=== PATIENT | female | born 1995 | race Caucasian/White ===

== ENCOUNTER 2020-08-09 08:18 | Outpatient (REF) | payer MEDICAID, SELFPAY | END 2020-08-09 08:19 | disposition home or self-care (01) | LOC: HO.LAB 08:18 | PROVIDERS: Visit Provider Internal Medicine | DX: Z20.828 Contact with and (suspected) exposure to other viral communicable diseases (principal) | CPT/HCPCS: 36415; 87635 ==

== ENCOUNTER 2020-12-29 13:00 | Outpatient (REF) | payer MEDICAID, SELFPAY | END 2020-12-29 13:01 | disposition home or self-care (01) | LOC: HO.LAB 13:00 | PROVIDERS: Visit Provider Internal Medicine | DX: Z20.822 Contact with and (suspected) exposure to COVID-19 (principal) | CPT/HCPCS: 36415; C9803; U0003; U0005 ==

== ENCOUNTER 2021-01-07 21:04 | Emergency (ER) | payer MEDICAID, SELFPAY ==
[2021-01-07 21:16] VITALS: BP 112/65; PULSE 82; RESP 16; TEMP 37.3; O2SAT 100; BMI 18.8
--- NOTE | 2021-01-07 22:15 | ED.GENADULT ---
HPI - General Adult General Chief complaint: Ear Problems Stated complaint: Earache Time Seen by Provider: 01/07/21 21:55 Source: patient Mode of arrival: ambulatory Limitations: no limitations History of Present Illness HPI narrative: 25-year-old female who presents emergency department for evaluation of headache, nausea and right ear pain. The patient states she has a history of migraine headaches. She states that she has been getting intermittent headaches over the past month. She states that this morning she woke up with a migraine headache. She states the pain is located on the right side of her head and the pain is a constant, throbbing sensation. The pain is 9/10 at its worst. She states she is feeling weak. She denied fever, chills. She states she does have associated nausea. She states that she has been getting intermittent nausea over the past month, she states that over last for about 3 days and then resolve for 1 day and then come back. The patient states that her menstrual periods are irregular and she has not had a menstrual period in several months. She is sexually active but she does not believe that she is . Patient states he has also been having right ear pain for 1 month. She states the pain is a constant, sharp, stabbing pain which is worse if she pushes on her ear. She states that there is a slight discharge coming from here as well. She denies any decreased hearing. She states she had a similar ear pain 1 year prior and was treated with ear drops. Related Data Previous Rx's Medication Instructions Recorded metoclopramide HCl [Reglan] 10 mg PO Q6H PRN #14 tab 01/08/21 metoclopramide HCl [Reglan] 10 mg PO Q6H PRN #20 tab 01/08/21 [id number]-[id number]-VX 4 drp OTIC (EAR) RIGHT QID 10 Days 01/08/21 ml ffytdvqg-copuztpxi-TM 4 drp OTIC (EAR) RIGHT QID 10 Days 01/08/21 #10 ml Allergies Allergy/AdvReac Type Severity Reaction Status Date / Time No Known Allergies Allergy Verified 01/07/21 21:21 Review of Systems Review of Systems: Yes all other systems are reviewed and are negative PMFSH Past [facility] History [facility] Narrative: Patient has a history of migraine headaches, irregular menstrual and otitis externa. She denies tobacco, alcohol and drug use. Medical History (Updated 01/08/21 @ 00:18 by Kingston Meyer MD) Asthma Seizures Social History Social History Alcohol intake: never Smoked in Last 30 Days: No Any prior treatment program specific to substance use: No Advance Directives: No Advance Directives Information Provided: Yes Physical Exam Vital Signs: Vital Signs: Last Vital Signs Temp 99.1 F 01/07/21 21:16 Pulse 82 01/07/21 21:16 Resp 16 01/07/21 21:16 BP 112/65 01/07/21 21:16 Pulse Ox 100 01/07/21 21:16 Body Mass Index 18.8 Const: General: cooperative and healthy appearing Nutritional Appearance: thin Orientation/consciousness: oriented to person and oriented to place Limitations: no limitations HENMT: Head: Yes normal to inspection, Yes normocephalic and Yes atraumatic Ears: TM's normal bilaterally and Abnormal EAC present EAC tenderness on the right (Moderate); no cerumen impaction and no erythema General nose exam: Normal external nose present Face and sinus: Yes normal facial exam Mouth: Normal oral and palatal mucosa present Throat: Yes posterior oropharynx normal Eyes: Periorbital: periorbital findings normal Eyelids: Yes eyelids normal Conjunctivae: conjunctivae normal Sclerae: sclerae normal Corneas: corneas normal Pupils: Equal, round and reactive pupils present Direct Ophthalmoscopy: normal light reflex Neck: Neck: Yes full ROM, Yes no lymphadenopathy, Yes no meningeal signs, Yes trachea midline and Yes supple Chest: Chest palpation & inspection: normal inspection of the chest and normal palpation of entire chest wall Resp: Effort & Inspection: normal respiratory effort and able to speak in complete sentences Auscultation: clear to auscultation bilaterally Cardio: Rate: regular rate Rhythm: regular rhythm Heart sounds: S1 normal heart sound present, S2 normal heart sound present and no murmurs GI: Inspection: Yes normal to inspection Palpation (GI): Soft to palpation, nontender, no guarding, not rigid and No hepatosplenomegaly present : General: Yes no CVA tenderness Back/Spine/Pelvis: Back: no CVA tenderness Cervical Spine: normal cervical lordosis Thoracic/Lumbar Spine: thoracic and lumbar spine normal to inspection Skin: Lesions: no lesions Rashes: no rashes Wounds: no wounds Neuro: General: oriented to person, oriented to place and no meningeal signs Cranial nerves: Yes CN's II-XII intact bilaterally and Yes Equal, round and reactive pupils present Cognition (Neuro): normal cognition Motor exam (neuro): 5/5 motor strength present throughout Extrem: General: Yes normal to inspection and Yes full ROM Psych: Appearance: well kempt Mental Status: mental status grossly normal Speech and movement: Normal speech and movement present Affect: normal affect Attitude: cooperative Thought process: Normal thought process present Thought content: Normal thought content present Course Course Course Narrative: 25-year-old female who presents emergency department for evaluation of headache, nausea and right ear pain. Patient's physical examination is consistent with a right otitis externa. Her headache is most likely secondary to her migraine syndrome. She does have irregular menstrual periods and I will check a urine test on her. The patient's migraine headache was treated with Reglan 10 mg orally, Benadryl 50 mg orally and Tylenol 975 mg orally. 0010: The patient's urine test was positive. The patient's quantitative beta HCG was only 63. I did discuss this with the patient, is possible that she may be very early on in her . The patient will need a repeat quantitative beta-hCG in 1-2 weeks but I told her she should assume that she is . We were unable to give her oral Reglan the patient is feeling better and I will prescribe her regular and for her headache, nausea and vomiting. The patient does have a right ear infection and I will treat this with Cortisporin drops, 4 times a day for 7 days. Medical Decision Making Lab Data Labs: Lab Results 01/07/21 01/07/21 Range/Units 22:23 23:22 Beta HCG, Quant 63 mIU/mL Urine Test POSITIVE H (NEGATIVE) Discharge Plan Discharge Clinical Impression: Otitis externa Qualifiers: Otitis externa type: unspecified type Chronicity: acute Laterality: right Qualified Code(s): H60.501 - Unspecified acute noninfective otitis externa, right ear Qualifiers: Weeks of gestation: less than 8 weeks Qualified Code(s): Z3A.01 - Less than 8 weeks gestation of Headache, migraine Qualifiers: Migraine type: without aura Status migrainosus presence: without status migrainosus Intractability: not intractable Qualified Code(s): G43.009 - Migraine without aura, not intractable, without status migrainosus Patient Disposition: Home, Self-Care Instructions: Otitis Externa (ED), Migraine Headache (ED), First Trimester (ED) Additional Instructions: Your right ear is infected, you have an external ear infection. Apply Cortisporin drops, 4 drops to the right ear canal, 4 times a day for 10 days. For headache and nausea take the following medications every 6 hours as needed: Extra-strength Tylenol 2 tablets orally Reglan (metoclopramide) 10 mg orally Your urine test was positive. Your blood test (quantitative beta hCG) was 63. This is a very low number and this could mean that you are very early in your or this could mean that you just have a low level of beta hCG in your blood and you are not . In order to figure this out, your doctor or the on-call ENERGY MANAGEMENT SPECIALIST needs to repeat your quantitative beta HCG blood test in 1-2 weeks to see if this number is going up. Until you get this repeat blood test you should assume that you are . Follow the 1st trimester instructions. Follow-up with your doctor in 2 days. Please return to the emergency department if your symptoms get worse or if you develop any symptoms that are concerning to you. Prescriptions: New metoclopramide HCl [Reglan] 10 mg tablet 10 mg PO Q6H PRN (Reason: nausea and vomiting) Qty: 14 RF: 0 tzileqvt-mpxovkyeb-LY 3.5-10,000-1 mg/mL-unit/mL-% drops,suspension 4 drp otic (ear) right QID 10 Days RF: 0 metoclopramide HCl [Reglan] 10 mg tablet 10 mg PO Q6H PRN (Reason: nausea and vomiting) Qty: 20 RF: 0 loodtkzs-jouwcckni-FM 3.5-10,000-1 mg/mL-unit/mL-% drops,suspension 4 drp otic (ear) right QID 10 Days Qty: 10 RF: 0
[2021-01-07 22:33] LABS: UPreg QC Valid YES; Urine Pregnancy POSITIVE (NEGATIVE)
[2021-01-07] MEDS: Acetaminophen 325 MG TABLET 975 MG PO (22:48)
[2021-01-07] MEDS: diphenhydrAMINE HCL 25 MG TABLET 50 MG PO (22:48)
[2021-01-07 23:52] LABS: HCG Quantitative 63 mIU/mL
== END 2021-01-08 00:46 | disposition home or self-care (01) ==
PROVIDERS: Emergency Provider Emergency Medicine Emergency Medical Services
DX: O26.891 Other specified pregnancy related conditions, first trimester (principal); H60.501 Unspecified acute noninfective otitis externa, right ear; G43.009 Migraine without aura, not intractable, without status migrainosus; Z3A.01 Less than 8 weeks gestation of pregnancy
CPT/HCPCS: 36415; 81025; 84702; 99283; Q0163

== ENCOUNTER 2021-02-04 20:51 | Emergency (ER) | payer MEDICAID, SELFPAY ==
--- NOTE | ~2021-02-04 | US_ITS ---
EXAMINATION: ULTRASOUND PELVIC, COMPLETE CLINICAL INFORMATION: Status post chemical . Pain. Bleeding. COMPARISON: None. TECHNIQUE: Transabdominal and transvaginal imaging was performed. Transvaginal imaging was performed for further evaluation of the endometrium and adnexa. FINDINGS: The uterus is of normal size and echogenicity measuring 10.7 x 4.2 x 5.3 cm. There is no demonstrable intrauterine gestational sac. Within the mid and upper body, the endometrium is of normal size and echogenicity measuring 6 mm. Within the lower uterine segment extending into the cervix, there is an area of heterogeneous soft tissue without increased vascularity. Both ovaries are of normal size and echogenicity. The right measures 4.8 x 3.0 x 3.4 cm for a volume of 25.7 mL. This measurement includes an approximately 2.4 cm likely corpus luteum. The left measures 4.3 x 2.1 x 2.4 cm for a volume of 11.1 mL. There is a small amount of pelvic free fluid. US/US OB transvaginal IMPRESSION: Mixed echogenicity soft tissue within the lower uterine segment extending into the upper cervix which could correspond to passing products of conception. There is no increased vascularity at this location. The remainder of the endometrium is unremarkable. No intrauterine gestational sac is identified.
--- NOTE | ~2021-02-04 | US_ITS ---
EXAMINATION: ULTRASOUND PELVIC, COMPLETE CLINICAL INFORMATION: Status post chemical . Pain. Bleeding. COMPARISON: None. TECHNIQUE: Transabdominal and transvaginal imaging was performed. Transvaginal imaging was performed for further evaluation of the endometrium and adnexa. FINDINGS: The uterus is of normal size and echogenicity measuring 10.7 x 4.2 x 5.3 cm. There is no demonstrable intrauterine gestational sac. Within the mid and upper body, the endometrium is of normal size and echogenicity measuring 6 mm. Within the lower uterine segment extending into the cervix, there is an area of heterogeneous soft tissue without increased vascularity. Both ovaries are of normal size and echogenicity. The right measures 4.8 x 3.0 x 3.4 cm for a volume of 25.7 mL. This measurement includes an approximately 2.4 cm likely corpus luteum. The left measures 4.3 x 2.1 x 2.4 cm for a volume of 11.1 mL. There is a small amount of pelvic free fluid. US/US OB <= 14 weeks fetus IMPRESSION: Mixed echogenicity soft tissue within the lower uterine segment extending into the upper cervix which could correspond to passing products of conception. There is no increased vascularity at this location. The remainder of the endometrium is unremarkable. No intrauterine gestational sac is identified.
[2021-02-04 20:54] VITALS: BP 131/65; PULSE 79; RESP 16; TEMP 37.2; O2SAT 99; BMI 18.8
--- NOTE | 2021-02-04 22:06 | ED_ITS ---
HPI - General Chief complaint: Vaginal Bleeding Stated complaint: Vaginal bleeding/?8 Weeks preg Time Seen by Provider: 02/04/21 22:02 Source: patient Mode of arrival: ambulatory Limitations: no limitations History of Present Illness HPI Narrative: Patient comes emergency room complaining of abdominal cramping. Patient states this morning [facility] . Patient states she is approximately 8 to 10 weeks of gestational age. Patient is a . Patient states that she has mild vaginal bleeding, intense abdominal cramping. MD Complaint: abdominal pain Related Data Previous Rx's Medication Instructions Recorded metoclopramide HCl [Reglan] 10 mg PO Q6H PRN #14 tab 01/08/21 metoclopramide HCl [Reglan] 10 mg PO Q6H PRN #20 tab 01/08/21 [id number]-uyzsdqdmy-KZ 4 drp OTIC (EAR) RIGHT QID 10 Days 01/08/21 ml usaqxudx-wqwsxrzgq-HA 4 drp OTIC (EAR) RIGHT QID 10 Days 01/08/21 #10 ml nitrofurantoin monohyd/m-cryst 100 mg PO Q12H 7 Days #14 cap 02/05/21 [Macrobid] Allergies Allergy/AdvReac Type Severity Reaction Status Date / Time No Known Allergies Allergy Verified 01/07/21 21:21 Review of Systems Review of Systems: Constitutional : No Weight loss, No Fever, No Chills, No Night Sweats, No Fatigue, No Malaise ENT/Mouth : No Hearing loss, No Ear Pain, No Nasal Congestion, No Sinus Pain, No Hoarseness, No sore throat, No Rhinorrhea, No Swallowing Difficulty Eyes: No Eye Pain, No Swelling, No Redness, No Foreign Body, No Discharge, No Vision Changes Cardiovascular : No Chest Pain, No SOB, No Dyspnea on Exertion, No Orthopnea, No Edema, No Palpitations Respiratory : No Cough, No Sputum, No Wheezing, No Smoke Exposure, No Dyspnea Gastrointestinal : No Nausea, No Vomiting, No Diarrhea, No Constipation, compla ining of suprapubic cramping, No Hematochezia, No Melena Genitourinary : Currently bleeding and cramping after taking a medical pill, No Flank Pain, No Urinary Flow Changes, No Hesitancy Musculoskeletal : No joint pain, No Myalgias, No Joint Swelling Skin : No Skin Lesions, No rash Neuro : No Weakness, No Numbness, No Paresthesias, No Loss of Consciousness, No Dizziness, No Headache Psych : No Anxiety/Panic, No Depression, No SI/HI/AH/VH, No Social Issues, Heme/Lymph: No Bruising, No Bleeding,No Lymphadenopathy Endocrine : No Polyuria, No Polydipsia, No Temperature Intolerance [facility] Past Medical History Medical History Asthma Seizures Social History Social History Alcohol intake: unknown Smoking Status: Unknown if ever smoked Use of substances other than those prescribed or required for medical reasons: Unknown Advance Directives: No Advance Directives Information Provided: Yes Physical Exam Vital Signs: Vital Signs: Last Vital Signs Temp 98.9 F 02/04/21 20:54 Pulse 72 02/05/21 00:00 Resp 15 02/05/21 00:00 BP 100/57 L 02/05/21 00:00 Pulse Ox 98 02/05/21 00:00 Body Mass Index 18.8 Appearance: Alert. Oriented X3. No acute distress. Eyes: Pupils equal, round and reactive to light. ENT: Pharynx normal. Neck: Normal inspection. Neck supple. No lymph nodes noted. No crepitus CVS: Normal heart rate and rhythm. Pulses normal. Normal S1 and S2 Respiratory: No respiratory distress. Breath sounds normal. No Wheezing. No rales Abdomen: Soft, mild discomfort to palpation over the suprapubic area. No rigidity. No distention. : Cervical os open, moderate amount of tissue removed from the cervical os, no active bleeding Skin: Skin warm and dry. Normal skin color. Normal skin turgor. Extremities: No lower extremity edema. No lower extremity edema. No Lacerations. No Rash Neuro: Oriented X 3. No motor deficit. No sensory deficit. Moving all extermities. No slurred speech. MDM - OB/Uterine Contractions Lab Data Result diagrams: 02/04/21 22:35 02/04/21 22:35 Labs: Lab Results 02/04/21 02/04/21 02/04/21 Range/Units 22:35 22:35 22:35 WBC 5.9 (4.8-10.8) X10*3/uL RBC 3.97 L (4.20-5.50) X10*6/uL Hgb 11.6 L (12.0-16.0) g/dl Hct 35.8 L (37-47) % MCV 90.2 (80-98) fL MCH 29.2 (27.0-33.0) pg MCHC 32.4 (31.0-35.0) g/dl RDW 13.2 (11.0-16.0) % Plt Count 247 (160-400) X10*3/uL MPV 9.9 (9.4-12.3) fL Immature Gran % (Auto) 0.2 (0.0-0.4) % Neut % (Auto) 59.1 (45-73) % Lymph % (Auto) 29.1 (20-40) % [place] % (Auto) 10.4 (2-11) % Eos % (Auto) 0.5 (0-4) % Baso % (Auto) 0.7 (0-2) % Lymph # (Auto) 1.7 (1.2-4.9) X10*3/uL [place] # (Auto) 0.6 (0.1-1.2) X10*3/uL Eos # (Auto) 0.0 (0.0-0.4) X10*3/uL Baso # (Auto) 0.0 (0.0-0.2) X10*3/uL Abs Immat Gran (auto) 0.01 (0.00-0.03) X10*3/uL Absolute Neuts (auto) 3.5 (2.0-8.3) X10*3/uL Absolute Nucleated RBC 0.000 (0.0-0.012) X10*3/uL Nucleated RBC % (auto) 0.0 (0.0-0.2) /100WBC Sodium 136 (135-145) mmol/L Potassium 4.1 (3.3-5.1) mmol/L Chloride 102 (96-108) mmol/L Carbon Dioxide 26 (22-29) mmol/L Anion Gap 12 (12-20) BUN 10 (9-16) mg/dL Creatinine 0.72 (0.5-1.4) mg/dL Estim Creat Clear Calc 87.0 Estimated GFR > 60 Random Glucose 82 (60-115) mg/dL Calcium 8.8 (8.4-10.2) mg/dL Total Bilirubin 0.5 (0.0-1.0) mg/dL Direct Bilirubin 0.2 (0.0-0.5) mg/dL AST 17 (5-31) U/L ALT 11 (0-31) U/L Alkaline Phosphatase 57 (39-117) U/L Total Protein 7.0 (6.5-8.0) g/dL Albumin 4.3 (3.5-5.0) g/dL Beta HCG, Quant 70385 mIU/mL Urine Color RED Urine Appearance TURBID Urine pH 6.5 (5.0-8.0) Ur Specific [place] 1.025 (1.005-1.025) Urine Protein 3+ H (NEG-TRACE) MG/DL Urine Glucose (UA) 100 H (NEG) MG/DL Urine Ketones 15 (NEG) MG/DL Urine Blood 3+ H (NEG) Urine Nitrite POS H (NEG) Ur Leukocyte Esterase 1+ H (NEG) Urine RBC TNTC H (0) /HPF Urine WBC 1-4 (0-4) /HPF Ur Squamous Epith Cells 1+ /LPF Urine Bacteria TRACE /LPF Blood Type 02/04/21 Range/Units 22:35 WBC (4.8-10.8) X10*3/uL RBC (4.20-5.50) X10*6/uL Hgb (12.0-16.0) g/dl Hct (37-47) % MCV (80-98) fL MCH (27.0-33.0) pg MCHC (31.0-35.0) g/dl RDW (11.0-16.0) % Plt Count (160-400) X10*3/uL MPV (9.4-12.3) fL Immature Gran % (Auto) (0.0-0.4) % Neut % (Auto) (45-73) % Lymph % (Auto) (20-40) % [place] % (Auto) (2-11) % Eos % (Auto) (0-4) % Baso % (Auto) (0-2) % Lymph # (Auto) (1.2-4.9) X10*3/uL [place] # (Auto) (0.1-1.2) X10*3/uL Eos # (Auto) (0.0-0.4) X10*3/uL Baso # (Auto) (0.0-0.2) X10*3/uL Abs Immat Gran (auto) (0.00-0.03) X10*3/uL Absolute Neuts (auto) (2.0-8.3) X10*3/uL Absolute Nucleated RBC (0.0-0.012) X10*3/uL Nucleated RBC % (auto) (0.0-0.2) /100WBC Sodium (135-145) mmol/L Potassium (3.3-5.1) mmol/L Chloride (96-108) mmol/L Carbon Dioxide (22-29) mmol/L Anion Gap (12-20) BUN (9-16) mg/dL Creatinine (0.5-1.4) mg/dL Estim Creat Clear Calc Estimated GFR Random Glucose (60-115) mg/dL Calcium (8.4-10.2) mg/dL Total Bilirubin (0.0-1.0) mg/dL Direct Bilirubin (0.0-0.5) mg/dL AST (5-31) U/L ALT (0-31) U/L Alkaline Phosphatase (39-117) U/L Total Protein (6.5-8.0) g/dL Albumin (3.5-5.0) g/dL Beta HCG, Quant mIU/mL Urine Color Urine Appearance Urine pH (5.0-8.0) Ur Specific [place] (1.005-1.025) Urine Protein (NEG-TRACE) MG/DL Urine Glucose (UA) (NEG) MG/DL Urine Ketones (NEG) MG/DL Urine Blood (NEG) Urine Nitrite (NEG) Ur Leukocyte Esterase (NEG) Urine RBC (0) /HPF Urine WBC (0-4) /HPF Ur Squamous Epith Cells /LPF Urine Bacteria /LPF Blood Type A Positive Imaging Data US - abdomen: Radiologist's impression: The uterus is of normal size and echogenicity measuring 10.7 x 4.2 x 5.3 cm. There is no demonstrable intrauterine gestational sac. Within the mid and upper body, the endometrium is of normal size and echogenicity measuring 6 mm. Within the lower uterine segment extending into the cervix, there is an area of heterogeneous soft tissue without increased vascularity. Both ovaries are of normal size and echogenicity. The right measures 4.8 x 3.0 x 3.4 cm for a volume of 25.7 mL. This measurement includes an approximately 2.4 cm likely corpus luteum. The left measures 4.3 x 2.1 x 2.4 cm for a volume of 11.1 mL. There is a small amount of pelvic free fluid. US/US OB transvaginal IMPRESSION: Mixed echogenicity soft tissue within the lower uterine segment extending into the upper cervix which could correspond to passing products of conception. There is no increased vascularity at this location. The remainder of the endometrium is unremarkable. No intrauterine gestational sac is identified. Discharge Plan Discharge Clinical Impression: Medical UTI (urinary tract infection) Qualifiers: Urinary tract infection type: site unspecified Hematuria presence: without hematuria Qualified Code(s): N39.0 - Urinary tract infection, site not specified Patient Disposition: Home, Self-Care Instructions: Urinary Tract Infection in Women (ED) Additional Instructions: You may alternate ibuprofen and Tylenol for the abdominal cramping. Please follow-up with your primary care physician and your OBGYN. If you have any fever, chills, significant vaginal bleeding, please return to the emergency room. Prescriptions: New nitrofurantoin monohyd/m-cryst [Macrobid] 100 mg capsule 100 mg PO Q12H 7 Days Qty: 14 RF: 0 No Action metoclopramide HCl [Reglan] 10 mg tablet 10 mg PO Q6H PRN (Reason: nausea and vomiting) Qty: 14 RF: 0 pjfnargq-pofstlfll-PA 3.5-10,000-1 mg/mL-unit/mL-% drops,suspension 4 drp otic (ear) right QID 10 Days RF: 0 metoclopramide HCl [Reglan] 10 mg tablet 10 mg PO Q6H PRN (Reason: nausea and vomiting) Qty: 20 RF: 0 uixzdopv-hxeyfxuqq-JA 3.5-10,000-1 mg/mL-unit/mL-% drops,suspension 4 drp otic (ear) right QID 10 Days Qty: 10 RF: 0 Referrals: Scot Hernandez MD [Physician] - 2 days
[2021-02-04] MEDS: Ketorolac Tromethamine 60 MG/2 ML VIAL IM (22:44)
[2021-02-04 22:56] LABS: Basophils Percent Auto 0.7 % (0-2); Eosinophils Percent Auto 0.5 % (0-4); Hematocrit 35.8 % (37-47); Hemoglobin 11.6 g/dl (12.0-16.0); Imm Gran Abs Auto 0.01 X10*3/uL (0.00-0.03); Imm Gran Pct Auto 0.2 % (0.0-0.4); Lymphocytes Absolute Auto 1.7 X10*3/uL (1.2-4.9); Lymphocytes Percent Auto 29.1 % (20-40); MANUAL DIFF FLAG NO; Mean Corpuscular HGB Conc 32.4 g/dl (31.0-35.0); Mean Corpuscular Hemoglobin 29.2 pg (27.0-33.0); Mean Corpuscular Volume 90.2 fL (80-98); Mean Platelet Volume 9.9 fL (9.4-12.3); Monocytes Absolute Auto 0.6 X10*3/uL (0.1-1.2); Monocytes Percent Auto 10.4 % (2-11); Neutrophils Absolute Auto 3.5 X10*3/uL (2.0-8.3); Neutrophils Percent Auto 59.1 % (45-73); Platelet Count 247 X10*3/uL (160-400); Red Blood Count 3.97 X10*6/uL (4.20-5.50); Red Cell Distribution Width 13.2 % (11.0-16.0); White Blood Count 5.9 X10*3/uL (4.8-10.8)
[2021-02-04 23:23] LABS: Alanine Aminotransferase 11 U/L (0-31); Albumin Level 4.3 g/dL (3.5-5.0); Alkaline Phosphatase 57 U/L (39-117); Anion Gap 12 (12-20); Aspartate Amino Transferase 17 U/L (5-31); Bilirubin Direct 0.2 mg/dL (0.0-0.5); Bilirubin Total 0.5 mg/dL (0.0-1.0); Blood Urea Nitrogen 10 mg/dL (9-16); Calcium 8.8 mg/dL (8.4-10.2); Carbon Dioxide 26 mmol/L (22-29); Chloride 102 mmol/L (96-108); Estimated Glomerular Filt Rate > 60; Glucose Random 82 mg/dL (60-115); Potassium 4.1 mmol/L (3.3-5.1); Sodium 136 mmol/L (135-145)
[2021-02-04 23:29] LABS: Glucose Urine UA 100 MG/DL (NEG); Leukocyte Esterase Urine 1+ (NEG); Nitrite Urine POS (NEG); PH 6.5 (5.0-8.0); Specific Gravity - Urine 1.025 (1.005-1.025); UACC Culture Trigger YES; Urine Blood 3+ (NEG); Urine Ketones 15 MG/DL (NEG); Urine Protein 3+ MG/DL (NEG-TRACE)
[2021-02-04 23:30] LABS: Appearance Urine TURBID; Color Urine RED
[2021-02-04 23:36] LABS: Bacteria Urine TRACE /LPF; RBC Urine TNTC /HPF (0); Squamous Epithelial Cell Urine 1+ /LPF
[2021-02-05] VITALS: BP 100/57; PULSE 72; RESP 15; O2SAT 98
[2021-02-05] MEDS: Nitrofurantoin Monohyd/M-Cryst 100 MG CAPSULE PO (01:57)
== END 2021-02-05 02:08 | disposition home or self-care (01) ==
PROVIDERS: Emergency Provider Emergency Medicine
DX: O20.9 Hemorrhage in early pregnancy, unspecified (principal); O23.41 Unspecified infection of urinary tract in pregnancy, first trimester; Z3A.08 8 weeks gestation of pregnancy
CPT/HCPCS: 36415; 76801; 76817; 80048; 80076; 81001; 81003; 84702; 85025; 86900; 86901; 87086; 96372; 99284; J1885

== ENCOUNTER 2021-10-27 16:23 | Day surgery (SDC) | payer MEDICAID, SELFPAY ==
--- NOTE | ~2021-10-27 | US_ITS ---
EXAMINATION: US OBSTETRICAL ULTRASOUND CLINICAL INFORMATION: Miscarriage. Question ectopic. COMPARISON: None. LMP: 09/19/2021. Gestational age by maternal dates is 5 weeks 3 days. Estimated date of delivery by maternal dates is 06/26/2022. TECHNIQUE: Transabdominal and endovaginal sonographic evaluation of the pelvis. FINDINGS: Anteverted uterus. Thin homogenous endometrium measuring 0.4 cm in thickness. No intrauterine gestational sac. MATERNAL ADNEXA: The right maternal ovary measures 3.5 x 2.3 x 2.3 cm. Is a complex structure adjacent to the left ovary in the left adnexal region measuring 1.7 x 3.3 x 1.5 cm. This has mixed internal echogenicity. There is no definite pole/ heart rate identified. The left maternal ovary measures 2.7 x 1.5 x 2 cm. Large volume of pelvic free fluid. US/US OB <= 14 weeks fetus IMPRESSION: No intrauterine identified. Complex structure in the left adnexa adjacent to the left ovary. This could represent an ectopic . There is a large volume of pelvic free fluid. This critical result was discussed with Darryn Shaw MD by telephone at 10/27/2021 9:18 PM and it was ascertained that the content and urgency of the report was understood at the time of direct communication.
[2021-10-27 17:35] VITALS: BP 108/69; PULSE 83; RESP 12; TEMP 37.1; O2SAT 100; BMI 17.4
[2021-10-27 19:22] LABS: MANUAL DIFF FLAG NO
[2021-10-27 19:24] LABS: Basophils Percent Auto 0.4 % (0-2); Eosinophils Percent Auto 0.2 % (0-4); Hemoglobin 11.4 g/dl (12.0-16.0); Lymphocytes Absolute Auto 1.6 X10*3/uL (1.2-4.9); Lymphocytes Percent Auto 30.1 % (20-40); Mean Corpuscular HGB Conc 32.6 g/dl (31.0-35.0); Mean Corpuscular Hemoglobin 29.2 pg (27.0-33.0); Mean Corpuscular Volume 89.7 fL (80.0-98.0); Mean Platelet Volume 9.1 fL (9.4-12.3); Monocytes Absolute Auto 0.4 X10*3/uL (0.1-1.2); Monocytes Percent Auto 7.2 % (2-11); Neutrophils Absolute Auto 3.4 x10*3/uL (2.0-8.3); Neutrophils Percent Auto 62.1 % (45-73); Platelet Count 214 X10*3/uL (160-400); Red Cell Distribution Width 13.4 % (11.0-16.0); White Blood Count 5.4 X10*3/uL (4.8-10.8)
[2021-10-27 19:42] LABS: Alanine Aminotransferase 9 U/L (0-31); Albumin Level 4.6 g/dL (3.5-5.0); Alkaline Phosphatase 74 U/L (39-117); Anion Gap 13 (12-20); Aspartate Amino Transferase 15 U/L (5-31); Bilirubin Total 0.8 mg/dL (0.0-1.0); Blood Urea Nitrogen 9 mg/dL (9-16); Calcium 9.7 mg/dL (8.4-10.2); Carbon Dioxide 25 mmol/L (22-29); Chloride 106 mmol/L (96-108); Creatinine Clr Calc Pharmacy 74.2; Estimated Glomerular Filt Rate > 60; Glucose Random 85 mg/dL (60-115); Sodium 140 mmol/L (135-145); Total Protein 7.6 g/dL (6.5-8.0)
[2021-10-27 19:48] LABS: HCG Quantitative 1853 mIU/mL
[2021-10-27 20:07] VITALS: BP 112/57; PULSE 68; RESP 16; TEMP 37.3; O2SAT 99
--- NOTE | 2021-10-27 20:11 | ED.ABDPAIN ---
HPI - Abdominal Pain General Chief Complaint: Abdominal Pain Stated Complaint: abd pain - ?threatened Time Seen by Provider: 10/27/21 20:11 Source: patient Mode of arrival: ambulatory Limitations: no limitations History of Present Illness HPI narrative: Patient about 4 weeks last menstrual period was on 09/19 she has been bleeding since 10/13 without any clots, checked the test today at [facility] which was positive comes here as she been having left lower quadrant pain for last 4 days. Patient is 2 para 1 with 1 miscarriage 02/23 patient blood type is A+ve Related Data Previous Rx's Medication Instructions Recorded metoclopramide HCl 10 mg tablet 10 mg PO Q6H PRN #14 tab 01/08/21 (Reglan) metoclopramide HCl 10 mg tablet 10 mg PO Q6H PRN #20 tab 01/08/21 (Reglan) uyqwjioo-hkeycnucc-myvlpegrs 3.5 4 drp OTIC (EAR) RIGHT QID 10 Days 01/08/21 mg-10,000 unit/mL-1 % ear ml drops,susp erceuyng-xxuokslho-stpnbuvpx 3.5 4 drp OTIC (EAR) RIGHT QID 10 Days 01/08/21 mg-10,000 unit/mL-1 % ear #10 ml drops,susp nitrofurantoin 100 mg PO Q12H 7 Days #14 cap 02/05/21 monohydrate/macrocrystals 100 mg capsule (Macrobid) Allergies Allergy/AdvReac Type Severity Reaction Status Date / Time No Known Allergies Allergy Verified 01/07/21 21:21 Review of Systems Review of Systems Yes all other systems are reviewed and are negative Physical Exam Vital Signs: Vital Signs: Last Vital Signs Temp 99.1 F 10/27/21 20:07 Pulse 68 10/27/21 20:07 Resp 16 10/27/21 20:07 BP 112/57 L 10/27/21 20:07 Pulse Ox 99 10/27/21 20:07 BMI result Body Mass Index 17.4 Appearance: Alert. Oriented X3. No acute distress. Eyes: No pallor or icterus ENT: Pharynx normal. Oral Mucosa moist Neck: Normal inspection. Neck supple. CVS: Normal heart rate and rhythm. Pulses normal. Respiratory: No respiratory distress. Equal air entry bilateral, Abdomen: Soft , deep tenderness left lower quadrant and suprapubic area no rebound tenderness or guarding, Bowel sounds are present, no mass palpable, no CVA tenderness Skin: Skin warm and dry. Normal skin color. Normal skin turgor. Extremities: No lower extremity edema. Neuro: Oriented X 3. No motor deficit. MDM - Abdominal Pain MDM Narrative Medical decision making narrative: Patient about 4-5 weeks with HCG of 1853 came with left lower quadrant abdominal pain with vaginal bleeding ultrasound showed no IUP with complex structure in left adnexa likely ectopic with large amount pelvic fluid hemodynamically stable case discussed Dr. Hernandez load out person will take the patient to OR for laparoscopic removal of ectopic Lab Data Attestation: I reviewed the patient's lab results. Result diagrams: 10/27/21 19:16 10/27/21 19:16 Labs: Lab Results 10/27/21 10/27/21 10/27/21 Range/Units 19:16 19:16 19:16 WBC 5.4 (4.8-10.8) X10*3/uL RBC 3.90 L (4.20-5.50) X10*6/uL Hgb 11.4 L (12.0-16.0) g/dl Hct 35.0 L (37.0-47.0) % MCV 89.7 (80.0-98.0) fL MCH 29.2 (27.0-33.0) pg MCHC 32.6 (31.0-35.0) g/dl RDW 13.4 (11.0-16.0) % Plt Count 214 (160-400) X10*3/uL MPV 9.1 L (9.4-12.3) fL Immature Gran % (Auto) 0.0 (0.0-0.4) % Neut % (Auto) 62.1 (45-73) % Lymph % (Auto) 30.1 (20-40) % [place] % (Auto) 7.2 (2-11) % Eos % (Auto) 0.2 (0-4) % Baso % (Auto) 0.4 (0-2) % Lymph # (Auto) 1.6 (1.2-4.9) X10*3/uL [place] # (Auto) 0.4 (0.1-1.2) X10*3/uL Eos # (Auto) 0.0 (0.0-0.4) X10*3/uL Baso # (Auto) 0.0 (0.0-0.2) X10*3/uL Abs Immat Gran (auto) 0.00 (0.00-0.03) X10*3/uL Absolute Neuts (auto) 3.4 (2.0-8.3) x10*3/uL Absolute Nucleated RBC 0.000 (0.0-0.012) X10*3/uL Nucleated RBC % (auto) 0.0 (0.0-0.2) /100WBC Sodium 140 (135-145) mmol/L Potassium 4.0 (3.3-5.1) mmol/L Chloride 106 (96-108) mmol/L Carbon Dioxide 25 (22-29) mmol/L Anion Gap 13 (12-20) BUN 9 (9-16) mg/dL Creatinine 0.77 (0.5-1.4) mg/dL Estim Creat Clear Calc 74.2 Estimated GFR > 60 Random Glucose 85 (60-115) mg/dL Calcium 9.7 D (8.4-10.2) mg/dL Total Bilirubin 0.8 (0.0-1.0) mg/dL AST 15 (5-31) U/L ALT 9 (0-31) U/L Alkaline Phosphatase 74 D (39-117) U/L Total Protein 7.6 (6.5-8.0) g/dL Albumin 4.6 (3.5-5.0) g/dL Beta HCG, Quant 1853 mIU/mL Urine Color Urine Appearance Urine pH (5.0-8.0) Ur Specific [place] (1.005-1.025) Urine Protein (NEG-TRACE) MG/DL Urine Glucose (UA) (NEG) MG/DL Urine Ketones (NEG) MG/DL Urine Blood (NEG) Urine Nitrite (NEG) Ur Leukocyte Esterase (NEG) Urine RBC (0) /HPF Urine WBC (0-4) /HPF Ur Squamous Epith Cells /LPF Urine Bacteria /LPF Urine Mucus /LPF COVID-19 (KATE) (Negative) COVID-19 Clin Com Blood Type Antibody Screen 10/27/21 10/27/21 10/27/21 Range/Units 20:11 21:32 22:13 WBC (4.8-10.8) X10*3/uL RBC (4.20-5.50) X10*6/uL Hgb (12.0-16.0) g/dl Hct (37.0-47.0) % MCV (80.0-98.0) fL MCH (27.0-33.0) pg MCHC (31.0-35.0) g/dl RDW (11.0-16.0) % Plt Count (160-400) X10*3/uL MPV (9.4-12.3) fL Immature Gran % (Auto) (0.0-0.4) % Neut % (Auto) (45-73) % Lymph % (Auto) (20-40) % [place] % (Auto) (2-11) % Eos % (Auto) (0-4) % Baso % (Auto) (0-2) % Lymph # (Auto) (1.2-4.9) X10*3/uL [place] # (Auto) (0.1-1.2) X10*3/uL Eos # (Auto) (0.0-0.4) X10*3/uL Baso # (Auto) (0.0-0.2) X10*3/uL Abs Immat Gran (auto) (0.00-0.03) X10*3/uL Absolute Neuts (auto) (2.0-8.3) x10*3/uL Absolute Nucleated RBC (0.0-0.012) X10*3/uL Nucleated RBC % (auto) (0.0-0.2) /100WBC Sodium (135-145) mmol/L Potassium (3.3-5.1) mmol/L Chloride (96-108) mmol/L Carbon Dioxide (22-29) mmol/L Anion Gap (12-20) BUN (9-16) mg/dL Creatinine (0.5-1.4) mg/dL Estim Creat Clear Calc Estimated GFR Random Glucose (60-115) mg/dL Calcium (8.4-10.2) mg/dL Total Bilirubin (0.0-1.0) mg/dL AST (5-31) U/L ALT (0-31) U/L Alkaline Phosphatase (39-117) U/L Total Protein (6.5-8.0) g/dL Albumin (3.5-5.0) g/dL Beta HCG, Quant mIU/mL Urine Color YELLOW Urine Appearance HAZY Urine pH 6.0 (5.0-8.0) Ur Specific [place] >= 1.030 H (1.005-1.025) Urine Protein 1+ H (NEG-TRACE) MG/DL Urine Glucose (UA) NEG (NEG) MG/DL Urine Ketones >=80 (NEG) MG/DL Urine Blood 3+ H (NEG) Urine Nitrite NEG (NEG) Ur Leukocyte Esterase NEG (NEG) Urine RBC 1-4 (0) /HPF Urine WBC 0 (0-4) /HPF Ur Squamous Epith Cells 1+ /LPF Urine Bacteria 1+ /LPF Urine Mucus 1+ /LPF COVID-19 (KATE) Negative (Negative) COVID-19 Clin Com See Note Blood Type A Positive Antibody Screen NEGATIVE Discharge Plan Discharge Clinical Impression: Ectopic , tubal Qualifiers: Intrauterine status: without intrauterine Laterality: left Qualified Code(s): O00.102 - Left tubal without intrauterine Patient Disposition: Admitted As Inpatient [facility]LY [facility] Past Medical History Medical History Asthma Seizures Social History Social History Alcohol intake: unknown Advance Directives: No Advance Directives Information Provided: No Patient : Yes
[2021-10-27 20:20] LABS: Appearance Urine HAZY; Color Urine YELLOW; Glucose Urine UA NEG (NEG); Leukocyte Esterase Urine NEG (NEG); Nitrite Urine NEG (NEG); Specific Gravity - Urine >= 1.030 (1.005-1.025); UACC Culture Trigger NO; Urine Blood 3+ (NEG); Urine Ketones >=80 MG/DL (NEG); Urine Protein 1+ MG/DL (NEG-TRACE)
[2021-10-27 20:31] LABS: Bacteria Urine 1+ /LPF; Mucus Urine 1+ /LPF; Squamous Epithelial Cell Urine 1+ /LPF; WBC Urine 0 /HPF (0-4)
[2021-10-27] MEDS: 0.9 % Sodium Chloride 1,000 ML 999 ML IVCONT (21:51)
[2021-10-27 21:52] LABS: COVID-19 Test Negative (Negative)
--- NOTE | 2021-10-27 22:40 | PM.GYNCN ---
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 No associated urinary or GI symptoms. H&H was 11.4/35.0. 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 - Review of Systems Review of Systems ROS Unobtainable: All systems reviewed & are unremarkable except as noted in HPI and below Cardiovascular: Denies Palpatations, Loss of consciousness or Chest pain Respiratory: Denies Cough, Wheezing or Shortness of breath Musculoskeletal: Denies Low back pain Gastrointestinal: Denies Heartburn, Constipation, Diarrhea, Nausea or Vomiting Genitourinary: Denies Pain with urination, Burning with urination or Urinary frequency Neurological: Denies Migranes Psychological: Denies Depression OB PMFSH Past Medical History Medical History Asthma Seizures Social History Social History Alcohol intake: unknown Advance Directives: No Advance Directives Information Provided: No Patient : Yes Meds Allergies Allergy/AdvReac Type Severity Reaction Status Date / Time No Known Allergies Allergy Verified 01/07/21 21:21 Active Medications: Current Medications Sodium Chloride (Ns) 1,000 mls @ 999 mls/hr IVCONT .Q1H1M OMAR Stop: 10/27/21 22:45 Last Admin: 10/27/21 21:51 Dose: 999 mls/hr Documented by: WELL DRILL OPERATOR ROTARY DRILL Physical Exam Vitals Vital signs: Temp Pulse Resp BP Pulse Ox 99.1 F 68 16 112/57 L 99 10/27/21 20:07 10/27/21 20:07 10/27/21 20:07 10/27/21 20:07 10/27/21 20:07 BMI result Body Mass Index 17.4 Constitutional General Appearance: Healthy appearing, Well-nourished and Well-developed Psychiatric Mood and Affect: active and alert, normal mood and normal affect Skin Appearance: No rashes and No lesions Lungs Respiratory Effort: No intercostal retractions Auscultation: Clear to auscultation Cardiovascular Auscultation: RRR Abdomen Auscultation/Inspection/Palpation: Normal bowel sounds, Soft, Non-distended and Tenderness (Left lower quadrant) Female Genitalia (Pelvic) Exam: Deferred WELL DRILL OPERATOR ROTARY DRILL - Results Labs CBC & Chem 7: 10/27/21 19:16 10/27/21 19:16 Labs: Short CBC 10/27/21 Range/Units 19:16 WBC 5.4 (4.8-10.8) X10*3/uL Hgb 11.4 L (12.0-16.0) g/dl Hct 35.0 L (37.0-47.0) % Plt Count 214 (160-400) X10*3/uL BMP 10/27/21 19:16 Sodium 140 Potassium 4.0 Chloride 106 Carbon Dioxide 25 BUN 9 Creatinine 0.77 Calcium 9.7 D Liver Function 10/27/21 Range/Units 19:16 Total Bilirubin 0.8 (0.0-1.0) mg/dL AST 15 (5-31) U/L ALT 9 (0-31) U/L Alkaline Phosphatase 74 D (39-117) U/L Albumin 4.6 (3.5-5.0) g/dL Urine 10/27/21 Range/Units 20:11 Urine Color YELLOW Urine Appearance HAZY Urine pH 6.0 (5.0-8.0) Ur Specific [place] >= 1.030 H (1.005-1.025) Urine Protein 1+ H (NEG-TRACE) MG/DL Urine Glucose (UA) NEG (NEG) MG/DL Imaging US - abdomen: Radiologist's impression: ITS Impressions Ultrasound 10/27/21 20:52 IMPRESSION: No intrauterine identified. Complex structure in the left adnexa adjacent to the left ovary. This could represent an ectopic . There is a large volume of pelvic free fluid. This critical result was discussed with Darryn Shaw MD by telephone at 10/27/2021 9:18 PM and it was ascertained that the content and urgency of the report was understood at the time of direct communication. Assessment and Plan (1) Ectopic , tubal: Qualifiers: Intrauterine status: without intrauterine Laterality: left Qualified Code(s): O00.102 - Left tubal without intrauterine Status: Acute Discussed with the patient the results of her hCG being 1853 and the finding on ultrasound showing no IUP with 3.3 cm complex left adnexal structure and large amount of fluid in the pelvis differential diagnosis discussed with the patient in include but not limited to early IUP not identified by ultrasound with a ruptured ovarian cyst versus with possible rupture. Since there is a large amount of free fluid in the pelvis possibly hemoperitoneum, recommended the patient diagnostic laparoscopy with possible left salpingostomy, partial salpingectomy, possible ovarian cystectomy and a possible laparotomy all the pros and cons risks and benefits of the procedure were discussed with the patient, includes but not limited to bleeding, infection, possible injury to bladder, bowel, ureter, blood vessels, possible need for blood transfusion, possible negative impact on future fertility, possible SAB in case it is a bleeding corpus luteum cyst with an IUP. All Questions answered, the patient verbalized understanding , signed the consent and agreed with the plan
--- NOTE | 2021-10-27 23:02 | HO.ANESPROP2 ---
HPI - Anesthesia Eval Consult details Narrative: Ectopic [facility] Active Problems Active Problems: All Active Problems (Updated 10/27/21 @ 22:45 by Scot Hernandez MD) Ectopic , tubal (Acute) Past Medical History Medical History Asthma Seizures Family History Family history of problems with anesthesia: No Surgical History History of Problems with Anesthesia: No Social History Social History Alcohol intake: unknown Advance Directives: No Advance Directives Information Provided: No Patient : Yes Meds Allergies Allergy/AdvReac Type Severity Reaction Status Date / Time No Known Allergies Allergy Verified 01/07/21 21:21 Exam Exam Date and Time: October 27, [id number] Height,Weight and Vital Signs: Height 5 ft 1 in Weight 41.73 kg Last Vital Signs Temp 99.1 F 10/27/21 20:07 Pulse 68 10/27/21 20:07 Resp 16 10/27/21 20:07 BP 112/57 L 10/27/21 20:07 Pulse Ox 99 10/27/21 20:07 Pertinent Lab Results Pertinent Lab Results: Laboratory Tests 10/27/21 10/27/21 10/27/21 19:16 19:16 19:16 WBC 5.4 RBC 3.90 L Hgb 11.4 L Hct 35.0 L MCV 89.7 MCH 29.2 MCHC 32.6 RDW 13.4 Plt Count 214 MPV 9.1 L Immature Gran % (Auto) 0.0 Neut % (Auto) 62.1 Lymph % (Auto) 30.1 [place] % (Auto) 7.2 Eos % (Auto) 0.2 Baso % (Auto) 0.4 Lymph # (Auto) 1.6 [place] # (Auto) 0.4 Eos # (Auto) 0.0 Baso # (Auto) 0.0 Abs Immat Gran (auto) 0.00 Absolute Neuts (auto) 3.4 Absolute Nucleated RBC 0.000 Nucleated RBC % (auto) 0.0 Sodium 140 Potassium 4.0 Chloride 106 Carbon Dioxide 25 Anion Gap 13 BUN 9 Creatinine 0.77 Estim Creat Clear Calc 74.2 Estimated GFR > 60 Random Glucose 85 Calcium 9.7 D Total Bilirubin 0.8 AST 15 ALT 9 Alkaline Phosphatase 74 D Total Protein 7.6 Albumin 4.6 Beta HCG, Quant 1853 Urine Color Urine Appearance Urine pH Ur Specific [place] Urine Protein Urine Glucose (UA) Urine Ketones Urine Blood Urine Nitrite Ur Leukocyte Esterase Urine RBC Urine WBC Ur Squamous Epith Cells Urine Bacteria Urine Mucus COVID-19 (KATE) COVID-19 Clin Com Blood Type Antibody Screen 10/27/21 10/27/21 10/27/21 20:11 21:32 22:13 WBC RBC Hgb Hct MCV MCH MCHC RDW Plt Count MPV Immature Gran % (Auto) Neut % (Auto) Lymph % (Auto) [place] % (Auto) Eos % (Auto) Baso % (Auto) Lymph # (Auto) [place] # (Auto) Eos # (Auto) Baso # (Auto) Abs Immat Gran (auto) Absolute Neuts (auto) Absolute Nucleated RBC Nucleated RBC % (auto) Sodium Potassium Chloride Carbon Dioxide Anion Gap BUN Creatinine Estim Creat Clear Calc Estimated GFR Random Glucose Calcium Total Bilirubin AST ALT Alkaline Phosphatase Total Protein Albumin Beta HCG, Quant Urine Color YELLOW Urine Appearance HAZY Urine pH 6.0 Ur Specific [place] >= 1.030 H Urine Protein 1+ H Urine Glucose (UA) NEG Urine Ketones >=80 Urine Blood 3+ H Urine Nitrite NEG Ur Leukocyte Esterase NEG Urine RBC 1-4 Urine WBC 0 Ur Squamous Epith Cells 1+ Urine Bacteria 1+ Urine Mucus 1+ COVID-19 (KATE) Negative COVID-19 Clin Com See Note Blood Type A Positive Antibody Screen NEGATIVE Airway Mallampati Class: II TM Dist: >3cm Neck ROM: Full Heart: RRR Lungs: CTA Assessment and Plan Assessment Anesthesia Assessment: Anesthesia Plan Discussed and Chart Reviewed Final Anesthetic Review Family History of Problems with Anesthesia: No History of Problems with Anesthesia: No NPO: Yes ASA Class: II and Emergency Final Preanesthetic Review: No Changes in Pt Med Stat, Meds/Allgs Chart Reviewed, Consent Obtained/Reviewed and Anes Risks/Benef Reviewed Patient Risk: Low Procedure Risk: Intermediate Anesthetic Plan Anesthetic Plan: GA Disposition: Standard PACU
[2021-10-28] VITALS (8 sets, daily range): BP systolic 100–114; BP diastolic 50–62; PULSE 59–95; RESP 15–18; TEMP 36.5–37; O2SAT 100
--- NOTE | 2021-10-28 01:42 | PM.OP ---
Brief Operative Note Date of Service: 10/28/21 Pre-op diagnosis: left ectopic tubal Post-op diagnosis: same ( left tubal filling up most of the left fallopian, 100 cc of hemoperitoneum) Procedure: Laparoscopic partial left salpingectomy Surgeon: Scot Hernandez MD Anesthesia: GETA Was an Alarm Mechanism Adjuster used for this Procedure?: No Estimated blood loss (mL): 0 Pathology: other ( partial left fallopian tube with ectopic tubal ) Condition: stable Disposition: PACU
--- NOTE | 2021-10-28 01:43 | P.OP_ITS ---
Operative Note Operative Note Date of Service: 10/28/21 Narrative: PREOPERATIVE DIAGNOSIS:? left tubal ectopic POSTOPERATIVE DIAGNOSIS:?left ecotpic filling up most of the tubal length with bluish discoloration, 100 cc of hemoperitoneum Procedure: Right partial salpingectomy QBL: Minimal Anesthesia: GETA SURGEON:? Scot Hernandez MD?? Securities Lending Trader:None Complications: None Pathology: Right partial Fallopian tubes? DESCRIPTION OF PROCEDURE:?The patient was taken to the OR where general anesthesia was easily obtained. The patient was then prepped and draped in a sterile fashion and placed in dorsal lithotomy position. A speculum was introduced into the patient?s vagina for cervical visualization. a was introduced into the patient?s cervix. The single tooth tenaculum was then removed and hemostasis was assured?using pressure. a Castro catheter?was inserted and clear urine started draining. Gloves were changed to clean ones. Attention was then drawn to the abdomen where a 10 mm longitudinal incision was done intra umbilical and carried down all the way to the fascia, which was tented?up using 2 Shayan clamps and was nicked in the midline and then extended on both end of the incision?, them using 2 pick?ups the peritoneum?was entered with Metzenbaum scissors and under direct visualization, a 10 mm Keith trocar was introduced into the patient?s abdomen. Once intraperitoneal placement was confirmed with direct visualization, pneumoperitoneum was started & was easily obtained.Then, two fingerbreadths above the pubic symphysis and towards the?right lower quadrant, under direct visualization, a 5 mm trocar was then introduced into the patient?s abdomen. and a 3rd one on the left?lower quadrant was placed?in a similar manner. The patient was placed in Trendelenburg position, Inspection revealed left tubal filling up most of the right tube was bluish discoloration and 100 cc of hemoperitoneum, normal bilateral ovaries and normal right fallopian tube. Attention was then drawn to the left fallopian tube. Since most of the left tube was filled up with the ectopic with bluish discoloration decision was made to proceed with partial salpingectomy instead of salpingostomy The IP ligament was identified and fallopian tube was then grasped by the fimbria and incised from the mesosalpinx using ligasure device, using cautery for hemostasis and cutting afterwards a bite at a time all the way to the area medial to the edge of the ectopic of the left fallopian tube. Good hemostasis was noted from the left fallopian tube sites and the operative site. Specimen were then removed from the patient?s abdomen using endobag from the 10 mm trocar through the umbilicus. Copious irrigation was done. Once good hemostasis was noted from the patient?s abdomen, pneumoperitoneum was deflated and all trocars were removed. Infraumbilical f ascia was closed with 0 Vicryl and interrupted suture. The skin was closed with 4-0 Vicryl. The Right and left?lower quadrant ports were closed with 0 Vicryl. Bupivicaine 0.25 10 cc were injected subcuticularly in the 3 incisions. Then speculum was put back in the vagina inspection revealed?hemostasis at the site of the tenaculum, the?sponge stick was removed?from the patient's vagina and Castro was draining clear urine was taken out too. Sponge, lap and needle counts were correct x2. The patient was taken to the recovery room in stable condition.
--- NOTE | 2021-10-28 13:11 | HO.POSTANES ---
Post Anesthesia Evaluation Post Anesthesia Evaluation Vital Signs: Vital Signs Temp Pulse Resp BP Pulse Ox 10/28/21 03:03 98.6 F 66 16 100/50 L 100 10/28/21 02:36 95 18 107/54 L 100 10/28/21 02:21 89 18 114/57 L 100 10/28/21 02:06 71 16 107/58 L 100 10/28/21 01:51 62 15 106/60 100 10/28/21 01:46 59 16 108/62 100 10/28/21 01:41 86 16 111/62 100 10/28/21 01:36 97.7 F 66 17 114/59 L 100 Anesthesia: General Endotracheal-GETA Mental Status: Awake Pain Control: Satisfactory Nausea/Vomiting: None Hydration: Adequate Anesthesia-Related Issues: No Anes. Related Issues
== END 2021-10-27 22:31 ==
LOC: HO.ED 21:40 → HO.EDOVER 10-28 01:50 → HO.SSSA 10-28 02:21 → HO.SSS 03-08 08:35
PROVIDERS: Emergency Provider Internal Medicine; Visit Provider Obstetrics & Gynecology
PROC: 10T24ZZ Resection of Products of Conception, Ectopic, Percutaneous Endoscopic Approach (ICD-10-PCS; CPT 59150; principal; 2021-10-27 22:45)
DX: O00.102 Left tubal pregnancy without intrauterine pregnancy (principal); Z20.822 Contact with and (suspected) exposure to COVID-19; Z3A.01 Less than 8 weeks gestation of pregnancy
CPT/HCPCS: 59151; 36415; 76801; 80053; 81001; 84702; 85025; 86850; 86900; 86901; 87635; 88305; 96360; 99285; J0131; J0330; J1100; J2405; J3010

== ENCOUNTER 2021-11-07 15:27 | Outpatient (REF) | payer MEDICAID, SELFPAY ==
[2021-11-07 16:46] LABS: Hematocrit 35.3 % (37.0-47.0); Hemoglobin 11.3 g/dl (12.0-16.0); Mean Corpuscular Hemoglobin 28.8 pg (27.0-33.0); Mean Corpuscular Volume 90.1 fL (80.0-98.0); Mean Platelet Volume 9.8 fL (9.4-12.3); Platelet Count 308 X10*3/uL (160-400); Red Blood Count 3.92 X10*6/uL (4.20-5.50); Red Cell Distribution Width 13.3 % (11.0-16.0); White Blood Count 4.6 X10*3/uL (4.8-10.8)
== END 2021-11-07 15:28 | disposition home or self-care (01) ==
LOC: HO.LAB 15:27
PROVIDERS: PCP Advanced Practice Midwife; Visit Provider Obstetrics & Gynecology
DX: N93.9 Abnormal uterine and vaginal bleeding, unspecified (principal)
CPT/HCPCS: 36415; 85027; 99212

== ENCOUNTER → 2021-11-16 12:11 | Outpatient (BNVA) | payer MEDICAID, SELFPAY | PROVIDERS: Visit Provider Obstetrics & Gynecology | DX: Z48.89 Encounter for other specified surgical aftercare (principal) | CPT/HCPCS: 36415; 84702; 99212 ==

== ENCOUNTER 2021-11-16 12:38 | Outpatient (REF) | payer MEDICAID, SELFPAY ==
[2021-11-16 13:43] LABS: HCG Quantitative 7 mIU/mL
== END 2021-11-16 12:39 | disposition home or self-care (01) ==
LOC: HO.LAB 12:38
PROVIDERS: Visit Provider Obstetrics & Gynecology
DX: N93.9 Abnormal uterine and vaginal bleeding, unspecified (principal)
CPT/HCPCS: 36415; 84702

== ENCOUNTER 2021-11-21 09:41 | Outpatient (REF) | payer MEDICAID, SELFPAY ==
[2021-11-21 10:47] LABS: HCG Quantitative 4 mIU/mL
== END 2021-11-21 09:42 | disposition home or self-care (01) ==
LOC: HO.LAB 09:41
PROVIDERS: Visit Provider Obstetrics & Gynecology
DX: Z98.890 Other specified postprocedural states (principal)
CPT/HCPCS: 36415; 84702

== ENCOUNTER → 2021-11-22 11:34 | Outpatient (BNVA) | payer MEDICAID, SELFPAY | PROVIDERS: Visit Provider Obstetrics & Gynecology ==

== ENCOUNTER 2021-12-07 11:29 | Outpatient (REF) | payer MEDICAID, SELFPAY ==
[2021-12-07 13:20] LABS: HCG Quantitative < 2 mIU/mL
== END 2021-12-07 11:30 | disposition home or self-care (01) ==
LOC: HO.LAB 11:29
PROVIDERS: Visit Provider Obstetrics & Gynecology
DX: Z98.890 Other specified postprocedural states (principal)
CPT/HCPCS: 36415; 84702

== ENCOUNTER 2023-06-06 17:07 | Emergency (ER) | payer MEDICAID, SELFPAY ==
--- NOTE | ~2023-06-06 | XR_ITS ---
EXAMINATION: XR CHEST CLINICAL INFORMATION: Chest pain COMPARISON: None available. TECHNIQUE: 2 views of the chest were obtained. FINDINGS: No significant abnormality is noted involving the heart, lungs, mediastinum, bony thorax or soft tissues. XR/XR chest 2V IMPRESSION: Unremarkable chest exam
--- NOTE | 2023-06-06 17:09 | ECG_ITS ---
Test Reason : CP Blood Pressure : / mmHG Vent. Rate : 090 BPM Atrial Rate : 090 BPM P-R Int : 130 ms QRS Dur : 082 ms QT Int : 328 ms P-R-T Axes : 073 093 065 degrees QTc Int : 401 ms Normal sinus rhythm with sinus arrhythmia Rightward axis Borderline ECG When compared with ECG of 31-DEC-2017 21:36, No significant change was found Referred By: Jeanne Jackson Electronically Signed By:LUISA BHATT
[2023-06-06 18:01] VITALS: BP 106/62; PULSE 77; RESP 20; TEMP 36.4; O2SAT 98; BMI 18.5
--- NOTE | 2023-06-06 18:02 | ED.GENADULT ---
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 had a echocardiogram which was normal nonsmoker no significant family history comes here with similar pain it started 3 days pain is localized in 2nd intercostal space bilateral increases on palpation sharp in character lasting for hours no diaphoresis no shortness of breath patient feels very anxious after the pain started Related Data Previous Rx's Medication Instructions Recorded nitrofurantoin 100 mg PO Q12H 7 days #14 caps 02/05/21 monohydrate/macrocrystals 100 mg capsule (Macrobid) oxycodone 5 mg capsule 5 mg PO Q4H PRN pain #20 caps 10/28/21 ibuprofen 600 mg tablet 600 mg PO Q6H PRN pain #30 tabs 06/06/23 lorazepam 0.5 mg tablet (Ativan) 0.5 mg PO BEDTIME PRN anxiety #10 06/06/23 tabs Allergies Allergy/AdvReac Type Severity Reaction Status Date / Time No Known Allergies Allergy Verified 01/07/21 21:21 Review of Systems Review of Systems: Yes all other systems are reviewed and are negative PMFSH Past Medical History Medical History Asthma Seizures Social History Social History Alcohol intake: unknown Smoked in Last 30 Days: No Use of substances other than those prescribed or required for medical reasons: No Advance Directives: No Advance Directives Information Provided: Yes Physical Exam ED Vital Signs: Vital Signs - 24 hr 06/06/23 18:01 06/06/23 19:44 Temperature 97.6 F 97.8 F Pulse Rate 77 72 Respiratory Rate 20 18 Blood Pressure 106/62 105/61 Pulse Oximetry 98 98 Oxygen Delivery Method Room Air Room Air BMI result Body Mass Index 18.5 Appearance: Alert. Oriented X3. No acute distress. Anxious Eyes: PERRLA, No Nystagmus ENT: Pharynx normal. Oral Mucosa moist Neck: Normal inspection. Neck supple. CVS: Normal heart rate and rhythm. Pulses normal. Respiratory: No respiratory distress. Equal air entry bilateral, no wheezing/rales/rhonchi 2nd ICS tenderness bilateral Abdomen: Soft and nontender. Bowel sounds are present, no mass palpable, no CVA tenderness Skin: Skin warm and dry. Normal skin color. Normal skin turgor. Extremities: No lower extremity edema. No calf tenderness Neuro: Oriented X 3. No motor deficit. No sensory deficit.No cerebellar signs , cranial nerves II-XII intact Course Course Course Narrative: This is an RME: Additional HPI, ROS, PE not included below will be deferred to primary provider. This is a [id number], with a hx of asthma and seizures, presenting to the emergency department with a complaints of left sided chest pain and pressure x 2 days. Chest pain has been intermittent but has been constant since today. No nausea or vomiting. Also reports that she had an episode of epistaxis. Plan: EKG, Chest x-ray, labs ordered Medications Administered Discontinued Medications Generic Name Dose Route Start Last Admin Trade Name Freq PRN Reason Stop Dose Admin Ibuprofen 600 mg 06/06/23 19:22 06/06/23 19:41 Ibuprofen 600 Mg Tablet PO 06/06/23 19:23 600 mg ONCE ONE Administration Lorazepam 0.5 mg 06/06/23 19:22 06/06/23 19:44 Lorazepam 0.5 Mg Tablet PO 06/06/23 19:23 0.5 mg ONCE ONE Administration Medical Decision Making Medical Decision Making [facility] Narrative: Patient with atypical chest pain clinically costochondritis with anxiety discharge patient home on ibuprofen and Ativan heart score is 0 high sensitive troponin and EKG normal Lab Data [facility] Lab Attestation statement: I reviewed the patient's lab results. 06/06/23 18:35 06/06/23 18:35 Labs: Lab Results 06/06/23 06/06/23 06/06/23 Range/Units 18:35 18:35 18:35 WBC 4.8 (4.8-10.8) X10*3/uL RBC 4.34 (4.20-5.50) X10*6/uL Hgb 12.7 (12.0-16.0) g/dl Hct 38.9 (37.0-47.0) % MCV 89.6 (80.0-98.0) fL MCH 29.3 (27.0-33.0) pg MCHC 32.6 (31.0-35.0) g/dl RDW 13.6 (11.0-16.0) % Plt Count 233 (160-400) X10*3/uL MPV 9.5 (9.4-12.3) fL Immature Gran % (Auto) 0.2 (0.0-0.4) % Neut % (Auto) 49.4 (45-73) % Lymph % (Auto) 42.3 H (20-40) % Dickenson % (Auto) 7.3 (2-11) % Eos % (Auto) 0.2 (0-4) % Baso % (Auto) 0.6 (0-2) % Lymph # (Auto) 2.0 (1.2-4.9) X10*3/uL Dickenson # (Auto) 0.4 (0.1-1.2) X10*3/uL Eos # (Auto) 0.0 (0.0-0.4) X10*3/uL Baso # (Auto) 0.0 (0.0-0.2) X10*3/uL Abs Immat Gran (auto) 0.01 (0.00-0.03) X10*3/uL Absolute Neuts (auto) 2.4 (2.0-8.3) x10*3/uL Absolute Nucleated RBC 0.000 (0.0-0.012) X10*3/uL Nucleated RBC % (auto) 0.0 (0.0-0.2) /100WBC Sodium 143 (135-145) mmol/L Potassium 4.0 (3.3-5.1) mmol/L Chloride 109 H (96-108) mmol/L Carbon Dioxide 21 L (22-29) mmol/L Anion Gap 17 (12-20) BUN 9 (9-16) mg/dL Creatinine 0.93 (0.5-1.4) mg/dL Estim Creat Clear Calc 64.6 Estimated GFR > 60 Random Glucose 107 (60-115) mg/dL Calcium 10.0 (8.4-10.2) mg/dL Total Bilirubin 0.7 (0.0-1.0) mg/dL Direct Bilirubin 0.3 (0.0-0.5) mg/dL AST 22 (5-31) U/L ALT 16 (0-31) U/L Alkaline Phosphatase 82 (39-117) U/L Troponin I High Sens < 2.7 (<3.5-17.0) ng/L Total Protein 7.9 (6.5-8.0) g/dL Albumin 4.7 (3.5-5.0) g/dL Independent Interpretation I performed an independent interpretation of an: EKG Interpretation: Normal sinus rhythm with sinus arrhythmia heart rate 90 beats per minute no acute ST-T changes no acute ischemia Discharge Plan Discharge Clinical Impression: Costalchondritis, Anxiety Patient Disposition: Home, Self-Care Instructions: Costochondritis (ED), Anxiety (ED) Additional Instructions: CT chest pain is from inflammation of the cartilage also you have anxiety Your chest pain is not from the heart Take ibuprofen for pain Ativan for anxiety Prescriptions: New ibuprofen 600 mg tablet 600 mg PO Q6H PRN (Reason: pain) Qty: 30 0RF lorazepam [Ativan] 0.5 mg tablet 0.5 mg PO BEDTIME PRN (Reason: anxiety) Qty: 10 0RF No Action nitrofurantoin monohyd/m-cryst [Macrobid] 100 mg capsule 100 mg PO Q12H 7 Days Qty: 14 0RF Rx Instructions: must administer with a meal/food oxycodone 5 mg capsule 5 mg PO Q4H PRN (Reason: pain) Qty: 20 0RF Interventions: ED Discharge Assessment Last Done: 06/06/23 19:49 Discharge Date/Time: 06/06/23 20:07
[2023-06-06 18:46] LABS: MANUAL DIFF FLAG NO
[2023-06-06 18:52] LABS: Basophils Percent Auto 0.6 % (0-2); Eosinophils Percent Auto 0.2 % (0-4); Hematocrit 38.9 % (37.0-47.0); Hemoglobin 12.7 g/dl (12.0-16.0); Imm Gran Abs Auto 0.01 X10*3/uL (0.00-0.03); Imm Gran Pct Auto 0.2 % (0.0-0.4); Lymphocytes Percent Auto 42.3 % (20-40); Mean Corpuscular HGB Conc 32.6 g/dl (31.0-35.0); Mean Corpuscular Hemoglobin 29.3 pg (27.0-33.0); Mean Corpuscular Volume 89.6 fL (80.0-98.0); Mean Platelet Volume 9.5 fL (9.4-12.3); Monocytes Absolute Auto 0.4 X10*3/uL (0.1-1.2); Monocytes Percent Auto 7.3 % (2-11); Neutrophils Absolute Auto 2.4 x10*3/uL (2.0-8.3); Neutrophils Percent Auto 49.4 % (45-73); Platelet Count 233 X10*3/uL (160-400); Red Blood Count 4.34 X10*6/uL (4.20-5.50); Red Cell Distribution Width 13.6 % (11.0-16.0); White Blood Count 4.8 X10*3/uL (4.8-10.8)
[2023-06-06 19:07] LABS: Alanine Aminotransferase 16 U/L (0-31); Albumin Level 4.7 g/dL (3.5-5.0); Alkaline Phosphatase 82 U/L (39-117); Anion Gap 17 (12-20); Aspartate Amino Transferase 22 U/L (5-31); Bilirubin Direct 0.3 mg/dL (0.0-0.5); Bilirubin Total 0.7 mg/dL (0.0-1.0); Blood Urea Nitrogen 9 mg/dL (9-16); Carbon Dioxide 21 mmol/L (22-29); Chloride 109 mmol/L (96-108); Creatinine Clr Calc Pharmacy 64.6; Estimated Glomerular Filt Rate > 60; Glucose Random 107 mg/dL (60-115); Sodium 143 mmol/L (135-145); Total Protein 7.9 g/dL (6.5-8.0)
[2023-06-06 19:15] LABS: Troponin-I High Sensitivity < 2.7 ng/L (<3.5-17.0)
--- NOTE | 2023-06-06 19:17 | PC.NURSE ---
Pt aox4 resting at the bedside. Reporting chest pain/pressure, stabbing pain, intermittent. VSS. Skin warm pink and dry. MD at bedside.
[2023-06-06] MEDS: Ibuprofen 600 MG TABLET PO (19:41)
[2023-06-06 19:44] VITALS: BP 105/61; PULSE 72; RESP 18; TEMP 36.6; O2SAT 98
[2023-06-06] MEDS: LORazepam 0.5 MG TABLET PO (19:44)
--- NOTE | 2023-06-06 19:49 | PC.NURSE ---
NSR. no changes to CP. aox4. talking w/o distress. no respiratory issues at this time. VSS.
== END 2023-06-06 20:07 | disposition home or self-care (01) ==
PROVIDERS: Physician Assistant Medical; Emergency Provider Internal Medicine
DX: R07.89 Other chest pain (principal); M94.0 Chondrocostal junction syndrome [Tietze]; F41.1 Generalized anxiety disorder; F43.0 Acute stress reaction; Z79.899 Other long term (current) drug therapy
CPT/HCPCS: 36415; 71046; 80048; 80076; 84484; 85025; 93005; 99283; 99285

== ENCOUNTER → 2023-06-06 17:09 | Outpatient (BNV) | payer MEDICAID, SELFPAY | PROVIDERS: Emergency Provider Internal Medicine; Visit Provider Internal Medicine | DX: I49.9 Cardiac arrhythmia, unspecified (principal) | CPT/HCPCS: 93010 ==

== ENCOUNTER 2023-07-20 14:23 | Outpatient (REF) | payer MEDICAID, SELFPAY ==
[2023-07-20 16:39] LABS: Syphilis Screen Nonreactive (Nonreactive)
[2023-07-25 19:48] LABS: HIV RNA PCR Qn Copies NOT DETECTED copies/mL (NOT DETECTED); HIV RNA PCR Qn Log Copies NOT DETECTED (NOT DETECTED)
== END 2023-07-20 14:24 | disposition home or self-care (01) ==
LOC: HO.HHCL 14:23
PROVIDERS: Visit Provider Registered Nurse
DX: Z79.899 Other long term (current) drug therapy (principal)
CPT/HCPCS: 36415; 86780; 87536

== ENCOUNTER 2023-08-17 14:03 | Outpatient (REF) | payer MEDICAID, SELFPAY ==
[2023-08-20 19:24] LABS: HIV RNA PCR Qn Copies NOT DETECTED copies/mL (NOT DETECTED); HIV RNA PCR Qn Log Copies NOT DETECTED (NOT DETECTED)
== END 2023-08-17 14:04 | disposition home or self-care (01) ==
LOC: HO.HHCL 14:03
PROVIDERS: Visit Provider Emergency Medicine
DX: Z11.4 Encounter for screening for human immunodeficiency virus [HIV] (principal); Z79.899 Other long term (current) drug therapy
CPT/HCPCS: 36415; 87536

== ENCOUNTER 2023-10-11 15:44 | Outpatient (REF) | payer MEDICAID, SELFPAY ==
[2023-10-12 15:22] LABS: Syphilis Screen Nonreactive (Nonreactive)
[2023-10-13 04:45] LABS: ~HepC Num1 0.16 S/CO (0.00-0.79); ~Hepatitis C Antibody Nonreactive (Nonreactive)
[2023-10-13 19:04] LABS: HIV RNA PCR Qn Copies NOT DETECTED copies/mL (NOT DETECTED); HIV RNA PCR Qn Log Copies NOT DETECTED (NOT DETECTED)
== END 2023-10-11 15:45 | disposition home or self-care (01) ==
LOC: HO.HHCL 15:44
PROVIDERS: Visit Provider Registered Nurse
DX: Z11.4 Encounter for screening for human immunodeficiency virus [HIV] (principal); Z79.899 Other long term (current) drug therapy
CPT/HCPCS: 36415; 86780; 86803; 87536

== ENCOUNTER 2023-11-13 11:09 | Outpatient (REF) | payer MEDICAID, SELFPAY ==
[2023-11-14 09:49] LABS: BV Int Neg Control Negative (Negative); BV Int Pos Control Positive (Positive)
== END 2023-11-13 11:10 | disposition home or self-care (01) ==
LOC: HO.CHCLNP 11:09
PROVIDERS: Visit Provider Advanced Practice Midwife
DX: B37.31 Acute candidiasis of vulva and vagina (principal)
CPT/HCPCS: 87480; 87510; 87660

== ENCOUNTER 2023-11-21 12:25 | Outpatient (REF) | payer MEDICAID, SELFPAY ==
[2023-11-23 08:44] LABS: RPR Rapid Plasma Reagin NON-REACTIVE (NON-REACTIVE)
== END 2023-11-21 12:26 | disposition home or self-care (01) ==
LOC: HO.HHCL 12:25
PROVIDERS: Visit Provider Advanced Practice Midwife
DX: Z11.3 Encounter for screening for infections with a predominantly sexual mode of transmission (principal)
CPT/HCPCS: 36415; 86592

== ENCOUNTER 2023-12-17 14:56 | Outpatient (REF) | payer MEDICAID, SELFPAY ==
[2023-12-17 16:34] LABS: Alanine Aminotransferase 15 U/L (0-31); Albumin Level 4.5 g/dL (3.5-5.0); Alkaline Phosphatase 73 U/L (39-117); Aspartate Amino Transferase 22 U/L (5-31); Bilirubin Direct 0.2 mg/dL (0.0-0.5); Bilirubin Total 0.5 mg/dL (0.0-1.0); Total Protein 7.6 g/dL (6.5-8.0)
[2023-12-19 13:23] LABS: HIV RNA PCR Qn Copies NOT DETECTED copies/mL (NOT DETECTED); HIV RNA PCR Qn Log Copies NOT DETECTED (NOT DETECTED)
== END 2023-12-17 14:57 | disposition home or self-care (01) ==
LOC: HO.HHCL 14:56
PROVIDERS: Visit Provider Registered Nurse
DX: Z79.899 Other long term (current) drug therapy (principal)
CPT/HCPCS: 36415; 80076; 87536

== ENCOUNTER 2024-02-13 10:44 | Outpatient (REF) | payer MEDICAID, SELFPAY ==
[2024-02-14 04:44] LABS: Syphilis Screen Nonreactive (Nonreactive)
[2024-02-14 05:21] LABS: ~HepC Num1 0.25 S/CO (0.00-0.79); ~Hepatitis C Antibody Nonreactive (Nonreactive)
[2024-02-15 14:49] LABS: HIV RNA PCR Qn Copies NOT DETECTED copies/mL (NOT DETECTED); HIV RNA PCR Qn Log Copies NOT DETECTED (NOT DETECTED)
== END 2024-02-13 10:45 | disposition home or self-care (01) ==
LOC: HO.HHCL 10:44
PROVIDERS: Visit Provider Nurse Practitioner Primary Care
DX: Z11.4 Encounter for screening for human immunodeficiency virus [HIV] (principal); Z79.899 Other long term (current) drug therapy
CPT/HCPCS: 36415; 86780; 86803; 87536

== ENCOUNTER 2024-04-17 13:17 | Outpatient (REF) | payer MEDICAID, SELFPAY | END 2024-04-17 13:18 | disposition home or self-care (01) | LOC: HO.HHCL 13:17 | PROVIDERS: Visit Provider Registered Nurse | DX: Z13.89 Encounter for screening for other disorder (principal) | CPT/HCPCS: 36415; 87536 ==

== ENCOUNTER 2024-05-06 10:29 | Outpatient (REF) | payer MEDICAID, SELFPAY ==
[2024-05-06 14:34] LABS: Estimated Average Glucose 108 mg/dL; Hemoglobin A1c % 5.4 % (<6.0)
[2024-05-06 14:36] LABS: Basophils Percent Auto 0.6 % (0-2); Eosinophils Absolute Auto 0.1 X10*3/uL (0.0-0.4); Eosinophils Percent Auto 2.1 % (0-4); Hematocrit 38.2 % (37.0-47.0); Hemoglobin 12.6 g/dl (12.0-16.0); Lymphocytes Absolute Auto 2.1 X10*3/uL (1.2-4.9); Lymphocytes Percent Auto 63.1 % (20-40); MANUAL DIFF FLAG SCAN; Mean Corpuscular Hemoglobin 28.8 pg (27.0-33.0); Mean Corpuscular Volume 87.2 fL (80.0-98.0); Mean Platelet Volume 10.4 fL (9.4-12.3); Monocytes Absolute Auto 0.3 X10*3/uL (0.1-1.2); Monocytes Percent Auto 9.9 % (2-11); Neutrophils Absolute Auto 0.8 x10*3/uL (2.0-8.3); Neutrophils Percent Auto 24.3 % (45-73); Platelet Count 273 X10*3/uL (160-400); Red Blood Count 4.38 X10*6/uL (4.20-5.50); Red Cell Distribution Width 13.5 % (11.0-16.0); SCAN SMEAR FLAG 1; White Blood Count 3.3 X10*3/uL (4.8-10.8)
[2024-05-06 14:56] LABS: Alanine Aminotransferase 21 U/L (0-31); Albumin Level 4.2 g/dL (3.5-5.0); Alkaline Phosphatase 76 U/L (39-117); Anion Gap 10 (12-20); Aspartate Amino Transferase 25 U/L (5-31); Bilirubin Total 0.7 mg/dL (0.0-1.0); Blood Urea Nitrogen 9 mg/dL (9-16); Calcium 9.2 mg/dL (8.4-10.2); Carbon Dioxide 26 mmol/L (22-29); Chloride 107 mmol/L (96-108); Cholesterol 149 mg/dL (<200); Estimated Glomerular Filt Rate > 60; Glucose Random 92 mg/dL (60-115); HDL Cholesterol 56 mg/dL (>40); Iron 124 mcg/dL (30-160); LDL Cholesterol Calculated 85 mg/dL (<100); Percent Iron Saturation 49 % (15-50); Sodium 139 mmol/L (135-145); Total Iron Binding Capacity 254 mcg/dL (228-428); Total Protein 7.2 g/dL (6.5-8.0); Triglycerides 42 mg/dL (<150); Unsaturated Iron Binding 130 ug/dL
[2024-05-06 15:12] LABS: TSH reflex Free T4 1.28 uIU/mL (0.32-4.0); Vitamin D 25-OH Total 38.8 ng/mL (>30)
[2024-05-06 15:24] LABS: SLIDE REVIEW VERIFIED
[2024-05-06 15:36] LABS: HBc Num1 0.13 S/CO (0.00-0.79); Hepatitis B Core Antibody Nonreactive (Nonreactive); ~Hepatitis B Surface Antibody REACTIVE (Nonreactive)
[2024-05-08 16:09] LABS: HIV RNA PCR Qn Copies NOT DETECTED copies/mL (NOT DETECTED); HIV RNA PCR Qn Log Copies NOT DETECTED (NOT DETECTED)
[2024-05-09 10:49] LABS: RPR Rapid Plasma Reagin NON-REACTIVE (NON-REACTIVE)
[2024-05-09 16:04] LABS: HCV Log PCR <1.18 NOT DETECTED Log IU/mL (NOT DETECTED); HepC Viral Load <15 NOT DETECTED IU/mL (NOT DETECTED)
== END 2024-05-06 10:30 | disposition home or self-care (01) ==
LOC: HO.CHCLDS 10:29
PROVIDERS: Visit Provider Registered Nurse
DX: Z00.00 Encounter for general adult medical examination without abnormal findings (principal); Z79.899 Other long term (current) drug therapy
CPT/HCPCS: 36415; 80053; 80061; 82306; 83036; 83540; 84443; 85025; 86592; 86704; 86706; 87522; 87536

== ENCOUNTER 2024-06-12 13:13 | Outpatient (REF) | payer MEDICAID, SELFPAY ==
[2024-06-13 08:40] LABS: ~HepC Num1 0.23 S/CO (0.00-0.79); ~Hepatitis C Antibody Nonreactive (Nonreactive)
[2024-06-13 08:59] LABS: Syphilis Screen Nonreactive (Nonreactive)
[2024-06-13 14:29] LABS: HIV RNA PCR Qn Copies NOT DETECTED copies/mL (NOT DETECTED); HIV RNA PCR Qn Log Copies NOT DETECTED (NOT DETECTED)
== END 2024-06-12 13:14 | disposition home or self-care (01) ==
LOC: HO.HHCL 13:13
PROVIDERS: Visit Provider Registered Nurse
DX: Z29.81 Encounter for HIV pre-exposure prophylaxis (principal)
CPT/HCPCS: 36415; 86780; 86803; 87536

== ENCOUNTER 2024-06-13 12:56 | Outpatient (REF) | payer MEDICAID, SELFPAY ==
[2024-06-13 15:19] LABS: Adenovirus F 40/41 Not Detected (Not Detect.); Astrovirus Not Detected (Not Detect.); Campylobacter Not Detected (Not Detect.); Cryptosporidium Not Detected (Not Detect.); Cyclospora cayetanensis Not Detected (Not Detect.); E. coli EAEC Not Detected (Not Detect.); E. coli EPEC Not Detected (Not Detect.); E. coli ETEC Not Detected (Not Detect.); E. coli STEC Not Detected (Not Detect.); Entamoeba histolytica Not Detected (Not Detect.); Giardia lamblia Not Detected (Not Detect.); Norovirus GI/GII Not Detected (Not Detect.); Plesiomonas shigelloides Not Detected (Not Detect.); Rotavirus A Not Detected (Not Detect.); Salmonella Not Detected (Not Detect.); Sapovirus Not Detected (Not Detect.); Shigella sp./EIEC Not Detected (Not Detect.); Vibrio Not Detected (Not Detect.); Vibrio Cholerae Not Detected (Not Detect.); Yersinia enterocolitica Not Detected (Not Detect.)
== END 2024-06-13 12:57 | disposition home or self-care (01) ==
LOC: HO.LNP 12:56
PROVIDERS: Visit Provider Student in an Organized Health Care Education/Training Program
DX: R19.7 Diarrhea, unspecified (principal)
CPT/HCPCS: 87507

== ENCOUNTER 2024-07-10 17:43 | Outpatient (REF) | payer MEDICAID, SELFPAY ==
[2024-07-11 11:07] LABS: Bacterial Vaginosis PCR POSITIVE (Negative); Candida Group PCR DETECTED (Not Detect); Candida glab krusei PCR NOT DETECTED (Not Detect); Trichomonas vaginalis PCR NOT DETECTED (Not Detect)
== END 2024-07-10 17:44 | disposition home or self-care (01) ==
LOC: HO.HHCLNP 17:43
PROVIDERS: Visit Provider Advanced Practice Midwife
DX: N89.8 Other specified noninflammatory disorders of vagina (principal)
CPT/HCPCS: 0352U

== ENCOUNTER 2024-08-07 13:23 | Outpatient (REF) | payer MEDICAID, SELFPAY ==
[2024-08-07 16:10] LABS: MANUAL DIFF FLAG NO
[2024-08-07 16:18] LABS: Basophils Percent Auto 0.5 % (0-2); Eosinophils Absolute Auto 0.1 X10*3/uL (0.0-0.4); Eosinophils Percent Auto 1.4 % (0-4); Hemoglobin 13.1 g/dl (12.0-16.0); Lymphocytes Absolute Auto 2.4 X10*3/uL (1.2-4.9); Lymphocytes Percent Auto 56.9 % (20-40); Mean Corpuscular HGB Conc 32.8 g/dl (31.0-35.0); Mean Corpuscular Volume 88.7 fL (80.0-98.0); Monocytes Absolute Auto 0.4 X10*3/uL (0.1-1.2); Monocytes Percent Auto 8.7 % (2-11); Neutrophils Absolute Auto 1.4 x10*3/uL (2.0-8.3); Neutrophils Percent Auto 32.5 % (45-73); Platelet Count 253 X10*3/uL (160-400); Red Blood Count 4.51 X10*6/uL (4.20-5.50); Red Cell Distribution Width 13.6 % (11.0-16.0); White Blood Count 4.3 X10*3/uL (4.8-10.8)
[2024-08-07 16:46] LABS: Ferritin 37 ng/mL (10-122)
[2024-08-07 17:00] LABS: Folate 13.7 ng/mL (> or = 4.0); Vitamin B12 410 pg/mL (200-900)
[2024-08-08 08:13] LABS: HBsAGNum1 0.32 S/CO (0.00-0.99); HIV AB/AG Nonreactive (Nonreactive); HIV Num 1 0.05 S/CO (0.00-0.99); Hepatitis B Surface Antigen Negative (Negative)
[2024-08-08 14:33] LABS: HIV RNA PCR Qn Copies NOT DETECTED copies/mL (NOT DETECTED); HIV RNA PCR Qn Log Copies NOT DETECTED (NOT DETECTED)
[2024-08-09 08:32] LABS: C. trachomatis RNA TMA NOT DETECTED (NOT DETECTED); N. gonorrhoeae RNA TMA NOT DETECTED (NOT DETECTED)
== END 2024-08-07 13:24 | disposition home or self-care (01) ==
LOC: HO.HHCL 13:23
PROVIDERS: Referring Provider Nurse Practitioner Primary Care; Visit Provider Registered Nurse
DX: Z00.00 Encounter for general adult medical examination without abnormal findings (principal); D72.819 Decreased white blood cell count, unspecified; Z79.899 Other long term (current) drug therapy
CPT/HCPCS: 36415; 82607; 82728; 82746; 85025; 87340; 87389; 87491; 87536; 87591

== ENCOUNTER 2024-09-22 15:58 | Outpatient (REF) | payer MEDICAID, SELFPAY ==
[2024-09-22 23:10] LABS: Influenza A PCR NEGATIVE (Negative); Influenza B PCR NEGATIVE (Negative); Resp Syncy Virus RNA Qual PCR NEGATIVE (Negative); SARS COV2 PCR INHOUSE NEGATIVE (Negative)
== END 2024-09-22 15:59 | disposition home or self-care (01) ==
LOC: HO.CHCLNP 15:58
PROVIDERS: Visit Provider Registered Nurse
DX: B34.9 Viral infection, unspecified (principal)
CPT/HCPCS: 0241U; 36415

== ENCOUNTER 2024-10-06 10:50 | Outpatient (REF) | payer MEDICAID, SELFPAY ==
[2024-10-07 03:58] LABS: Syphilis Screen Nonreactive (Nonreactive)
[2024-10-07 14:48] LABS: HIV RNA PCR Qn Copies NOT DETECTED copies/mL (NOT DETECTED); HIV RNA PCR Qn Log Copies NOT DETECTED (NOT DETECTED)
== END 2024-10-06 10:51 | disposition home or self-care (01) ==
LOC: HO.HHCL 10:50
PROVIDERS: Visit Provider Registered Nurse
DX: Z11.4 Encounter for screening for human immunodeficiency virus [HIV] (principal); Z79.899 Other long term (current) drug therapy
CPT/HCPCS: 36415; 86780; 87536

== ENCOUNTER 2024-11-20 13:53 | Outpatient (REF) | payer MEDICAID, SELFPAY ==
[2024-11-20 16:25] LABS: Alanine Aminotransferase 55 U/L (0-31); Aspartate Amino Transferase 50 U/L (5-31)
[2024-11-20 16:32] LABS: HCG Quantitative < 2 mIU/mL
[2024-11-21 09:09] LABS: CT PCR NOT DETECTED (Not Detect.); NG PCR NOT DETECTED (Not Detect.)
== END 2024-11-20 13:54 | disposition home or self-care (01) ==
LOC: HO.HHCL 13:53
PROVIDERS: Visit Provider Advanced Practice Midwife
DX: Z79.899 Other long term (current) drug therapy (principal); N91.2 Amenorrhea, unspecified; N89.8 Other specified noninflammatory disorders of vagina
CPT/HCPCS: 36415; 84450; 84460; 84702; 87491; 87591

== ENCOUNTER 2024-11-26 13:32 | Outpatient (REF) | payer MEDICAID, SELFPAY ==
--- OUTSIDE RECORDS SUMMARY | 2024-11-26 15:42 | XMS_ITS | Clinical Summary ---
Author Organization [employer] Address [address] [place] [address] [address] [place] [address] Care Team Providers Care Instrument/Control Technician Name Role Phone Viridiana Jacinto IRVING Primary Care Provider [phone] Allergies No known active allergies Medications medroxyPROGESTERo ne (Depo-Provera) 150 MG/ML injection Inject 1 mL (150 mg) into the shoulder, thigh, or buttocks every 3 (three) months. 1 mL 3 11/02/20 23 Active hydrocortisone 0.5 % creamIndications: Eczematous dermatitis of upper eyelids of both eyes Apply topically to eyelid twice daily x 1 week 15 g 1 11/09/19 24 Active ibuprofen 600 MG tabletIndications :Acute bilateral back pain, unspecified back location Take 1 tablet (600 mg) by mouth every 8 (eight) hours if needed for moderate pain, fever or headaches. 50 tablet 3 03/19/20 24 025 Active acetaminophen (Tylenol Extra Strength) 500 MG tablet Take 1-2 tablets (500-1,000 mg) by mouth every 8 (eight) hours if needed for moderate pain, headaches or fever. 100 tablet 3 03/18/20 24 025 Active hydrOXYzine HCl (Atarax) 10 MG tablet Take 1 tablet (10 mg) by mouth every 8 (eight) hours if needed for anxiety. 30 tablet 2 03/18/20 24 025 Active SUMAtriptan (Imitrex) 50 MG tabletIndications :Migraine without aura and without status migrainosus, not intractable TAKE 1 TABLET BY MOUTH AT ONSET OF MIGRAINE. MAY REPEAT ONCE AFTER 2 HOURS IF NEEDED NO MORE THAN 8 TABLETS IN 24 HOURS 10 tablet 3 03/18/20 24 Active medroxyPROGESTERo ne (Depo-Provera) 150 MG/ML injectionIndicati ons:On Depo-Provera for contraception Inject 1 mL (150 mg) into the muscle every 3 (three) months. 1 mL 3 05/02/20 24 Active celecoxib (CeleBREX) 200 MG capsule Take 1 capsule (200 mg) by mouth if needed in the morning and at bedtime for moderate pain. 60 capsule 3 05/02/20 24 025 Active fluticasone (Flonase) 50 MCG/ACT nasal sprayIndications: Seasonal allergic rhinitis, unspecified trigger Administer 1 spray into each nostril if needed in the morning and at bedtime for rhinitis or allergies. Shake gently. Before first use, prime pump. After use, clean tip and replace cap. 48 g 05/02/20 24 Active albuterol 108 (90 Base) MCG/ACT inhalerIndication s:Mild intermittent asthma without complication Inhale 2 puffs Every 4-6 hours as needed for wheezing or shortness of breath. 18 g 05/02/20 24 025 Active Cabotegravir ER (Apretude) 600 MG/3ML Suspension Extended ReleaseIndication s:On pre-exposure prophylaxis for HIV INJECT 3 ML VENTROGLUTEAL EVERY 2 MONTHS 3 mL 3 07/25/20 24 Active triamcinolone (Kenalog) 0.1 % creamIndications: Healthcare maintenance MIX 80 G TUBE OF TRIAMCINOLONE 0.1% CREAM WITH 16 OZ JAR OF CERAVE CREAM. APPLY 1 TO 2 TIMES PER DAY AFTER SHOWER OR BATH FROM THE NECK DOWN (NOT ON FACE) 80 g 09/12/20 24 Active topiramate (Topamax) 50 MG tabletIndications :Migraine without aura and without status migrainosus, not intractable TAKE 1 TABLET BY MOUTH AT BEDTIME 90 tablet 1 09/12/20 24 Active cholecalciferol (Vitamin D High Potency) 25 MCG (1000 UT) capsuleIndication s:Healthcare maintenance TAKE 1 CAPSULE BY MOUTH EVERY DAY 90 capsule 1 09/12/20 24 Active albuterol (2.5 MG/3ML) 0.083% nebulizer solutionIndicatio ns:Mild intermittent asthma without complication Take 3 mL (2.5 mg) by nebulization Every 4-6 hours as needed for wheezing or shortness of breath. 75 mL 5 09/15/20 24 025 Active terconazole (Terazol 7) 0.4 % vaginal cream Insert 1 applicator into the vagina at bedtime for 7 days. 45 g 11/20/19 25 025 Active tacrolimus (Protopic) 0.1 % ointment Apply topically 2 times daily. Apply to affected areas on face. 60 g 1 11/13/19 24 025 Hospital, Clinic, or Other Facility Administered Medication Ordered Dose Route Frequency Start Date End Date Status medroxyPROGESTERone (Depo-Provera) injection 150 mgIndications:Surveill ance for Depo-Provera contraception 150 mg IM Every 3 months 02/13/2024 02/07/2025 Active Active Problems Problem Noted Date Diagnosed Date Candidiasis of vulva and vagina 11/20/2024 Eczematous dermatitis of upper eyelids of both e yes 05/03/2024 Assessment & Plan (05/03/2024 11:32 AM EDT): Continues with tacrolimus BID PRN Well controlled On pre-exposure prophylaxis for HIV 06/20/2023 Overview (05/03/2024): Previously on Truvada 2022, although discontinued due to elevated Creatinine. Resolved s/p DC med Continues with injectable Cabotegravir through [facility] PrEP navigator - [facility] Healthcare maintenance 04/12/2023 Overview (05/03/2024): -Pap: NILM January 2022, due January 2025 -Optometry: Dec 2022 - eval at [facility] -Contraception: Depo -Last PE: 05/02/24 History of eating disorder 04/11/2023 Slow transit constipation 04/11/2023 Mild intermittent asthma 06/01/2022 Overview (05/03/2024): Continue with albuterol PRN Reviewed rule of 2's Assessment & Plan (09/15/2024 8:03 PM EST): No active wheezing on exam. Using Albuterol HFA and neb PRN. Assessment & Plan (05/03/2024 11:32 AM EDT): Well controlled History of ectopic 11/24/2021 Irregular periods 12/05/2018 Palpitations 12/05/2018 Assessment & Plan (06/20/2023 8:40 AM EDT): -Consider origin cardiac vs anxiety vs respiratory vs other -Referral to re-visit Cards for eval of palpitations -Previous workup for intermittent chest pain below: ? ? Dec 2022: Normal stress test ? ? 02/20/23: Echo ordered by Dr. Ramon. Normal left ventricular function, ef 60-65% ? ? 03/19/23: stress echo and echo came back normal. Follow up with Cards as needed basis. -ED precautions Migraine 12/14/2017 Overview (05/03/2024): -Continue sumatriptan PRN for migraines -Cont topiramate to 50mg daily for migraine prevention. Previous medication trials: -amitriptyline - ineffective Assessment & Plan (05/03/2024 11:33 AM EDT): Well controlled Mood disorder 12/14/2017 Assessment & Plan (05/03/2024 11:33 AM EDT): -Denies current SI/HI/thougthts of self harm -Previously following with therapist, not currently established -Encouraged to call office if interested in BE and therapy referral in the future -Letter for support animal generated 05/02/24 Assessment & Plan (04/12/2023 7:20 PM EDT): -Denies current SI/HI/thougthts of self harm -Previously following with therapist, not currently established -Encouraged to call office if interested in BE and therapy referral in the future Resolved Problems Problem Noted Date Diagnosed Date Resolved Date Diarrhea 06/13/2024 09/15/2024 Assessment & Plan (06/13/2024 9:53 PM EDT): Pt w ongoing diarrhea,[place] ,recent trip , benign physical exam COVID 19 and Flu neg Preg test neg -GI panel ordered today--call pt w results -hydration advised -tylenol -sumtriptane for [place] Abnormal weight loss 04/11/2023 024 Underweight 04/11/2023 05/03/2024 Encounters Date Type Department Care Team Description 11/21/2024 Orders Only [address] [address] Soni Rashid CNM Transaminitis (Primary Dx) 11/20/2024 1:00 PM EST Office Visit [address] [address] Soni Rashid CNM Amenorrhea (Primary Dx); Vaginal discharge; Candidiasis of vulva and vagina; 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 11/20/2024 Travel 11/17/2024 Telephone [facility] [address] [place] [address] Viridiana Jacinto FNP Nurse Triage 11/06/2024 10:00 AM EST Office Visit [facility] [address] [place] [address] Kalyn Murrell 10/23/2024 11:00 AM EST Office Visit [facility] [address] [place] [address] Thompson Almanzar Dental calculus (Primary Dx) 10/15/2024 2:30 PM EST Clinical Support [facility] [address] [place] [address] Chrissy Ibarra, FILIBERTO On Depo-Provera for contraception 10/15/2024 Travel 10/08/2024 Telephone [facility] [address] [place] [address] Viridiana Jacinto FNP No Show 10/06/2024 10:00 AM EST Clinical Support [address] [address] Errol Barnes, RN On pre-exposure prophylaxis for HIV 10/06/2024 Orders Only [facility] [address] [place] [address] Viridiana Jacinto FNP 10/06/2024 Travel 09/23/2024 Telephone [facility] [address] [place] [phone] Scarlett Boo, FILIBERTO 09/23/[address] [address] Scarlett Boo, FILIBERTO 09/23/2024 Telephone [facility] [address] [place] [phone] Diane Winters MA Results 09/22/2024 10:20 AM EST Office Visit [facility] [address] [place] [address] Viridiana Jacinto FNP Bronchitis (Primary Dx) 09/22/2024 Orders Only [facility] [address] [place] [address] Viridiana Jacinto FNP 09/22/2024 Travel 09/22/[address] [address] Viridiana Jacinto FNP Nurse Triage 09/15/2024 10:00 AM EST Office Visit [facility] [address] [place] [address] Viridiana Jacinto FNP Viral syndrome (Primary Dx); Mild intermittent asthma without complication; Rash and nonspecific skin eruption 09/15/2024 Travel 09/12/2024 Telephone [facility] [address] [place] [address] Diane Winters MA Chart Prep 09/10/2024 Refill [facility] [address] [place] [phone] Viridiana Jacinto FNP Healthcare maintenance (Primary Dx); Eczematous dermatitis of upper eyelids of both eyes; Acute bilateral back pain, unspecified back location; Migraine without aura and without status migrainosus, not intractable; On Depo-Provera for contraception; Seasonal allergic rhinitis, unspecified trigger; Mild intermittent asthma without complication 09/10/2024 Refill [facility] [address] [place] [phone] O'Brina Haddad MD On pre-exposure prophylaxis for HIV from Last 3 Months Immunizations Name Administration Dates Next Due DTaP 07/17/2001, 9,01/17/1998,11/13 HPV 9-Valent 05/24/2021 HPV, Quadrivalent 01/12/2014,09/15/2013,07/14/20 13 Hep A, Adult 01/16/2019 Hep A, ped/adol, 2 dose 11/26/2013 Hep B, Adolescent or Pediatric 03/19/1998,1997,1997 Hib (HbOC) 03/25/1999, 8,01/16/1998,11/13 IPV 07/22/2001, 8,01/16/1998,11/13 Influenza injectable quadriv alent IIV4 with preservative 07/30/2017 Influenza injectable quadriv alent preservative free 07/31/2022 Influenza, Split (incl. surya fied surface antigen) 11/26/2013 MMR 01/06/2000,09/24/1998 Meningococcal MCV4P [id number]-135 11/26/2013 TD (adult), 2 Lf tetanus tox oid, preservative free, adsorbed 08/29/2022,08/29/2022 Tdap 07/03/2011 Varicella 07/14/2013,12/06/2000 Family History Medical History Relation Name Comments Scoliosis Brother hemorrhoids Father Breast cancer Father's Sister Arthritis Mother cancer unspecified Mother's Sister Colon cancer Other 1 MGF Father Hypothyroidism Other 2 Mother's Side of Family Breast cancer Paternal Grandmother hypoglycemia Paternal Grandmother ADD / ADHD Sister Relation Name Status Comments Brother Father Father's Sister Mother Mother's Sister Other 1 MGF Father Other 2 Mother's Side of Family Paternal Grandmother Sister Social History Tobacco Use Types Packs/Day Years Used Date Smoking Tobacco: Never Passive Smoke Exposure: Never Smokeless Tobacco: Never Tobacco Cessation:Counseling Given: Not Answered Alcohol Use Standard Drinks/Week Comments Never 0 (1 standard drink = 0.6 oz pur e alcohol) Alcohol Answer Date Recorded Frequency of Alcohol Consumption Not on file 05/02/2024 Average Number of Drinks Not on file 024 Frequency of Binge Drinking Not on file 04/06 Score 0 05/02/2024 Depression Answer Date Recorded Patient Health Questionnaire-9 Score 18 05/02/2024 Patient Health Questionnaire-9 Score 18 05/02/2024 Last PHQ-9: Questionnaire Data Not on file 0 05/02/2024 Housing Stability Answer Date Recorded What is your housing situation today? I have juan alarcon 05/02/[address] you li ve. Do you have problems with any of the following? None of the above 05/02/2024 Food Insecurity Answer Date Recorded Within the past 12 months, y ou worried that your food would run out before you got money to buy more: Never True 05/02/2024 Within the past 12 months,th e food you bought just didn't last and you didn't have enough money to get more: Never True Transportation Answer Date Recorded In the past 12 months, has l ack of transportation kept you from medical appts, meetings, work or from getting things needed for daily living? No 05/02/2024 Utilities Answer Date Recorded In the past 12 months, has t he electric, gas, oil or water [email or web address] threatened to shut off services in your home? No 05/02/2024 Depression Answer Date Recorded Patient Health Questionnaire-2 Score 4 05/02/2024 Internet Access Answer Date Recorded Internet Access Q1 No 07/07/2024 Internet Access Q2 My internet/Wi-Fi ac cess is not consistent or reliable 07/07/2024 Comments No Sex and Gender Information Value Date Recorded Sex Assigned at Female 09/04/2022 10:22 AM EDT Legal Sex Female 10:22 AM EDT Gender Identity Female 09/04/2022 10:22 AM EDT Sexual Orientation Straight 09/04/2022 10 :22 AM EDT Last Filed Vital Signs Vital Sign Reading Time Taken Comments Blood Pressure 107/66 11/20/2024 1:29 PM EST Pulse 82 11/20/2024 1:29 PM EST Temperature 36.4 ??C (97.5 ??F) 11/20/2024 1:29 PM ES T Respiratory Rate 16 11/20/2024 1:29 PM EST Oxygen Saturation 99% 11/20/2024 1:29 PM EST Inhaled Oxygen Concentration - - Weight 55.8 kg (123 lb) 11/20/2024 1:29 PM EST Height 154.9 cm (5' 1 ) 11/20/2024 1:29 PM EST Body Mass Index 23.24 11/20/2024 1:29 PM EST Plan of Treatment Upcoming Encounters Date Type Department Care Team (Late st Contact Info) Description 12/11/2024 9:00 AM EST Clinical Support [facility] [address] [place] [address] Errol Barnes, RN [address] [place] [address] 01/06/2025 1:00 PM EST Clinical Support [facility] [address] [place], [place] [phone] 01/27/2025 9:30 AM EDT Procedure Visit [facility] [address] [place] [address] Soni Rashid CNM [address] [place] [address] 05/06/2025 10:00 AM EDT Office Visit [facility] [address] [place] [address] Kalyn Murrell Health Maintenance Due Date Last Done Comments Pneumococcal Vaccine: Pediatrics (0 to 5 Years) and At-Risk Patients (6 to 64 Years) (1 of 2 - PCV) 2003 Depression Monitoring (PHQ-9) 11/01/2024 05/02/2024, 05/02/2024 Pap Smear 01/11/2025 01/11/2022, 01/11/2022 Dental Oral Exam 04/24/2025 10/23/2024, , 09/25/2022, Additional history exists Alcohol/Substance Use Screening 05/02/2025 05/02/2024 Depression Screening 05/02/2025 05/02/2024, 05/02/20 24 SDOH Screening 05/02/2025 05/02/2024 Influenza Vaccine (#1) 2025 2, 07/30/2017, 11/26/2013 Postponed from 07/06/2024 (Patient Refused) Dental Prophylaxis 05/07/2025 11/06/2024, 0 04/29/2024, 10/25/2023, Additional history exists COVID-19 Vaccine ( season) 2025 01/11/2022, 04/19/2021, 03/29/2021 Postponed from 07/06/2024 (Patient Refused) Dental X-Ray: Bitewings 10/24/2025 10/23/20 24, 10/25/2023, 09/25/2022, Additional history exists Family Planning (PISQ) 11/20/2025 11/20/2024 Tobacco Screening 11/20/2025 11/20/2024 Dental X-Ray: Full Mouth 10/26/2026 023, 12/18/2018, 01/14/2015, Additional history exists DTaP/Tdap/Td Vaccines (8 - Td or Tdap) 08/29/2032 08/29/2022, 08/29/2022, 07/03/2011, Additional history exists Zoster Vaccines (1 of 2) 2047 RSV Patients and Patients Aged 60 years or older (1 - 1-dose 75+ series) 2072 Hepatitis B Vaccines Completed 03/19/1998, 01/16/1998, 1997 HIB Vaccines Completed 03/25/1999, 03/05, 01/16/1998, Additional history exists IPV Vaccines Completed 07/22/2001, 03/05, 01/16/1998, Additional history exists Meningococcal Vaccine Completed 11/26/2013 Hepatitis A Vaccines Completed 01/16/2019, 11/26/19 14 HPV Vaccines Completed 05/24/2021, 01/03, 09/15/2013, Additional history exists Hepatitis C Screening Completed 06/12/2024 , 05/06/2024, 02/13/2024, Additional history exists HIV Screening Completed 10/06/2024, 01/2024, 08/07/2024, Additional history exists RSV under 20 months Aged Out No longe r eligible based on patient's age to complete this topic Rotavirus Vaccines Aged Out No longer eligible based on patient's age to complete this topic Procedures Procedure Name Priority Date/Time Associated Diagnosis Comments CHLAMYDIA/N. 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 AST Routine 11/20/2024 1:55 PM EST On assisted drug therapy HCG, TOTAL, QN Routine 11/20/2024 1:55 PM EST Amenorrhea ORAL HYGIENE INSTRUCTIONS Routine 11/06/2024 10:00 AM EST ADJUNCTIVE GENERAL SERVICES - PROFESSIONAL VISITS - CASE PRESENTATION, SUBSEQUENT TO DETAILED AND EXTENSIVE TREATMENT PLANNING Routine 11/06/2024 10:00 AM EST PROPHYLAXIS - ADULT Routine 11/06/2024 1 0:00 AM EST INTRAORAL - PERIAPICAL EACH ADDITIONAL RADIOGRAPHIC IMAGE Routine 10/23/2024 11:00 AM EST INTRAORAL - PERIAPICAL FIRST RADIOGRAPHIC IMAGE Routine 10/23/2024 11:00 AM EST ORAL HYGIENE INSTRUCTIONS Routine 10/23/2024 11:00 AM EST BITEWINGS - 4 RADIOGRAPHIC IMAGES Routine 10/23/2024 11:00 AM EST ADJUNCTIVE GENERAL SERVICES - PROFESSIONAL VISITS - CASE PRESENTATION, SUBSEQUENT TO DETAILED AND EXTENSIVE TREATMENT PLANNING Routine 10/23/2024 11:00 AM EST COMPREHENSIVE PERIODONTAL EVALUATION - NEW OR ESTABLISHED PATIENT Routine 10/23/2024 11:00 AM EST PERIODIC ORAL EVALUATION - ESTABLISHED PATIENT Routine 10/23/2024 11:00 AM EST HIV 1 RNA, QUANTITATIVE REAL TIME PCR Routine 10/06/2024 10:52 AM EST SYPHILIS SCREEN Routine 10/06/2024 10:52 AM EST POCT , URINE Routine 10/06/2024 10:23 AM EST On pre-exposure prophylaxis for HIV POCT RAPID HIV SCREENING Routine 10/06/2024 10:22 AM EST On pre-exposure prophylaxis for HIV POCT RAPID COVID ANTIGEN Routine 09/22/2024 11:16 AM EST Bronchitis POCT INFLUENZA B Routine 09/22/2024 11:1 6 AM EST Bronchitis POCT INFLUENZA A Routine 09/22/2024 11:1 5 AM EST Bronchitis CANCELLED SEROLOGY Routine 09/22/2024 10 :30 AM EST SARS COV2/INFLUENZA A/B AND RSV RNA QL NAAT Routine 09/22/2024 10:30 AM EST Bronchitis POCT RAPID COVID ANTIGEN Routine 09/15/2024 11:07 AM EST Viral syndrome POCT INFLUENZA B Routine 09/15/2024 11:0 6 AM EST Viral syndrome POCT INFLUENZA A Routine 09/15/2024 11:0 5 AM EST Viral syndrome HEPATITIS C AB W/REFL TO HCV RNA, QN, PCR Routine 06/12/2024 1:15 PM EDT Encounter for HIV pre-exposure prophylaxis DIAGNOSTIC - DIAGNOSTIC IMAGING - INTRAORAL - COMPREHENSIVE SERIES OF RADIOGRAPHIC IMAGES Routine 10/25/2023 9:00 AM EST Dental calculus PAP SMEAR Routine 01/11/2022 12:00 AM EST from Last 3 Months or Most Recently Relevant to Health Maintenance Results * Chlamydia/N. Gonorrhoeae RNA, TMA, Urogenitial (11/20/2024 1:58 PM EST) CT PCR NOT DETECTED Not Detect. [facility] Comment:A not detected test result does not exclude the possibilityof infection because test results can be affected byimproper specimen collection, concurrent antibiotic therapy,or the number of organisms in the specimen which may bebelow the sensitivity of the test. As with many diagnostictests, results from the Xpert CT/NG assay should beinterpreted in conjunction with other laboratory andclinical data available to the clinician.Xpert CT/NG performance has not been evaluated in patientsless than 14 years of age. The assay should not be used forthe evaluationof suspected sexual abuse or for other medico-legalindications. Additional testing is recommended in anycircumstance when false positive or false negative resultscould lead to adverse medical, social or psychologicalconsequences. NG PCR NOT DETECTED Not Detect. [facility] Comment:A not detected test result does not exclude the possibilityof infection because test results can be affected byimproper specimen collection, concurrent antibiotic therapy,or the number of organisms in the specimen which may bebelow the sensitivity of the test. As with many diagnostictests, results from the Xpert CT/NG assay should beinterpreted in conjunction with other laboratory andclinical data available to the clinician.Xpert CT/NG performance has not been evaluated in patientsless than 14 years of age. The assay should not be used forthe evaluationof suspected sexual abuse or for other medico-legalindications. Additional testing is recommended in anycircumstance when false positive or false negative resultscould lead to adverse medical, social or psychologicalconsequences. Swab Vaginal structure / Unknown 11/20/2024 1:58 PM EST 11/20/2024 4:20 PM EST Narrative [facility] - 11/21/2024 9:09 AM EST Vaginal Soni Rashid CNM LAB MICROBIOLOGY - GENERA L ORDERABLES Final Result [facility] [address] [place] [phone] * POCT fern test, vaginal fluid manually resulted (11/20/2024 1:55 PM EST) JOHN Prep Positive Comment:pH 4.5, pos yeast, n eg trich, neg wbc. neg whiff, neg clue Vaginal Fluid Vaginal structure / Unknown 11/20/2024 1:55 PM EST Grays Soni Rashid CNM - 11/20/2024 1:55 PM EST Vulvovaginal candidiasis Soni Rashid CNM POINT OF CARE TEST ENTER/ EDIT ORDERABLES Final Result * hCG, Total, Quantitative (11/20/2024 1:55 PM EST) HCG Quantitative <2 mIU/mL [facility] Comment:Weeks post LMP Appr oximate hCG(Last Menstrual Period) Range (mIU/ml)3 - 4 weeks 9 - 1304 - 5 weeks 75 - 2,6005 - 6 weeks 850 - 20,8006 - 7 weeks 4000 - 100,2007 - 12 weeks 11,500 - 289,21948 - 16 weeks 18,300 - 137,50931 - 29 weeks (2nd trimester) 1,400 - 53,90353 - 41 weeks (3rd trimester) 940 - 60,000The Batista B-hCG assay is used for the early detection ofpregnancy; it cannot be used to diagnose any conditionunrelated to . If a B-hCG level is not supportedby the clinical evidence, results should be confirmed by analternative method (qualitative urine hCG, for example). Blood Venous blood specimen / Unknown 11/20/2024 1:55 PM EST 11/20/2024 3:57 PM EST [facility] BLOOD ORDERABLES Jessica l Result Performing Organization Address City/[facility]/ZIP Co de Phone Number [facility] [address] [place] [phone] * (ABNORMAL) ALT (11/20/2024 1:55 PM EST) Pathologist [facility] Alanine Aminotransferase 55(H) 0 - 31 U/L [facility] Blood Venous blood specimen / Unknown 11/20/2024 1:55 PM EST 11/20/2024 3:57 PM EST [facility] LAB BLOOD ORDERABLES Jessica l Result Performing Organization Address City/[facility]/ZIP Co de Phone Number [facility] [address] [place] [phone] * (ABNORMAL) AST (11/20/2024 1:55 PM EST) Aspartate Amino Transferase 50(H) 5 - 31 U/L [facility] Blood Venous blood specimen / Unknown 11/20/2024 1:55 PM EST 11/20/2024 3:57 PM EST Soni Rashid CNM LAB BLOOD ORDERABLES Jessica l Result Performing Organization Address City/[facility]/ZIP Co de Phone Number [facility] [address] [place] [phone] * Syphilis Screen (10/06/2024 10:52 AM EST) Pathologist [facility] Syphilis Screen Nonreactive Nonreactive [facility] 10/06/2024 10:5 2 AM EST 10/06/2024 1:27 PM EST Viridiana Jacinto [employer]ASKET INSPECT[employer] LAB BLOOD ORDERABLES Final Res ult Performing Organization Address [facility] de Phone Number [facility] [address] [place] [phone] * HIV-1 RNA, Quantitative, Real-Time PCR (10/06/2024 10:52 AM EST) Pathologist [facility] HIV RNA PCR Qn Copies NOT DETECTED NOT DETECTED copies/mL [facility] HIV RNA PCR Qn Log Copies NOT DETECTED NOT DETECTED [facility] Comment:Result Units: Log co pies/mLThis test was performed using Real-Time Polymerase ChainReaction.Reportable Range: 20 copies/mL to 10,000,000 copies/mL(1.30 log copies/mL to 7.00 log copies/mL).THIS TEST WAS PERFORMED AT:[employer] [place] [phone] SILVA MD 10/06/2024 10:5 2 AM EST 10/06/2024 1:27 PM EST us Viridiana Jacinto [facility] BLOOD ORDERABLES Final Res ult [facility] [address] [place] [phone] * POCT Urine (10/06/2024 10:23 AM EST) [facility] Preg Test, Ur Negative Negative, Indeterminate, None Detected, Invalid, Specimen unsatisfactory for evaluation, Weakly Positive Urine 10/06/2024 10:2 3 AM EST Brina Liz MD POINT OF CARE TEST ENTER/DEVAN T ORDERABLES Final Result * POCT Rapid HIV Screening (10/06/2024 10:22 AM EST) Blood 10/06/2024 10:2 2 AM EST Narrative Errol Barnes RN - 10/06/2024 10:22 AM EST HIV ag/ab = negative Brina Liz MD POINT OF CARE TEST ENTER/DEVAN T ORDERABLES Final Result * POCT Rapid Covid-19 BinaxNOW (09/22/2024 11:16 AM EST) Only the most recent of2 resultswithin the time period is included. [facility] Rapid COVID Ag Negative Comment:internal controls pa ssed QC Media Lot # [id number] Lot# Expiration Date [id number] Swab 09/22/2024 11:1 6 AM EST Viridiana HURLEYP POINT OF CARE TEST ENTER/EDIT ORDERABLES Final Result * POCT Rapid Influenza B OSOM (09/22/2024 11:16 AM EST) Only the most recent of2 resultswithin the time period is included. [facility] Rapid Influenza B Ag Negative Negative, Indeterminate Comment:internal controls pa ssed QC Media Lot # [id number] Lot# Expiration Date [id number] Swab 09/22/2024 11:1 6 AM EST us Viridiana Jacinto CASKET INSPECTOR POINT OF CARE TEST ENTER/EDIT ORDERABLES Final Result * POCT Rapid Influenza A OSOM (09/22/2024 11:15 AM EST) Only the most recent of2 resultswithin the time period is included. Rapid Influenza A Ag Negative Negative, Indeterminate Comment:internal controls pa ssed QC Media Lot # [id number] Lot# Expiration Date ,732 Swab Nasopharyngeal structure / Unknown 09/22/2024 11:15 AM EST Viridiana Thorntonfazal [facility] POINT OF CARE TEST ENTER/EDIT ORDERABLES Final Result * Cancelled Serology (09/22/2024 10:30 AM EST) Pathologist [facility] Cancelled Serology SEE NOTE [facility] Comment:THE FOLLOWING TESTS WERE CANCELLED: RESP PANELREASON: WRONG SWAB 09/22/2024 10:3 0 AM EST 09/22/2024 5:28 PM EST Viridiana Ophelia HURLEYP HISTORICAL/NON ORDERABLE LABS Final Result Performing Organization Address City/State/[facility] Co de Phone Number [facility] [address] [place] [phone] * SARS-CoV-2 RNA, Influenza A/B, and RSV RNA, Ql NAAT (09/22/2024 10:30 AM EST) Pathologist [facility] Influenza A PCR NEGATIVE Negative [facility] Influenza B PCR NEGATIVE Negative [facility] Resp Syncy Virus RNA Qual PCR NEGATIVE Negative [facility] SARS COV2 PCR NEGATIVE Negative [facility] Comment:All test results mus t be correlated with clinical findings.Negative results do not preclude SARS-CoV2, influenza Avirus, influenza B virus and/or RSV infectionand should not be used as the sole basis for treatment orother patient management decisions. Negative results must becombined with clinical observations, patient history, andepidemiological information.This test has not been evaluated for monitoring treatment ofinfection.This test has been authorized by the FDA under an EmergencyUse Authorization (EUA) for use by authorized laboratories.Testing performed on the [employer] GeneXpert utilizingreal-time RT-PCR.All SARS CoV2 and positive influenza A/B results arereported to [facility]. Swab Nasopharyngeal structure / Unknown 09/22/2024 10:30 AM EST 09/22/2024 10:30 PM EST Narrative [facility] - 09/22/2024 11:[address] REQUESTED TO RUN SARS/FLU/RSV ON COLLECTED SWAB FOR RES.SEE FAXED ORDER. Viridiana Jacinto [facility] MICROBIOLOGY - GENERAL ORD ERABLES Final Result Performing Organization Address City/[facility]/ZIP Co de Phone Number [facility] [address] [place] [phone] * Hepatitis C Antibody with Reflex to HCV, RNA, Quantitative, Real-Time PCR (06/12/2024 1:15 PM EDT) Hepatitis C Antibody Nonreactive Nonreactive [facility] Comment:Antibodies to HCV no t detected; does not exclude early acuteHCV infection. Blood Venous blood specimen / Unknown 06/12/2024 1:15 PM EDT 06/12/2024 4:00 PM EDT Viridiana Jacinto [facility] BLOOD ORDERABLES Final Res ult [facility] [address] [place] [phone] * Pap Smear (01/11/2022 12:00 AM EST) Swab [facility] CYTOLOGY ORDERABLES F inal Result [address], [place] [address] from Last 3 Months or Most Recently Relevant to Health Maintenance Insurance [facility] C3 Care Teams Instrument/Control Technician Relationship Specialty Start Date End Date Viridiana Jacinto FNP [address] [place] [address] PCP - General Family Medicine 08/26/21
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
--- OUTSIDE RECORDS SUMMARY | 2024-11-26 15:42 | XMS_ITS | Encounter Summary ---
Author Organization [employer] Address [address] [place] [address] 7[address] [place] [address] Care Team Providers Care Associate Juvenile Court Judge Name Role Phone Viridiana Jacinto IRVING Primary Care Provider [phone] Reason for Visit * Reason Comments Gynecologic Exam Encounter Details Date Type Department Care Team ([facility] st Contact Info) Description 11/20/2024 1:00 PM EST Office Visit [facility] MED[facility] [address] [place] [address] Soni Rashid CNM [address] [place] [address] Amenorrhea (Primary Dx); Vaginal discharge; Candidiasis of vulva and vagina; On residential drug therapy Social History Tobacco Use Types Packs/Day Years [...] the past 12 months, has t he [employer]igos y [employer]igos, gas, oil or water company threatened to [...] AM EDT documented as of this encounter Last Filed Vital Signs Vital Sign Reading [...] Mass Index 23.24 11/20/2024 1:29 PM EST documented in this encounter Progress Notes * Soni Rashid, WILLIAMS - 11/20/2024 1:00 PM EST Subjective Patient ID: Serenity Hines is a 29 y.o. female who presents for test and vaginal symptoms Last Depo 10/15/2024. Reports occasional nausea and fatigue for past month or so. Had one positive and then one negative home test. 1 AMAB partner. Not planning , undecided about what she would do if . Amenorrheic with Depo. Notes new onset vaginal itching and discharge. History of vulvovaginal candidiasis and bacterial vaginosis. On injectable PrEP, last injection 10/06/2024 Treated for syphilis 12/2022, RPR 1:2. Retreated 01/2023 as partner was treated a few days after thatvisit. HIV and syphilis negative 10/2024. Normal hemoglobin A1C 05/2024. Pap NIL 01/2022. Hep B vaccinated. Review of Systems Constitutional: Positive for fatigue. Gastrointestinal: Positive for nausea. Genitourinary: Positive for vaginal discharge. Negative for dyspareunia, dysuria, pelvic pain and urgency. Objective BP 107/66 (BP Location: Left arm, Patient Position: Sitting, BP Cuff Size: Adult) Pulse 82 Temp97.5 ??F (36.4 ??C) (Temporal) Resp 16 Ht 5' 1 (1.549 m) Wt 123 lb (55.8 kg) SpO2 99% BMI 23.24 kg/m?? Physical Exam Constitutional: Appearance: Normal appearance. Genitourinary: General: Normal vulva. Labia: Right: No rash, tenderness, lesion or injury. Left: No rash, tenderness, lesion or injury. Vagina: No signs of injury and foreign body. Vaginal discharge and erythema present. No tenderness,bleeding, lesions or prolapsed vaginal awad. Cervix: Normal. Comments: Faint erythema at introitus Curdy discharge in vagina Bimanual deferred Neurological: Mental Status: She is alert. Psychiatric: Mood and Affect: Mood normal. Behavior: Behavior normal. Assessment/Plan Diagnoses and all orders for this visit: Amenorrhea - hCG, Total, Quantitative; Future Prefers serum hcg. Will check today and contact with results. Will discuss options counseling further if positive. Vaginal discharge - POCT fern test, vaginal fluid manually resulted - Chlamydia/N. Gonorrhoeae RNA, TMA, Urogenitial Consistent with vulvovaginal candidiasis. Would like Gonorrhea/Chlamydia sent today as well. Will treat with terconazole and contact with results. Candidiasis of vulva and vagina Normal hemoglobin A1C, neg HIV. Partner not circumcised. Will treat with terconazole and contact with results. Check ALT/AST in anticipation of trial of weekly fluconazole for vulvovaginal candidiasis prevention if not . On long wall shear operator drug therapy - AST; Future - ALT; Future Other orders - terconazole (Terazol 7) 0.4 % vaginal cream; Insert 1 applicator into the vagina at bedtime for 7days. documented in this encounter Plan of Treatment Upcoming Encounters Date Type Department Care Team (Late st Contact Info) Description 12/11/2024 9:00 AM EST Clinical Support [facility] MEDICINE [address] [place] [address] Errol Barnes RN [address] [place] [address] 01/06/2025 1:00 PM EST Clinical Support [facility] MED & PEDS [address] [place] [address] 01/27/2025 9:30 AM EDT Procedure Visit [facility] [address] [place] [address] Soni Rashid CNM [address] [place] [address] 05/06/2025 10:00 AM EDT Office Visit [facility] ADULT DENTAL [address] [place] [address] Kalyn Murrell documented as of this encounter Procedures Procedure Name Priority Date/Time Associated Diagnosis Comments CHLAMYDIA/N. GONORRHOEAE RNA, TMA, UROGENITAL Routine 11/20/2024 1:58 PM EST Vaginal discharge POCT WET MOUNT/JOHN Routine 11/20/2024 1: 55 PM EST Vaginal discharge HCG, TOTAL, QN Routine 11/20/2024 1:55 PM EST Amenorrhea ALT Routine 11/20/2024 1:55 PM EST On long wall shear operator drug therapy AST Routine 11/20/2024 1:55 PM EST On residential drug therapy documented in this encounter Results * Chlamydia/N. Gonorrhoeae RNA, TMA, Urogenitial (11/20/2024 1:58 PM EST) CT PCR NOT DETECTED Not Detect. [facility] Comment:A not detected test result does [...] psychologicalconsequences. NG PCR NOT DETECTED Not Detect. [facility] Comment:A not detected test result does [...] PM EST 11/20/2024 4:20 PM EST Narrative [facility] - 11/21/2024 9:09 AM EST Vaginal us Soni [facility] MICROBIOLOGY - GENERA L ORDERABLES Final Result Performing Organization Address [facility]/ZIP Co de Phone Number [facility] [address] [place] [phone] * (ABNORMAL) ALT (11/20/2024 1:55 PM EST) Alanine Aminotransferase 55(H) 0 - 31 U/L [facility] Blood Venous blood specimen / Unknown 11/20/2024 1:55 PM EST 11/20/2024 3:57 PM EST Soni Rashid [facility] BLOOD ORDERABLES Jessica l Result Performing Organization Address [facility] Co de Phone Number [facility] [address] [place] [phone] * (ABNORMAL) AST (11/20/2024 1:55 PM EST) Aspartate Amino Transferase 50(H) 5 - 31 U/L [facility] Blood Venous blood specimen / Unknown 11/20/2024 1:55 PM EST 11/20/2024 3:57 PM EST [facility] ORDERABLES Jessica l Result Performing Organization Address [facility] de Phone Number [facility] [address] [place] [phone] * hCG, Total, Quantitative (11/20/2024 1:55 PM EST) HCG Quantitative <2 mIU/mL [facility] Comment:Weeks post LMP Appro ximate hCG(Last Menstrual Period) Range (mIU/ml)3 - 4 weeks 9 - 1304 - 5 weeks 75 - 2,6005 - 6 weeks 850 - 20,8006 - 7 weeks 4000 - 100,2007 - 12 weeks 11,500 - 289,77867 - 16 weeks 18,300 - 137,07089 - 29 weeks (2nd trimester) 1,400 - 53,54270 - 41 weeks (3rd trimester) 940 - 60,000The Batista B- hCG assay is used for the early detection ofpregnancy; it cannot be used to diagnose any conditionunrelated to . If a B-hCG level is not supportedby the clinical evidence, results should be confirmed by analternative method (qualitative urine hCG, for example). Blood Venous blood specimen / Unknown 11/20/2024 1:55 PM EST 11/20/2024 3:57 PM EST Soni Rashid CNM LAB BLOOD ORDERABLES Jessica l Result [facility] [address] [place] [phone] * POCT fern test, vaginal fluid manually resulted (11/20/2024 1:55 PM EST) [facility] Prep Positive Comment:pH 4.5, pos yeast, n eg trich, neg wbc. neg whiff, neg clue Vaginal Fluid Vaginal structure / Unknown 11/20/2024 1:55 PM EST Impressions Soni Rashid CNM - 11/20/2024 1:55 PM EST Vulvovaginal candidiasis Soni Rashid CNM POINT OF CARE TEST ENTER/ EDIT ORDERABLES Final Result documented in this encounter Visit Diagnoses Diagnosis Amenorrhea- Primary Absence of menstruation Vaginal discharge Leukorrhea, not specified as infective Candidiasis of vulva and vagina On residential drug therapy documented in this encounter Additional Health Concerns Assessment Noted Time PHQ-9 Depression Total Score: 18 05/02/2 024 2:52 PM EDT documented as of this encounter Care Teams Associate Juvenile Court Judge Relationship Specialty Start Date End Date Viridiana Jacinto FNP [address] [place] [address] PCP - General Family Medicine 08/26/21 documented as of this encounter
--- OUTSIDE RECORDS SUMMARY | 2024-11-26 15:42 | XMS_ITS | Encounter Summary ---
Author Organization [employer] Address [address] [place] [address] 7[address] [place] [address] Care Team Providers Care Food Bagging Machine Operator Name Role Phone Viridiana Jacinto Primary Care Provider [phone] Reason for Visit * Reason Onset Date Comments Nurse Triage 11/17/2024 Encounter Details Date Type Department Care Team ([facility] st Contact Info) Description 11/17/2024 Telephone [facility] MED & PEDS [address] [place], [place] [phone] Viridiana Jacinto FNP [address] [place] [address] Nurse Triage Social History Tobacco Use Types Packs/Day Years [...] is not consistent or reliable 07/07/2024 Comments Unknown Sex and Gender Information Value Date Recorded Sex Assigned at Female 09/04/2022 10:22 AM EDT Legal Sex Female 10:22 AM EDT Gender Identity Female 09/04/2022 10:22 AM EDT Sexual Orientation Straight 09/04/2022 10 :22 AM EDT documented as of this encounter Miscellaneous Notes * Telephone Encounter - Elizabeth Huffman RN - 11/17/2024 11:11 AM EST Called pt. She states that x 5 days ago she did a test and it came out Positive and then last night pt. Did a test and it came back - Negative. Pt. Also has some clear discharge invaginal area. Pt. Is on Depo and is not due for next shot until December 2024. Pt. Wants to see CHINESE LANGUAGE PROFESSOR. Appt. Made for 11/20/24 at 1pm in [facility]. Pt. Wanted appt. For 11/20/24. Protocol Used: No Protocol Available (Adult) Protocol-Based Disposition: See in Office or Video Visit within 3 Days Video visit not offered Positive Triage Question: * Nursing judgment * All higher-acuity triage questions were negative * Telephone Encounter - Haleigh Middleton - 11/17/2024 10:49 AM EST Symptom: Nausea But No Vomiting and vaginal discharge (clear color) Outcome: Schedule an appointment to be seen within 3 days Reason: Caller denied all higher acuity questions The caller accepted this outcome. States has done 2 home test and 1 was negative and 1 was positive. documented in this encounter Plan of Treatment Upcoming Encounters Date Type Department Care Team (Late st Contact Info) Description 12/11/2024 9:00 AM EST Clinical Support [facility] MEDICINE [address] [place] [address] Errol Barnes, RN [address] [place] [address] 01/06/2025 1:00 PM EST Clinical Support [facility] MED & PEDS [address] [place] [address] 01/27/2025 9:30 AM EDT Procedure Visit [facility] MEDICINE [address] [place] [address] Soni Rashid CNM [address] [place] [address] 05/06/2025 10:00 AM EDT Office Visit [facility] ADULT DENTAL [address] [place] [address] Kalyn Murrell documented as of this encounter Visit Diagnoses Not on filedocumented in this encounter Additional Health Concerns Assessment Noted Time PHQ-9 Depression Total Score: 18 06/2 024 2:52 PM EDT documented as of this encounter Care Teams Food Bagging Machine Operator Relationship Specialty Start Date End Date Viirdiana Jacinto FNP [address] [place] [address] PCP - General Family Medicine 08/26/21 documented as of this encounter
--- OUTSIDE RECORDS SUMMARY | 2024-11-26 15:42 | XMS_ITS | Encounter Summary ---
Author Organization [employer] Address [address] [place] [address] 7t [place] [address] Care Team Providers Care Insurance Auditor Name Role Phone Viridiana Jacinto DOCUMENT MANAGEMENT SPECIALIST Primary Care Provider [phone] Reason for Visit * Reason Comments Routine Cleaning Encounter Details Date Type Department Care Team ([facility] st Contact Info) Description 11/06/2024 10:00 AM EST Office Visit [facility] ADULT DENTAL [address] [place], [place] [phone] Kalyn Murrell Social History Tobacco Use Types Packs/Day Years [...] Sign Reading Time Taken Comments Blood Pressure 122/76 11/06/2024 10:04 AM EST Pulse - - Temperature - - Respiratory Rate - - Oxygen Saturation - - Inhaled Oxygen Concentration - - Weight - - Height - - Body Mass Index - - documented in this encounter Progress Notes * Kalyn Murrell - 11/06/2024 10:00 AM EST Patient ID: Serenity Hines is a 29 y.o. female. Time Out: Timeout Date: 11/06/24, Timeout Time: 1005 Location: [facility] Tooth: Maxilla and Mandible Procedure: Prophylaxis Verified the above with patient, nutritional assistant, and provider. Confirmed via patient's chart, intraorally and by radiographs. Case Picker: not applicable Medical Hx: Vitals: Blood pressure 122/76. Medications, Med Hx reviewed with patient and updated in chart. Treatment Provided Dental procedures in this visit D1110 - PROPHYLAXIS - ADULT (Completed) Service provider: Kalyn Silvestre provider: Antoine Voss DDS [id number] - CASE PRESENTATION, DETAILED AND EXTENSIVE TREATMENT PLANNING (Completed) Service provider: Kalyn Silvestre provider: Antoine Voss DDS [id number] - ORAL HYGIENE INSTRUCTIONS (Completed) Service provider: Kalyn Silvestre provider: Antoine Voss DDS Instruments Used: Ultrasonic Scalers and Prophy angle Fluoride: N/A Oral Cancer Screening: No lesions Head/Neck Exam: No Lesions Calculus: Light and Localized Plaque: Light and Generalized Stain: None Bleeding: Light and Localized Gingiva: Healthy, Perio Charting Completed, and Bleeding on probing [place]: Good Perio Chart: Completed Oral hygiene instructions provided to patient including brushing technique and flossing. Recommendations: [place] two times daily, modified pascual technique, Floss daily, Electric toothbrush, Soft bristle toothbrush, [place] Tongue, Anti-sensitivity toothpaste Recall Frequency: 6 mo NV: Limited exam in 2 weeks/ Restorations Hygienist: Kalyn Murrell RDH documented in this encounter Plan of Treatment Upcoming Encounters Date Type Department Care Team (Late st Contact Info) Description 12/11/2024 9:00 AM EST Clinical Support [facility] [address] [place] [address] Errol Barnes, RN [address] [place] [address] 01/06/2025 1:00 PM EST Clinical Support [facility] MED & PEDS [address] [place] [address] 01/27/2025 9:30 AM EDT Procedure Visit [facility] [address] [place] [address] Soni Rashid CNM [address] [place] [address] 05/06/2025 10:00 AM EDT Office Visit [facility] ADULT DENTAL [address] [place] [address] Kalyn Murrell Scheduled Orders Name Type Priority Associated Diagnoses Orde r Schedule PROPHYLAXIS - ADULT Dental Routine 1 Occ urrences starting 11/06/2024 LIMITED ORAL EVALUATION - PROBLEM FOCUSED Dental Routine 1 Occurrences starting 11/06/2024 documented as of this encounter Procedures Procedure Name Priority Date/Time Associated Diagnosis Comments PROPHYLAXIS - ADULT Routine 11/06/2024 1 0:00 AM EST ORAL HYGIENE INSTRUCTIONS Routine 2024 10:00 AM EST ADJUNCTIVE GENERAL SERVICES - PROFESSIONAL VISITS - CASE PRESENTATION, SUBSEQUENT TO DETAILED AND EXTENSIVE TREATMENT PLANNING Routine 11/06/2024 10:00 AM EST documented in this encounter Visit Diagnoses Not on filedocumented in this encounter Additional Health Concerns Assessment Noted Time PHQ-9 Depression Total Score: 18 024 2:52 PM EDT documented as of this encounter Care Teams Insurance Auditor Relationship Specialty Start Date End Date Viridiana Jacinto FNP [address] [place] [address] PCP - General Family Medicine 08/26/21 documented as of this encounter
--- OUTSIDE RECORDS SUMMARY | 2024-11-26 15:42 | XMS_ITS | Encounter Summary ---
Author Organization [employer] Address [address] [facility] 7t [place] [address] Care Team Providers Care Lead Trainer Name Role Phone Viridiana Jacinto SERVICE DELIVERY MANAGEMENT CONSULTANT Primary Care Provider [phone] Encounter Details Date Type Department Care Team (Latest Contact Info) Description 11/20/2024 Travel Social History Tobacco Use Types Packs/Day Years [...] Description 12/11/2024 9:00 AM EST Clinical Support [facility] MEDICINE [address] [place] [phone] Errol Barnes, FILIBERTO [address] [place] [address] 01/06/2025 1:00 PM EST Clinical Support [facility] MED & PEDS [address] [place] [address] 01/27/2025 9:30 AM EDT Procedure Visit [facility] MEDICINE [address] [place] [address] Soni Rashid CNM [address] [place] [address] 05/06/2025 10:00 AM EDT Office Visit [facility] ADULT DENTAL [address] [place] [address] Kalyn Murrell documented as of this encounter Visit Diagnoses Not on filedocumented in this encounter Additional Health Concerns Assessment Noted Time PHQ-9 Depression Total Score: 18 024 2:52 PM EDT documented as of this encounter Care Teams Lead Trainer Relationship Specialty Start Date End Date Viridiana Jacinto FNP [address] [place] [address] PCP - General Family Medicine 08/26/21 documented as of this encounter
--- OUTSIDE RECORDS SUMMARY | 2024-11-26 15:43 | XMS_ITS | Encounter Summary ---
Author Organization [employer] [facility] Address [address] [place] [address] [address] [place] [address] Care Team Providers Care Mirror Inspector Name Role Phone Viridiana Jacinto CONCRETE FOREMAN Primary Care Provider [phone] Encounter Details Date Type Department Care Team (Late Contact Info) Description 03/16/2023 Orders Only [facility] MED & PEDS [address] [place] [address] Elly Harmon LPN Social History Tobacco Use Types Packs/Day Years Used Date Smoking Tobacco: Never Smokeless Tobacco: Never Comments No Sex and Gender Information Value Date Recorded Sex Assigned at Female 09/04/2022 10:22 AM EDT Legal Sex Female 10:22 AM EDT Gender Identity Female 09/04/2022 10:22 AM EDT Sexual Orientation Straight 09/04/2022 10 :22 AM EDT COVID-19 Exposure Response Date Recorded In the last 10 days, have yo magnus been in contact with someone who was confirmed or suspected to have Coronavirus/COVID-19? No / Unsure 03/09/2023 11:33 AM EDT documented as of this encounter Plan of Treatment Upcoming Encounters Date Type Department Care Team (Late st Contact Info) Description 12/11/2024 9:00 AM EST Clinical Support [facility] MEDICINE [address] [place] [address] Errol Barnes, FILIBERTO [address] [place] [address] 01/06/2025 1:00 PM EST Clinical Support [facility] MED & PED[facility] [address] [place] [address] 01/27/2025 9:30 AM EDT Procedure Visit [facility] MEDICINE [address] [place] [address] Soni Rashid CNM [address] [place] [address] 05/06/2025 10:00 AM EDT Office Visit [facility] ADULT DENTAL [address] [place] [address] Kalyn Murrell documented as of this encounter Visit Diagnoses Not on filedocumented in this encounter Care Teams Mirror Inspector Relationship Specialty Start Date End Date Viridiana Jacinto FNP [address] [place] [address] PCP - General Family Medicine 08/26/21 documented as of this encounter
--- OUTSIDE RECORDS SUMMARY | 2024-11-26 15:43 | XMS_ITS | Encounter Summary ---
Author Organization [employer] [facility] Address [address] [place] [address] 7t [place] [address] Care Team Providers Care Shaper Setter Name Role Phone Viridiana Jacinto HOSPITAL CHIEF EXECUTIVE OFFICER Primary Care Provider [phone] Encounter Details Date Type Department Care Team (Latest Contact Info) Description 12/18/2018 Abstract [facility] CONVERSIONS Dental, Provider, DDS Social History Tobacco Use Types Packs/Day Years Used Date Smoking Tobacco: Never Assessed Comments Unknown Sex and Gender Information Value [...] Description 12/11/2024 9:00 AM EST Clinical Support [facility] MEDICINE [address] [place] [address] Errol Barnes, RN [address] [place] [address] 01/06/2025 1:00 PM EST Clinical Support [facility] MED & PEDS [address] [place] [address] 01/27/2025 9:30 AM EDT Procedure Visit [facility] MEDICINE [address] [place] [address] Soni Rashid CNM [address] [place] [address] 05/06/2025 10:00 AM EDT Office Visit [facility] ADULT DENTAL [address] [place] [address] Kalyn Murrell documented as of this encounter Visit Diagnoses Not on filedocumented in this encounter Care Teams Shaper Setter Relationship Specialty Start Date End Date Viridiana Jacinto FNP [address] [place] [address] PCP - General Family Medicine 08/26/21 documented as of this encounter
--- OUTSIDE RECORDS SUMMARY | 2024-11-26 15:43 | XMS_ITS | Encounter Summary ---
Author Organization [employer] [facility] Address [address] [place] [address] 7t [place] [address] Care Team Providers Care Wave Guide Assembler Name Role Phone Viridiana Jacinto PERSONNEL GENERALIST MANAGER Primary Care Provider [phone] Encounter Details Date Type Department Care Team (Latest Contact Info) Description 11/11/2021 Abstract [facility] CONVERSIONS Dental, Provider, DDS Social History Tobacco [...] Description 12/11/2024 9:00 AM EST Clinical Support [facility] MEDICINE [address] [place] [address] Errol Barnes, RN [address] [place] [address] 01/06/2025 1:00 PM EST Clinical Support [facility] MED & PEDS [address] [place] [address] 01/27/2025 9:30 AM EDT Procedure Visit [facility] MEDICINE [address] [place] [address] Soni Rashid CNM [address] [place] [address] 05/06/2025 10:00 AM EDT Office Visit [facility] ADULT DENTAL [address] [place] [address] Kalyn Murrell documented as of this encounter Visit Diagnoses Not on filedocumented in this encounter Care Teams Wave Guide Assembler Relationship Specialty Start Date End Date Viridiana Jacinto FNP [address] [place] [address] PCP - General Family Medicine 08/26/21 documented as of this encounter
--- OUTSIDE RECORDS SUMMARY | 2024-11-26 15:43 | XMS_ITS | Encounter Summary ---
Author Organization [employer] [facility] Address [address] [place] [address] 7t [place] [address] Care Team Providers Care Mechanical Lead Name Role Phone Viridiana Jacinto CODING COMPLIANCE MANAGER Primary Care Provider [phone] Encounter Details Date Type Department Care Team (Late st Contact Info) Description 07/19/2023 Orders Only [facility] MED[facility]INE [address] [place] [address] [phone] Brianna Sue ANP [address] [place] [address] [phone] Social History Tobacco Use Types Packs/Day Years Used Date Smoking Tobacco: Never Passive Smoke Exposure: Never Smokeless Tobacco: Never Alcohol Use Standard Drinks/Week Comments Never 0 (1 standard drink = 0.6 oz pur e alcohol) Depression Answer Date Recorded Patient Health Questionnaire-9 Score 16 04/12/2023 Depression Answer Date Recorded Patient Health Questionnaire-2 Score 5 04/12/2023 Comments No Sex and Gender Information Value [...] 9:00 AM EST Clinical Support [facility] MEDICINE [address] [place] [address] Errol Barnes, FILIBERTO [address] [place] [address] 01/06/2025 1:00 PM EST Clinical Support [facility] MED & PEDS [address] [place] [address] 01/27/2025 9:30 AM EDT Procedure Visit [facility] MED[facility]INE [address] [place] [address] Soni Rashid CNM [address] [place] [address] 05/06/2025 10:00 AM EDT Office Visit [facility] ADULT DENTAL 505 [place] [address] Kalyn Murrell documented as of this encounter Visit Diagnoses Not on filedocumented in this encounter Additional Health Concerns Assessment Noted Time PHQ-9 Depression Total Score: 16 023 2:56 PM EDT documented as of this encounter Care Teams Mechanical Lead Relationship Specialty Start Date End Date Viridiana Jacinto FNP [address] [place] [address] PCP - General Family Medicine 08/26/21 documented as of this encounter
--- OUTSIDE RECORDS SUMMARY | 2024-11-26 15:43 | XMS_ITS | Encounter Summary ---
Author Organization [employer] Address [address] 7t [place] [address] Care Team Providers Care Lap Grinder Name Role Phone Viridiana Jacinto COMPLIANCE ASSOCIATE Primary Care Provider [phone] Encounter Details Date Type Department Care Team (Late st Contact Info) Description 11/15/2023 Orders Only [facility] MED & PEDS [address] [place] [address] Soni Rashid, WILLIAMS [address] [facility] [place] [address] Encntr screen for infections w sexl mode of transmiss (Primary Dx) Social History Tobacco Use Types Packs/Day Years Used Date Smoking Tobacco: Never Passive Smoke Exposure: Never Smokeless Tobacco: Never Alcohol Use Standard Drinks/Week Comments Never 0 (1 standard drink = 0.6 oz pur e alcohol) Depression Answer Date Recorded Patient Health Questionnaire-9 Score 12 11/09/2023 Patient Health Questionnaire-9 Score 12 11/09/2023 Last PHQ-9: Questionnaire Data Not on file 0 11/09/2023 Housing Stability Answer Date Recorded What is your housing situation today? I have juan alarcon 08/20/[address] you li ve. Do you have problems with any of the following? None of the above 08/20/2023 Food Insecurity Answer Date Recorded Within the past 12 months, y ou worried that your food would run out before you got money to buy more: Never True 08/20/2023 Within the past 12 months,th e food you bought just didn't last and you didn't have enough money to get more: Never True Transportation Answer Date Recorded In the past 12 months, has l ack of transportation kept you from medical appts, meetings, work or from getting things needed for daily living? No 08/20/2023 Utilities Answer Date Recorded In the past 12 months, has t he electric, gas, oil or water company threatened to shut off services in your home? No 08/20/2023 Depression Answer Date Recorded Patient Health Questionnaire-2 Score 3 11/09/2023 Comments No Sex and Gender Information Value Date Recorded Sex Assigned at Female 09/04/2022 10:22 AM EDT Legal Sex Female 10:22 AM EDT Gender Identity Female 09/04/2022 10:22 AM EDT Sexual Orientation Straight 09/04/2022 10 :22 AM EDT documented as of this encounter Miscellaneous Notes * Result Encounter Note - Soni Rashid CNM - 11/15/2023 8:48 AM EST Please let Serenity know her syphilis test was negative. Thanks! documented in this encounter Plan of Treatment Upcoming Encounters Date Type Department Care Team (Late st Contact Info) Description 12/11/2024 9:00 AM EST Clinical Support [facility] MEDICINE [address] [place] [address] Errol Barnes, RN [address] [place] [address] 01/06/2025 1:00 PM EST Clinical Support [facility] MED & PEDS [address] [place] [address] 01/27/2025 9:30 AM EDT Procedure Visit [facility] MEDICINE [address] [place] [address] Soni Rashid CNM 230 [place] [address] 05/06/2025 10:00 AM EDT Office Visit [facility] ADULT D[facility] [address] [place] [address] Kalyn Murrell documented as of this encounter Procedures Procedure Name Priority Date/Time Associated Diagnosis Comments RPR (MONITOR) W/REFL TITER Routine 11/21/2023 12:26 PM EST Encntr screen for infections w sexl mode of transmiss documented in this encounter Results * RPR (Monitor) with Reflex to??Titer (11/21/2023 12:26 PM EST) RPR (Monitor) w/Refl Titer NON-REACTI VE NON-REACT HERAC[facility] Comment:THIS TEST WAS PERFOR MED AT:[employer] [place] [id number] SILVA MD Rapid Plasma Reagin Ab Titer TNP [facility] Blood Venous blood specimen / Unknown 11/21/2023 12:26 PM EST 11/21/2023 1:25 PM EST us Soni [facility] BLOOD ORDERABLES Jessica valencia Result [facility] [address] [place] [address] [phone] documented in this encounter Visit Diagnoses Diagnosis Encntr screen for infections w sexl mode of transmiss- Primary documented in this encounter Additional Health Concerns Assessment Noted Time PHQ-9 Depression Total Score: 12 024 10:43 AM EST documented as of this encounter Care Teams Lap Grinder Relationship Specialty Start Date End Date Viridiana Jacinto FNP [address] [place] [address] PCP - General Family Medicine 08/26/21 documented as of this encounter
--- OUTSIDE RECORDS SUMMARY | 2024-11-26 15:43 | XMS_ITS | Encounter Summary ---
Author Organization [employer] Address [address] [facility] 7t [place] [address] Care Team Providers Care Title I Assistant Name Role Phone Viridiana Jacinto IRVING Primary Care Provider [phone] Reason for Visit * Reason Onset Date Comments Med Refill 09/10/2024 Encounter Details Date Type Department Care Team ([facility] st Contact Info) Description 09/10/2024 Refill [facility] MEDICINE 230 [place] [address] Brina Liz MD 230 [place] [address] On pre-exposure prophylaxis for HIV Social History Tobacco Use Types Packs/Day Years [...] the past 12 months, has t he [employer], gas, oil or water company threatened to [...] Description 12/11/2024 9:00 AM EST Clinical Support [facility] MEDICINE [address] [place] [address] Errol Barnes, RN [address] [place] [address] 01/06/2025 1:00 PM EST Clinical Support [facility]EDS [address] [place] [address] 01/27/2025 9:30 AM EDT Procedure Visit [facility] MEDICINE [address] [place] [address] Soni Rashid CNM 230 [place] [address] 05/06/2025 10:00 AM EDT Office Visit [facility] ADULT DENTAL [address] [place] [address] Kalyn Murrell documented as of this encounter Visit Diagnoses Diagnosis On pre-exposure prophylaxis for HIV documented in this encounter Additional Health Concerns Assessment Noted Time PHQ-9 Depression Total Score: 18 05/02/ 024 2:52 PM EDT documented as of this encounter Care Teams Title I Assistant Relationship Specialty Start Date End Date Viridiana Jacinto FNP [address] [place] [address] PCP - General Family Medicine 08/26/21 documented as of this encounter
--- OUTSIDE RECORDS SUMMARY | 2024-11-26 15:43 | XMS_ITS | Encounter Summary ---
Author Organization [employer] [facility] Address [address] [place] [address] 7t [place] [address] Care Team Providers Care Senior Cost Accountant Name Role Phone Viridiana Jacinto Primary Care Provider [phone] Reason for Referral * Consultation (Routine) - Closed Specialty Diagnoses / Procedures Referred By Edwin barkley Referred To Contact Nutrition Diagnoses Underweight in childhood History of eating disorder Viridiana Jacinto FNP [address] [place] [address] Phone: tel: fax: Referral ID Status Reason Start Date Expiration Date V isits Requested Visits Authorized [id number] Closed Consult and Treat 01/14/2024 01/13/2025 1 1 Reason for Visit * Reason Onset Date Comments Referral 01/14/2024 Encounter Details Date Type Department Care Team ([facility] st Contact Info) Description 01/14/2024 Telephone [facility] MED & PEDS [address] [place] [address] Viridiana Jacinto FNP 505 [place] [address] Referral Social History Tobacco Use Types Packs/Day Years [...] encounter Miscellaneous Notes * Telephone Encounter - Chrissy Ibarra RN - 01/14/2024 2:14 PM EDT Noted thank you * Telephone Encounter - IRVING Markham - 01/14/2024 2:10 PM EDT Referral to nutrition sent, thank you! * Telephone Encounter - Chrissy Ibarra RN - 01/14/2024 1:13 PM EDT Please review message below and advise. Pt would like referral to Nutrition d/t underweight dx. * Telephone Encounter - Crissy Muñiz - 01/14/2024 1:02 PM EDT Tc from shayna with [facility] states pt is requesting to be referred to a communication equipment repairer. Shayna states she does not know the reasoning or dx of referral requested. Please contact pt for more information at [phone] documented in this encounter Plan of Treatment Upcoming Encounters Date Type Department Care Team (Late st Contact Info) Description 12/11/2024 9:00 AM EST Clinical Support [facility] MEDICINE [address] [place] [address] Errol Barnes, FILIBERTO [address] [place] [address] 01/06/2025 1:00 PM EST Clinical Support [facility] MED & PEDS [address] [place] [address] 01/27/2025 9:30 AM EDT Procedure Visit [facility] MEDICINE [address] [place] [address] Soni Rashid CNM [address] [place] [address] 05/06/2025 10:00 AM EDT Office Visit [facility] ADULT DENTAL [address] [place] [address] Kalyn Murrell Scheduled Referrals Name Type Priority Associated Diagnoses Orde r Schedule Referral to Nutrition Therapy Outpatient Referral Routine Underweight in childhood History of eating disorder Expected: 01/14/2024 (Approximate), Expires: 01/13/2025 documented as of this encounter Visit Diagnoses Diagnosis Underweight in childhood- Primary History of eating disorder documented in this encounter Additional Health Concerns Assessment Noted Time PHQ-9 Depression Total Score: 12 024 10:43 AM EST documented as of this encounter Care Teams Senior Cost Accountant Relationship Specialty Start Date End Date Viridiana Jacinto FNP [address] [place] [address] PCP - General Family Medicine 08/26/21 documented as of this encounter
[2024-11-26 16:52] LABS: Alanine Aminotransferase 62 U/L (0-31); Albumin Level 4.3 g/dL (3.5-5.0); Alkaline Phosphatase 88 U/L (39-117); Aspartate Amino Transferase 52 U/L (5-31); Bilirubin Direct 0.3 mg/dL (0.0-0.5); Bilirubin Total 0.7 mg/dL (0.0-1.0); Total Protein 7.3 g/dL (6.5-8.0)
[2024-11-27 08:19] LABS: HBS Num1 18.12 mIU/mL (0-7.99); HBc Num1 0.11 S/CO (0.00-0.79); HBsAGNum1 0.48 S/CO (0.00-0.99); Hepatitis A Antibody IgM 0.14 Index (0-0.79); Hepatitis B Core Antibody Nonreactive (Nonreactive); Hepatitis B Surface Antigen Negative (Negative); ~Hepatitis A Antibody IgM Nonreactive (Nonreactive); ~Hepatitis B Surface Antibody REACTIVE (Nonreactive); ~Hepatitis C Antibody Nonreactive (Nonreactive)
== END 2024-11-26 13:33 | disposition home or self-care (01) ==
LOC: HO.HHCL 13:32
PROVIDERS: Visit Provider Advanced Practice Midwife
DX: R74.01 Elevation of levels of liver transaminase levels (principal)
CPT/HCPCS: 36415; 80076; 86704; 86706; 86709; 86803; 87340

== ENCOUNTER 2024-12-12 15:50 | Outpatient (REF) | payer MEDICAID, SELFPAY ==
--- OUTSIDE RECORDS SUMMARY | 2024-12-12 15:53 | XMS_ITS | Encounter Summary ---
Author Organization [employer] Address [address] [facility] 7t [place] [address] Care Team Providers Care Scorer Helper Name Role Phone Viridiana Jacinto STEAK SAUCE MAKER Primary Care Provider [phone] Encounter Details Date Type Department Care Team [...] Care Team (Late st Contact Info) Description 12/24/2024 9:00 AM EST Office Visit [facility] MEDICINE [address] [place] [address] Viridiana Jacinto FNP 505 [place] [address] 01/06/2025 1:00 PM EST Clinical Support [facility] MED & PEDS [address] [place] [address] 01/27/2025 9:30 AM EDT Procedure Visit [facility] MEDICINE [address] [place] [address] Soni Rashid CNM [address] [place] [address] 05/06/2025 10:00 AM EDT Office Visit [facility] ADULT DENTAL [address] [place] [address] Kalyn Murrell documented as of this encounter Visit Diagnoses Not on filedocumented in this encounter Additional Health Concerns Assessment Noted Time PHQ-9 Depression Total Score: 18 024 2:52 PM EDT documented as of this encounter Care Teams Scorer Helper Relationship Specialty Start Date End Date Viridiana Jacinto FNP [address] [place] [address] PCP - General Family Medicine 08/26/21 documented as of this encounter
--- OUTSIDE RECORDS SUMMARY | 2024-12-12 15:53 | XMS_ITS | Encounter Summary ---
Author Organization [employer] [facility] Address [address] [place] [address] 7t [place] [address] Care Team Providers Care Cotton Washer Name Role Phone Viridiana Jacinto Primary Care Provider [phone] Encounter Details Date Type Department Care Team (Late st Contact Info) Description 07/19/2023 Orders Only [facility] MEDICINE [address] [place] [address] Brianna Sue ANP 230 [place], [place] [phone] Social History Tobacco Use Types Packs/Day Years [...] Description 12/24/2024 9:00 AM EST Office Visit [facility] MEDICINE [address] [place] [address] Viridiana Jacinto FNP 505 [place], [place] [phone] 01/06/2025 1:00 PM EST Clinical Support [facility] MED & PEDS [address] [place] [address] 01/27/2025 9:30 AM EDT Procedure Visit [facility] MEDICINE [address] [place] [address] Soni Rashid CNM [address] [place] [address] 05/06/2025 10:00 AM EDT Office Visit [facility] ADULT DENTAL 505 [place] [address] Kalyn Murrell documented as of this encounter Visit Diagnoses Not on filedocumented in this encounter Additional Health Concerns Assessment Noted Time PHQ-9 Depression Total Score: 16 023 2:56 PM EDT documented as of this encounter Care Teams Cotton Washer Relationship Specialty Start Date End Date Viridiana Jacinto FNP [address] [place] [address] PCP - General Family Medicine 08/26/21 documented as of this encounter
--- OUTSIDE RECORDS SUMMARY | 2024-12-12 15:53 | XMS_ITS | Encounter Summary ---
Author Organization [employer] [facility] Address [address] [place] [address] 7[address] [place] [address] Care Team Providers Care Machine Stripper Cutter Name Role Phone Viridiana Jacinto Primary Care Provider [phone] Encounter Details Date Type Department Care Team (Late Contact Info) Description 03/16/2023 Orders Only [facility] MED & PEDS [address] [place] [address] Elly Harmon LPN Social History Tobacco Use [...] Description 12/24/2024 9:00 AM EST Office Visit [facility] MEDICINE 230 [place] [address] Viridiana Jacinto FNP 505 [place] [address] 01/06/2025 1:00 PM EST Clinical Support [facility] MED & PEDS [address] [place] [address] 01/27/2025 9:30 AM EDT Procedure Visit [facility] MEDICINE [address] [place] [address] Soni Rashid CNM [address] [place] [address] 05/06/2025 10:00 AM EDT Office Visit [facility] ADULT DENTAL [address] [place] [address] Kalyn Murrell documented as of this encounter Visit Diagnoses Not on filedocumented in this encounter Care Teams Machine Stripper Cutter Relationship Specialty Start Date End Date Viridiana Jacinto FNP [address] [place] [address] PCP - General Family Medicine 08/26/21 documented as of this encounter
--- OUTSIDE RECORDS SUMMARY | 2024-12-12 15:53 | XMS_ITS | Data Portability ---
Author Organization [place] [facility] Address [address] [address] Assessment Encounter Date Assessment Date Assessment LastModified [...] neck, soft tissue, w/ contrast 2023 024 [facility] [place], [address] [facility] [address], [place], [address], 12/09/2024 15:18:53 Medication Orders None recorded. Patient TargetsNo targets [...] contr ast No observ ation record ed. [id number] [facility] [address], [address], 11/18/2024 15:19:39 Result Notes None recorded. Problems Name Problem SNOMED Code Status Onset Date Resolution Date Notes Provider Name and Address Organization Details Recorded Time Bilateral earache [id number] Active 020 Otalgi a, bilate ral; Note: Date Diagno sed: 020 2:16 PM (H92.0 3) Not Available [facility] 4 03:33:41 Problem Notes None recorded. Procedures Surgical History Date Name Laterality Status Provider Name and Address Organization Details Recorded Time 10/14/2024 Comp Audio with Tymps (01452 & 67742) completed CHERYLE REAL, [facility] [address] [facility],[address], [address], [facility] - [facility] 10/14/2024 12:26:09 Imaging Results Imaging Date Name Status LastModified by Organiz ation Details LastModified Time 10/14/2024 audiogram completed [facility] Information no t available 10/14/2024 14:07:50 11/11/2024 CT, neck, soft tissue, w/ contrast completed [id number] [facility] [place] [address], [address], 11/18/2024 15:19:39 Procedure Notes None recorded. Medical [...] Updated DateTime 10/14/2024 154.94 cm 22.1 kg/m2 50367.31 g Char Amezcua [place] [facility] 10/14/2024 11:50:29 Social History None recorded. Functional Status None recorded. Mental Status None recorded. Family History Nothing Reported. Medical History No medical history recorded. Gynecological HistoryNo gynecological history recorded. Obstetrics History GPAL:G 0 P 0 0 0 0 Past Encounters Encounter ID Performer Location Encounter Start Date Encounter Closed Date Diagnosis/Indication Diagnosis SNOMED-CT Code Diagnosis ICD10 Code Diagnosis Note [id number] JC TREJO PA-C [facility] [address] [address] 10/14/2024 11:33:10 10/14/2024 12:39:37 Bilateral earache 764365946 H92.03 Audiologic al evaluation results: 10/14/2024 Right [...] Zhao Member ID Guarantor Name 10/14/2024 1 [place] [facility] Eddiedelphine [facility] [id number] Serenity Sunlupe [facility] Notes Date Note Type Note Provider Name [...] history of otologic surgery. JC TREJO PA-C [address] [place] [address], [place], [address], [place] [facility] 10/14/2024 15:20:54 OBGyn Episode No OBEpisode recorded.
--- OUTSIDE RECORDS SUMMARY | 2024-12-12 15:53 | XMS_ITS | Encounter Summary ---
Author Organization [employer] Address [address] [facility] 7t [place] [address] Care Team Providers Care Waste Treatment Operator Name Role Phone Viridiana Jacinto Primary Care Provider [phone] Reason for Visit * Reason Onset Date Comments Results 12/04/2024 Encounter Details Date Type Department Care Team ([facility] st Contact Info) Description 12/04/2024 Telephone [facility] MEDICINE 230 [place] [address] Viridiana Jacinto FNP [address] [place] [address] Results Social History Tobacco Use Types Packs/Day Years [...] encounter Miscellaneous Notes * Telephone Encounter - Diane Burnett MA - 12/04/2024 9:44 AM EST T/C to pt to schedule a Follow-up result appt. Pt agreed to come in on 12/24/2024 at 9:00 am. Pt aware appt location will be [address] Mailed reminder letter. * Telephone Encounter - Diane Burnett MA - 12/04/2024 9:41 AM EST ----- Message from Viridiana Jacinto sent at 11/30/2024 7:10 PM EST ----- Please call to schedule for a 15 min visit to review labs ordered by Soni. Either in person or over the phone. Thanks! ----- Message ----- From: Soni Rashid CNM Sent: 11/27/2024 8:10 AM EST To: IRVING Markham Isauro Benton has elevated LFTs, Hep A/B/C pending. Would you like to followup with her or do you want meto order abdominal ultrasound? Thanks! documented in this encounter Plan of Treatment Upcoming Encounters Date Type Department Care Team (Late st Contact Info) Description 12/24/2024 9:00 AM EST Office Visit [facility] MEDICINE [address] [place] [address] Viridiana Jacinto FNP 505 [place] [address] 01/06/2025 1:00 PM EST Clinical Support [facility] 505 [place] [address] 01/27/2025 9:30 AM EDT Procedure Visit [facility] MEDICINE [address] [place] [address] Soni Rashid CNM [address] [place] [address] 05/06/2025 10:00 AM EDT Office Visit [facility] ADULT DENT[facility] [address] [place] [address] Kalyn Murrell documented as of this encounter Visit Diagnoses Not on filedocumented in this encounter Additional Health Concerns Assessment Noted Time PHQ-9 Depression Total Score: 18 05/02/2 024 2:52 PM EDT documented as of this encounter Care Teams Waste Treatment Operator Relationship Specialty Start Date End Date Viridiana Jacinto FNP [address] [place] [address] PCP - General Family Medicine 08/26/21 documented as of this encounter
--- OUTSIDE RECORDS SUMMARY | 2024-12-12 15:53 | XMS_ITS | Encounter Summary ---
Author Organization [employer] Address [address] [facility] 7t [place] [address] Care Team Providers Care Form Raiser Name Role Phone Viridiana Jacinto TOOLS ADMINISTRATOR Primary Care Provider [phone] Reason for Visit * Reason Onset Date Comments Results 12/01/2024 Encounter Details Date Type Department Care Team ([facility] st Contact Info) Description 12/01/2024 Telephone [facility] MED & PEDS [address] [place], [place] [phone] Radha Bautista RN Results Social History Tobacco Use Types Packs/Day [...] encounter Miscellaneous Notes * Telephone Encounter - Radha Bautista RN - 12/01/2024 3:25 PM EST TC placed to pt to inform of most recent blood work results below per PCP. Pt advised of elevated liver enzymes and the potential causes. Pt given lifestyle recommendations and told to f/u with repeat labs in 4-8 weeks. Pt agreeable to this plan of care and stated understanding of the results ----- Message from Viridiana Jacinto sent at 12/01/2024 3:17 PM EST ----- Please call to let her know that liver function testing completed after visit with Rachid has increased above normal levels and her baseline. There are many potential causes of the elevated liver function testing levels. It could be related to nutrition and exercise levels, medications, or other. Fortunately, testing shows immune to Hep B,which is good news, and neg for Hep A and Hep C. Please recommend 150 minutes physical activity weekly and diet rich in fruits and vegetables. I would like for her to repeat the liver function testing in 4-8 weeks fasting. Thank you! ----- Message ----- From: Soni Rashid CNM Sent: 12/01/2024 8:21 AM EST To: IRVING Markham Absolutely could be from Cabotegravir. If nothing else alarming, could repeat LFTs in a month and reassess for continued Cabotegravir use, as just at 2x ULN. documented in this encounter Plan of Treatment Upcoming Encounters Date Type Department Care Team (Late st Contact Info) Description 12/24/2024 9:00 AM EST Office Visit [facility] MED[facility] [address] [place] [address] Viridiana Jacinto FNP [address] [place] [address] 01/06/2025 1:00 PM EST Clinical Support [facility] MED & PEDS [address] [place] [address] 01/27/2025 9:30 AM EDT Procedure Visit [facility] [address] [place] [address] Soni Rashid CNM [address] [place] [address] 05/06/2025 10:00 AM EDT Office Visit [facility] ADULT DENTAL [address] [place] [address] Kalyn Murrell documented as of this encounter Visit Diagnoses Not on filedocumented in this encounter Additional Health Concerns Assessment Noted Time PHQ-9 Depression Total Score: 18 024 2:52 PM EDT documented as of this encounter Care Teams Form Raiser Relationship Specialty Start Date End Date Viridiana Jacinto FNP [address] [place] [address] PCP - General Family Medicine 08/26/21 documented as of this encounter
--- OUTSIDE RECORDS SUMMARY | 2024-12-12 15:53 | XMS_ITS | Encounter Summary ---
Author Organization [employer] [facility] Address [address] [place] [address] 7t [place] [address] Care Team Providers Care Senior Counsel Name Role Phone Viridiana Jacinto Primary Care Provider [phone] Encounter Details Date Type Department Care Team (Latest Contact Info) Description 12/18/2018 Abstract [facility] CONVERSIONS Dental, Provider, DDS Social History Tobacco [...] Description 12/24/2024 9:00 AM EST Office Visit [address] [address] Viridiana Jacinto FNP [address] [place] [address] 01/06/2025 1:00 PM EST Clinical Support [facility] MED & PEDS [address] [place] [address] 01/27/2025 9:30 AM EDT Procedure Visit [facility] MEDICINE [address] [place] [address] Soni Rashid CNM [address] [place] [address] 05/06/2025 10:00 AM EDT Office Visit [facility] ADULT DENTAL [address] [place] [address] Kalyn Murrell documented as of this encounter Visit Diagnoses Not on filedocumented in this encounter Care Teams Senior Counsel Relationship Specialty Start Date End Date Viridiana Jacinto FNP [address] [place] [address] PCP - General Family Medicine 08/26/21 documented as of this encounter
--- OUTSIDE RECORDS SUMMARY | 2024-12-12 15:53 | XMS_ITS | Encounter Summary ---
Author Organization [employer] Address [address] [facility] [address] 7t [place] [address] Care Team Providers Care Email Administrator Name Role Phone Viridiana Jacinto CORROSION TECHNICIAN Primary Care Provider [phone] Encounter Details Date Type Department Care Team (Late st Contact Info) Description 11/21/2024 Orders Only [facility] MEDICINE [address] [place] [address] Soni Rashid, DORIAN [address] [place] [address] Transaminitis (Primary Dx) Social History Tobacco Use [...] Encounter Note - Soni Rashid CNM - 11/21/2024 9:33 AM EST Isauro Benton has elevated LFTs, Hep A/B/C pending. Would you like to followup with her or do you want meto order abdominal ultrasound? Thanks! * Result Encounter Note - Soni Rashid CNM - 11/21/2024 9:33 AM EST Absolutely could be from Cabotegravir. If nothing else alarming, could repeat LFTs in a month and reassess for continued Cabotegravir use, as just at 2x ULN. documented in this encounter Plan of Treatment Upcoming Encounters Date Type Department Care Team (Late st Contact Info) Description 12/24/2024 9:00 AM EST Office Visit [facility] MEDICINE [address] [place] [address] Viridiana Jacinto, CORROSION TECHNICIAN [address] [place] [address] 01/06/2025 1:00 PM EST Clinical Support [facility] MED & PEDS [address] [place] [address] 01/27/2025 9:30 AM EDT Procedure Visit [facility] MEDICINE [address] [place] [address] Soni Rashid CNM [address] [place] [address] 05/06/2025 10:00 AM EDT Office Visit [facility] ADULT DENTAL [address] [place] [address] Kalyn Murrell documented as of this encounter Procedures Procedure Name Priority Date/Time Associated Diagnosis Comments HEPATITIS PANEL, GENERAL Routine 11/26/2024 1:34 PM EST Transaminitis HEPATIC FUNCTION PANEL Routine 11/26/2024 1:34 PM EST Transaminitis documented in this encounter Results * Hepatitis A,B,C Profile (11/26/2024 1:34 PM EST) Hepatitis A IgM Nonreactive Nonreactive [facility] Comment:IgM antibodies to BARTLETT V not detected; does not exclude earlyacute or recovered HAV infection. ~Hepatitis B Surface Antibody REACTIVE Nonreactive [facility] Comment:REACTIVE: > 11.99 mI U/mL Hepatitis B Core Antibody Nonreactive Nonreactive [facility] Hepatitis C Antibody Nonreactive Nonreactive [facility] Comment:Antibodies to HCV no t detected; does not exclude early acuteHCV infection. Hepatitis B Surface Ag Negative Negative [facility] Blood Venous blood specimen / Unknown 11/26/2024 1:34 PM EST 11/26/2024 4:20 PM EST us Soni [facility] LAB BLOOD ORDERABLES Jessica l Result [facility] [address] [place] [address] [phone] * (ABNORMAL) Hepatic Function Panel (11/26/2024 1:34 PM EST) Bilirubin, Total 0.7 0.0 - 1.0 mg/dL [facility] Bilirubin, Direct 0.3 0.0 - 0.5 mg/dL [facility] Aspartate Amino Transferase 52(H) 5 - 31 U/L [facility] Alanine Aminotransferase 62(H) 0 - 31 U/L [facility] Total Protein 7.3 6.5 - 8.0 g/dL [facility] Albumin Level 4.3 3.5 - 5.0 g/dL [facility] Alkaline Phosphatase 88 39 - 117 U/L [facility] Blood Venous blood specimen / Unknown 11/26/2024 1:34 PM EST 11/26/2024 4:20 PM EST us Soni Rashid [facility] BLOOD ORDERABLES Jessica l Result [facility] [address] [place] [phone] [phone] documented in this encounter Visit Diagnoses Diagnosis Transaminitis- Primary Nonspecific elevation of levels of transaminase or lactic acid dehydrogenase (LDH) documented in this encounter Additional Health Concerns Assessment Noted Time PHQ-9 Depression Total Score: 18 024 2:52 PM EDT documented as of this encounter Care Teams Email Administrator Relationship Specialty Start Date End Date Viridiana Jacinto FNP [address] [place] [address] PCP - General Family Medicine 08/26/21 documented as of this encounter
--- OUTSIDE RECORDS SUMMARY | 2024-12-12 15:53 | XMS_ITS | Encounter Summary ---
Author Organization [employer] Address [address] [facility] 7t [place] [address] Care Team Providers Care Ballistician Name Role Phone Viridiana Jacinto IRVING Primary Care Provider [phone] Reason for Visit * Reason Onset Date Comments Med Refill 12/03/2024 Encounter Details Date Type Department Care Team ([facility] st Contact Info) Description 12/03/2024 Refill [facility] [address] [place] [address] Brina Liz MD [address] [place] [address] On pre-exposure prophylaxis for HIV Social History [...] the past 12 months, has t he [employer], gas, oil or water company threatened to [...] Description 12/24/2024 9:00 AM EST Office Visit [facility] [address] [place] [address] Viridiana Jacinto FNP [address] [place] [address] 01/06/2025 1:00 PM EST Clinical Support [facility] PED[facility] [address] [place] [address] 01/27/2025 9:30 AM EDT Procedure Visit [facility] [address] [place] [address] Soni Rashid CNM [address] [place] [address] 05/06/2025 10:00 AM EDT Office Visit [facility] ADULT DENTAL [address] [place] [address] Kalyn Murrell documented as of this encounter Visit Diagnoses Diagnosis On pre-exposure prophylaxis for HIV documented in this encounter Additional Health Concerns Assessment Noted Time PHQ-9 Depression Total Score: 18 024 2:52 PM EDT documented as of this encounter Care Teams Ballistician Relationship Specialty Start Date End Date Viridiana Jacinto FNP [address] [place] [address] PCP - General Family Medicine 08/26/21 documented as of this encounter
--- OUTSIDE RECORDS SUMMARY | 2024-12-12 15:53 | XMS_ITS | Encounter Summary ---
Author Organization [employer] Address [address] [facility] 7t [place] [address] Care Team Providers Care Facilities Assistant Name Role Phone Viridiana Jacinto SURFACER Primary Care Provider Encounter Details Date Type Department Care Team (Latest Contact Info) Description 12/12/2024 Travel Social History Tobacco Use Types Packs/Day [...] Description 12/24/2024 9:00 AM EST Office Visit [facility] MEDICINE [address] [place] [address] Viridiana Jacinto FNP [address] [place] [address] 01/06/2025 1:00 PM EST Clinical Support [facility] MED & PEDS [address] [place] [address] 01/27/2025 9:30 AM EDT Procedure Visit [facility] MED[facility] [address] [place] [address] Soni Rashid CNM [address] [place] [address] 05/06/2025 10:00 AM EDT Office Visit [facility] ADULT DENTAL [address] [place] [address] Kalyn Murrell documented as of this encounter Visit Diagnoses Not on filedocumented in this encounter Additional Health Concerns Assessment Noted Time PHQ-9 Depression Total Score: 18 024 2:52 PM EDT documented as of this encounter Care Teams Facilities Assistant Relationship Specialty Start Date End Date Viridiana Jacinto FNP [address] [place] [address] PCP - General Family Medicine 08/26/21 documented as of this encounter
--- OUTSIDE RECORDS SUMMARY | 2024-12-12 15:53 | XMS_ITS | Encounter Summary ---
Author Organization [facility] Address [address] [place] [address] 7t [place] [address] Care Team Providers Care Disposal Worker Name Role Phone Viridiana Jacinto Primary Care Provider [phone] Reason for Referral * Consultation (Routine) - Closed Specialty Diagnoses / Procedures Referred By Edwin barkley Referred To Contact Nutrition Diagnoses Underweight in childhood History of eating disorder Viridiana Jacinto FNP [address] [place] [address] Phone: tel: fax: Referral ID Status Reason Start Date Expiration Date V isits Requested Visits Authorized [id number] Closed Consult and Treat 01/14/2024 01/13/2025 1 1 Reason for Visit * Reason Onset Date Comments Referral 01/14/2024 Encounter Details Date Type Department Care Team ([facility] st Contact Info) Description 01/14/[address] [facility] MED & PEDS [address] [place] [address] Viridiana Jacinto FNP [address] [place] [address] Referral Social History Tobacco Use Types Packs/Day [...] is requesting to be referred to a in process inspector. Shayna states she does not know the reasoning or dx of referral requested. Please contact pt for more information at [phone] documented in this encounter Plan of Treatment Upcoming Encounters Date Type Department Care Team ([facility] st Contact Info) Description 12/24/2024 9:00 AM EST Office Visit [facility] MEDICINE [address] [place] [address] Viridiana Jacinto FNP [address] [place] [address] 01/06/2025 1:00 PM EST Clinical Support [facility] MED [facility] PED[facility] [address] [place] [address] 01/27/2025 9:30 AM EDT Procedure Visit [facility] MEDICINE [address] [place] [address] Soni Rashid CNM [address] [place] [address] 05/06/2025 10:00 AM EDT Office Visit [facility] ADULT DENTAL [address] [place] [address] Kalyn Murrell Scheduled Referrals Name Type Priority [...] documented as of this encounter Care Teams Disposal Worker Relationship Specialty Start Date End Date Viridiana Jacinto FNP [address] [place] [address] PCP - General Family Medicine 08/26/21 documented as of this encounter
--- OUTSIDE RECORDS SUMMARY | 2024-12-12 15:53 | XMS_ITS | Encounter Summary ---
Author Organization [employer] Address [address] [facility] 7t [place] [address] Care Team Providers Care Sodder Name Role Phone Viridiana Jacinto IRVING Primary Care Provider [phone] Reason for Visit * Reason Onset Date Comments Med Refill 09/10/2024 Encounter Details Date Type Department Care Team ([facility] st Contact Info) Description 09/10/2024 Refill [facility] [address] [place] [address] Brina Liz MD [address] [place] [address] On pre-exposure prophylaxis for HIV Social History [...] the past 12 months, has t he [employer], gas, oil or water company threatened to [...] AM EST Office Visit [facility] [address] [place] [address] Viridiana Jacinto FNP [address] [place] [address] 01/06/2025 1:00 PM EST Clinical Support [facility] MED & PEDS [address] [place] [address] 01/27/2025 9:30 AM EDT Procedure Visit [facility] [address] [place] [address] Soni Rashid CNM [address] [place] [address] 05/06/2025 10:00 AM EDT Office Visit [facility] ADULT DENTAL [address] [place] [address] Kalyn Murrell documented as of this encounter Visit Diagnoses Diagnosis On pre-exposure prophylaxis for HIV documented in this encounter Additional Health Concerns Assessment Noted Time PHQ-9 Depression Total Score: 18 024 2:52 PM EDT documented as of this encounter Care Teams Sodder Relationship Specialty Start Date End Date Viridiana Jacinto FNP [address] [place] [address] PCP - General Family Medicine 08/26/21 documented as of this encounter
--- OUTSIDE RECORDS SUMMARY | 2024-12-12 15:53 | XMS_ITS | Encounter Summary ---
Author Organization [employer] Address [address] [place] [address] 7t [place] [address] Care Team Providers Care Brand Recorder Name Role Phone Viridiana Jacinto IRVING Primary Care Provider [phone] Reason for Visit * Reason Comments Gynecologic Exam Encounter Details Date Type Department Care Team ([facility] st Contact Info) Description 11/20/2024 1:00 PM EST Office Visit [facility] [address] [place] [address] Soni Rashid CNM [address] [place] [address] Amenorrhea (Primary Dx); Vaginal discharge; Candidiasis of vulva and vagina; On halfway drug therapy Social History Tobacco Use Types [...] the past 12 months, has t he [employer], gas, oil or water company threatened to [...] vulvovaginal candidiasis prevention if not . On laborer marine terminal drug therapy - AST; Future - ALT; Future Other orders - terconazole (Terazol 7) 0.4 % vaginal cream; Insert 1 applicator into the vagina at bedtime for 7days. documented in this encounter Plan of Treatment Upcoming Encounters Date Type Department Care Team (Late st Contact Info) Description 12/24/2024 9:00 AM EST Office Visit [facility] MED[facility] [address] [place] [address] Viridiana Jacinto FNP [address] [place] [address] 01/06/2025 1:00 PM EST Clinical Support [facility] MED [facility] PED[facility] [address] [place] [address] 01/27/2025 9:30 AM EDT Procedure Visit [facility] [address] [place] [address] Soni Rashid CNM [address] [place] [address] 05/06/2025 10:00 AM EDT Office Visit [facility] ADULT DENTAL [address] [place] [address] Kalyn Murrell documented as of this encounter Procedures Procedure Name Priority Date/Time Associated Diagnosis Comments CHLAMYDIA/N. GONORRHOEAE RNA, TMA, UROGENITAL Routine 11/20/2024 1:58 PM EST Vaginal discharge POCT WET MOUNT/JOHN Routine 11/20/2024 1: 55 PM EST Vaginal discharge HCG, TOTAL, QN Routine 11/20/2024 1:55 PM EST Amenorrhea ALT Routine 11/20/2024 1:55 PM EST On halfway drug therapy AST Routine 11/20/2024 1:55 PM EST On laborer marine terminal drug therapy documented in this encounter Results * Chlamydia/N. Gonorrhoeae RNA, TMA, Urogenitial (11/20/2024 1:58 PM EST) CT PCR NOT DETECTED Not Detect. [facility] Comment:A not detected test result [...] psychologicalconsequences. NG PCR NOT DETECTED Not Detect. [facility] Comment:A not detected test result [...] PM EST 11/20/2024 4:20 PM EST Narrative [facility] - 11/21/2024 9:09 AM EST Vaginal us Soni [facility] LAB MICROBIOLOGY - GENERA L ORDERABLES Final Result Performing Organization Address [facility]/ZIP Co de Phone Number [facility] [address] [place] [phone] * (ABNORMAL) ALT (11/20/2024 1:55 PM EST) Alanine Aminotransferase 55(H) 0 - 31 U/L [facility] Blood Venous blood specimen / Unknown 11/20/2024 1:55 PM EST 11/20/2024 3:57 PM EST [facility] LAB BLOOD ORDERABLES Jessica l Result Performing Organization Address [facility] Co de Phone Number [facility] [address] [place] [phone] * (ABNORMAL) AST (11/20/2024 1:55 PM EST) Aspartate Amino Transferase 50(H) 5 - 31 U/L [facility] Blood Venous blood specimen / Unknown 11/20/2024 1:55 PM EST 11/20/2024 3:57 PM EST [facility] LAB BLOOD ORDERABLES Jessica l Result Performing Organization Address [facility] Co de Phone Number [facility] [address] [place] [phone] * hCG, Total, Quantitative (11/20/2024 1:55 PM EST) HCG Quantitative <2 mIU/mL [facility] Comment:Weeks post LMP Appro ximate hCG(Last Menstrual Period) Range (mIU/ml)3 - 4 weeks 9 - 1304 - 5 weeks 75 - 2,6005 - 6 weeks 850 - 20,8006 - 7 weeks 4000 - 100,2007 - 12 weeks 11,500 - 289,52160 - 16 weeks 18,300 - 137,46131 - 29 weeks (2nd trimester) 1,400 - 53,30065 - 41 weeks (3rd trimester) 940 - [...] CNM LAB BLOOD ORDERABLES Jessica l Result [facility] [address] [place] [phone] * POCT fern test, vaginal fluid [...] infective Candidiasis of vulva and vagina On halfway drug therapy documented in this encounter Additional Health Concerns Assessment Noted Time PHQ-9 Depression Total Score: 18 05/02/2 024 2:52 PM EDT documented as of this encounter Care Teams Brand Recorder Relationship Specialty Start Date End Date Viridiana Jacinto FNP [address] [place] [phone] PCP - General Family Medicine 08/26/21 documented as of this encounter
--- OUTSIDE RECORDS SUMMARY | 2024-12-12 15:53 | XMS_ITS | Clinical Summary ---
Author Organization [employer] Address [address] [place] [address] 7[address] [place] [address] Care Team Providers Care Manager Truck Name Role Phone Viridiana Jacinto IRVING Primary Care Provider [phone] Allergies No known active allergies Medications medroxyPROGESTER one (Depo-Provera) 150 MG/ML injection Inject 1 mL (150 mg) into the shoulder, thigh, or buttocks every 3 (three) months. 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 50 tablet 3 024 2024 Active acetaminophen (Tylenol Extra Strength) 500 MG tablet Take 1-2 tablets (500-1,000 mg) by mouth every 8 (eight) hours if needed for moderate pain, headaches or fever. 100 tablet 3 024 2024 Active hydrOXYzine HCl (Atarax) 10 MG tablet Take 1 tablet (10 mg) by mouth every 8 (eight) hours if needed for anxiety. 30 tablet 2 024 2024 Active medroxyPROGESTER one (Depo-Provera) 150 MG/ML injectionIndicat ions:On Depo-Provera for contraception Inject 1 mL (150 mg) into the muscle every 3 (three) months. 1 mL 3 06/28/2 024 Active triamcinolone (Kenalog) 0.1 % creamIndications :Healthcare maintenance MIX 80 G TUBE OF TRIAMCINOLONE 0.1% CREAM WITH 16 OZ JAR OF CERAVE CREAM. APPLY 1 TO 2 TIMES PER DAY AFTER SHOWER OR BATH FROM THE NECK DOWN (NOT ON FACE) 80 g Active topiramate (Topamax) 50 MG tabletIndication s:Migraine without aura and without status migrainosus, not intractable TAKE 1 TABLET BY MOUTH AT BEDTIME 90 tablet Active Cabotegravir ER (Apretude) 600 MG/3ML Suspension Extended ReleaseIndicatio ns:On pre-exposure prophylaxis for HIV INJECT 3 ML VENTROGLUTEAL EVERY 2 MONTHS 3 mL Active SUMAtriptan (Imitrex) 50 MG tabletIndication s:Migraine without aura and without status migrainosus, not intractable TAKE 1 TABLET BY MOUTH AT ONSET OF MIGRAINE. MAY REPEAT ONCE AFTER 2 HOURS IF NEEDED NO MORE THAN 8 TABLETS IN 24 HOURS 10 tablet Active celecoxib (CeleBREX) 200 MG capsule Take 1 capsule (200 mg) by mouth if needed in the morning and at bedtime for moderate pain. 60 capsule 2025 Active fluticasone (Flonase) 50 MCG/ACT nasal sprayIndications :Seasonal allergic rhinitis, unspecified trigger Administer 1 spray into each nostril if needed in the morning and at bedtime for rhinitis or allergies. Shake gently. Before first use, prime pump. After use, clean tip and replace cap. 48 g Active albuterol 108 (90 Base) MCG/ACT inhalerIndicatio ns:Mild intermittent asthma without complication Inhale 2 puffs Every 4-6 hours as needed for wheezing or shortness of breath. 18 g 2025 Active cholecalciferol (Vitamin D High Potency) 25 MCG (1000 UT) capsuleIndicatio ns:Healthcare maintenance TAKE 1 CAPSULE BY MOUTH EVERY DAY 90 capsule Active albuterol (2.5 MG/3ML) 0.083% nebulizer solutionIndicati ons:Mild intermittent asthma without complication Take 3 mL (2.5 mg) by nebulization Every 4-6 hours as needed for wheezing or shortness of breath. 75 mL 5 025 2025 Active tacrolimus (Protopic) 0.1 % ointment Apply topically 2 times daily. Apply to affected areas on face. 60 g 1 024 2024 SUMAtriptan (Imitrex) 50 MG tabletIndication s:Migraine without aura and without status migrainosus, not intractable TAKE 1 TABLET BY MOUTH AT ONSET OF MIGRAINE. MAY REPEAT ONCE AFTER 2 HOURS IF NEEDED NO MORE THAN 8 TABLETS IN 24 HOURS 10 tablet 3 024 2024 Discontinued(R eorder (will not trigger notification to Pharmacy)) celecoxib (CeleBREX) 200 MG capsule Take 1 capsule (200 mg) by mouth if needed in the morning and at bedtime for moderate pain. 60 capsule 3 024 2024 Discontinued(R eorder (will not trigger notification to Pharmacy)) fluticasone (Flonase) 50 MCG/ACT nasal sprayIndications :Seasonal allergic rhinitis, unspecified trigger Administer 1 spray into each nostril if needed in the morning and at bedtime for rhinitis or allergies. Shake gently. Before first use, prime pump. After use, clean tip and replace cap. 48 g 3 024 2024 Discontinued(R eorder (will not trigger notification to Pharmacy)) albuterol 108 (90 Base) MCG/ACT inhalerIndicatio ns:Mild intermittent asthma without complication Inhale 2 puffs Every 4-6 hours as needed for wheezing or shortness of breath. 18 g 11 024 2024 Discontinued(R eorder (will not trigger notification to Pharmacy)) Cabotegravir ER (Apretude) 600 MG/3ML Suspension Extended ReleaseIndicatio ns:On pre-exposure prophylaxis for HIV INJECT 3 ML VENTROGLUTEAL EVERY 2 MONTHS 3 mL 3 024 2024 Discontinued(R eorder (will not trigger notification to Pharmacy)) cholecalciferol (Vitamin D High Potency) 25 MCG (1000 UT) capsuleIndicatio ns:Healthcare maintenance TAKE 1 CAPSULE BY MOUTH EVERY DAY 90 capsule 1 024 2024 Discontinued(R eorder (will not trigger notification to Pharmacy)) albuterol (2.5 MG/3ML) 0.083% nebulizer solutionIndicati ons:Mild intermittent asthma without complication Take 3 mL (2.5 mg) by nebulization Every 4-6 hours as needed for wheezing or shortness of breath. 75 mL 5 024 2024 Discontinued(R eorder (will not trigger notification to Pharmacy)) terconazole (Terazol 7) 0.4 % vaginal cream Insert 1 applicator into the vagina at bedtime for 7 days. 45 g 025 2024 Hospital, Clinic, or Other Facility Administered Medication [...] DC med Continues with injectable Cabotegravir through [facility] PrEP navigator - CRS Healthcare maintenance 04/12/2023 Overview (05/03/2024): -Pap: NILM January 2022, due January 2025 -Optometry: Dec 2022 - eval at [facility] -Contraception: Depo -Last PE: 05/02/24 History [...] Encounters Date Type Department Care Team Description 12/12/2024 Travel 12/04/2024 Telephone [facility] [address] [place] [address] Scarlett Boo, FILIBERTO 12/04/[address] [facility] [address] [place] [address] Viridiana Jacinto FNP Results 12/03/[address] [facility] [address] [place] [address] Viridiana Jacinto FNP Migraine without aura and without status migrainosus, not intractable; Seasonal allergic rhinitis, unspecified trigger; Mild intermittent asthma without complication; Healthcare maintenance 12/03/2024 Refill [facility] [address] [place] [address] Brina Liz MD On pre-exposure prophylaxis for HIV 12/01/2024 Telephone [facility] [address] [place] [address] Radha Bautista, RN Results 12/01/2024 Orders Only [facility] [address] [place] [address] Viridiana Jacinto FNP Elevated LFTs (Primary Dx) 11/21/2024 Orders Only [facility] [address] [place] [address] Soni Rashid CNM Transaminitis (Primary Dx) 11/20/2024 1:00 PM EST Office Visit [facility] [address] [place] [address] Soni Rashid CNM Amenorrhea (Primary Dx); Vaginal discharge; Candidiasis of vulva and vagina; On terminal carman drug therapy 11/20/2024 Travel 11/17/2024 Telephone [facility] [address] [place] [address] Viridiana Jacinto FNP Nurse Triage 11/06/2024 10:00 AM EST Office Visit [facility] [address] [place], [place] [phone] Kalyn Murrell 10/23/2024 11:00 AM EST Office Visit [facility] [address] [place], [place] [phone] Thompson Almanzar Dental calculus (Primary Dx) 10/15/2024 2:30 PM EST Clinical Support [facility] [address] [place], [place] [phone] Chrissy Ibarra, FILIBERTO On Depo-Provera for contraception 10/15/2024 Travel 10/08/2024 Telephone [facility] [address] [place] [address] Viridiana Jacinto FNP No Show 10/06/2024 10:00 AM EST Clinical Support [address] [address] Errol Barnes, FILIBERTO On pre-exposure prophylaxis for HIV 10/06/2024 Orders Only [facility] [address] [place] [address] Viridiana Jacinto FNP 10/06/2024 Travel 09/23/[address] [address] Scarlett Boo, RN 09/23/[address] [address] Scarlett Boo, RN 09/23/[address] [address] Diane Winters, NEHEMIAS Results 09/22/2024 10:20 AM EST Office Visit [facility] [address] [place] [address] Viridiana Jacinto FNP Bronchitis (Primary Dx) 09/22/2024 Orders Only [facility] [address] [place] [address] Viridiana Jacinto FNP 09/22/2024 Travel 09/22/2024 Telephone [facility] [address] [place] [address] Viridiana Jacinto FNP Nurse Triage 09/15/2024 10:00 AM EST Office Visit [facility] [address] [place], [place] [phone] Viridiana Jacinto FNP Viral syndrome (Primary Dx); Mild intermittent asthma without complication; Rash and nonspecific skin eruption 09/15/2024 Travel 09/12/2024 Telephone [facility] [address] [place] [address] Diane Winters [place] Chart Prep from Last 3 Months Immunizations Name Administration Dates Next Due DTaP 07/17/2001, 9,01/17/1998,11/13 HPV 9-Valent 05/24/2021 HPV, Quadrivalent 01/12/2014,09/15/2013,07/14/20 13 Hep A, Adult 01/16/2019 Hep A, ped/adol, 2 dose 11/26/2013 Hep B, Adolescent or Pediatric 03/19/1998,1997,1997 Hib ([facility]) 03/25/1999, 8,01/16/1998,11/13 IPV 07/22/2001, 8,01/16/1998,11/13 Influenza injectable [...] Description 12/24/2024 9:00 AM EST Office Visit [facility] [address] [place] [address] Viridiana Jacinto FNP [address] [place] [address] 01/06/2025 1:00 PM EST Clinical Support [facility] [address] [place] [address] 01/27/2025 9:30 AM EDT Procedure Visit [facility] [address] [place] [address] Soni Rashid CNM [address] [place] [address] 05/06/2025 10:00 AM EDT Office Visit [facility] [address] [place] [address] Kalyn Murrell Health Maintenance Due Date Last Done Comments Pneumococcal Vaccine: Pediatrics (0 to 5 Years) and At-Risk Patients (6 to 49) Years) (1 of 2 - PCV) 2016 Depression Monitoring (PHQ-9) 11/01/2024 05/02/2024, 05/02/2024 Pap Smear 01/11/2025 01/11/2022, 01/11/2022 Dental Oral Exam 04/24/2025 10/23/2024, , 09/25/2022, Additional history exists Alcohol/Substance Use Screening 05/02/2025 05/02/2024 Depression Screening 05/02/2025 05/02/2024, 05/02/20 24 SDOH Screening 05/02/2025 05/02/2024 Influenza Vaccine (#1) 2025 , 07/30/2017, 11/26/2013 Postponed from 07/06/2024 (Patient Refused) Dental Prophylaxis 05/07/2025 11/06/2024, 0 04/29/2024, 10/25/2023, Additional history exists COVID-19 Vaccine () 09/15/2025 01/11/2022, 04/19/2021, 03/29/2021 Postponed from 07/06/2024 (Patient [...] 11/26/2013 Hepatitis A Vaccines Completed 01/16/2019, 11/26/19 HPV Vaccines Completed 05/24/2021, 01/03, 09/15/2013, Additional history exists HIV Screening Completed 10/06/2024, 01/2024, 08/07/2024, Additional history exists Hepatitis C Screening Completed 11/26/2024 , 06/12/2024, 05/06/2024, Additional history exists RSV under 20 months Aged Out No longe r eligible based on patient's age to complete this topic Rotavirus Vaccines Aged Out No longer eligible based on patient's age to complete this topic Procedures Procedure Name Priority Date/Time Associated Diagnosis Comments HEPATITIS PANEL, GENERAL Routine 11/26/2024 1:34 PM EST Transaminitis HEPATIC FUNCTION PANEL Routine 1:34 PM EST Transaminitis CHLAMYDIA/N. GONORRHOEAE RNA, TMA, UROGENITAL Routine 11/20/2024 1:58 PM EST Vaginal discharge POCT WET MOUNT/JOHN Routine 11/20/2024 1: 55 PM EST Vaginal discharge ALT Routine 11/20/2024 1:55 PM EST On terminal carman drug therapy AST Routine 11/20/2024 1:55 PM EST On terminal carman drug therapy HCG, TOTAL, QN Routine 11/20/2024 [...] 09/15/2024 11:0 5 AM EST Viral syndrome DIAGNOSTIC - DIAGNOSTIC IMAGING - INTRAORAL - COMPREHENSIVE SERIES OF RADIOGRAPHIC IMAGES Routine 10/25/2023 9:00 AM EST Dental calculus PAP SMEAR Routine 01/11/2022 12:00 AM EST from Last 3 Months or Most Recently Relevant to Health Maintenance Results * Hepatitis A,B,C Profile (11/26/2024 1:34 PM EST) Hepatitis A IgM Nonreactive Nonreactive [facility] Comment:IgM antibodies to BARTLETT V not detected; does not exclude earlyacute or recovered HAV infection. ~Hepatitis B Surface Antibody REACTIVE Nonreactive [facility] Comment:REACTIVE: > 11.99 mI U/mL Hepatitis B Core Antibody Nonreactive Nonreactive [facility] Hepatitis C Antibody Nonreactive Nonreactive [facility] Comment:Antibodies to HCV no t detected; does not exclude early acuteHCV infection. Hepatitis B Surface Ag Negative Negative [facility] Blood Venous blood specimen / Unknown 11/26/2024 1:34 PM EST 11/26/2024 4:20 PM EST Soni Rashid [facility] BLOOD ORDERABLES Jessica l Result [facility] [address] [place] [phone] * (ABNORMAL) Hepatic Function Panel (11/26/2024 1:34 PM EST) Bilirubin, Total 0.7 0.0 - 1.0 mg/dL [facility] Bilirubin, Direct 0.3 0.0 - 0.5 mg/dL [facility] Aspartate Amino Transferase 52(H) 5 - 31 U/L [facility] Alanine Aminotransferase 62(H) 0 - 31 U/L [facility] Total Protein 7.3 6.5 - 8.0 g/dL [facility] Albumin Level 4.3 3.5 - 5.0 g/dL [facility] Alkaline Phosphatase 88 39 - 117 U/L [facility] Blood Venous blood specimen / Unknown 11/26/2024 1:34 PM EST 11/26/2024 4:20 PM EST us Soni Rashid [facility] BLOOD ORDERABLES Jessica valencia Result [facility] [address] [place] [address] [phone] * Chlamydia/N. Gonorrhoeae RNA, TMA, Urogenitial (11/20/2024 1:58 PM EST) CT PCR NOT DETECTED Not Detect. [facility] Comment:A not detected test result [...] psychologicalconsequences. NG PCR NOT DETECTED Not Detect. [facility] Comment:A not detected test result [...] PM EST 11/20/2024 4:20 PM EST Narrative [facility] - 11/21/2024 9:09 AM EST Vaginal Soni ALARCON LAB MICROBIOLOGY - GENERA L ORDERABLES Final Result [facility] [address] [place] [address] [phone] * POCT fern test, vaginal fluid manually resulted (11/20/2024 1:55 PM EST) JOHN Prep Positive Comment:pH 4.5, pos yeast, n eg trich, neg wbc. neg whiff, neg clue Vaginal Fluid Vaginal structure / Unknown 11/20/2024 1:55 PM EST Grays Soni Rashid CNM - 11/20/2024 1:55 PM EST Vulvovaginal candidiasis Soni ALARCON POINT OF CARE TEST ENTER/ EDIT ORDERABLES Final Result * hCG, Total, Quantitative (11/20/2024 1:55 PM EST) HCG Quantitative <2 mIU/mL [facility] Comment:Weeks post LMP Appro ximate hCG(Last Menstrual Period) Range (mIU/ml)3 - 4 weeks 9 - 1304 - 5 weeks 75 - 2,6005 - 6 weeks 850 - 20,8006 - 7 weeks 4000 - 100,2007 - 12 weeks 11,500 - 289,41621 - 16 weeks 18,300 - 137,49513 - 29 weeks (2nd trimester) 1,400 - 53,07832 - 41 weeks (3rd trimester) 940 - [...] EST 11/20/2024 3:57 PM EST Soni Rashid [facility] BLOOD ORDERABLES Jessica l Result Performing Organization Address [facility] Co de Phone Number [facility] [address] [place] [phone] * (ABNORMAL) ALT (11/20/2024 1:55 PM EST) Alanine Aminotransferase 55(H) 0 - 31 U/L [facility] Blood Venous blood specimen / Unknown 11/20/2024 1:55 PM EST 11/20/2024 3:57 PM EST Soni Rashid [facility] BLOOD ORDERABLES Jessica l Result Performing Organization Address [facility] Co de Phone Number [facility] [address] [place] [phone] * (ABNORMAL) AST (11/20/2024 1:55 PM EST) Aspartate Amino Transferase 50(H) 5 - 31 U/L [facility] Blood Venous blood specimen / Unknown 11/20/2024 1:55 PM EST 11/20/2024 3:57 PM EST [facility] Jessica l Result Performing Organization Address [facility] Co de Phone Number [facility] [address] [place] [phone] * Syphilis Screen (10/06/2024 10:52 AM EST) Syphilis Screen Nonreactive Nonreactive [facility] 10/06/2024 10:5 2 AM EST 10/06/2024 1:27 PM EST Viridiana Jacinto EVALUATION ASSISTANT LAB BLOOD ORDERABLES Final Res ult Performing Organization Address [facility] Co de Phone Number [facility] [address] [place] [phone] * HIV-1 RNA, Quantitative, Real-Time PCR (10/06/2024 10:52 AM EST) Pathologist [facility] [place] HIV RNA PCR Qn Copies NOT DETECTED NOT DETECTED copies/mL [facility] HIV RNA PCR Qn Log Copies NOT DETECTED NOT DETECTED [facility] Comment:Result Units: Log co pies/mLThis test was performed using Real-Time Polymerase ChainReaction.Reportable Range: 20 copies/mL to 10,000,000 copies/mL(1.30 log copies/mL to 7.00 log copies/mL).THIS TEST WAS PERFORMED AT:[facility] [place] [id number] SILVA MD 10/06/2024 10:5 2 AM EST 10/06/2024 1:27 PM EST Viridiana HURLEYP LAB BLOOD ORDERABLES Final Res ult [facility] [address] [place] [address] [phone] * POCT Urine (10/06/2024 10:23 AM EST) Pathologist [facility] [place] Preg Test, Ur Negative Negative, Indeterminate, None Detected, Invalid, Specimen unsatisfactory for evaluation, Weakly Positive Urine 10/06/2024 10:2 3 AM EST us Brina Liz MD POINT OF CARE TEST ENTER/DEVAN T ORDERABLES Final Result * POCT Rapid HIV Screening (10/06/2024 10:22 AM EST) Blood 10/06/2024 10:2 2 AM EST Narrative Errol Barnes RN - 10/06/2024 10:22 AM EST HIV ag/ab = negative us Brina Liz MD POINT OF CARE TEST ENTER/DEVAN T ORDERABLES Final Result * POCT Rapid Covid-19 BinaxNOW (09/22/2024 11:16 AM EST) Only the most recent of2 resultswithin the time period is included. [facility] Rapid COVID Ag Negative Comment:internal controls pa ssed QC Media Lot # [id number] Lot# Expiration Date [id number] Swab 09/22/2024 11:1 6 AM EST us Viridiana Phalen EVALUATION ASSISTANT POINT OF CARE TEST ENTER/EDIT ORDERABLES Final Result * POCT Rapid Influenza B OSOM (09/22/2024 11:16 AM EST) Only the most recent of2 resultswithin the time period is included. [facility] Rapid Influenza B Ag Negative Negative, Indeterminate Comment:internal controls wi olegd QC Media Lot # [id number] Lot# Expiration Date ,025 Swab 09/22/2024 11:1 6 AM EST us Viridiana Phalen EVALUATION ASSISTANT POINT OF CARE TEST ENTER/EDIT ORDERABLES Final Result * POCT Rapid Influenza A OSOM (09/22/2024 11:15 AM EST) Only the most recent of2 resultswithin the time period is included. [facility] Rapid Influenza A Ag Negative Negative, Indeterminate Comment:internal controls wi olegd ETHERA Media Lot # [id number] Lot# Expiration Date , Swab Nasopharyngeal structure / Unknown 09/22/2024 11:15 AM EST us Viridiana Phalen EVALUATION ASSISTANT POINT OF CARE TEST ENTER/EDIT ORDERABLES Final Result * Cancelled Serology (09/22/2024 10:30 AM EST) [facility] Cancelled Serology SEE NOTE [facility] Comment:THE FOLLOWING TESTS WERE CANCELLED: RESP PANELREASON: WRONG SWAB 09/22/2024 10:3 0 AM EST 09/22/2024 5:28 PM EST Viridiana HURLEYP HISTORICAL/NON ORDERABLE LABS Final Result Performing Organization Address City/[facility]/ZIP Co de Phone Number [facility] [address] [place] [phone] * SARS-CoV-2 RNA, Influenza A/B, and RSV RNA, Ql NAAT (09/22/2024 10:30 AM EST) Influenza A PCR NEGATIVE Negative [facility] Influenza B PCR NEGATIVE Negative [facility] Resp Syncy Virus RNA Qual PCR NEGATIVE Negative [facility] SARS COV2 PCR NEGATIVE Negative [facility] Comment:All test results mus t [...] use by authorized laboratories.Testing performed on the [employer] GeneXpert utilizingreal-time RT-PCR.All SARS CoV2 and positive influenza A/B results arereported to [facility]. Swab Nasopharyngeal structure / Unknown 09/22/2024 10:30 AM EST 09/22/2024 10:30 PM EST Narrative [facility] - 09/22/2024 11:[address] REQUESTED TO RUN SARS/FLU/RSV ON COLLECTED SWAB FOR RES.SEE FAXED ORDER. Viridiana VILLATORO LAB MICROBIOLOGY - GENERAL ORD ERABLES Final Result Performing Organization Address City/[facility]/ZIP Co de Phone Number [facility] [address] [place] [phone] * Pap Smear (01/11/2022 12:00 AM EST) Swab Soni Rashid CNM LAB CYTOLOGY ORDERABLES F inal Result [facility] [address], [place] [phone] from Last 3 Months or Most Recently Relevant to Health Maintenance Insurance [facility] C3 Care Teams Manager Truck Relationship Specialty Start Date End Date Viridiana Jacinto FNP [address] [place] [phone] PCP - General Family Medicine 08/26/21
--- OUTSIDE RECORDS SUMMARY | 2024-12-12 15:53 | XMS_ITS | Encounter Summary ---
Author Organization [facility] Address [address] [place] [address] Care Team Providers Care Senior Enterprise Architect Name Role Phone Viridiana Jacinto TOOL PROGRAMMER Primary Care Provider Encounter Details Date Type Department Care Team ([facility] st Contact Info) Description 12/04/2024 Telephone [facility] [address] [place] [address] Scarlett Boo, RN [address] [place] [address] Social History Tobacco Use Types Packs/Day Years [...] encounter Miscellaneous Notes * Telephone Encounter - Scarlett Boo RN - 12/10/2024 8:47 AM EST Appretude was able to be filled per pharmacy. RN to grape picker tomorrow. Pharmacy called informing RN pts insurance is no longer active. RN informed pt to come to managed care to reinstate. P[t agrees to POC and will come in Sunday on her day off. She is due for apretude12/11/24. RN will f/u. * Telephone Encounter - Scarlett Boo RN - 12/04/2024 10:51 AM EST Pharmacy called informing RN pts insurance is no longer active. RN informed pt to come to managed care to reinstate. P[t agrees to POC and will come in Sunday on her day off. She is due for apretude12/11/24. RN will f/u. documented in this encounter Plan of Treatment Upcoming Encounters Date Type Department Care Team (Late st Contact Info) Description 12/24/2024 9:00 AM EST Office Visit [facility] [address] [place] [address] Viridiana Jacinto FNP [address] [place] [address] 01/06/2025 1:00 PM EST Clinical Support [facility] [address] [place], [place] [phone] 01/27/2025 9:30 AM EDT Procedure Visit [facility] [address] [place] [address] Soni Rashid CNM [address] [place] [address] 05/06/2025 10:00 AM EDT Office Visit [facility] [address] [place] [address] Kalyn Murrell documented as of this encounter Visit Diagnoses Not on filedocumented in this encounter Additional Health Concerns Assessment Noted Time PHQ-9 Depression Total Score: 18 05/02/ 024 2:52 PM EDT documented as of this encounter Care Teams Senior Enterprise Architect Relationship Specialty Start Date End Date Viridiana Jacinto FNP [address] [place] [address] PCP - General Family Medicine 08/26/21 documented as of this encounter
--- OUTSIDE RECORDS SUMMARY | 2024-12-12 15:53 | XMS_ITS | Encounter Summary ---
Author Organization [employer] Address [address] [facility] [address] 7t [place] [address] Care Team Providers Care Power Lineworker Name Role Phone Viridiana Jacinto TRAVERTINE INSTALLER Primary Care Provider [phone] Encounter Details Date Type Department Care Team ([facility] st Contact Info) Description 11/15/2023 Orders Only [facility] CHC MED & PEDS [address] [place] [address] Soni Rashid, WILLIAMS [address] [facility] [place] [address] Encntr screen for infections w sexl mode [...] Description 12/24/2024 9:00 AM EST Office Visit [facility] MEDICINE [address] [place] [address] Viridiana Jacinto FNP 505 [place] [address] 01/06/2025 1:00 PM EST Clinical Support [facility] MED & PEDS 505 [place] [address] 01/27/2025 9:30 AM EDT Procedure Visit [facility] MEDICINE [address] [place] [address] Soni Rashid CNM 230 [place] [address] 05/06/2025 10:00 AM EDT Office Visit [facility] ADULT DENTAL 505 [place] [address] Kalyn Murrell documented as of this encounter Procedures Procedure Name Priority Date/Time Associated Diagnosis Comments RPR (MONITOR) W/REFL TITER Routine 11/21/2023 12:26 PM EST Encntr screen for infections w sexl mode of transmiss documented in this encounter Results * RPR (Monitor) with Reflex to??Titer (11/21/2023 12:26 PM EST) RPR (Monitor) w/Refl Titer NON-REACTI VE NON-REACT HERACLIO [facility] Comment:THIS TEST WAS PERFOR MED AT:[address] [place] [id number] SILVA MD Rapid Plasma Reagin Ab Titer TNP [facility] Blood Venous blood specimen / Unknown 11/21/2023 12:26 PM EST 11/21/2023 1:25 PM EST us Soni [facility] BLOOD ORDERABLES Jessica valencia Result [facility] [address] [place] [phone] documented in this encounter Visit Diagnoses Diagnosis Encntr screen for infections w sexl mode of transmiss- Primary documented in this encounter Additional Health Concerns Assessment Noted Time PHQ-9 Depression Total Score: 12 024 10:43 AM EST documented as of this encounter Care Teams Power Lineworker Relationship Specialty Start Date End Date Viridiana Jacinto FNP 230 [place] [address] PCP - General Family Medicine 08/26/21 documented as of this encounter
--- OUTSIDE RECORDS SUMMARY | 2024-12-12 15:53 | XMS_ITS | Encounter Summary ---
Author Organization [employer] Address [address] [place] [address] 7t [place] [address] Care Team Providers Care Recycle Worker Name Role Phone Viridiana Jacinto Primary Care Provider Reason for Visit * Reason Onset Date Comments Nurse Triage 11/17/2024 Encounter Details Date Type Department Care Team ([facility] st Contact Info) Description 11/17/2024 Telephone [facility] CHC MED & PEDS 505 [place], [place] [phone] Viridiana Jacinto FNP 505 [place] [address] Nurse Triage Social History Tobacco Use Types [...] until December 2024. Pt. Wants to see INTEGRATION MANAGER. Appt. Made for 11/20/24 at 1pm in [facility]. Pt. Wanted appt. For 11/20/24. [...] Visit [facility] MEDICINE 230 [place] [address] Viridiana Jacinto FNP 505 [place] [address] 01/06/2025 1:00 PM EST Clinical Support [facility] MED & PEDS 505 [place], [place] [phone] 01/27/2025 9:30 AM EDT Procedure Visit [facility] MEDICINE [address] [place] [address] Soni Rashid CNM 230 [place] [address] 05/06/2025 10:00 AM EDT Office Visit [facility] ADULT DENTAL 505 [place] [address] Kalyn Murrell documented as of this encounter Visit Diagnoses Not on filedocumented in this encounter Additional Health Concerns Assessment Noted Time PHQ-9 Depression Total Score: 18 06//2 024 2:52 PM EDT documented as of this encounter Care Teams Recycle Worker Relationship Specialty Start Date End Date Viridiana Jacinto FNP 230 [place] [address] PCP - General Family Medicine 08/26/21 documented as of this encounter
--- OUTSIDE RECORDS SUMMARY | 2024-12-12 15:53 | XMS_ITS | Encounter Summary ---
Author Organization [employer] Address [address] [facility] 7t [place] [address] Care Team Providers Care Exchange Architect Name Role Phone Viridiana Jacinto Primary Care Provider [phone] Reason for Visit * Reason Onset Date Comments Med Refill 12/03/2024 Encounter Details Date Type Department Care Team (Late st Contact Info) Description 12/03/2024 Refill [facility] MEDICINE 230 [place] [address] Viridiana Jacinto FNP [address] [place] [address] Migraine without aura and without status migrainosus, not intractable; Seasonal allergic rhinitis, unspecified trigger; Mild intermittent asthma without complication; Healthcare maintenance Social History Tobacco Use Types Packs/Day Years [...] the past 12 months, has t he [employer], gas, oil or water Coinsetter threatened to shut off services in your [...] Description 12/24/2024 9:00 AM EST Office Visit [facility] MEDICINE [address] [place] [address] Viridiana Jacinto FNP 505 [place] [address] 01/06/2025 1:00 PM EST Clinical Support [facility] MED & PEDS 505 [place] [address] 01/27/2025 9:30 AM EDT Procedure Visit [facility] MEDICINE [address] [place] [address] Soni Rashid CNM 230 [place] [address] 05/06/2025 10:00 AM EDT Office Visit [facility] ADULT DENTAL 505 [place] [address] Kalyn Murrell documented as of this encounter Visit Diagnoses Diagnosis Migraine without aura and without status migrainosus, not intractable Seasonal allergic rhinitis, unspecified trigger Mild intermittent asthma without complication Healthcare maintenance documented in this encounter Additional Health Concerns Assessment Noted Time PHQ-9 Depression Total Score: 18 024 2:52 PM EDT documented as of this encounter Care Teams Exchange Architect Relationship Specialty Start Date End Date Viridiana Jacinto FNP 230 [place] [address] PCP - General Family Medicine 08/26/21 documented as of this encounter
--- OUTSIDE RECORDS SUMMARY | 2024-12-12 15:53 | XMS_ITS | Encounter Summary ---
Author Organization [employer] [facility] Address [address] [place] [address] 7t [place] [address] Care Team Providers Care Money Counter Name Role Phone Viridiana Jacinto Primary Care Provider [phone] Encounter Details Date Type Department Care Team (Latest Contact Info) Description 11/11/[address] [facility] CONVERSIONS Dental, Provider, DDS Social History Tobacco [...] Description 12/24/2024 9:00 AM EST Office Visit [address] [address] Viridiana Jacinto FNP 505 [place] [address] 01/06/2025 1:00 PM EST Clinical Support [facility] CHC MED & PEDS 505 [place] [address] 01/27/2025 9:30 AM EDT Procedure Visit [facility] MEDICINE [address] [place] [address] Soni Rashid CNM 230 [place] [address] 05/06/2025 10:00 AM EDT Office Visit [facility] CHC ADULT DENTAL [address] [place] [address] Kalyn Murrell documented as of this encounter Visit Diagnoses Not on filedocumented in this encounter Care Teams Money Counter Relationship Specialty Start Date End Date Viridiana Jacinto FNP 230 [place] [address] PCP - General Family Medicine 08/26/21 documented as of this encounter
--- OUTSIDE RECORDS SUMMARY | 2024-12-12 15:53 | XMS_ITS | Encounter Summary ---
Author Organization [employer] Address [address] [place] [address] 7t [place] [address] Care Team Providers Care Scagliola Mechanic Name Role Phone Viridiana Jacinto POLICE SUPERINTENDENT Primary Care Provider [phone] Encounter Details Date Type Department Care Team ([facility] st Contact Info) Description 12/01/2024 Orders Only [facility] CHC MED & PEDS 505 [place], [place] [phone] Viridiana Jacinto FNP 505 [place], [place] [phone] Elevated LFTs (Primary Dx) Social History Tobacco Use Types [...] Description 12/24/2024 9:00 AM EST Office Visit [facility] MEDICINE [address] [place] [address] Viridiana Jacinto FNP 505 [place] [address] 01/06/2025 1:00 PM EST Clinical Support [facility] MED & PEDS 505 [place] [address] 01/27/2025 9:30 AM EDT Procedure Visit [facility] MEDICINE 230 [place] [address] Soni Rashid CNM 230 [place] [address] 05/06/2025 10:00 AM EDT Office Visit [facility] ADULT DENTAL 505 [place] [address] Kalyn Murrell Scheduled Orders Name Type Priority Associated Diagnoses Orde r Schedule Hepatic Function Panel Lab Routine Elevated LFTs Expected: 12/01/2024 (Approximate), Expires: 12/01/2025 documented as of this encounter Visit Diagnoses Diagnosis Elevated LFTs- Primary Other abnormal blood chemistry documented in this encounter Additional Health Concerns Assessment Noted Time PHQ-9 Depression Total Score: 18 024 2:52 PM EDT documented as of this encounter Care Teams Scagliola Mechanic Relationship Specialty Start Date End Date Viridiana Jacinto FNP [address] [place] [address] PCP - General Family Medicine 08/26/21 documented as of this encounter
[2024-12-12 18:17] LABS: Albumin Level 4.4 g/dL (3.5-5.0); Alkaline Phosphatase 86 U/L (39-117); Aspartate Amino Transferase 68 U/L (5-31); Bilirubin Direct 0.2 mg/dL (0.0-0.5); Bilirubin Total 0.5 mg/dL (0.0-1.0); Total Protein 7.9 g/dL (6.5-8.0)
[2024-12-12 18:32] LABS: Alanine Aminotransferase 90 U/L (0-31)
[2024-12-16 21:09] LABS: HIV RNA PCR Qn Copies NOT DETECTED copies/mL (NOT DETECTED); HIV RNA PCR Qn Log Copies NOT DETECTED (NOT DETECTED)
== END 2024-12-12 15:51 | disposition home or self-care (01) ==
LOC: HO.HHCL 15:50
PROVIDERS: Visit Provider Registered Nurse
DX: R79.89 Other specified abnormal findings of blood chemistry (principal); Z79.899 Other long term (current) drug therapy
CPT/HCPCS: 36415; 80076; 87536

== ENCOUNTER 2025-01-27 09:50 | Outpatient (REF) | payer MEDICAID, SELFPAY ==
--- OUTSIDE RECORDS SUMMARY | 2025-01-27 11:18 | XMS_ITS | Encounter Summary ---
Author Organization [employer] Address [address] [facility] 7t [place] [address] Care Team Providers Care Singer Songwriter Name Role Phone Viridiana Jacinto PROJECT ADMINISTRATOR Primary Care Provider [phone] Encounter Details Date Type Department Care Team (Latest Contact Info) Description 01/06/2025 1:00 PM EST Clinical Support [facility] MED & PEDS [address] [place], [place] [phone] Adelita Barba RN On Depo-Provera for contraception Social History Tobacco Use Types Packs/Day Years [...] Sign Reading Time Taken Comments Blood Pressure 124/70 01/06/2025 1:00 PM EST Pulse 82 01/06/2025 1:00 PM EST Temperature - - Respiratory Rate 18 01/06/2025 1:00 PM EST Oxygen Saturation 92% 01/06/2025 1:00 PM EST Inhaled Oxygen Concentration - - Weight 54.6 kg (120 lb 6.4 oz) 01/06/2025 1:00 P M EST Height - - Body Mass Index 22.75 11/20/2024 1:29 PM EST documented in this encounter Progress Notes * Adelita Barba RN - 01/06/2025 1:00 PM EST S: Pt here for Nurse visit to receive scheduled DEPO injection. Pt denies any difficulties with previous injection received or any significant side effects at this time. Pt denies smoking cigarettes and states is sexually active at this time. O: Standing order verified. Today HCG Negative. Pt given DEPO 150mg/ml administered IM on left deltoid muscle, pt tolerated well. A: Contraceptive Management P: Pt is interested on continuing with DEPO as method of contraception. Reinforced with patient that Depo does not prevent transmissions of STIs and encouraged to use barrier method such as condoms. Pt agrees with plan and verbalized understanding. Appt reminder given to patient (Depo Window is from 03/24/25-04/21/25). documented in this encounter Plan of Treatment Upcoming Encounters Date Type Department Care Team (Late st Contact Info) Description 02/02/2025 3:30 PM EDT Clinical Support [facility] MEDICINE 230 [place] [address] Scarlett Boo, FILIBERTO 230 [place] [address] 03/24/2025 1:30 PM EDT Clinical Support [facility] MED & PEDS 505 [place] [address] 04/03/2025 1:45 PM EDT Office Visit [facility] MED & PEDS 505 [place] [address] Viridiana Jacinto FNP 505 [place] [address] 05/06/2025 10:00 AM EDT Office Visit [facility] ADULT DENTAL [address] [place], [place] [phone] Kalyn Murrell documented as of this encounter Visit Diagnoses Diagnosis On Depo-Provera for contraception documented in this encounter Administered Medications Inactive Administered Medications - up to 3 most recent administrations Medication Order MAR Action Action Date Dose Rate Site medroxyPROGESTERone (Depo-Provera) injection 150 mg 150 mg, Intramuscular, Once, On Sun01/06/25 at 1345, For 1 doseIndications:On Depo-Provera for contraception Given 01/06/2025 1:45 PM EST 150 mg Left Deltoid documented in this encounter Additional Health Concerns Assessment Noted Time PHQ-9 Depression Total Score: 18 05/02/2 024 2:52 PM EDT documented as of this encounter Care Teams Singer Songwriter Relationship Specialty Start Date End Date Viridiana Jacinto FNP [address] [place] [address] PCP - General Family Medicine 08/26/21 documented as of this encounter
--- OUTSIDE RECORDS SUMMARY | 2025-01-27 11:18 | XMS_ITS | Encounter Summary ---
Author Organization [employer] Address [address] [facility] 7t [place] [address] Care Team Providers Care Breeding Technician Name Role Phone Viridiana Jacinto IMPROVEMENT LEADER Primary Care Provider [phone] Encounter Details Date Type Department Care Team ([facility] st Contact Info) Description 01/26/2025 Telephone [facility] MEDICINE [address] [place] [address] Scarlett Boo, RN [address] [place] [address] Social History Tobacco Use Types Packs/Day Years [...] Answer Date Recorded Patient Health Questionnaire-9 Score 14 01/26/2025 Patient Health Questionnaire-9 Score 14 01/26/2025 Last PHQ-9: Questionnaire Data Not on file 0 01/26/2025 Housing Stability Answer Date Recorded What is [...] Date Recorded Patient Health Questionnaire-2 Score 3 01/26/2025 Internet Access Answer Date Recorded Internet Access [...] Telephone Encounter - Scarlett Boo RN - 01/26/2025 2:16 PM EDT Pt will be due for LFTs in 4 weeks 02/23/25. RN will send message to Errol to remind pt d/t RN will be Out of office this day. Order not yet added d/t lab in now need to be drawn first. documented in this encounter Plan of Treatment Upcoming Encounters Date Type Department Care Team (Late st Contact Info) Description 02/02/2025 3:30 PM EDT Clinical Support [facility] MEDICINE [address] [place] [address] Scarlett Boo, FILIBERTO [address] [place] [address] 03/24/2025 1:30 PM EDT Clinical Support [facility] CHC MED & PEDS 505 [place] [address] 04/03/2025 1:45 PM EDT Office Visit [facility] MED & PEDS 505 [place] [address] Viridiana Jacinto FNP 505 [place] [address] 05/06/2025 10:00 AM EDT Office Visit [facility] ADULT DENTAL 505 [place] [address] Kalyn Murrell documented as of this encounter Visit Diagnoses Not on filedocumented in this encounter Additional Health Concerns Assessment Noted Time PHQ-9 Depression Total Score: 14 025 11:28 AM EDT documented as of this encounter Care Teams Breeding Technician Relationship Specialty Start Date End Date Viridiana Jacinto FNP [address] [place] [address] PCP - General Family Medicine 08/26/21 documented as of this encounter
--- OUTSIDE RECORDS SUMMARY | 2025-01-27 11:18 | XMS_ITS | Encounter Summary ---
Author Organization [employer] Address [address] [facility] 7t [place] [address] Care Team Providers Care Disability Counselor Name Role Phone Viridiana Jacinto Primary Care Provider [phone] Reason for Visit * Reason Onset Date Comments Referral 01/14/2024 Encounter Details Date Type Department Care Team ([facility] st Contact Info) Description 01/14/2024 Telephone [facility] MED & PEDS [address] [place], [place] [phone] Viridiana Jacinto FNP 505 [place] [address] Referral Social History Tobacco Use Types Packs/Day [...] thank you! * Telephone Encounter - Chrissy Iabrra RN - 01/14/2024 1:13 PM EDT Please review message below and advise. Pt would like referral to Nutrition d/t underweight dx. * Telephone Encounter - Crissy Muñiz - 01/14/2024 1:02 PM EDT Tc from andrea with [facility] states pt is requesting to be referred to a bus transportation manager. Andrea states she does not know the reasoning or dx of referral requested. Please contact pt for more information at [phone] documented in this encounter Plan of Treatment Upcoming Encounters Date Type Department Care Team (Late st Contact Info) Description 02/02/2025 3:30 PM EDT Clinical Support [facility] MEDICINE [address] [place] [address] Scarlett Boo, RN [address] [place] [address] 03/24/2025 1:30 PM EDT Clinical Support [facility] MED & PEDS [address] [place] [address] 04/03/2025 1:45 PM EDT Office Visit [facility] MED & PEDS [address] [place] [address] Viridiana Jacinto FNP 505 [place] [address] 05/06/2025 10:00 AM EDT Office Visit [facility] ADULT DENTAL 505 [place] [address] Kalyn Murrell documented as of this encounter Visit Diagnoses Diagnosis 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
--- OUTSIDE RECORDS SUMMARY | 2025-01-27 11:18 | XMS_ITS | Encounter Summary ---
Author Organization [employer] [facility] Address [address] [place] [address] 7t [place] [address] Care Team Providers Care Gift Shop Manager Name Role Phone Viridiana Jacinto BLACK ASH WORKER Primary Care Provider Encounter Details Date Type Department Care Team (Late st Contact Info) Description 07/19/2023 Orders Only [facility] MEDICINE [address] [place] [phone] Brianna Sue ANP [address] [place], [place] [phone] Social History Tobacco Use Types Packs/Day Years [...] 3:30 PM EDT Clinical Support [facility] MEDICINE [address] [place] [phone] Scarlett Boo, FILIBERTO 230 [place] [address] 03/24/2025 1:30 PM EDT Clinical Support [facility] MED & PEDS 505 [place] [address] 04/03/2025 1:45 PM EDT Office Visit [facility] MED & PEDS 505 [place] [address] Viridiana Jacinto FNP 505 [place] [address] 05/06/2025 10:00 AM EDT Office Visit [facility] ADULT DENTAL 505 [place] [address] Kalyn Murrell documented as of this encounter Visit Diagnoses Not on filedocumented in this encounter Additional Health Concerns Assessment Noted Time PHQ-9 Depression Total Score: 16 023 2:56 PM EDT documented as of this encounter Care Teams Gift Shop Manager Relationship Specialty Start Date End Date Viridiana Jacinto FNP [address] [place] [address] PCP - General Family Medicine 08/26/21 documented as of this encounter
--- OUTSIDE RECORDS SUMMARY | 2025-01-27 11:18 | XMS_ITS | Encounter Summary ---
Author Organization [employer] Address 75 [facility] 7t [place] [address] Care Team Providers Care Manager Culture Name Role Phone Viridiana Jacinto PREBOARDER Primary Care Provider [phone] Encounter Details Date Type Department Care Team (Latest Contact Info) Description 01/27/2025 Travel Social History Tobacco Use Types Packs/Day [...] Description 02/02/2025 3:30 PM EDT Clinical Support [facility] MEDICINE 230 [place] [address] Scarlett Boo RN [address] [place] [address] 03/24/2025 1:30 PM EDT Clinical Support [facility] MED & PEDS 505 [place] [address] 04/03/2025 1:45 PM EDT Office Visit [facility] MED & PEDS 505 [place] [address] Viridiana Jacinto FNP 505 [place] [address] 05/06/2025 10:00 AM EDT Office Visit [facility] ADULT DENTAL 505 [place] [address] Kalyn Murrell documented as of this encounter Visit Diagnoses Not on filedocumented in this encounter Additional Health Concerns Assessment Noted Time PHQ-9 Depression Total Score: 14 025 11:28 AM EDT documented as of this encounter Care Teams Manager Culture Relationship Specialty Start Date End Date Viridiana Jacinto FNP [address] [place] [address] PCP - General Family Medicine 08/26/21 documented as of this encounter
--- OUTSIDE RECORDS SUMMARY | 2025-01-27 11:18 | XMS_ITS | Encounter Summary ---
Author Organization [employer] Address 75 [facility] 7t [place] [address] Care Team Providers Care Apprenticeship Representative Name Role Phone Viridiana Jacinto YARDER OPERATOR Primary Care Provider Encounter Details Date Type Department Care Team (Latest Contact Info) Description 01/26/2025 Travel Social History Tobacco Use Types Packs/Day [...] 02/02/2025 3:30 PM EDT Clinical Support [facility] MEDICINE [address] [place] [address] Scarlett Boo RN [address] [place] [address] 03/24/2025 1:30 PM EDT Clinical Support [facility] MED & PEDS [address] [place] [address] 04/03/2025 1:45 PM EDT Office Visit [facility] MED & PEDS [address] [place] [address] Viridiana Jacinto FNP 505 [place] [address] 05/06/2025 10:00 AM EDT Office Visit [facility] ADULT DENTAL [address] [place] [address] Kalyn Murrell documented as of this encounter Visit Diagnoses Not on filedocumented in this encounter Additional Health Concerns Assessment Noted Time PHQ-9 Depression Total Score: 14 025 11:28 AM EDT documented as of this encounter Care Teams Apprenticeship Representative Relationship Specialty Start Date End Date Viridiana Jacinto FNP [address] [place] [address] PCP - General Family Medicine 08/26/21 documented as of this encounter
--- OUTSIDE RECORDS SUMMARY | 2025-01-27 11:18 | XMS_ITS | Encounter Summary ---
Author Organization [employer] [facility] Address [address] [place] [address] 7t [place] [address] Care Team Providers Care Reinforced Concrete Inspector Name Role Phone Viridiana Jacinto Primary Care Provider [phone] Encounter Details Date Type Department Care Team (Latest Contact Info) Description 12/18/2018 Abstract [facility] CONVERSIONS Dental, Provider, DDS Social History [...] Description 02/02/2025 3:30 PM EDT Clinical Support [facility] MEDICINE [address] [place] [address] Scarlett Boo, RN [address] [place] [address] 03/24/2025 1:30 PM EDT Clinical Support [facility] MED & PEDS [address] [place] [address] 04/03/2025 1:45 PM EDT Office Visit [facility] MED & PEDS 505 [place] [address] Viridiana Jacinto FNP [address] [place] [address] 05/06/2025 10:00 AM EDT Office Visit [facility] ADULT DENTAL [address] [place] [address] Kalyn Murrell documented as of this encounter Visit Diagnoses Not on filedocumented in this encounter Care Teams Reinforced Concrete Inspector Relationship Specialty Start Date End Date Viridiana Jacinto FNP [address] [place] [address] PCP - General Family Medicine 08/26/21 documented as of this encounter
--- OUTSIDE RECORDS SUMMARY | 2025-01-27 11:18 | XMS_ITS | Encounter Summary ---
Author Organization [employer] Address [address] [facility] 7t [place] [address] Care Team Providers Care Test Design Engineer Name Role Phone Viridiana Jacinto IRVING Primary Care Provider [phone] Encounter Details Date Type Department Care Team ([facility] st Contact Info) Description 01/26/2025 Telephone [facility] MEDICINE [address] [place] [address] Soni Rashid, DORIAN [address] [place] [address] Social History Tobacco Use Types Packs/Day Years [...] encounter Miscellaneous Notes * Telephone Encounter - Marika Diaz - 01/26/2025 8:49 AM EDT Pt was called due fd running insurance for tomorrow apt and pt needs first insurance added to her chart pt did not answer. documented in this encounter Plan of Treatment Upcoming Encounters Date Type Department Care Team (Late st Contact Info) Description 02/02/2025 3:30 PM EDT Clinical Support [facility] MEDICINE [address] [place] [address] Scarlett Boo, RN [address] [place] [address] 03/24/2025 1:30 PM EDT Clinical Support [facility] MED & PEDS [address] [place] [address] 04/03/2025 1:45 PM EDT Office Visit [facility] MED & PEDS [address] [place] [address] Viridiana Jacinto FNP [address] [place] [address] 05/06/2025 10:00 AM EDT Office Visit [facility] ADULT DENTAL [address] [place] [address] Kalyn Murrell documented as of this encounter Visit Diagnoses Not on filedocumented in this encounter Additional Health Concerns Assessment Noted Time PHQ-9 Depression Total Score: 14 025 11:28 AM EDT documented as of this encounter Care Teams Test Design Engineer Relationship Specialty Start Date End Date Viridiana Jacinto FNP [address] [place] [address] PCP - General Family Medicine 08/26/21 documented as of this encounter
--- OUTSIDE RECORDS SUMMARY | 2025-01-27 11:18 | XMS_ITS | Encounter Summary ---
Author Organization [employer] Address [address] [place] [address] 7t [place] [address] Care Team Providers Care Manager Branch Name Role Phone Viridiana Jacinto Primary Care Provider [phone] Reason for Referral * Consultation (Routine) - Closed Specialty Diagnoses / Procedures Referred By Edwin t Referred To Contact Physical Therapy Diagnoses Chronic bilateral thoracic back pain Viridiana Jacinto FNP [address] [place] [address] Phone: tel: fax: [facility] [address] [place] [address] Phone: tel: fax: Referral ID Status Reason Start Date Expiration Date V isits Requested Visits Authorized [id number] Closed Specialty Services Required 01/26/2025 01/26/2026 1 1 Encounter Details Date Type Department Care Team (Late st Contact Info) Description 01/26/2025 11:30 AM EDT Office Visit [facility] CHC MED & PEDS [address] [place], [place] [phone] Viridiana Jacinto FNP [address] [place], [place] [phone] Elevated LFTs (Primary Dx); Chronic bilateral thoracic back pain; Healthcare maintenance; Vitamin D insufficiency; Transaminitis Social History Tobacco Use Types Packs/Day Years [...] is your housing situation today? I have juanmagnus alarcon 05/02/[address] you [...] Sign Reading Time Taken Comments Blood Pressure 102/64 01/26/2025 11:15 AM EDT Pulse 90 01/26/2025 11:15 AM EDT Temperature 36.3 ??C (97.4 ??F) 01/26/2025 11:15 AM E DT Respiratory Rate 19 01/26/2025 11:15 AM EDT Oxygen Saturation 98% 01/26/2025 11:15 AM EDT Inhaled Oxygen Concentration - - Weight 55.3 kg (122 lb) 01/26/2025 11:15 AM EDT Height 154.9 cm (5' 1 ) 01/26/2025 11:15 AM EDT Body Mass Index 23.05 01/26/2025 11:15 AM EDT documented in this encounter Miscellaneous Notes * Assessment & Plan Note - IRVING Markham - 01/26/2025 2:48 PM EDTAssociated Problem(s): Transaminitis - Elevated beginning November 2024 - Consider 12/07 increased carb/saturated fat intake vs med SE vs other - Plan: lifestyle interventions (eliminate soda, limit fast food). Repeat labs in 4 weeks. If cont to be increasing, likely hold next dose of Apretude * Assessment & Plan Note - IRVING Markham - 01/26/2025 2:30 PM EDTAssociated Problem(s): Vitamin D insufficiency - Cont Vit D 1000 units daily - Due to repeat Vit D level documented in this encounter Plan of Treatment Upcoming Encounters Date Type Department Care Team (Late st Contact Info) Description 02/02/2025 3:30 PM EDT Clinical Support [facility] MEDICINE [address] [place] [address] Scarlett Boo, RN [address] [place] [address] 03/24/2025 1:30 PM EDT Clinical Support [facility] MED & PEDS [address] [place] [address] 04/03/2025 1:45 PM EDT Office Visit [facility] MED & PEDS [address] [place] [address] Viridiana Jacinto FNP [address] [place] [address] 05/06/2025 10:00 AM EDT Office Visit [facility] ADULT DENTAL [address] [place] [address] Kalyn Murrell Scheduled Orders Name Type Priority Associated Diagnoses Orde r Schedule Hepatic Function Panel Lab Routine Elevated LFTs Expected: 01/26/2025 (Approximate), Expires: 01/26/2026 XR Thoracic Spine 2 Views Imaging Routine Chronic bilateral thoracic back pain Expected: 01/26/2025, Expires: 01/26/2026 TSH W/Reflex to FT4 Lab Routine Healthcare maintenance Expected: 01/26/2025 (Approximate), Expires: 01/26/2026 Vitamin D, 25-Hydroxy, Total, Immunoassay Lab Routine Healthcare maintenance Expected: 01/26/2025 (Approximate), Expires: 01/26/2026 Scheduled Referrals Name Type Priority Associated Diagnoses Orde r Schedule Referral to Physical Therapy Outpatient Referral Routine Chronic bilateral thoracic back pain Expected: 01/26/2025 (Approximate), Expires: 01/26/2026 documented as of this encounter Visit Diagnoses Diagnosis Elevated LFTs- Primary Other abnormal blood chemistry Chronic bilateral thoracic back pain Healthcare maintenance Vitamin D insufficiency Transaminitis Nonspecific elevation of levels of transaminase or lactic acid dehydrogenase (LDH) documented in this encounter Additional Health Concerns Assessment Noted Time PHQ-9 Depression Total Score: 14 025 11:28 AM EDT documented as of this encounter Care Teams Manager Branch Relationship Specialty Start Date End Date Viridiana Jacinto FNP [address] [place] [address] PCP - General Family Medicine 08/26/21 documented as of this encounter
--- OUTSIDE RECORDS SUMMARY | 2025-01-27 11:18 | XMS_ITS | Encounter Summary ---
Author Organization [employer] Address [address] [facility] 7t [place] [address] Care Team Providers Care Precision Honing Machine Operator Name Role Phone Viridiana Jacinto LOT ATTENDANT Primary Care Provider [phone] Encounter Details Date Type Department Care Team (Latest Contact Info) Description 01/06/2025 Travel Social History Tobacco Use Types Packs/Day [...] Description 02/02/2025 3:30 PM EDT Clinical Support [facility] MEDICINE [address] [place] [address] Scarlett Boo RN [address] [place] [address] 03/24/2025 1:30 PM EDT Clinical Support [facility] MED & PEDS [address] [place] [address] 04/03/2025 1:45 PM EDT Office Visit [facility] MED & PEDS [address] [place] [address] Viridiana Jacinto FNP [address] [place] [address] 05/06/2025 10:00 AM EDT Office Visit [facility] ADULT DENTAL [address] [place] [address] Kalyn Murrell documented as of this encounter Visit Diagnoses Not on filedocumented in this encounter Additional Health Concerns Assessment Noted Time PHQ-9 Depression Total Score: 18 024 2:52 PM EDT documented as of this encounter Care Teams Precision Honing Machine Operator Relationship Specialty Start Date End Date Viridiana Jacinto FNP [address] [place] [address] PCP - General Family Medicine 08/26/21 documented as of this encounter
--- OUTSIDE RECORDS SUMMARY | 2025-01-27 11:18 | XMS_ITS | Encounter Summary ---
Author Organization [employer] Address [address] [facility] 7t [place] [address] Care Team Providers Care Kiln Stoker Name Role Phone Viridiana Jacinto IRVING Primary Care Provider [phone] Reason for Visit * Reason Onset Date Comments Med Refill 09/10/2024 Encounter Details Date Type Department Care Team ([facility] st Contact Info) Description 09/10/2024 Refill [facility] MEDICINE [address] [place] [address] Brina Liz MD [address] [place] [address] On pre-exposure prophylaxis for HIV Social History [...] the past 12 months, has t he [employer] gas, oil or water company threatened to [...] Description 02/02/2025 3:30 PM EDT Clinical Support [facility] MEDICINE [address] [place] [address] Scarlett Boo, RN [address] [place] [address] 03/24/2025 1:30 PM EDT Clinical Support [facility] MED & PEDS [address] [place] [address] 04/03/2025 1:45 PM EDT Office Visit [facility] MED & PEDS [address] [place] [address] Viridiana Jacinto FNP [address] [place] [address] 05/06/2025 10:00 AM EDT Office Visit [facility] ADULT DENTAL [address] [place] [address] Kalyn Murrell documented as of this encounter Visit Diagnoses Diagnosis On pre-exposure prophylaxis for HIV documented in this encounter Additional Health Concerns Assessment Noted Time PHQ-9 Depression Total Score: 18 024 2:52 PM EDT documented as of this encounter Care Teams Kiln Stoker Relationship Specialty Start Date End Date Viridiana Jacinto FNP [address] [place] [address] PCP - General Family Medicine 08/26/21 documented as of this encounter
--- OUTSIDE RECORDS SUMMARY | 2025-01-27 11:18 | XMS_ITS | Data Portability ---
Author Organization [place] [facility], Allergy Address [address] [address] Assessment Encounter Date Assessment Date Assessment LastModified [...] Details Appointments FOLLOW UP 15 2024 10:15A M ZUHAIR GONZALEZ PA-C Not available Not available Not available Lab None recorded. Referral None recorded. Procedures None recorded. Surgeries None recorded. Imaging CT, neck, soft tissue, w/ contrast 2023 024 [facility] [address], [address], 12/09/2024 15:18:53 Medication Orders None recorded. Patient [...] contr ast No observ ation record ed. [email or web address] [facility] [address], [address], 11/18/2024 15:19:39 Result Notes None recorded. Problems Name Problem SNOMED Code Status Onset Date Resolution Date Notes Provider Name and Address Organization Details Recorded Time Bilateral earache [id number] Active 020 Otalgi a, bilate ral; Note: Date Diagno sed: 020 2:16 PM (H92.0 3) Not Available [facility] 03:33:41 Problem Notes None recorded. Procedures Surgical History Date Name Laterality Status Provider Name and Address Organization Details Recorded Time 10/14/2024 Comp Audio with Tymps (04337 & 99224) completed CHERYLE REAL, [address], [address], [facility] - [facility] 10/14/2024 12:26:09 Imaging Results Imaging Date Name Status LastModified by Organiz ation Details LastModified Time 10/14/2024 audiogram completed [facility] Information no t available 10/14/2024 14:07:50 11/11/2024 CT, neck, soft tissue, w/ contrast completed [email or web address] [facility] [address], [address], 11/18/2024 15:19:39 Procedure Notes None recorded. Medical [...] Updated DateTime 10/14/2024 154.94 cm 22.1 kg/m2 73915.31 g Char Amezcua [place] - [facility] 10/14/2024 11:50:29 Social History None recorded. Functional Status None recorded. Mental Status None recorded. Family History Nothing Reported. Medical History No medical history recorded. Gynecological HistoryNo gynecological history recorded. Obstetrics History GPAL:G 0 P 0 0 0 0 Past Encounters Encounter ID Performer Location Encounter Start Date Encounter Closed Date Diagnosis/Indication Diagnosis SNOMED-CT Code Diagnosis ICD10 Code Diagnosis Note [id number] JC TREJO PA-C [facility] [address] [address] 10/14/2024 11:33:10 10/14/2024 12:39:37 Bilateral earache [id number] H92.03 Audiologic al evaluation results: 10/14/2024 Right [...] Zhao Member ID Guarantor Name 10/14/2024 1 [place]: [facility] Serenity Sunlupe Hines [id number] Serenity Martinez Hines Notes Date Note Type Note Provider Name [...] history of otologic surgery. JC TREJO PA-C [address] [place] [address], [place], [address], [place] - [facility] 10/14/2024 15:20:54 OBGyn Episode No OBEpisode recorded.
--- OUTSIDE RECORDS SUMMARY | 2025-01-27 11:18 | XMS_ITS | Encounter Summary ---
Author Organization [employer] Address [address] [facility] [address] 7t [place] [address] Care Team Providers Care Collections Officer Name Role Phone Viridiana Jacinto STATISTICS TEACHER Primary Care Provider [phone] Encounter Details Date Type Department Care Team ([facility] st Contact Info) Description 11/15/2023 Orders Only [facility] CHC MED & PEDS [address] [place] [address] Soni Rashid, WILLIAMS [address] [facility] [place] [address] Encntr screen for infections w sexl mode [...] Clinical Support [facility] MEDICINE [address] [place] [address] Scarlett Boo, RN [address] [place] [address] 03/24/2025 1:30 PM EDT Clinical Support [facility] MED & PEDS [address] [place] [address] 04/03/2025 1:45 PM EDT Office Visit [facility] MED & PEDS [address] [place] [address] Viridiana Jacinto FNP [address] [place] [address] 05/06/2025 10:00 AM EDT Office Visit [facility] ADULT DENTAL [address] [place] [address] Kalyn Murrell documented as of this encounter Procedures Procedure Name Priority Date/Time Associated Diagnosis Comments RPR (MONITOR) W/REFL TITER Routine 11/21/2023 12:26 PM EST Encntr screen for infections w sexl mode of transmiss documented in this encounter Results * RPR (Monitor) with Reflex to??Titer (11/21/2023 12:26 PM EST) RPR (Monitor) w/Refl Titer NON-REACTI VE NON-REACT [facility] Comment:THIS TEST WAS PERFOR MED AT:[employer] [place] [id number] SILVA MD Rapid Plasma Reagin Ab Titer TNP [facility] Blood Venous blood specimen / Unknown 11/21/2023 12:26 PM EST 11/21/2023 1:25 PM EST us Soni [facility] BLOOD ORDERABLES Jessica valencia Result [facility] [address] [place] [phone] documented in this encounter Visit Diagnoses Diagnosis Encntr screen for infections w sexl mode of transmiss- Primary documented in this encounter Additional Health Concerns Assessment Noted Time PHQ-9 Depression Total Score: 12 024 10:43 AM EST documented as of this encounter Care Teams Collections Officer Relationship Specialty Start Date End Date Viridiana Jacinto FNP [address] [place] [address] PCP - General Family Medicine 08/26/21 documented as of this encounter
--- OUTSIDE RECORDS SUMMARY | 2025-01-27 11:18 | XMS_ITS | Encounter Summary ---
Author Organization [employer] [facility] Address [address] [place] [address] 7t [place] [address] Care Team Providers Care Campaign Analyst Name Role Phone Norbertofazal Viridiana IRVING Primary Care Provider [phone] Reason for Referral * Imaging (Urgent) - Authorized Specialty Diagnoses / Procedures Referred By Contac t Referred To Contact Radiology Diagnoses Dyspareunia, female Pelvic pain Procedures Us Pelvis complete Soni Rashid CNM [address] [place] [address] Phone: tel: fax: [address] Phone: tel: fax: Referral ID Status Reason Start Date Expiration Date V isits Requested Visits Authorized [id number] Authorized 01/27/2025 01/27/2026 1 1 * Imaging (Urgent) - Authorized Specialty Diagnoses / Procedures Referred By Contac t Referred To Contact Radiology Diagnoses Dyspareunia, female Pelvic pain Procedures US Pelvis Transvaginal Soni Rashid CNM [address] [place] [address] Phone: tel: fax: [address] Phone: tel: fax: Referral ID Status Reason Start Date Expiration Date V isits Requested Visits Authorized [id number] Authorized 01/27/2025 01/27/2026 1 1 Reason for Visit * Reason Comments Gynecologic Exam Encounter Details Date Type Department Care Team (Latest Contact Info) Description 01/27/2025 9:30 AM EDT Procedure Visit [facility] MEDICINE [address] [place] [address] Soni Rashid CNM [address] [place], [place] [phone] Cervical cancer screening (Primary Dx); Screening examination for venereal disease; Dyspareunia, female; Pelvic pain Social History Tobacco Use Types Packs/Day Years [...] Sign Reading Time Taken Comments Blood Pressure 107/64 01/27/2025 9:23 AM EDT Pulse 99 01/27/2025 9:23 AM EDT Temperature 36.5 ??C (97.7 ??F) 01/27/2025 9:23 AM ED T Respiratory Rate 16 01/27/2025 9:23 AM EDT Oxygen Saturation 99% 01/27/2025 9:23 AM EDT Inhaled Oxygen Concentration - - Weight 55.7 kg (122 lb 12.8 oz) 01/27/2025 9:23 AM EDT Height 154.9 cm (5' 1 ) 01/27/2025 9:23 AM EDT Body Mass Index 23.2 01/27/2025 9:23 AM EDT documented in this encounter Progress Notes * Soni Rashid, WILLIAMS - 01/27/2025 9:30 AM EDT Subjective Patient ID: Serenity Hines is a 29 y.o. female who presents for pap Here for pap. Last Depo 01/06/2025. 1 AMAB partner. Notes assisted pain/dryness with sex, not always able to enjoy sex because of this. She does not want to be , partner wants her to have a baby. Happy with Depo for control. Has a hard time remembering pills, didn't like IUD, does not want implant. Known migraines. Treated for vulvovaginal candidiasis at last visit with me 11/2024 with full resolution of symptoms.Gonorrhea/Chlamydia neg 11/2024. Would like pap based STI testing today. On injectable PrEP, last injection 12/12/2024. Treated for syphilis 12/2022, RPR 1:2. HIV and syphilisnegative 10/2024. Normal hemoglobin A1C 05/2024. Elevated LFTs after starting Apretude. Denies n/v, upper abdominal pain, jaundice, dark urine or akua colored stools. Notes occasional LLQ pain. Hep C neg, Hep B immune, Hep A IgM neg. Has repeat LFTs ordered by PCP. 12/12/24 15:52 Albumin Level: 4.4 Bilirubin, Total: 0.5 AST: 68 (H) ALT: 90 (H) Total Protein: 7.9 HIV RNA PCR Qn Copies: NOT DETECTED HIV RNA PCR Qn Log Copies: NOT DETECTED Alkaline Phosphatase: 86 Bilirubin, Direct: 0.2 Pap NIL 01/2022. Review of Systems Eyes: Negative for visual disturbance. Respiratory: Negative for shortness of breath. Cardiovascular: Negative for chest pain and leg swelling. Genitourinary: Positive for dyspareunia and pelvic pain. Negative for dysuria, frequency, genital sores, hematuria, menstrual problem, urgency, vaginal bleeding, vaginal discharge and vaginal pain. No abnormal pap, no abnormal bleeding, no breast pain, no breast mass, no nipple discharge Skin: Negative for color change. Neurological: Positive for headaches. Objective BP 107/64 (BP Location: Left arm, Patient Position: Sitting, BP Cuff Size: Adult) Pulse 99 Temp97.7 ??F (36.5 ??C) (Temporal) Resp 16 Ht 5' 1 (1.549 m) Wt 122 lb 12.8 oz (55.7 kg) LMP (LMP Unknown) SpO2 99% BMI 23.20 kg/m?? Physical Exam Constitutional: Appearance: Normal appearance. Chest: Breasts: Right: Normal. No swelling, bleeding, inverted nipple, mass, nipple discharge, skin change or tenderness. Left: Normal. No swelling, bleeding, inverted nipple, mass, nipple discharge, skin change or tenderness. Genitourinary: General: Normal vulva. Labia: Right: No rash, tenderness, lesion or injury. Left: No rash, tenderness, lesion or injury. Vagina: Normal. No signs of injury and foreign body. No vaginal discharge, erythema, tenderness, bleeding or lesions. Cervix: No cervical motion tenderness, discharge, friability, lesion, erythema, cervical bleeding or eversion. Uterus: Normal. Not enlarged and not tender. Adnexa: Right adnexa normal and left adnexa normal. Right: No mass, tenderness or fullness. Left: No mass, tenderness or fullness. Lymphadenopathy: Upper Body: Right upper body: No supraclavicular or axillary adenopathy. Left upper body: No supraclavicular or axillary adenopathy. Neurological: Mental Status: She is alert. Psychiatric: Mood and Affect: Mood normal. Behavior: Behavior normal. Assessment/Plan Diagnoses and all orders for this visit: Cervical cancer screening - Pap Smear Pap today. Repeat 3 years if normal. Will contact with results. Screening examination for venereal disease - STI testing add on (NG, CT, Trich) Pap based STI testing ordered. Will contact with results. Reviewed need to get labs as ordered to followup on elevated LFTs. Depending on results, may need ultrasound and/or to hold Apretude. Dyspareunia, female - US Pelvis Transvaginal; Future - Us Pelvis complete; Future Benign exam today. May be component of dryness from Depo. Offered trial of vaginal estrogen, which she would like. Reviewed use. Let me know if not helpful in next month. Also discussed conflict around as a possible stressor and other relationship issues that could impact sex. Urged partner communication if this feels safe. Offered services. She declines, but knows she can reach out at any time for this. Will order pelvic ultrasound as precaution. Pelvic pain - US Pelvis Transvaginal; Future - Us Pelvis complete; Future Benign exam today. Occasional LLQ pain. Will order ultrasound. Other orders - estradiol (Estrace) 0.1 MG/GM vaginal cream; 1g vaginally x 14d, then twice weekly thereafter documented in this encounter Plan of Treatment Upcoming Encounters Date Type Department Care Team (Late st Contact Info) Description 02/02/2025 3:30 PM EDT Clinical Support [facility] MEDICINE [address] [place] [address] Scarlett Boo RN [address] [place] [address] 03/24/2025 1:30 PM EDT Clinical Support [facility] MED & PEDS [address] [place] [address] 04/03/2025 1:45 PM EDT Office Visit [facility] MED & PEDS [address] [place] [address] Viridiana Jacinto FNP [address] [place] [address] 05/06/2025 10:00 AM EDT Office Visit [facility] ADULT DENTAL [address] [place] [address] Kalyn Murrell Scheduled Orders Name Type Priority Associated Diagnoses Orde r Schedule Pap Smear Pathology and Cytology Routine Cervical cancer screening Ordered: 01/27/2025 STI testing add on (NG, CT, Trich) Pathology and Cytology Routine Screening examination for venereal disease Ordered: 01/27/2025 US Pelvis Transvaginal Imaging Urgent Dyspareunia, female Pelvic pain Expected: 01/27/2025, Expires: 01/27/2026 Us Pelvis complete Imaging Urgent Dyspareunia, female Pelvic pain Expected: 01/27/2025, Expires: 01/27/2026 documented as of this encounter Visit Diagnoses Diagnosis Cervical cancer screening- Primary Screening for malignant neoplasm of the cervix Screening examination for venereal disease Dyspareunia, female Pelvic pain documented in this encounter Additional Health Concerns Assessment Noted Time PHQ-9 Depression Total Score: 14 025 11:28 AM EDT documented as of this encounter Care Teams Campaign Analyst Relationship Specialty Start Date End Date Viridiana Jacinto FNP [address] [place] [address] PCP - General Family Medicine 08/26/21 documented as of this encounter
--- OUTSIDE RECORDS SUMMARY | 2025-01-27 11:18 | XMS_ITS | Clinical Summary ---
Author Organization [employer] Address [address] [place] [address] 7[address] [place] [address] Care Team Providers Care Managed Services Sales Consultant Name Role Phone Viridiana Jacinto IRVING Primary Care Provider [phone] Allergies No known active allergies Medications medroxyPROGESTERo [...] 30 tablet 2 03/18/20 24 025 Active medroxyPROGESTERo ne (Depo-Provera) 150 MG/ML injectionIndicati ons:On Depo-Provera for contraception Inject 1 mL (150 mg) into the muscle every 3 (three) months. 1 mL 3 05/02/20 24 Active triamcinolone (Kenalog) 0.1 % creamIndications: Healthcare maintenance MIX 80 G TUBE OF TRIAMCINOLONE 0.1% CREAM WITH 16 OZ JAR OF CERAVE CREAM. APPLY 1 TO 2 TIMES PER DAY AFTER SHOWER OR BATH FROM THE NECK DOWN (NOT ON FACE) 80 g 1 09/12/20 24 Active topiramate (Topamax) 50 MG tabletIndications :Migraine without aura and without status migrainosus, not intractable TAKE 1 TABLET BY MOUTH AT BEDTIME 90 tablet 1 09/12/20 24 Active Cabotegravir ER (Apretude) 600 MG/3ML Suspension Extended ReleaseIndication s:On pre-exposure prophylaxis for HIV INJECT 3 ML VENTROGLUTEAL EVERY 2 MONTHS 3 mL 3 12/05/19 25 Active SUMAtriptan (Imitrex) 50 MG tabletIndications :Migraine without aura and without status migrainosus, not intractable TAKE 1 TABLET BY MOUTH AT ONSET OF MIGRAINE. MAY REPEAT ONCE AFTER 2 HOURS IF NEEDED NO MORE THAN 8 TABLETS IN 24 HOURS 10 tablet 12/05/19 25 Active celecoxib (CeleBREX) 200 MG capsule Take 1 capsule (200 mg) by mouth if needed in the morning and at bedtime for moderate pain. 60 capsule 3 12/05/19 25 026 Active fluticasone (Flonase) 50 MCG/ACT nasal sprayIndications: Seasonal allergic rhinitis, unspecified trigger Administer 1 spray into each nostril if needed in the morning and at bedtime for rhinitis or allergies. Shake gently. Before first use, prime pump. After use, clean tip and replace cap. 48 g 12/05/19 25 Active albuterol 108 (90 Base) MCG/ACT inhalerIndication s:Mild intermittent asthma without complication Inhale 2 puffs Every 4-6 hours as needed for wheezing or shortness of breath. 18 g 12/05/19 25 026 Active cholecalciferol (Vitamin D High Potency) 25 MCG (1000 UT) capsuleIndication s:Healthcare maintenance TAKE 1 CAPSULE BY MOUTH EVERY DAY 90 capsule 12/05/19 25 Active albuterol (2.5 MG/3ML) 0.083% nebulizer solutionIndicatio ns:Mild intermittent asthma without complication Take 3 mL (2.5 mg) by nebulization Every 4-6 hours as needed for wheezing or shortness of breath. 75 mL 5 12/05/19 25 026 Active estradiol (Estrace) 0.1 MG/GM vaginal cream 1g vaginally x 14d, then twice weekly thereafter 45 g 2 01/28/20 25 Active Hospital, Clinic, or Other Facility Administered Medication Ordered Dose Route Frequency Start Date End Date Status medroxyPROGESTERone (Depo-Provera) injection 150 mgIndications:Surveill ance for Depo-Provera contraception 150 mg IM Every 3 months 02/13/2024 02/07/2025 Active medroxyPROGESTERone (Depo-Provera) injection 150 mgIndications:On Depo-Provera for contraception 150 mg IM Once 01/06/2025 01/06/2025 Ended Active Problems Problem Noted Date Diagnosed Date Vitamin D insufficiency 01/26/2025 Assessment & Plan (01/26/2025 2:30 PM EDT): - Cont Vit D 1000 units daily - Due to repeat Vit D level Transaminitis 01/26/2025 Assessment & Plan (01/26/2025 3:48 PM EDT): - Elevated beginning November 2024 - Consider 2 increased carb/saturated fat intake vs med SE vs other - Plan: lifestyle interventions (eliminate soda, limit fast food). Repeat labs in 4 weeks. If cont to be increasing, likely hold next dose of Apretude Eczematous dermatitis of upper eyelids of both e yes 05/03/2024 Assessment & Plan (05/03/2024 11:32 AM EDT): Continues with tacrolimus BID PRN Well controlled On pre-exposure prophylaxis for HIV 06/20/2023 Overview (05/03/2024): Previously on Truvada 2022, although discontinued due to elevated Creatinine. Resolved s/p DC med Continues with injectable Cabotegravir through [facility] PrEP navigator - [facility] Healthcare maintenance 04/12/2023 Overview (05/03/2024): -Pap: NILM January 2022, due January 2025 -Optometry: Dec 2022 - eval at [facility] -Contraception: Depo -Last PE: 05/02/24 History of [...] Problem Noted Date Diagnosed Date Resolved Date Candidiasis of vulva and vagina 11/20/2024 01/26/2025 Diarrhea 06/13/2024 09/15/2024 Assessment & Plan (06/13/2024 9:53 PM EDT): Pt w ongoing diarrhea,[place] ,recent trip , benign physical exam COVID 19 and Flu neg Preg test neg -GI panel ordered today--call pt w results -hydration advised -tylenol -sumtriptane for BARTLETT Abnormal weight loss 04/11/2023 024 Underweight 04/11/2023 05/03/2024 Encounters Date Type Department Care Team Description 01/27/2025 9:30 AM EDT Procedure Visit [facility] MEDICINE [address] [place] [address] Soni Rashid CNM Cervical cancer screening (Primary Dx); Screening examination for venereal disease; Dyspareunia, female; Pelvic pain 01/27/2025 Travel 01/26/2025 11:30 AM EDT Office Visit [facility] MED & PEDS [address] [place] [address] Viridiana Jacinto, IRV[place] Elevated LFTs (Primary Dx); Chronic bilateral thoracic back pain; Healthcare maintenance; Vitamin D insufficiency; Transaminitis 01/26/[address] [address] Scarlett Boo RN 01/26/2025 Travel 01/26/[address] [address] Soni Rashid CNM 01/06/2025 1:00 PM EST Clinical Support [facility] MED & PEDS [address] [place] [address] Adelita Barba, RN On Depo-Provera for contraception 01/06/2025 Travel 12/23/[address] [facility] MED & PEDS [address] [place] [address] Diane Winters, NEHEMIAS Chart Prep 12/23/[address] [address] Viridiana Jacinto FNP 12/12/2024 3:30 PM EST Clinical Support [address] [address] Scarlett Boo, FILIBERTO On pre-exposure prophylaxis for HIV 12/12/[address] [facility] MED & PEDS [address] [place] [address] Viridiana Jacinto, NEWSPAPER DELIVERY DRIVER 12/12/2024 Travel 12/04/[address] [address] Scarlett Boo, FILIBERTO 12/04/[address] [address] Viridiana Jacinto FNP Results 12/03/[address] [address] Viridiana Jacinto, IRVING Migraine without aura and without status migrainosus, not intractable; Seasonal allergic rhinitis, unspecified trigger; Mild intermittent asthma without complication; Healthcare maintenance 12/03/[address] [address] Brina Liz MD On pre-exposure prophylaxis for HIV 12/01/[address] [facility] MED & PEDS [address] [place] [address] Radha Bautista, FILIBERTO Results 12/01/[address] [facility] MED & PEDS [address] [place] [address] Viridiana Jacinto, NEWSPAPER DELIVERY DRIVER Elevated LFTs (Primary Dx) 11/21/2024 Orders Only [address] [address] Soni Rashid CNM Transaminitis (Primary Dx) 11/20/2024 1:00 PM EST Office Visit [facility] MEDICINE [address] [place] [address] Soni Rashid CNM Amenorrhea (Primary Dx); Vaginal discharge; Candidiasis of vulva and vagina; On long term care social worker drug therapy 11/20/2024 Travel 11/17/[address] [facility] MED & PEDS [address] [place] [address] Viridiana Jacinto FNP Nurse Triage 11/06/2024 10:00 AM EST Office Visit [facility] CHC ADULT DENTAL [address] [place] [address] Kalyn Murrell from Last 3 Months Immunizations Name Administration Dates Next Due DTaP 07/17/2001, 9,01/17/1998,11/13 HPV 9-Valent 05/24/2021 HPV, Quadrivalent 01/12/2014,09/15/2013,07/14/20 13 Hep A, Adult 01/16/2019 Hep A, ped/adol, 2 dose 11/26/2013 Hep B, Adolescent or Pediatric 03/19/1998,1997,1997 Hib ([facility]) 03/25/1999, 8,01/16/1998,11/13 IPV 07/22/2001, 8,01/16/1998,11/13 Influenza injectable [...] the past 12 months, has t he [employer], gas, oil or water [employer] threatened to shut off services in your [...] Mass Index 23.2 01/27/2025 9:23 AM EDT Plan of Treatment Upcoming Encounters Date Type Department Care Team (Late st Contact Info) Description 02/02/2025 3:30 PM EDT Clinical Support [facility] MEDICINE [address] [place] [address] Scarlett Boo, RN [address] [place] [address] 03/24/2025 1:30 PM EDT Clinical Support [facility] MED & PEDS [address] [place] [address] 04/03/2025 1:45 PM EDT Office Visit [facility] MED & PEDS [address] [place] [address] Viridiana Jacinto FNP [address] [place] [address] 05/06/2025 10:00 AM EDT Office Visit [facility] ADULT DENTAL [address] [place] [address] Kalyn Murrell Health Maintenance Due Date Last Done Comments Pneumococcal Vaccine: Pediatrics (0 to 5 Years) and At-Risk Patients (6 to 49) Years) (1 of 2 - PCV) 2016 Pap Smear 01/11/2025 01/11/2022, 01/11/2022 Dental Oral Exam 04/24/2025 10/23/2024, , 09/25/2022, Additional history exists Alcohol/Substance Use Screening 05/02/2025 05/02/2024 SDOH Screening 05/02/2025 05/02/2024 Influenza Vaccine (#1) 2025 , 07/30/2017, 11/26/2013 Postponed from 07/06/2024 (Patient Refused) Dental Prophylaxis 05/07/2025 11/06/2024, 0 04/29/2024, 10/25/2023, Additional history exists Depression Monitoring (PHQ-9) 07/29/2025 01/26/2025, 01/26/2025 COVID-19 Vaccine ( season) 2025 01/11/2022, 04/19/2021, 03/29/2021 Postponed from 07/06/2024 (Patient Refused) Dental X-Ray: Bitewings 10/24/2025 10/23/20 24, 10/25/2023, 09/25/2022, Additional history exists Depression Screening 01/26/2026 01/26/2025, 01/27/20 Family Planning (PISQ) 01/27/2026 01/27/2025 Tobacco Screening 01/27/2026 01/27/2025 Dental X-Ray: Full Mouth 10/26/2026 023, 12/18/2018, [...] 11/26/2024 , 06/12/2024, 05/06/2024, Additional history exists HIV Screening Completed 12/12/2024, 05/2025, 10/06/2024, Additional history exists RSV under 20 months Aged Out No longe r eligible based on patient's age to complete this topic Rotavirus Vaccines Aged Out No longer eligible based on patient's age to complete this topic Procedures Procedure Name Priority Date/Time Associated Diagnosis Comments POCT , URINE Routine 12/12/2024 4:21 PM EST On pre-exposure prophylaxis for HIV POCT RAPID HIV SCREENING Routine 12/12/2024 4:20 PM EST On pre-exposure prophylaxis for HIV HIV 1 RNA, QUANTITATIVE REAL TIME PCR Routine 12/12/2024 3:52 PM EST HEPATIC FUNCTION PANEL Routine 12/12/2024 3:52 PM EST Elevated LFTs HIV 1 RNA, QUANTITATIVE REAL TIME PCR Routine 12/12/2024 On pre-exposure prophylaxis for HIV HEPATITIS PANEL, GENERAL Routine 11/26/2024 1:34 PM EST Transaminitis HEPATIC FUNCTION PANEL Routine 11/26/2024 1:34 PM EST Transaminitis CHLAMYDIA/N. GONORRHOEAE RNA, TMA, UROGENITAL Routine 11/20/2024 1:58 PM EST Vaginal discharge POCT WET MOUNT/JOHN Routine 11/20/2024 1: 55 PM EST Vaginal discharge ALT Routine 11/20/2024 1:55 PM EST On long term care social worker drug therapy AST Routine 11/20/2024 1:55 PM EST On assisted drug therapy HCG, TOTAL, QN Routine 11/20/2024 1:55 PM EST Amenorrhea ORAL HYGIENE INSTRUCTIONS Routine 11/06/2024 10:00 AM EST CASE PRESENTATION, DETAILED AND EXTENSIVE TREATMENT PLANNING Routine 11/06/2024 10:00 AM EST PROPHYLAXIS - ADULT Routine 11/06/2024 1 0:00 AM EST BITEWINGS - 4 RADIOGRAPHIC IMAGES Routine 10/23/2024 11:00 AM EST PERIODIC ORAL EVALUATION - ESTABLISHED PATIENT Routine 10/23/2024 11:00 AM EST INTRAORAL - COMPLETE SERIES OF RADIOGRAPHIC IMAGES Routine 10/25/2023 9:00 AM EST Dental calculus PAP SMEAR Routine 01/11/2022 12:00 AM EST from Last 3 Months or Most Recently Relevant to Health Maintenance Results * POCT , urine manually resulted (12/12/2024 4:21 PM EST) Preg Test, Ur Negative Negative, Indeterminate, None Detected, Invalid, Specimen unsatisfactory for evaluation, Weakly Positive Urine 12/12/2024 4:21 PM EST us Jordan Candelaria MD POINT OF CARE TEST ENTER/EDIT OR DERABLES Final Result * POCT RAPID HIV SCREENING (12/12/2024 4:20 PM EST) Blood 12/12/2024 4:20 PM EST Narrative Scarlett Boo RN - 12/12/2024 4:20 PM EST negative us Jordan Candelaria MD POINT OF CARE TEST ENTER/EDIT OR DERABLES Final Result * HIV-1 RNA, Quantitative, Real-Time PCR (12/12/2024 3:52 PM EST) Only the most recent of2 resultswithin the time period is included. HIV RNA PCR Qn Copies NOT DETECTED NOT DETECTED copies/mL [facility] HIV RNA PCR Qn Log Copies NOT DETECTED NOT DETECTED [facility] Comment:Result Units: Log co pies/mLThis test was performed using Real-Time Polymerase ChainReaction.Reportable Range: 20 copies/mL to 10,000,000 copies/mL(1.30 log copies/mL to 7.00 log copies/mL).THIS TEST WAS PERFORMED AT:[facility] [place] [id number] SILVA MD 12/12/2024 3:52 PM EST 12/12/2024 5:50 PM EST Viridiana Jacinto [facility] LAB BLOOD ORDERABLES Final Res ult Performing Organization Address City/[facility]/ZIP Co de Phone Number [facility] [address] [place] [phone] * (ABNORMAL) Hepatic Function Panel (12/12/2024 3:52 PM EST) Only the most recent of2 resultswithin the time period is included. [facility] Bilirubin, Total 0.5 0.0 - 1.0 mg/dL [facility] Bilirubin, Direct 0.2 0.0 - 0.5 mg/dL [facility] Aspartate Amino Transferase 68(H) 5 - 31 U/L [facility] Alanine Aminotransferase 90(H) 0 - 31 U/L [facility] Total Protein 7.9 6.5 - 8.0 g/dL [facility] Albumin Level 4.4 3.5 - 5.0 g/dL [facility] Alkaline Phosphatase 86 39 - 117 U/L [facility] Blood Venous blood specimen / Unknown 12/12/2024 3:52 PM EST 12/12/2024 5:50 PM EST [facility] BLOOD ORDERABLES Final Res ult Performing Organization Address [facility]/ZIP Co de Phone Number [facility] [address] [place] [phone] * Hepatitis A,B,C Profile (11/26/2024 1:34 PM EST) [facility] Hepatitis A IgM Nonreactive Nonreactive [facility] Comment:IgM antibodies to BARTLETT V not detected; does not exclude earlyacute or recovered HAV infection. ~Hepatitis B Surface Antibody REACTIVE Nonreactive [facility] Comment:REACTIVE: > 11.99 mI U/mL Hepatitis B Core Antibody Nonreactive Nonreactive [facility] Hepatitis C Antibody Nonreactive Nonreactive [facility] Comment:Antibodies to HCV no t detected; does not exclude early acuteHCV infection. Hepatitis B Surface Ag Negative Negative [facility] Blood Venous blood specimen / Unknown 11/26/2024 1:34 PM EST 11/26/2024 4:20 PM EST us Soni Rashid [facility] BLOOD ORDERABLES Jessica annie Result [facility] [address] [place] [phone] * Chlamydia/N. Gonorrhoeae RNA, TMA, Urogenitial (11/20/2024 1:58 PM EST) CT PCR NOT DETECTED Not Detect. [facility] Comment:A not detected test [...] psychologicalconsequences. NG PCR NOT DETECTED Not Detect. [facility] Comment:A not detected test [...] PM EST 11/20/2024 4:20 PM EST Narrative [facility] - 11/21/2024 9:09 AM EST Vaginal Soni Rashid CNM LAB MICROBIOLOGY - GENERA L ORDERABLES Final Result [facility] [address] [place] [phone] * POCT fern test, vaginal fluid [...] 1:55 PM EST) HCG Quantitative <2 mIU/mL [facility] Comment:Weeks post LMP Appro ximate hCG(Last Menstrual Period) Range (mIU/ml)3 - 4 weeks 9 - 1304 - 5 weeks 75 - 2,6005 - 6 weeks 850 - 20,8006 - 7 weeks 4000 - 100,2007 - 12 weeks 11,500 - 289,64416 - 16 weeks 18,300 - 137,48153 - 29 weeks (2nd trimester) 1,400 - 53,14669 - 41 weeks (3rd trimester) 940 - [...] 1:55 PM EST 11/20/2024 3:57 PM EST [facility] LAB BLOOD ORDERABLES Jessica l Result Performing Organization Address [facility] Co de Phone Number [facility] [address] [place] [phone] * (ABNORMAL) ALT (11/20/2024 1:55 PM EST) Alanine Aminotransferase 55(H) 0 - 31 U/L [facility] Blood Venous blood specimen / Unknown 11/20/2024 1:55 PM EST 11/20/2024 3:57 PM EST [facility] LAB BLOOD ORDERABLES Jessica l Result Performing Organization Address [facility] Co de Phone Number [facility] [address] [place] [phone] * (ABNORMAL) AST (11/20/2024 1:55 PM EST) Aspartate Amino Transferase 50(H) 5 - 31 U/L [facility] Blood Venous blood specimen / Unknown 11/20/2024 1:55 PM EST 11/20/2024 3:57 PM EST [facility] LAB BLOOD ORDERABLES Jessica l Result Performing Organization Address [facility] Co de Phone Number [facility] [address] [place] [phone] * Pap Smear (01/11/2022 12:00 AM EST) Swab us Soni Rashid CNM LAB CYTOLOGY ORDERABLES F inal Result [facility] [address] [facility], [facility], [place] [phone] from Last 3 Months or Most Recently Relevant to Health Maintenance Insurance [employer] [facility] MEDICAID STAND ADULT Care Teams Managed Services Sales Consultant Relationship Specialty Start Date End Date Viridiana Jacinto FNP [address] [place] [phone] PCP - General Family Medicine 08/26/21
--- OUTSIDE RECORDS SUMMARY | 2025-01-27 11:18 | XMS_ITS | Encounter Summary ---
Author Organization [employer] [facility] Address [address] [place] [address] 7[address] [place] [address] Care Team Providers Care Chef Name Role Phone Viridiana Jacinto Primary Care Provider [phone] Encounter Details Date Type Department Care Team (Latest Contact Info) Description 11/11/2021 Abstract [facility] CONVERSIONS Dental, Provider, DDS Social History [...] Description 02/02/2025 3:30 PM EDT Clinical Support [facility] MEDICINE [address] [place] [address] Scarlett Boo, RN [address] [place] [address] 03/24/2025 1:30 PM EDT Clinical Support [facility] MED & PEDS [address] [place] [address] 04/03/2025 1:45 PM EDT Office Visit [facility] MED & PEDS [address] [place] [address] Viridiana Jacinto FNP [address] [place] [address] 05/06/2025 10:00 AM EDT Office Visit [facility] ADULT DENTAL [address] [place] [address] Kalyn Murrell documented as of this encounter Visit Diagnoses Not on filedocumented in this encounter Care Teams Chef Relationship Specialty Start Date End Date Viridiana Jacinto FNP [address] [place] [address] PCP - General Family Medicine 08/26/21 documented as of this encounter
--- OUTSIDE RECORDS SUMMARY | 2025-01-27 11:18 | XMS_ITS | Encounter Summary ---
Author Organization [facility] Address [address] [place] [address] [address] [place] [address] Care Team Providers Care Corporate Technical Recruiter Name Role Phone Viridiana Jacinto INTERNAL INVESTIGATOR Primary Care Provider [phone] Encounter Details Date Type Department Care Team (Late Contact Info) Description 03/16/2023 Orders Only [facility] MED [facility] PEDS [address] [place] [address] Elly Harmon LPN Social History Tobacco Use [...] Description 02/02/2025 3:30 PM EDT Clinical Support [facility] MEDICINE [address] [place] [address] Scarlett Boo, FILIBERTO [address] [place] [address] 03/24/2025 1:30 PM EDT Clinical Support [facility] MED & PEDS [address] [place], [place] [phone] 04/03/2025 1:45 PM EDT Office Visit [facility] MED & PEDS [address] [place] [address] Viridiana Jacinto FNP [address] [place] [address] 05/06/2025 10:00 AM EDT Office Visit [facility] ADULT DENTAL [address] [place] [address] Kalyn Murrell documented as of this encounter Visit Diagnoses Not on filedocumented in this encounter Care Teams Corporate Technical Recruiter Relationship Specialty Start Date End Date Viridiana Jacinto FNP [address] [place] [phone] PCP - General Family Medicine 08/26/21 documented as of this encounter
[2025-01-27 12:26] LABS: Alanine Aminotransferase 54 U/L (0-31); Albumin Level 4.5 g/dL (3.5-5.0); Alkaline Phosphatase 96 U/L (39-117); Aspartate Amino Transferase 41 U/L (5-31); Bilirubin Direct 0.2 mg/dL (0.0-0.5); Bilirubin Total 0.5 mg/dL (0.0-1.0); TSH reflex Free T4 0.48 uIU/mL (0.32-4.0); Total Protein 7.8 g/dL (6.5-8.0); Vitamin D 25-OH Total 30.8 ng/mL (>30)
== END 2025-01-27 09:51 | disposition home or self-care (01) ==
LOC: HO.HHCL 09:50
PROVIDERS: Visit Provider Registered Nurse
DX: Z00.00 Encounter for general adult medical examination without abnormal findings (principal); R79.89 Other specified abnormal findings of blood chemistry
CPT/HCPCS: 36415; 80076; 82306; 84443

== ENCOUNTER 2025-01-27 11:55 | Outpatient (REF) | payer MEDICAID, SELFPAY ==
--- NOTE | ~2025-01-27 | XR_ITS ---
EXAMINATION: XR THORACIC SPINE CLINICAL INFORMATION: CHRONIC BILATERAL THORACIC BACK PAIN COMPARISON: 05/01/2020 TECHNIQUE: 3 views of the thoracic spine were obtained. FINDINGS: There is normal bone mineralization. There is a minimal levoconvex thoracolumbar scoliosis, apex at T11. There is a normal kyphosis. There is normal alignment. There is no fracture, compression deformity, or suspicious bone lesion. Disc spaces appear preserved. Facets appear normally aligned. The imaged soft tissues, mediastinal contours, and lungs appear normal. XR/XR thoracic spine 2V IMPRESSION: 1. No acute findings of the thoracic spine. 2. Minimal levoconvex thoracolumbar scoliosis Electronically signed by: Kain Mercado MD 01/28/2025 02:20 PM EDT
== END 2025-01-27 11:56 | disposition home or self-care (01) ==
LOC: HO.XRAY 11:55
PROVIDERS: PCP Registered Nurse; Visit Provider Registered Nurse
DX: M54.6 Pain in thoracic spine (principal); G89.29 Other chronic pain
CPT/HCPCS: 72070

== ENCOUNTER → 2025-01-27 12:02 | Outpatient (BNV) | payer MEDICAID, SELFPAY | PROVIDERS: PCP Registered Nurse; Visit Provider Radiology Diagnostic Radiology | DX: M54.6 Pain in thoracic spine (principal) | CPT/HCPCS: 72070 ==

== ENCOUNTER 2025-01-27 16:37 | Outpatient (REF) | payer MEDICAID, SELFPAY ==
[2025-01-29 19:44] LABS: C. trachomatis RNA TMA NOT DETECTED (NOT DETECTED); N. gonorrhoeae RNA TMA NOT DETECTED (NOT DETECTED)
[2025-01-30 14:50] LABS: HPV Genotype 16 Negative (Negative); HPV Genotype 18 Negative (Negative); HPV High Risk Negative (Negative)
[2025-02-04 14:27] LABS: Trichomonas (NAAT) NOT DETECTED
== END 2025-01-27 16:38 | disposition home or self-care (01) ==
LOC: HO.LNP 16:37
PROVIDERS: Visit Provider Advanced Practice Midwife
DX: Z12.4 Encounter for screening for malignant neoplasm of cervix (principal); Z11.3 Encounter for screening for infections with a predominantly sexual mode of transmission
CPT/HCPCS: 87491; 87591; 87626; 87661; 88175

== ENCOUNTER 2025-02-02 15:47 | Outpatient (REF) | payer OTHER, SELFPAY ==
--- OUTSIDE RECORDS SUMMARY | 2025-02-02 17:41 | XMS_ITS | Encounter Summary ---
Author Organization [employer] Address [address] [facility] 7[address] [place] [address] Care Team Providers Care Client Architect Name Role Phone Viridiana Jacinto Primary Care Provider [phone] Reason for Visit * Reason Onset Date Comments Referral 01/14/2024 Encounter Details Date Type Department Care Team ([facility] st Contact Info) Description 01/14/2024 Telephone [facility] MED & PEDS [address] [place], [place] [phone] Viridiana Jacinto FNP [address] [place] [address] Referral Social History Tobacco Use Types Packs/Day [...] is requesting to be referred to a brickmason contractor. Andrea states she does not know the reasoning or dx of referral requested. Please contact pt for more information at [phone] documented in this encounter Plan of Treatment Upcoming Encounters Date Type Department Care Team (Late st Contact Info) Description 03/24/2025 1:30 PM EDT Clinical Support [facility] MED & PEDS [address] [place] [address] 03/31/2025 1:00 PM EDT Clinical Support [facility] MEDICINE [address] [place] [address] Scarlett Boo, RN [address] [place] [address] 04/03/2025 1:45 PM EDT Office Visit [facility] MED & PEDS [address] [place] [address] Viridiana Jacinto FNP [address] [place] [address] 05/06/2025 10:00 AM EDT Office Visit [facility] ADULT DENTAL [address] [place] [address] Kalyn Murrell documented as of this encounter Visit Diagnoses Diagnosis Underweight in childhood- Primary History of eating disorder documented in this encounter Additional Health Concerns Assessment Noted Time PHQ-9 Depression Total Score: 12 024 10:43 AM EST documented as of this encounter Care Teams Client Architect Relationship Specialty Start Date End Date Viridiana Jacinto FNP [address] [place] [address] PCP - General Family Medicine 08/26/21 documented as of this encounter
--- OUTSIDE RECORDS SUMMARY | 2025-02-02 17:41 | XMS_ITS | Encounter Summary ---
Author Organization [facility] Address [address] [place] [address] [address] [place] [address] Care Team Providers Care Ems Helicopter Pilot Name Role Phone Viridiana Jacinto Primary Care Provider [phone] Encounter Details Date Type Department Care Team (Latest Contact Info) Description 12/18/2018 Abstract [facility] CONVERSIONS Dental, Provider, DDS Social History Tobacco [...] Description 03/24/2025 1:30 PM EDT Clinical Support [facility] [address] [place] [address] 03/31/2025 1:00 PM EDT Clinical Support [facility] [address] [place] [address] Scarlett Boo, RN [address] [place] [address] 04/03/2025 1:45 PM EDT Office Visit [facility] [address] [place] [address] Viridiana Jacinto FNP [address] [place] [address] 05/06/2025 10:00 AM EDT Office Visit [facility] ADULT DENTAL [address] [place] [address] Kalyn Murrell documented as of this encounter Visit Diagnoses Not on filedocumented in this encounter Care Teams Ems Helicopter Pilot Relationship Specialty Start Date End Date Viridiana Jacinto FNP [address] [place] [address] PCP - General Family Medicine 08/26/21 documented as of this encounter
--- OUTSIDE RECORDS SUMMARY | 2025-02-02 17:41 | XMS_ITS | Clinical Summary ---
Author Organization [employer] Address [address] [place] [address] 7t [place] [address] Care Team Providers Care Undercover Cop Name Role Phone Viridiana Jacinto IRVING Primary Care Provider [phone] Allergies No known active allergies Medications medroxyPROGESTER [...] DOWN (NOT ON FACE) 80 g 1 Active topiramate (Topamax) 50 MG tabletIndication s:Migraine without aura and without status migrainosus, not intractable TAKE 1 TABLET BY MOUTH AT BEDTIME 90 tablet 1 Active Cabotegravir ER (Apretude) 600 MG/3ML Suspension Extended ReleaseIndicatio ns:On pre-exposure prophylaxis for HIV INJECT 3 ML VENTROGLUTEAL EVERY 2 MONTHS 3 mL 3 Active SUMAtriptan (Imitrex) 50 MG tabletIndication s:Migraine without aura and without status migrainosus, not intractable TAKE 1 TABLET BY MOUTH AT ONSET OF MIGRAINE. MAY REPEAT ONCE AFTER 2 HOURS IF NEEDED NO MORE THAN 8 TABLETS IN 24 HOURS 10 tablet 3 Active celecoxib (CeleBREX) 200 MG capsule Take 1 capsule (200 mg) by mouth if needed in the morning and at bedtime for moderate pain. 60 capsule 3 025 2025 Active fluticasone (Flonase) 50 MCG/ACT nasal sprayIndications :Seasonal allergic rhinitis, unspecified trigger Administer 1 spray into each nostril if needed in the morning and at bedtime for rhinitis or allergies. Shake gently. Before first use, prime pump. After use, clean tip and replace cap. 48 g 3 Active cholecalciferol (Vitamin D High Potency) 25 MCG (1000 UT) capsuleIndicatio ns:Healthcare maintenance TAKE 1 CAPSULE BY MOUTH EVERY DAY 90 capsule 1 Active albuterol (2.5 MG/3ML) 0.083% nebulizer solutionIndicati ons:Mild intermittent asthma without complication Take 3 mL (2.5 mg) by nebulization Every 4-6 hours as needed for wheezing or shortness of breath. 75 mL 5 025 2025 Active estradiol (Estrace) 0.1 MG/GM vaginal cream 1g vaginally x 14d, then twice weekly thereafter 45 g 2 Active albuterol 108 (90 Base) MCG/ACT inhalerIndicatio ns:Mild intermittent asthma without complication Inhale 2 puffs Every 4-6 hours as needed for wheezing or shortness of breath. 18 g 11 025 2025 Active albuterol 108 (90 Base) MCG/ACT inhalerIndicatio ns:Mild intermittent asthma without complication Inhale 2 puffs Every 4-6 hours as needed for wheezing or shortness of breath. 18 g 11 025 2024 Discontinued(R eorder (will not trigger notification to Pharmacy)) Hospital, Clinic, or Other Facility Administered Medication Ordered Dose Route Frequency Start Date End Date Status medroxyPROGESTERone (Depo-Provera) injection 150 mgIndications:Surveill ance for Depo-Provera contraception 150 mg IM Every 3 months 02/13/2024 02/07/2025 Active medroxyPROGESTERone (Depo-Provera) injection 150 mgIndications:On Depo-Provera for contraception 150 mg IM Once 01/06/2025 01/06/2025 Ended Cabotegravir ER Suspension Extended Release 600 mgIndications:On pre-exposure prophylaxis for HIV 600 mg IM Once 02/02/2025 02/02/2025 Ended Active Problems Problem Noted Date Diagnosed [...] DC med Continues with injectable Cabotegravir through [facility] PrEP navigator - [facility] Healthcare maintenance 04/12/2023 Overview (05/03/2024): -Pap: NILM January 2022, due January 2025 -Optometry: Dec 2022 - eval at [facility] -Contraception: Depo -Last PE: 05/02/24 History [...] Encounters Date Type Department Care Team Description 02/02/2025 3:30 PM EDT Clinical Support [facility] MEDICINE [address] [place] [address] Scarlett Boo, FILIBERTO On pre-exposure prophylaxis for HIV 02/02/2025 Travel 01/29/2025 Telephone [facility] [address] [place], [place] [phone] Viridiana Jacinto FNP Results 01/29/2025 Orders Only [facility] [address] [place], [place] [phone] Viridiana Jacinto FNP Transaminitis (Primary Dx) 01/28/2025 Refill [facility] [address] [place] [address] Viridiana Jacinto FNP Mild intermittent asthma without complication 01/27/2025 9:30 AM EDT Procedure Visit [address] [address] Melody Aranda [facility] Cervical cancer screening (Primary Dx); Screening examination for venereal disease; Dyspareunia, female; Pelvic pain 01/27/2025 Orders Only [address] [address] Melody Aranda CNM 01/27/2025 Travel 01/26/2025 11:30 AM EDT Office Visit [facility] [address] [place] [address] Viridiana Jacinto FNP Elevated LFTs (Primary Dx); Chronic bilateral thoracic back pain; Healthcare maintenance; Vitamin D insufficiency; Transaminitis 01/26/[address] [address] Scarlett Boo, FILIBERTO 01/26/2025 Travel 01/26/[address] [address] Melody Aranda CN 01/06/2025 1:00 PM EST Clinical Support [facility] [address] [place] [address] Adelita Barba, RN On Depo-Provera for contraception 01/06/2025 Travel 12/23/2024 Telephone [facility] [address] [place] [address] Diane Winters MA Chart Prep 12/23/[address] [address] Viridiana Jacinto FNP 12/12/2024 3:30 PM EST Clinical Support [address] [address] Scarlett Boo, RN On pre-exposure prophylaxis for HIV 12/12/2024 Orders Only [facility] [address] [place] [address] Viridiana Jacinto FNP 12/12/2024 Travel 12/04/2024 Telephone [facility] [address] [place] [address] Scarlett Boo, FILIBERTO 12/04/[address] [address] Viridiana Jacinto FNP Results 12/03/[address] [address] Viridiana Jacinto FNP Migraine without aura and without status migrainosus, not intractable; Seasonal allergic rhinitis, unspecified trigger; Mild intermittent asthma without complication; Healthcare maintenance 12/03/[address] [address] Brina Liz MD On pre-exposure prophylaxis for HIV 12/01/2024 Telephone [facility] [address] [place] [address] Radha Bautista RN Results 12/01/2024 Orders Only [facility] [address] [place] [address] Viridiana Jacinto FNP Elevated LFTs (Primary Dx) 11/21/2024 Orders Only [address] [address] Melody Aranda CNM Transaminitis (Primary Dx) 11/20/2024 1:00 PM EST Office Visit [address] [address] Melody Aranda CNM Amenorrhea (Primary Dx); Vaginal discharge; Candidiasis of vulva and vagina; 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 11/20/2024 Travel 11/17/2024 Telephone [facility] [address] [place] [address] Viridiana Jacinto FNP Nurse Triage 11/06/2024 10:00 AM EST Office Visit [facility] ADULT DENTAL [address] [place] [address] Kalyn Murrell from Last 3 Months Immunizations [...] [facility] [address] [place] [address] 03/31/2025 1:00 PM EDT Clinical Support [facility] MEDICINE [address] [place] [address] Scarlett Boo, RN [address] [place] [address] 04/03/2025 1:45 PM EDT Office Visit [facility] [address] [place], [place] [phone] Viridiana Jacinto FNP [address] [place], [place] [phone] 05/06/2025 10:00 AM EDT Office Visit [facility] [address] [place], [place] [phone] Kalyn Murrell Health Maintenance Due Date Last Done Comments Pneumococcal Vaccine: Pediatrics (0 to 5 Years) and At-Risk Patients (6 to 49) Years) (1 of 2 - PCV) 2016 Dental Oral Exam 04/24/2025 10/23/2024, , 09/25/2022, [...] 10/26/2026 023, 12/18/2018, 01/14/2015, Additional history exists HPV/Cotest 01/28/2028 01/27/2025 Pap Smear 01/28/2028 01/27/2025, 07/2022, 01/11/2022 DTaP/Tdap/Td Vaccines (8 - Td or Tdap) [...] Associated Diagnosis Comments POCT , URINE Routine 02/02/2025 4:12 PM EDT On pre-exposure prophylaxis for HIV POCT RAPID HIV SCREENING Routine 02/02/2025 4:11 PM EDT On pre-exposure prophylaxis for HIV XR THORACIC SPINE 2 VIEWS Routine 01/27/2025 12:02 PM EDT Chronic bilateral thoracic back pain VITAMIN D,25-OH,TOTAL,IA Routine 01/27/2025 9:52 AM EDT Healthcare maintenance TSH W/REFLEX TO FT4 Routine 01/27/2025 9 :52 AM EDT Healthcare maintenance HEPATIC FUNCTION PANEL Routine 01/27/2025 9:52 AM EDT Elevated LFTs CHLAMYDIA/N. GONORRHOEAE AND T. VAGINALIS RNA, QUAL,TMA Routine 01/27/2025 9:46 AM EDT Screening examination for venereal disease PAP SMEAR Routine 01/27/2025 9:46 AM EDT Cervical cancer screening HPV DNA, LOW/HIGH RISK Routine 01/27/2025 9:46 AM EDT POCT , URINE Routine 12/12/2024 4:21 PM [...] ALT Routine 11/20/2024 1:55 PM EST On nursing home drug therapy AST Routine 11/20/2024 1:55 PM EST On nursing home drug therapy HCG, TOTAL, QN Routine 11/20/2024 [...] Routine 10/25/2023 9:00 AM EST Dental calculus from Last 3 Months or Most Recently Relevant to Health Maintenance Results * POCT , urine manually resulted (02/02/2025 4:12 PM EDT) Only the most recent of2 resultswithin the time period is included. Preg Test, Ur Negative Negative, Indeterminate, None Detected, Invalid, Specimen unsatisfactory for evaluation, Weakly Positive Urine 02/02/2025 4:12 PM EDT Narrative Scarlett Boo RN - 02/02/2025 4:12 PM EDT negative William Snider MD POINT OF CARE TEST ENTER/EDIT OR DERABLES Final Result * POCT RAPID HIV SCREENING (02/02/2025 4:11 PM EDT) Only the most recent of2 resultswithin the time period is included. Blood 02/02/2025 4:11 PM EDT Narrative RajeevMaximusScarlett, RN - 02/02/2025 4:11 PM EDT negative us William Snider MD POINT OF CARE TEST ENTER/EDIT OR DERABLES Final Result * XR Thoracic Spine 2 Views (01/27/2025 12:02 PM EDT) Anatomical Region Laterality Modality Spine, T-spine Radiographic Araceli ging 01/27/2025 12:0 2 PM EDT Narrative 01/28/2025 2:23 PM EDT ? [facility] ?[address] ?[place] [address] ?XRay Report ? Signed ? Patient: Serenity Henson ?MR ?? #: [id number] ? : 1995 ?Acct:[id number] ? Age/Sex: 29 / F ?ADM Date: 01/27/25 ? Loc: HO.XRAY ? Attending Dr: Viridiana VILLATORO ? Ordering Physician: Viridiana Jacinto ?? Date of Service: 01/27/25 ?? Procedure(s): XR thoracic spine 2V ?? Accession Number(s): [id number] ? cc: Viridiana Jacinto ? EXAMINATION: ?? XR THORACIC SPINE ? CLINICAL INFORMATION: ?? CHRONIC BILATERAL THORACIC BACK PAIN ? COMPARISON: ?? 05/01/2020 ? TECHNIQUE: ?? 3 views of the thoracic spine were obtained. ? FINDINGS: ?? There is normal bone mineralization. ?? There is a minimal levoconvex thoracolumbar scoliosis, apex at T11. ?? There is a normal kyphosis. There is normal alignment. ?? There is no fracture, compression deformity, or suspicious bone lesion. ? Disc spaces appear preserved. Facets appear normally aligned. ? The imaged soft tissues, mediastinal contours, and lungs appear normal. ? XR/XR thoracic spine 2V ?? IMPRESSION: ?? 1. No acute findings of the thoracic spine. ?? 2. Minimal levoconvex thoracolumbar scoliosis ? Electronically signed by: ??Kain Mercado MD ??01/28/2025 02:20 PM EDT RP ? Dictated By: ?Kain Mercado MD ? Signed By: ?<Electronically signed by Kain Mercado MD in OV> ?01/28/25 1420 ? DD/ 1202 ? TD/TT: 01/27/25 1220 ? Executive Chairman: ? Procedure Note Donmikaylater, Image - 01/28/[address] [address] XRay Report Signed Patient: Serenity HensonMR #: [id number] : 1995Acct:[id number] Age/Sex: M Date: 01/27/25 Loc: HO.XRAY Attending Dr: Viridiana VILLATORO Ordering Physician: Viridiana Jacinto Date of Service: 01/27/25 Procedure(s): XR thoracic spine 2V Accession Number(s): [id number] cc: Viridiana Jacinto EXAMINATION: XR THORACIC SPINE CLINICAL INFORMATION: CHRONIC BILATERAL THORACIC BACK PAIN COMPARISON: 05/01/2020 TECHNIQUE: 3 views of the thoracic spine were obtained. FINDINGS: There is normal bone mineralization. There is a minimal levoconvex thoracolumbar scoliosis, apex at T11. There is a normal kyphosis. There is normal alignment. There is no fracture, compression deformity, or suspicious bone lesion. Disc spaces appear preserved. Facets appear normally aligned. The imaged soft tissues, mediastinal contours, and lungs appear normal. XR/XR thoracic spine 2V IMPRESSION: 1. No acute findings of the thoracic spine. 2. Minimal levoconvex thoracolumbar scoliosis Electronically signed by: Kain Mercado MD 01/28/2025 02:20 PM EDT Dictated By: Kain Mercado MD Signed By: <Electronically signed by Kain Mercado MD in OV> 01/28/25 1420 DD/ 1202 TD/TT: 01/27/25 1220 Executive Chairman: Viridiana VILLATORO IMG XR PROCEDURES Final Result * Vitamin D, 25-Hydroxy, Total, Immunoassay (01/27/2025 9:52 AM EDT) Vitamin D 25-OH Total 30.8 >30 ng/mL [facility] Comment: Health Based Reference Values*< 20 ??ng/mL ??[id number] ng/mL ??Insufficient> 30 ??ng/mL ??Sufficient*Eitan RAM. N Engl J Med. 2007;357:266-280There is no well-established upper level of normal vitamin Dlevels. Some laboratories use 50 ng/mL as an upper limit ofnormal. However, toxicity is patient-dependent and may occurat any level. Careful correlation with the patient'spresentation is necessary and, if there is concern forvitamin D toxicity, treatment should be consideredirrespective of the serum level.Care must be taken in interpreting Vitamin D results fromdifferent laboratories and methodologies. ??Published datademonstrated that results from patients undergoinghemodialysis may show a negative bias when tested withvarious automated 25-OH vitamin D assays when compared toLC- MS/MS.When testing samples from patients whose predominant form ofVitamin D is Vitamin D2, such as patients receiving VitaminD2 supplementation, results that are subtherapeutic shouldbe confirmed with another method such as LC-MS/MS. Blood Venous blood specimen / Unknown 01/27/2025 9:52 AM EDT 01/27/2025 11:23 AM EDT Viridiana Jacinto [facility] BLOOD ORDERABLES Final Res ult [facility] [address] [place] [phone] * TSH W/Reflex to FT4 (01/27/2025 9:52 AM EDT) TSH reflex Free T4 0.48 0.32 - 4.0 uIU/mL [facility] Blood Venous blood specimen / Unknown 01/27/2025 9:52 AM EDT 01/27/2025 11:23 AM EDT Viridiana Jacinto [facility] BLOOD ORDERABLES Final Res ult Performing Organization Address [facility] Co de Phone Number [facility] [address] [place] [address] [phone] * (ABNORMAL) Hepatic Function Panel (01/27/2025 9:52 AM EDT) Only the most recent of3 resultswithin the time period is included. Bilirubin, Total 0.5 0.0 - 1.0 mg/dL [facility] Bilirubin, Direct 0.2 0.0 - 0.5 mg/dL [facility] Aspartate Amino Transferase 41(H) 5 - 31 U/L [facility] Alanine Aminotransferase 54(H) 0 - 31 U/L [facility] Total Protein 7.8 6.5 - 8.0 g/dL [facility] Albumin Level 4.5 3.5 - 5.0 g/dL [facility] Alkaline Phosphatase 96 39 - 117 U/L [facility] Blood Venous blood specimen / Unknown 01/27/2025 9:52 AM EDT 01/27/2025 11:23 AM EDT Viridiana HURLEYP LAB BLOOD ORDERABLES Final Res ult Performing Organization Address [facility] Co de Phone Number [facility] [address] [place] [phone] * Pap Smear (01/27/2025 9:46 AM EDT) Swab Cervix uteri structure / Unknown 01/27/2025 9:46 AM EDT 01/28/2025 7:30 AM EDT Narrative [facility] - 02/02/2025 8:29 AM EDT ----- ------- Name: Serenity Henson ?Age/Sex: 29/F ? : 1995 Unit#: [id number] ?? Attend Dr: MELODY ARANDA CNM ?Re01/27/25 ?Status: DEP REF ? Location: HO.LNP ?Disch: ? ----- ------- SPEC : [id number] ? RECD: 01/28/25 ? STATUS: ??SOUT ? REQ NUM: [id number] ? DANIEL: 01/27/25 ? SUBM DR: MELODY ARANDA CNM ? ENTERED: ??01/28/25 ?SP TYPE: Pap Smr ?OTHR DR: ? ORDERED: ??Pap Smear ? Interpretation ?? Satisfactory for evaluation. ?? Negative for intraepithelial lesion or malignancy. ? HPV High Risk: ??Negative ? HPV Genotyping 16: ??Negative ?? HPV Genotyping 18: ??Negative ?Clinical Information LMP:Unknown date Previous PAP test:2021 NIL ? Material Received ?? ThinPrep-Cervical ----- ------- Signed (signature on file) LAILA Ji (ASCP) 02/02/25828 ? ----- ------- ? END OF REPORT ? us Melody Aranda [facility] CYTOLOGY ORDERABLES F inal Result [facility] [address] [place] [phone] * HIV-1 RNA, Quantitative, Real-Time PCR (12/12/2024 3:52 PM EST) Only the most recent of2 resultswithin the time period is included. HIV RNA PCR Qn Copies NOT DETECTED NOT DETECTED copies/mL [facility] HIV RNA PCR Qn Log Copies NOT DETECTED NOT DETECTED [facility] Comment:Result Units: Log co pies/mLThis test was performed using Real-Time Polymerase ChainReaction.Reportable Range: 20 copies/mL to 10,000,000 copies/mL(1.30 log copies/mL to 7.00 log copies/mL).THIS TEST WAS PERFORMED AT:[facility] [place] [id number] SILVA MD 12/12/2024 3:52 PM EST 12/12/2024 5:50 PM EST Viridiana Jacinto [employer] LAB BLOOD ORDERABLES Final Res ult Performing Organization Address [facility]/ZIP Co de Phone Number [facility] [address] [place] [phone] * Hepatitis A,B,C Profile (11/26/2024 1:34 PM EST) Hepatitis A IgM Nonreactive Nonreactive [facility] Comment:IgM antibodies to BARTLETT V not detected; does not exclude earlyacute or recovered HAV infection. ~Hepatitis B Surface Antibody REACTIVE Nonreactive [facility] Comment:REACTIVE: > 11.99 mI U/mL Hepatitis B Core Antibody Nonreactive Nonreactive [facility] Hepatitis C Antibody Nonreactive Nonreactive [facility] Comment:Antibodies to HCV no t detected; does not exclude early acuteHCV infection. Hepatitis B Surface Ag Negative Negative [facility] Blood Venous blood specimen / Unknown 11/26/2024 1:34 PM EST 11/26/2024 4:20 PM EST Melody ALARCONM LAB BLOOD ORDERABLES Jessica l Result Performing Organization Address [facility]/ZIP Co de Phone Number [facility] [address] [place] [phone] * Chlamydia/N. Gonorrhoeae RNA, TMA, Urogenitial (11/20/2024 1:58 PM EST) CT PCR NOT DETECTED Not Detect. [facility] Comment:A not detected test result does [...] NG PCR NOT DETECTED Not Detect. [facility] Comment:A not detected test result does [...] EST 11/20/2024 4:20 PM EST Narrative [facility] - 11/21/2024 9:09 AM EST Vaginal us Melody Aranda CNM LAB MICROBIOLOGY - GENERA L ORDERABLES Final Result [facility] [address] [place] [phone] * POCT fern test, vaginal fluid manually resulted (11/20/2024 1:55 PM EST) JOHN Prep Positive Comment:pH 4.5, pos yeast, n eg trich, neg wbc. neg whiff, neg clue Vaginal Fluid Vaginal structure / Unknown 11/20/2024 1:55 PM EST Impressions Melody Aranda CNM - 11/20/2024 1:55 PM EST Vulvovaginal candidiasis Melody Aranda [facility] POINT OF CARE TEST ENTER/ EDIT ORDERABLES Final Result * hCG, Total, Quantitative (11/20/2024 1:55 PM EST) Pathologist [facility] HCG Quantitative <2 mIU/mL [facility] Comment:Weeks post LMP Appro ximate hCG(Last Menstrual Period) Range (mIU/ml)3 - 4 weeks 9 - 1304 - 5 weeks 75 - 2,6005 - 6 weeks 850 - 20,8006 - 7 weeks 4000 - 100,2007 - 12 weeks 11,500 - 289,74578 - 16 weeks 18,300 - 137,17562 - 29 weeks (2nd trimester) 1,400 - 53,37330 - 41 weeks (3rd trimester) 940 - [...] 1:55 PM EST 11/20/2024 3:57 PM EST Melody Aranda [facility] LAB BLOOD ORDERABLES Jessica l Result [facility] [address] [place] [phone] * (ABNORMAL) ALT (11/20/2024 1:55 PM EST) Pathologist [facility] Alanine Aminotransferase 55(H) 0 - 31 U/L [facility] Blood Venous blood specimen / Unknown 11/20/2024 1:55 PM EST 11/20/2024 3:57 PM EST [facility]ABLES Jessica l Result Performing Organization Address [facility] Co de Phone Number [facility] [address] [place] [phone] * (ABNORMAL) AST (11/20/2024 1:55 PM EST) Aspartate Amino Transferase 50(H) 5 - 31 U/L [facility] Blood Venous blood specimen / Unknown 11/20/2024 1:55 PM EST 11/20/2024 3:57 PM EST [facility] BLOOD ORDERABLES Jessica l Result Performing Organization Address [facility] Co de Phone Number [facility] [address] [place] [phone] from Last 3 Months Insurance [facility] MED[facility] STAND ADULT Care Teams Undercover Cop Relationship Specialty Start Date End Date Viridiana Jacinto FNP [address] [place] [address] PCP - General Family Medicine 08/26/21
--- OUTSIDE RECORDS SUMMARY | 2025-02-02 17:41 | XMS_ITS | Encounter Summary ---
Author Organization [email or web address] Address [address] [facility] 7t [place] [address] Care Team Providers Care Manager Reimbursement Name Role Phone Viridiana Jacinto IRVING Primary Care Provider [phone] Reason for Visit * Reason Onset Date Comments Med Refill 09/10/2024 Encounter Details Date Type Department Care Team ([facility] st Contact Info) Description 09/10/2024 Refill [facility] MEDICINE [address] [place] [address] Brina Liz MD 230 [place] [address] On pre-exposure prophylaxis for HIV Social History [...] the past 12 months, has t he [employer] gas, oil or water company threatened to [...] Description 03/24/2025 1:30 PM EDT Clinical Support [facility] [address] [place] [address] 03/31/2025 1:00 PM EDT Clinical Support [facility] MEDICINE [address] [place] [address] Scarlett Boo, RN 230 [place] [address] 04/03/2025 1:45 PM EDT Office Visit [facility] 505 [place] [address] Viridiana Jacinto FNP 505 [place] [address] 05/06/2025 10:00 AM EDT Office Visit [facility] ADULT DENTAL [address] [place] [address] Kalyn Murrell documented as of this encounter Visit Diagnoses Diagnosis On pre-exposure prophylaxis for HIV documented in this encounter Additional Health Concerns Assessment Noted Time PHQ-9 Depression Total Score: 18 024 2:52 PM EDT documented as of this encounter Care Teams Manager Reimbursement Relationship Specialty Start Date End Date Viridiana Jacinto FNP [address] [place] [address] PCP - General Family Medicine 08/26/21 documented as of this encounter
--- OUTSIDE RECORDS SUMMARY | 2025-02-02 17:41 | XMS_ITS | Encounter Summary ---
Author Organization [employer] Address [address] [place] [address] 7t [place] [address] Care Team Providers Care Supervisor Curing Room Name Role Phone Viridiana Jacinto Primary Care Provider [phone] Reason for Visit * Reason Onset Date Comments Results 01/29/2025 Encounter Details Date Type Department Care Team ([facility] st Contact Info) Description 01/29/2025 Telephone [facility] MED & PEDS [address] [place], [place] [phone] Viridiana Jacinto FNP 505 [place] [address] Results Social History Tobacco Use Types Packs/Day [...] encounter Miscellaneous Notes * Telephone Encounter - Margie Elam RN - 01/29/2025 1:03 PM EDT TC to pt x2. First time the knife cutter states that he was not translating well and he disconnectedour call when trying to transfer us. Second call RN explained her liver panel to pt and how lifestyle modifications would help her continue in the right direction. RN told pt that she needs to get her labs redrawn in 4 weeks for a recheck. RN told pt that her thyroid and vit D levels were normal and that her back xray showed mild scoliosis. Pr had a few questions about that. All questions answered. Pt verbalizes understanding and agreement with her plan of care. documented in this encounter Plan of Treatment Upcoming Encounters Date Type Department Care Team (Late st Contact Info) Description 03/24/2025 1:30 PM EDT Clinical Support [facility] [address] [place] [address] 03/31/2025 1:00 PM EDT Clinical Support [facility] MEDICINE 230 [place] [address] Scarlett Boo, RN 230 [place] [address] 04/03/2025 1:45 PM EDT Office Visit [facility] [address] [place] [address] Viridiana Jacinto FNP 505 [place] [address] 05/06/2025 10:00 AM EDT Office Visit [facility] ADULT [facility] [address] [place] [address] Kalyn Murrell documented as of this encounter Visit Diagnoses Not on filedocumented in this encounter Additional Health Concerns Assessment Noted Time PHQ-9 Depression Total Score: 14 025 11:28 AM EDT documented as of this encounter Care Teams Supervisor Curing Room Relationship Specialty Start Date End Date Viridiana Jacnito FNP [address] [place] [address] PCP - General Family Medicine 08/26/21 documented as of this encounter
--- OUTSIDE RECORDS SUMMARY | 2025-02-02 17:41 | XMS_ITS | Encounter Summary ---
Author Organization [employer] [facility] Address [address] [place] [address] 7t [place] [address] Care Team Providers Care Gamer Name Role Phone Viridiana Jacinto Primary Care Provider [phone] Encounter Details Date Type Department Care Team (Latest Contact Info) Description 11/11/2021 Abstract [facility] CONVERSIONS Dental, Provider, DDS Social [...] Description 03/24/2025 1:30 PM EDT Clinical Support [facility] MED & PEDS 505 [place] [address] 03/31/2025 1:00 PM EDT Clinical Support [facility] MEDICINE 230 [place] [address] Scarlett Boo, RN [address] [place] [address] 04/03/2025 1:45 PM EDT Office Visit [facility] MED & PEDS 505 [place] [address] Viridiana Jacinto FNP 505 [place] [address] 05/06/2025 10:00 AM EDT Office Visit [facility] ADULT DENTAL [address] [place] [address] Kalyn Murrell documented as of this encounter Visit Diagnoses Not on filedocumented in this encounter Care Teams Gamer Relationship Specialty Start Date End Date Viridiana Jacinto FNP [address] [place] [address] PCP - General Family Medicine 08/26/21 documented as of this encounter
--- OUTSIDE RECORDS SUMMARY | 2025-02-02 17:41 | XMS_ITS | Data Portability ---
Author Organization [place] [facility], Allergy Address [address] [address] Assessment Encounter Date Assessment Date Assessment LastModified [...] neck, soft tissue, w/ contrast 2023 024 [email or web address] [facility] [address], [address], 12/09/2024 15:18:53 Medication Orders None recorded. Patient [...] contr ast No observ ation record ed. [email or web address] [facility] [address], [address], 11/18/2024 15:19:39 Result Notes None recorded. Problems Name Problem SNOMED Code Status Onset Date Resolution Date Notes Provider Name and Address Organization Details Recorded Time Bilateral earache [id number] Active 020 Otalgi a, bilate ral; Note: Date Diagno sed: 020 2:16 PM (H92.0 3) Not Available [facility] 03:33:41 Problem Notes None recorded. Procedures Surgical History Date Name Laterality Status Provider Name and Address Organization Details Recorded Time 10/14/2024 Comp Audio with Tymps (99931 & 87547) completed CHERYLE REAL, [address], [address], [facility] - [facility] 10/14/2024 12:26:09 Imaging Results Imaging Date Name Status LastModified by Organiz ation Details LastModified Time 10/14/2024 audiogram completed [facility] Information no t available 10/14/2024 14:07:50 11/11/2024 CT, neck, soft tissue, w/ contrast completed [facility] [address], [address], 11/18/2024 15:19:39 Procedure Notes None recorded. Medical [...] Updated DateTime 10/14/2024 154.94 cm 22.1 kg/m2 34340.31 g Char Amezcua [place] - [facility] 10/14/2024 11:50:29 Social History None recorded. Functional Status None recorded. Mental Status None recorded. Family History Nothing Reported. Medical History No medical history recorded. Gynecological HistoryNo gynecological history recorded. Obstetrics History GPAL:G 0 P 0 0 0 0 Past Encounters Encounter ID Performer Location Encounter Start Date Encounter Closed Date Diagnosis/Indication Diagnosis SNOMED-CT Code Diagnosis ICD10 Code Diagnosis Note [id number] JC TREJO PA-C [facility] [address] [address] 10/14/2024 11:33:10 10/14/2024 12:39:37 Bilateral earache 211789176 H92.03 Audiologic al evaluation results: 10/14/2024 Right [...] Zhao Member ID Guarantor Name 10/14/2024 1 [place]: [facility] Serenity Sunlupe Hines [id number] Serenity Martinez Hines Notes Date Note Type [...] history of otologic surgery. JC TREJO PA-C [address] [place] [address], [place], [address], [place] - [facility] 10/14/2024 15:20:54 OBGyn Episode No OBEpisode recorded.
--- OUTSIDE RECORDS SUMMARY | 2025-02-02 17:42 | XMS_ITS | Encounter Summary ---
Author Organization [employer] Address [address] [place] [address] 7t [place] [address] Care Team Providers Care Calcine Furnace Loader Name Role Phone Viridiana Jacinto PLC ENGINEER Primary Care Provider [phone] Encounter Details Date Type Department Care Team (Late st Contact Info) Description 01/29/2025 Orders Only [facility] MED & PEDS [address] [place], [place] [phone] Viridiana Jacinto FNP 505 [place], [place] [phone] Transaminitis (Primary Dx) Social History Tobacco Use [...] Description 03/24/2025 1:30 PM EDT Clinical Support [facility] 505 [place] [address] 03/31/2025 1:00 PM EDT Clinical Support [facility] [address] [place] [address] Scarlett Boo, RN [address] [place] [address] 04/03/2025 1:45 PM EDT Office Visit [facility] 505 [place] [address] Viridiana Jacinto FNP [address] [place] [address] 05/06/2025 10:00 AM EDT Office Visit [facility] ADULT DENTAL [address] [place] [address] Kalyn Murrell Scheduled Orders Name Type Priority Associated Diagnoses Orde r Schedule Hepatic Function Panel Lab Routine Transaminitis Expected: 01/29/2025 (Approximate), Expires: 01/29/2026 documented as of this encounter Visit Diagnoses Diagnosis Transaminitis- Primary Nonspecific elevation of levels of transaminase or lactic acid dehydrogenase (LDH) documented in this encounter Additional Health Concerns Assessment Noted Time PHQ-9 Depression Total Score: 14 025 11:28 AM EDT documented as of this encounter Care Teams Calcine Furnace Loader Relationship Specialty Start Date End Date Viridiana Jacinto FNP [address] [place] [address] PCP - General Family Medicine 08/26/21 documented as of this encounter
--- OUTSIDE RECORDS SUMMARY | 2025-02-02 17:42 | XMS_ITS | Encounter Summary ---
Author Organization [employer] [facility] Address [address] [place] [address] 7t [place] [address] Care Team Providers Care Tutor Coordinator Name Role Phone Viridiana Jacinto SETTLEMENT WORKER Primary Care Provider [phone] Encounter Details Date Type Department Care Team (Late Contact Info) Description 07/19/2023 Orders Only [facility] MEDICINE [address] [place] [phone] Brianna Sue ANP 230 [place], [place] [phone] Social History Tobacco Use Types Packs/Day Years [...] Description 03/24/2025 1:30 PM EDT Clinical Support [facility] MED [facility] PEDS [address] [place], [place] [phone] 03/31/2025 1:00 PM EDT Clinical Support [facility] [address] [place] [address] Scarlett Boo, RN [address] [place] [address] 04/03/2025 1:45 PM EDT Office Visit [facility] 505 [place] [address] Viridiana Jacinto FNP 505 [place] [address] 05/06/2025 10:00 AM EDT Office Visit [facility] [address] [place] [address] Kalyn Murrell documented as of this encounter Visit Diagnoses Not on filedocumented in this encounter Additional Health Concerns Assessment Noted Time PHQ-9 Depression Total Score: 16 023 2:56 PM EDT documented as of this encounter Care Teams Tutor Coordinator Relationship Specialty Start Date End Date Viridiana Jacinto FNP [address] [place] [address] PCP - General Family Medicine 08/26/21 documented as of this encounter
--- OUTSIDE RECORDS SUMMARY | 2025-02-02 17:42 | XMS_ITS | Encounter Summary ---
Author Organization [employer] Address 75 [facility] 7t [place] [address] Care Team Providers Care Keypuncher Name Role Phone Viridiana Jacinto SURVEY ENGINEER Primary Care Provider [phone] Encounter Details Date Type Department Care Team (Latest Contact Info) Description 02/02/2025 Travel Social History Tobacco Use Types Packs/Day [...] 1:30 PM EDT Clinical Support [facility] MED & PEDS 505 [place] [address] 03/31/2025 1:00 PM EDT Clinical Support [facility] MEDICINE [address] [place] [address] Scarlett Boo, RN [address] [place] [address] 04/03/2025 1:45 PM EDT Office Visit [facility] MED & PEDS 505 [place] [address] Viridiana Jacinto FNP 505 [place] [address] 05/06/2025 10:00 AM EDT Office Visit [facility] ADULT DENTAL 505 [place] [address] Kalyn Murrell documented as of this encounter Visit Diagnoses Not on filedocumented in this encounter Additional Health Concerns Assessment Noted Time PHQ-9 Depression Total Score: 14 01/26/ 025 11:28 AM EDT documented as of this encounter Care Teams Keypuncher Relationship Specialty Start Date End Date Viridiana Jacinto FNP 230 [place] [address] PCP - General Family Medicine 08/26/21 documented as of this encounter
--- OUTSIDE RECORDS SUMMARY | 2025-02-02 17:42 | XMS_ITS | Encounter Summary ---
Author Organization [employer] Address [address] [facility] [address] 7t [place] [address] Care Team Providers Care Security Officers And Guards Name Role Phone Viridiana Jacinto WAREHOUSE LABORER Primary Care Provider [phone] Encounter Details Date Type Department Care Team ([facility] st Contact Info) Description 11/15/2023 Orders Only [facility] MED & PEDS [address] [place] [address] Soni Rashid, WILLIAMS 230 [facility] [place] [address] Encntr screen for infections w sexl mode [...] 1:30 PM EDT Clinical Support [facility] MED [facility] PEDS [address] [place] [address] 03/31/2025 1:00 PM EDT Clinical Support [facility] MEDICINE [address] [place] [address] Scarlett Boo, RN [address] [place] [address] 04/03/2025 1:45 PM EDT Office Visit [facility] MED [facility]EDS [address] [place] [address] Viridiana Jacinto FNP 505 [place] [address] 05/06/2025 10:00 AM EDT Office Visit [facility] ADULT DENTAL [address] [place] [address] Kalyn Murrell documented as of this encounter Procedures Procedure Name Priority Date/Time Associated Diagnosis Comments RPR (MONITOR) W/REFL TITER Routine 11/21/2023 12:26 PM EST Encntr screen for infections w sexl mode of transmiss documented in this encounter Results * RPR (Monitor) with Reflex to??Titer (11/21/2023 12:26 PM EST) RPR (Monitor) w/Refl Titer NON-REACTI VE NON-REACT HERACLIO [facility] Comment:THIS TEST WAS PERFOR MED AT:[address] [place] [id number] SILVA MD Rapid Plasma Reagin Ab Titer TNP [facility] Blood Venous blood specimen / Unknown 11/21/2023 12:26 PM EST 11/21/2023 1:25 PM EST us [facility] BLOOD ORDERABLES Jessica valencia Result [facility] [address] [place] [phone] documented in this encounter Visit Diagnoses Diagnosis Encntr screen for infections w sexl mode of transmiss- Primary documented in this encounter Additional Health Concerns Assessment Noted Time PHQ-9 Depression Total Score: 12 024 10:43 AM EST documented as of this encounter Care Teams Security Officers And Guards Relationship Specialty Start Date End Date Viridiana Jacinto FNP [address] [place] [address] PCP - General Family Medicine 08/26/21 documented as of this encounter
--- OUTSIDE RECORDS SUMMARY | 2025-02-02 17:42 | XMS_ITS | Encounter Summary ---
Author Organization [employer] Address 75 [facility] 7t [place] [address] Care Team Providers Care Still Cleaner Tube Name Role Phone Viridiana Jacinto CARDER BLANKETS Primary Care Provider [phone] Encounter Details Date Type Department Care Team ([facility] st Contact Info) Description 01/27/2025 Orders Only [facility] MEDICINE [address] [place] [address] Soni Rashid, DORIAN [address] [place] [address] Social History Tobacco Use Types Packs/Day Years [...] [facility]ED[facility] 505 [place] [address] 03/31/2025 1:00 PM EDT Clinical Support [facility] MEDICINE [address] [place] [address] Scarlett Boo, RN [address] [place] [address] 04/03/2025 1:45 PM EDT Office Visit [facility] 505 [place] [address] Viridiana Jacinto FNP [address] [place] [address] 05/06/2025 10:00 AM EDT Office Visit [facility] ADULT DENT[facility] 505 [place] [address] Kalyn Murrell Pending Results Name Type Priority Associated Diagnoses Date /Time HPV DNA, Low/High Risk Lab Routine 9:46 AM EDT documented as of this encounter Procedures Procedure Name Priority Date/Time Associated Diagnosis Comments HPV DNA, LOW/HIGH RISK Routine 01/27/2025 9:46 AM EDT documented in this encounter Visit Diagnoses Not on filedocumented in this encounter Additional Health Concerns Assessment Noted Time PHQ-9 Depression Total Score: 14 025 11:28 AM EDT documented as of this encounter Care Teams Still Cleaner Tube Relationship Specialty Start Date End Date Viridiana Jacinto FNP [address] [place] [address] PCP - General Family Medicine 08/26/21 documented as of this encounter
--- OUTSIDE RECORDS SUMMARY | 2025-02-02 17:42 | XMS_ITS | Encounter Summary ---
Author Organization [facility] Address [address] [place] [address] 7t [place] [address] Care Team Providers Care Pin Game Machine Inspector Name Role Phone Viridiana Jacinto ORNAMENTAL IRONWORKER Primary Care Provider [phone] Encounter Details Date Type Department Care Team (Late Contact Info) Description 03/16/2023 Orders Only [facility] MED & PEDS [address] [place] [address] Elly Harmon LPN Social History Tobacco Use [...] Description 03/24/2025 1:30 PM EDT Clinical Support [facility] MED [facility] PEDS [address] [place], [place] [phone] 03/31/2025 1:00 PM EDT Clinical Support [facility] MED[facility] [address] [place], [place] [phone] Scarlett Boo, FILIBERTO [address] [place] [address] 04/03/2025 1:45 PM EDT Office Visit [facility] MED & PEDS [address] [place] [address] Viridiana Jacinto FNP 505 [place] [address] 05/06/2025 10:00 AM EDT Office Visit [facility] ADULT DENTAL [address] [place] [address] Kalyn Murrell documented as of this encounter Visit Diagnoses Not on filedocumented in this encounter Care Teams Pin Game Machine Inspector Relationship Specialty Start Date End Date Viridiana Jacinto FNP [address] [place] [address] PCP - General Family Medicine 08/26/21 documented as of this encounter
--- OUTSIDE RECORDS SUMMARY | 2025-02-02 17:42 | XMS_ITS | Encounter Summary ---
Author Organization [employer] Address 75 [facility] 7t [place] [address] Care Team Providers Care Cloth Wire Weaver Name Role Phone Viridiana Jacinto Primary Care Provider [phone] Reason for Visit * Reason Onset Date Comments Med Refill 01/28/2025 Encounter Details Date Type Department Care Team ([facility] st Contact Info) Description 01/28/2025 Refill [facility] MEDICINE [address] [place] [address] Viridiana Jacinto FNP [address] [place] [address] Mild intermittent asthma without complication Social History Tobacco Use Types Packs/Day Years [...] 03/24/2025 1:30 PM EDT Clinical Support [facility] 505 [place] [address] 03/31/2025 1:00 PM EDT Clinical Support [facility] MEDICINE [address] [place] [address] Scarlett Boo, RN [address] [place] [address] 04/03/2025 1:45 PM EDT Office Visit [facility] [address] [place] [address] Viridiana Jacinto FNP 505 [place] [address] 05/06/2025 10:00 AM EDT Office Visit [facility] AD[facility] [address] [place] [address] Kalyn Murrell documented as of this encounter Visit Diagnoses Diagnosis Mild intermittent asthma without complication documented in this encounter Additional Health Concerns Assessment Noted Time PHQ-9 Depression Total Score: 14 025 11:28 AM EDT documented as of this encounter Care Teams Cloth Wire Weaver Relationship Specialty Start Date End Date Viridiana Jacinto FNP [address] [place] [address] PCP - General Family Medicine 08/26/21 documented as of this encounter
--- OUTSIDE RECORDS SUMMARY | 2025-02-02 17:42 | XMS_ITS | Encounter Summary ---
Author Organization [employer] Address [address] [facility] [address] [place] [address] Care Team Providers Care Stage Electrician Name Role Phone Viridiana Jacinto FINANCIAL ACCOUNTING ANALYST Primary Care Provider [phone] Encounter Details Date Type Department Care Team (Latest Contact Info) Description 02/02/2025 3:30 PM EDT Clinical Support [facility] [address] [place] [address] Scarlett Boo RN [address] [place] [address] On pre-exposure prophylaxis for HIV Social History [...] AM EDT documented as of this encounter Progress Notes * Scarlett Boo RN - 02/02/2025 3:30 PM EDT Pt here for 11th injection of APRETUDE (600-mg cabotegravir). Reports tolerating well with no concerns. *Last LFTs: 01/27/25. Next due 02/23/25-monitoring LFTS closely with PCP- Please discuss labs with PCP prior to giving Apretude* Reviewed and confirmed: Negative 4th generation HIV-1 test within last 7 days - done today. HIV-1 RNA assay test (HIV VL) drawn today. Negative rapid HIV ag/ab today. No previous hypersensitivity reaction to cabotegravir. Reviewed medication list; pt is not taking carbamazepine, oxcarbazepine, phenobarbital, phenytoin, rifampin, or rifapentine. Pt weighs over 77 lbs. Pt does not have gluteal implants. Pt is not (or has consulted with a provider). Pt does not have any symptoms of acute HIV (fever, fatigue, myalgia, sore throat, rash). Hep B status: immune LFTs done at 6 months, then annually. Last LFTs: 01/27/25. Next due 02/23/25- monitoring LFTS closely with PCP- Please discuss labs with PCP prior to giving Apreturde Pt on DEPO contraception - test negative today Patient questions answered. Reviewed importance of attending lab and injection appointments. Reviewed that medication is an IM injection in gluteal muscle and cannot be taken out once it is given. 600 mg cabotegravir injected IM into R gluteal muscle. Pt advised to not rub the injection sites. Pt tolerated well, advised to remain 20 mins after injection, no adverse reaction noted. Pt given phone number for RN and PrEP navigator if they have any questions. Teaching points reviewed: Importance of adherence to injection and lab monitoring schedule: once monthly for 2 mos, then every 2 mos afterward. Importance of contacting provider/RN for sooner HIV testing: When recent exposures to HIV-1 are suspected or clinical symptoms consistent with acute HIV-1 (eg, fever, fatigue, myalgia, sore throat, rash) are present Upon diagnosis of any other STI Reviewed long ???tail?? effect of medication. Apretude (IM cabotegravir) can be present in the body for up to 12 months after an injection, though not at a level to protect from HIV acquisition. There is a risk that if someone did acquire HIV-1 before, during, or within 12 mos of discontinuation of Apretude, that strain of HIV-1 could be resistant if they are not current on dosing or are not on a different form of PrEP, such as Truvada or Descovy. Counseled on site reaction and side effects (abdominal pain, jaundice, rash, depression etc.) that should be brought to provider attention. PrEP does not protect against STIs other than HIV, or other blood-borne pathogens. If you plan to miss a dose by more than 7 days, let us know as soon as possible so we can plan for this. You can take oral cabotegravir for up to 2 months to cover for 1 missed injection. If you zeus dose by accident, contact us as soon as you can so we can make a plan to re-start PrEP - if desired and appropriate. Plan: PrEP Navigator check - in 1 week Return for HIV, [if applicable] testing in 1 month or 2 months. Ideally this would be less than 7 days from your next injection appointment. It can be done the same day as injection provided 4th gen rapid HIV-1 test is non- reactive before injection and HIV-1 RNA assay has been drawn at lab. Thorough STI testing every other visit (every 4 mos) or sooner if needed in addition to HIV testing. STI testing serologies done 10/06/24, next due 02/04/25, vaginal GC/CT done 02/02/25 next due 05/20/25 LFTs 6 months after first injection, then annually: next due 11/26/25 Appointment for next injections (now every 2 mos w/ 7d lois period): 03/31/25 1pm documented in this encounter Plan of Treatment Upcoming Encounters Date Type Department Care Team (Late st Contact Info) Description 03/24/2025 1:30 PM EDT Clinical Support [facility] [address] [place] [address] 03/31/2025 1:00 PM EDT Clinical Support [facility] [address] [place] [address] Scarlett Boo, FILIBERTO [address] [place] [address] 04/03/2025 1:45 PM EDT Office Visit [facility] [address] [place] [address] Viridiana Jacinto FNP [address] [place] [address] 05/06/2025 10:00 AM EDT Office Visit [facility] [address] [place] [address] Kalyn Murrell Scheduled Orders Name Type Priority Associated Diagnoses Orde r Schedule Syphilis Screen Lab Routine On pre-exposure prophylaxis for HIV Expected: 02/02/2025 (Approximate), Expires: 02/02/2026 HIV-1 RNA, Quantitative, Real-Time PCR Lab Routine On pre-exposure prophylaxis for HIV Expected: 02/02/2025 (Approximate), Expires: 02/02/2026 documented as of this encounter Procedures Procedure Name Priority Date/Time Associated Diagnosis Comments POCT , URINE Routine 02/02/2025 4:12 PM EDT On pre-exposure prophylaxis for HIV POCT RAPID HIV SCREENING Routine 02/02/2025 4:11 PM EDT On pre-exposure prophylaxis for HIV documented in this encounter Results * POCT , urine manually resulted (02/02/2025 4:12 PM EDT) Preg Test, Ur Negative Negative, Indeterminate, None Detected, Invalid, Specimen unsatisfactory for evaluation, Weakly Positive Urine 02/02/2025 4:12 PM EDT Narrative Scarlett Boo RN - 02/02/2025 4:12 PM EDT negative us William Snider MD POINT OF CARE TEST ENTER/EDIT OR DERABLES Final Result * POCT RAPID HIV SCREENING (02/02/2025 4:11 PM EDT) Blood 02/02/2025 4:11 PM EDT Narrative Scarlett Boo RN - 02/02/2025 4:11 PM EDT negative us William Snider MD POINT OF CARE TEST ENTER/EDIT OR DERABLES Final Result documented in this encounter Visit Diagnoses Diagnosis On pre-exposure prophylaxis for HIV documented in this encounter Administered Medications Inactive Administered Medications - up to 3 most recent administrations Medication Order MAR Action Action Date Dose Rate Site Cabotegravir ER Suspension Extended Release 600 mg 600 mg, Intramuscular, Once, On 02/02/25 at 1615, For 1 dose, Ventrogluteal.Indication s:On pre-exposure prophylaxis for HIV Given 02/02/2025 4:15 PM EDT 600 mg Right Upper Buttock documented in this encounter Additional Health Concerns Assessment Noted Time PHQ-9 Depression Total Score: 14 025 11:28 AM EDT documented as of this encounter Care Teams Stage Electrician Relationship Specialty Start Date End Date Viridiana Jacinto FNP [address] [place] [id number] PCP - General Family Medicine 08/26/21 documented as of this encounter
[2025-02-02 18:39] LABS: Alanine Aminotransferase 43 U/L (0-31); Albumin Level 4.4 g/dL (3.5-5.0); Alkaline Phosphatase 93 U/L (39-117); Aspartate Amino Transferase 34 U/L (5-31); Bilirubin Direct 0.2 mg/dL (0.0-0.5); Bilirubin Total 0.5 mg/dL (0.0-1.0); Total Protein 7.5 g/dL (6.5-8.0)
[2025-02-03 08:21] LABS: Syphilis Screen Nonreactive (Nonreactive)
[2025-02-04 18:03] LABS: HIV RNA PCR Qn Copies NOT DETECTED copies/mL (NOT DETECTED); HIV RNA PCR Qn Log Copies NOT DETECTED (NOT DETECTED)
== END 2025-02-02 15:48 | disposition home or self-care (01) ==
LOC: HO.HHCL 15:47
PROVIDERS: Visit Provider Registered Nurse
DX: R74.01 Elevation of levels of liver transaminase levels (principal); Z79.899 Other long term (current) drug therapy
CPT/HCPCS: 36415; 80076; 86780; 87536

== ENCOUNTER 2025-02-11 13:39 | Outpatient (REF) | payer OTHER, SELFPAY ==
--- NOTE | ~2025-02-11 | US_ITS ---
EXAMINATION: US PELVIS TRANSABDOMINAL AND TRANSVAGINAL HISTORY: pelvic pain, pain with sex COMPARISON: There are no prior studies for comparison. TECHNIQUE: Transabdominal and endovaginal real-time 2D patel-scale ultrasound was performed. FINDINGS: Uterus: The uterus is normal in size, measuring 10.9 x 3.1 x 4.7 cm. Myometrium has a normal echotexture. No fibroids are identified. Endometrium: The endometrial stripe measures 3 mm in thickness. Right ovary: The right ovary measures 4.2 x 2.1 x 2.1 cm. The right ovary is normal in size and echotexture. Left ovary: The left ovary measures 3.6 x 2.4 x 2.2 cm. The left ovary is normal in size and echotexture. Pelvic fluid: none. US/US pelvic and transvaginal IMPRESSION: Unremarkable pelvic ultrasound. Electronically signed by: Nicolas Askew MD 02/11/2025 02:29 PM EDT
--- OUTSIDE RECORDS SUMMARY | 2025-02-11 15:51 | XMS_ITS | Data Portability ---
Author Organization [place] [facility], All[facility] Address [address] [address] Assessment Encounter Date Assessment Date Assessment LastModified [...] neck, soft tissue, w/ contrast 2023 024 [email or web address] [facility] [address], [address], 12/09/2024 15:18:53 Medication Orders None recorded. Patient [...] contr ast No observ ation record ed. [email or web address] [facility] [address], [address], 11/18/2024 15:19:39 Result Notes None recorded. Problems Name Problem SNOMED Code Status Onset Date Resolution Date Notes Provider Name and Address Organization Details Recorded Time Bilateral earache 694693213 Active 020 Otalgi a, bilate ral; Note: Date Diagno sed: 020 2:16 PM (H92.0 3) Not Available [facility] 4 03:33:41 Problem Notes None recorded. Procedures Surgical History Date Name Laterality Status Provider Name and Address Organization Details Recorded Time 10/14/2024 Comp Audio with Tymps (91891 & 94772) completed CHERYLE REAL, [address], [address], [facility] - [facility] 10/14/2024 12:26:09 Imaging Results Imaging Date Name Status LastModified by Organiz ation Details LastModified Time 10/14/2024 audiogram completed [facility] Information no t available 10/14/2024 14:07:50 11/11/2024 CT, neck, soft tissue, w/ contrast completed [facility] [address], [address], 11/18/2024 15:19:39 Procedure Notes None recorded. Medical [...] Updated DateTime 10/14/2024 154.94 cm 22.1 kg/m2 49772.31 g Char Amezcua [place] - [facility] 10/14/2024 11:50:29 Social History None recorded. Functional Status None recorded. Mental Status None recorded. Family History Nothing Reported. Medical History No medical history recorded. Gynecological HistoryNo gynecological history recorded. Obstetrics History GPAL:G 0 P 0 0 0 0 Past Encounters Encounter ID Performer Location Encounter Start Date Encounter Closed Date Diagnosis/Indication Diagnosis SNOMED-CT Code Diagnosis ICD10 Code Diagnosis Note [id number] JC TREJO PA-C [facility] [address] [address] 10/14/2024 11:33:10 10/14/2024 12:39:37 Bilateral earache 740890197 H92.03 Audiologic al evaluation results: 10/14/2024 Right [...] Zhao Member ID Guarantor Name 10/14/2024 1 [place]ICA[place]: [facility] Serenity Sunlupe Hines [id number] Serenity Martinez Hines Notes Date Note Type [...] history of otologic surgery. JC TREJO PA-C [address] [place] [address], [place], [address], [place] - [facility] 10/14/2024 15:20:54 OBGyn Episode No OBEpisode recorded.
== END 2025-02-11 13:40 | disposition home or self-care (01) ==
LOC: HO.HMGCX 13:39
PROVIDERS: PCP Registered Nurse; Visit Provider Advanced Practice Midwife
DX: R10.2 Pelvic and perineal pain (principal); N94.10 Unspecified dyspareunia
CPT/HCPCS: 76830; 76856

== ENCOUNTER → 2025-02-11 13:40 | Outpatient (BNV) | payer OTHER, SELFPAY | PROVIDERS: PCP Registered Nurse; Visit Provider Radiology Diagnostic Radiology | DX: R10.2 Pelvic and perineal pain (principal) | CPT/HCPCS: 76830; 76856 ==

== ENCOUNTER 2025-02-27 13:33 | Outpatient (REF) | payer OTHER, SELFPAY ==
--- OUTSIDE RECORDS SUMMARY | 2025-02-27 14:18 | XMS_ITS | Encounter Summary ---
Author Organization [employer] Address [address] [facility] [address] [place] [address] Care Team Providers Care Front Office Java Developer Name Role Phone Viridiana Jacinto COMMERCIAL FIELD INSPECTOR Primary Care Provider [phone] Reason for Visit * Reason Onset Date Comments Med Refill 09/10/2024 Encounter Details Date Type Department Care Team (Late st Contact Info) Description 09/10/2024 Refill [facility] [address] [place] [address] Brina Liz MD [address] [place] [address] On pre-exposure prophylaxis for HIV Social History [...] Care Team (Late st Contact Info) Description 03/13/2025 11:00 AM EDT Office Visit [facility] [address] [place] [address] Darren Ulloa [address] [place] [address] 03/24/2025 1:30 PM EDT Clinical Support [facility] [address] [place] [address] 03/31/2025 1:00 PM EDT Clinical Support [facility] [address] [place] [address] Scarlett Boo, RN [address] [place] [address] 04/03/2025 1:45 PM EDT Office Visit [facility] [address] [place] [address] Viridiana Jacinto FNP [address] [place] [address] 05/06/2025 10:00 AM EDT Office Visit [facility] [address] [place] [address] Kalyn Murrell documented as of this encounter Visit Diagnoses Diagnosis On pre-exposure prophylaxis for HIV documented in this encounter Additional Health Concerns Assessment Noted Time PHQ-9 Depression Total Score: 18 05/02/ 024 2:52 PM EDT documented as of this encounter Care Teams Front Office Java Developer Relationship Specialty Start Date End Date Viridiana Jacinto FNP [address] [place] [id number] PCP - General Family Medicine 08/26/21 documented as of this encounter
--- OUTSIDE RECORDS SUMMARY | 2025-02-27 14:18 | XMS_ITS | Clinical Summary ---
Author Organization [employer] Address [address] [facility] [address] [place] [address] Care Team Providers Care Tankage Grinder Name Role Phone Viridiana Jacinto IRVING Primary Care Provider [phone] Allergies No known active allergies Medications medroxyPROGESTERo [...] TABLETS IN 24 HOURS 10 tablet 3 12/05/19 25 Active celecoxib (CeleBREX) 200 MG [...] tip and replace cap. 48 g 3 12/05/19 25 Active cholecalciferol (Vitamin D High Potency) 25 MCG (1000 UT) capsuleIndication s:Healthcare maintenance TAKE 1 CAPSULE BY MOUTH EVERY DAY 90 capsule 1 12/05/19 25 Active albuterol (2.5 MG/3ML) 0.083% nebulizer solutionIndicatio ns:Mild intermittent asthma without complication Take 3 mL (2.5 mg) by nebulization Every 4-6 hours as needed for wheezing or shortness of breath. 75 mL 5 12/05/19 25 026 Active estradiol (Estrace) 0.1 MG/GM vaginal cream 1g vaginally x 14d, then twice weekly thereafter 45 g 2 01/28/20 25 Active albuterol 108 (90 Base) MCG/ACT inhalerIndication s:Mild intermittent asthma without complication Inhale 2 puffs Every 4-6 hours as needed for wheezing or shortness of breath. 18 g 11 01/29/20 25 026 Active Hospital, Clinic, or Other Facility Administered Medication Ordered Dose Route Frequency Start Date End Date Status medroxyPROGESTERone (Depo-Provera) injection 150 mgIndications:Surveill ance for Depo-Provera contraception 150 mg IM Every 3 months 02/13/2024 02/07/2025 Ended Cabotegravir ER Suspension Extended Release 600 [...] DC med Continues with injectable Cabotegravir through [facility] PrEP navigator - CRS Healthcare maintenance 04/12/2023 Overview (05/03/2024): -Pap: NILM January 2022, due January 2025 -Optometry: Dec 2022 - eval at [facility] -Contraception: Depo -Last PE: 05/02/24 History of eating disorder 04/11/2023 Slow transit constipation 04/11/2023 Mild intermittent asthma 06/01/2022 Overview (05/03/2024): Continue with albuterol PRN Reviewed rule of 2's Assessment & Plan (09/15/2024 8:03 PM EST): No active wheezing on exam. Using Albuterol HFA and neb PRN. Assessment & Plan (05/03/2024 11:32 AM EDT): Well controlled History of ectopic 11/24/2021 Otalgia of both ears 03/26/2020 Overview (02/10/2025): Otalgia, bilateral; Note: Date Diagnosed: 03/26/2020 2:16 PM (H92.03) Irregular periods 12/05/2018 Palpitations 12/05/2018 Assessment & [...] Encounters Date Type Department Care Team Description 02/25/[address] [address] Errol Barnes, FILIBERTO Injectable PrEP communication 02/25/[address] [address] Errol Barnes, FILIBERTO Error (VOID this visit) 02/10/2025 10:30 AM EDT Office Visit [facility] [address] [place] [address] Vaughn Trujilloet 02/04/2025 Orders Only [facility] [address], [place] [phone] Viridiana Jacinto, SEEING EYE DOG TRAINER Transaminitis (Primary Dx) 02/04/2025 Orders Only [facility] [address] [place] [address] Errol Barnes, RN 02/02/2025 3:30 PM EDT Clinical Support [address] [address] Scarlett Boo, RN On pre-exposure prophylaxis for HIV 02/02/2025 Orders Only [facility] [address] [place] [address] Viridiana Jacinto, SEEING EYE DOG TRAINER 02/02/2025 Travel 01/29/2025 Telephone [facility] [address] [place] [address] Viridiana Jacinto, SEEING EYE DOG TRAINER Results 01/29/2025 Orders Only [facility] [address] [place] [address] PhalHa diehlle, SEEING EYE DOG TRAINER Transaminitis (Primary Dx) 01/28/[address] [address] Viridiana Jacinto, SEEING EYE DOG TRAINER Mild intermittent asthma without complication 01/27/2025 9:30 AM EDT Procedure Visit [address] [address] Melody Aranda CNM Cervical cancer screening (Primary Dx); Screening examination for venereal disease; Dyspareunia, female; Pelvic pain 01/27/2025 Orders Only [address] [address] Melody Aranda CNM 01/27/2025 Travel 01/26/2025 11:30 AM EDT Office Visit [facility] [address] [place] [address] Viridiana Jacinto, SEEING EYE DOG TRAINER Elevated LFTs (Primary Dx); Chronic bilateral thoracic back pain; Healthcare maintenance; Vitamin D insufficiency; Transaminitis 01/26/[address] [address] Scarlett Boo, FILIBERTO 01/26/2025 Travel 01/26/[address] [address] Melody Aranda CNM 01/06/2025 1:00 PM EST Clinical Support [facility] [address] [place] [address] Adelita Barba, RN On Depo-Provera for contraception 01/06/2025 Travel 12/23/2024 Telephone [facility] [address] [place] [address] Diane Winters MA Chart Prep 12/23/[address] [address] Viridiana Jacinto FNP 12/12/2024 3:30 PM EST Clinical Support [address] [address] Scarlett Boo, FILIBERTO On pre-exposure prophylaxis for HIV 12/12/2024 Orders Only [facility] [address] [place] [address] Viridiana Jacinto FNP 12/12/2024 Travel 12/04/[address] [address] Scarlett Boo, FILIBERTO 12/04/[address] [address] Viridiana Jacinto FNP Results 12/03/[address] [address] Viridiana Jacinto FNP Migraine without aura and without status migrainosus, not intractable; Seasonal allergic rhinitis, unspecified trigger; Mild intermittent asthma without complication; Healthcare maintenance 12/03/[address] [address] Brina Liz MD On pre-exposure prophylaxis for HIV 12/01/2024 Telephone [facility] [address] [place] [address] Radha Bautista RN Results 12/01/2024 Orders Only [facility] [address] [place] [address] Viridiana Jacinto FNP Elevated LFTs (Primary Dx) from Last 3 Months Immunizations Name Administration [...] Sign Reading Time Taken Comments Blood Pressure 120/70 02/10/2025 10:44 AM EDT Pulse 99 01/27/2025 9:23 AM [...] Description 03/13/2025 11:00 AM EDT Office Visit [facility] [address] [place] [address] Darren Ulloa [address] [place] [address] 03/24/2025 1:30 PM EDT Clinical Support [facility] [address], [place] [phone] 03/31/2025 1:00 PM EDT Clinical Support [facility] MEDICINE [address] [place] [address] Scarlett Boo, RN [address] [place] [address] 04/03/2025 1:45 PM EDT Office Visit [facility] [address] [place] [address] Viridiana Jacinto FNP [address] [place] [address] 05/06/2025 10:00 AM EDT Office Visit [facility] [address], [place] [phone] Kalyn Murrell Health Maintenance Due Date Last [...] Family Planning (PISQ) 01/27/2026 01/27/2025 Tobacco Screening 02/10/2026 02/10/2025 Dental X-Ray: Full Mouth 10/26/2026 023, 12/18/2018, 01/14/2015, Additional history exists HPV/Cotest 01/28/2028 01/27/2025 Pap Smear 01/28/2028 01/27/2025, 03/07/2022, 01/11/2022 DTaP/Tdap/Td Vaccines (8 - Td or [...] 05/06/2024, Additional history exists HIV Screening Completed 02/02/2025, 05/2025, 12/12/2024, Additional history exists RSV under 20 months Aged Out No longe r eligible based on patient's age to complete this topic Rotavirus Vaccines Aged Out No longer eligible based on patient's age to complete this topic Procedures Procedure Name Priority Date/Time Associated Diagnosis Comments US PELVIS TRANSVAGINAL Urgent 02/11/2025 1:45 PM EDT Dyspareunia, female Pelvic pain CASE PRESENTATION, DETAILED AND EXTENSIVE TREATMENT PLANNING Routine 02/10/2025 10:30 AM EDT 14 MO RESIN-BASED COMPOSITE - 2 SURF, POSTERIOR Routine 02/10/2025 10:30 AM EDT POCT , URINE Routine 02/02/2025 4:12 PM EDT On pre-exposure prophylaxis for HIV POCT RAPID HIV SCREENING Routine 02/02/2025 4:11 PM EDT On pre-exposure prophylaxis for HIV HIV 1 RNA, QUANTITATIVE REAL TIME PCR Routine 02/02/2025 3:49 PM EDT SYPHILIS SCREEN Routine 02/02/2025 3:49 PM EDT HEPATIC FUNCTION PANEL Routine 02/02/2025 3:49 PM EDT Transaminitis CHLAMYDIA/GONORRHEA VAGINAL SWAB ([place] [facility]) Routine 02/02/2025 CHLAMYDIA/GONORRHEA THROAT SWAB ([place] [facility]) Routine 02/02/2025 XR THORACIC SPINE 2 VIEWS Routine 01/27/2025 [...] GENERAL Routine 11/26/2024 1:34 PM EST Transaminitis PROPHYLAXIS - ADULT Routine 11/06/2024 1 0:00 AM EST BITEWINGS - 4 RADIOGRAPHIC IMAGES Routine 10/23/2024 11:00 AM EST PERIODIC ORAL EVALUATION - ESTABLISHED PATIENT Routine 10/23/2024 11:00 AM EST INTRAORAL - COMPLETE SERIES OF RADIOGRAPHIC IMAGES Routine 10/25/2023 9:00 AM EST Dental calculus from Last 3 Months or Most Recently Relevant to Health Maintenance Results * US Pelvis Transvaginal (02/11/2025 1:45 PM EDT) Anatomical Region Laterality Modality Pelvis Ultrasound 02/11/2025 1:45 PM EDT Narrative 02/11/2025 2:31 PM EDT ? [facility] ?[address] ? [place] [address] ? Ultrasound Report ? Signed ? Patient: Serenity Henson ?MR ?? #: [id number] ? : 1995 ?Acct:[id number] ? Age/Sex: 29 / F ?ADM Date: 02/11/ ? Loc: HO.HMGCX ? Attending Dr: Melody Aranda CNM ? Ordering Physician: MELODY ARANDA CNM ?? Date of Service: 02/11/25 ?? Procedure(s): US pelvic and transvaginal ?? Accession Number(s): [id number] ? cc: Viridiana Jacinto SEEING EYE DOG TRAINER; MELODY ARANDA CNM ? EXAMINATION: ??US PELVIS TRANSABDOMINAL AND TRANSVAGINAL ? HISTORY: pelvic pain, pain with sex ? COMPARISON: There are no prior studies for comparison. ? TECHNIQUE: ? Transabdominal and endovaginal real-time 2D patel-scale ultrasound was ?? performed. ? FINDINGS: ? Uterus: ??The uterus is normal in size, measuring 10.9 x 3.1 x 4.7 cm. ? Myometrium has a normal echotexture. ??No fibroids are identified. ? Endometrium: ??The endometrial stripe measures 3 mm in thickness. ? Right ovary: ??The right ovary measures 4.2 x 2.1 x 2.1 cm. ??The right ?? ovary is normal in size and echotexture. ? Left ovary: ?? The left ovary measures 3.6 x 2.4 x 2.2 cm. ??The left ?? ovary is normal in size and echotexture. ? Pelvic fluid: none. ? US/US pelvic and transvaginal ?? IMPRESSION: ?? Unremarkable pelvic ultrasound. ? Electronically signed by: ??Nicolas Askew MD ??02/11/2025 02:29 PM EDT ?? RP ? Dictated By: ?Nicolas Askew MD ? Signed By: ?<Electronically signed by Nicolas Askew MD in OV> ?02/11/25 8189 ? DD/ 1345 ? TD/TT: 02/11/25 4619 ? Thermodynamicist: ? Procedure Note Dariel Rowell - 02/11/2025 [facility] [address] [place], [place] [address] Ultrasound Report Signed Patient: Balwinder Henson #: [id number] : 1995Acct:[id number] Age/Sex: 29 / FADM Date: 02/11/25 Loc: HO.HMGCX Attending Dr: Melody Aranda CNM Ordering Physician: MELODY ARANDA CNM Date of Service: 02/11/25 Procedure(s): US pelvic and transvaginal Accession Number(s): [id number] cc: Viridiana JacintoP; MELODY ARANDA CNM EXAMINATION: US PELVIS TRANSABDOMINAL AND TRANSVAGINAL HISTORY: pelvic pain, pain with sex COMPARISON: There are no prior studies for comparison. TECHNIQUE: Transabdominal and endovaginal real-time 2D patel-scale ultrasound was performed. FINDINGS: Uterus: The uterus is normal in size, measuring 10.9 x 3.1 x 4.7 cm. Myometrium has a normal echotexture. No fibroids are identified. Endometrium: The endometrial stripe measures 3 mm in thickness. Right ovary: The right ovary measures 4.2 x 2.1 x 2.1 cm. The right ovary is normal in size and echotexture. Left ovary: The left ovary measures 3.6 x 2.4 x 2.2 cm. The left ovary is normal in size and echotexture. Pelvic fluid: none. US/US pelvic and transvaginal IMPRESSION: Unremarkable pelvic ultrasound. Electronically signed by: Nicolas Askew MD 02/11/2025 02:29 PM EDT Dictated By: Nicolas Askew MD Signed By: <Electronically signed by Nicolas Askew MD in OV> 02/11/25 1429 DD/ 1345 TD/TT: 02/11/25 1359 Thermodynamicist: us Melody Aranda CNM IMG US PROCEDURES Final R esult * POCT , urine manually resulted (02/02/2025 4:12 PM EDT) Only the most recent of2 resultswithin the time period is included. Preg Test, Ur Negative Negative, Indeterminate, None Detected, Invalid, Specimen unsatisfactory for evaluation, Weakly Positive Urine 02/02/2025 4:12 PM EDT Scarlett Saucedo RN - 02/02/2025 4:12 PM EDT negative us William Snider MD POINT OF CARE TEST ENTER/EDIT OR DERABLES Final Result * POCT RAPID HIV SCREENING (02/02/2025 4:11 PM EDT) Only the most recent of2 resultswithin the time period is included. Blood 02/02/2025 4:11 PM EDT Scarlett Saucedo RN - 02/02/2025 4:11 PM EDT negative us William Snider MD POINT OF CARE TEST ENTER/EDIT OR DERABLES Final Result * Syphilis Screen (02/02/2025 3:49 PM EDT) [facility] Syphilis Screen Nonreactive Nonreactive [facility] 02/02/2025 3:49 PM EDT 02/02/2025 5:59 PM EDT us Viridiana Jacinto SEEING EYE DOG TRAINER LAB BLOOD ORDERABLES Final Res ult [facility] [address] [place] [phone] * HIV-1 RNA, Quantitative, Real-Time PCR (02/02/2025 3:49 PM EDT) Only the most recent of3 resultswithin the time period is included. [facility] HIV RNA PCR Qn Copies NOT DETECTED NOT DETECTED copies/mL [facility] HIV RNA PCR Qn Log Copies NOT DETECTED NOT DETECTED [facility] Comment:Result Units: Log co pies/mLThis test was performed using Real-Time Polymerase ChainReaction.Reportable Range: 20 copies/mL to 10,000,000 copies/mL(1.30 log copies/mL to 7.00 log copies/mL).THIS TEST WAS PERFORMED AT:[facility] [place] [phone] SILVA MD 02/02/2025 3:49 PM EDT 02/02/2025 5:59 PM EDT Viridiana Jacinto [facility] LAB BLOOD ORDERABLES Final Res ult Performing Organization Address City/[facility] Co de Phone Number [facility] [address] [place] [phone] * (ABNORMAL) Hepatic Function Panel (02/02/2025 3:49 PM EDT) Only the most recent of3 resultswithin the time period is included. Bilirubin, Total 0.5 0.0 - 1.0 mg/dL [facility] Bilirubin, Direct 0.2 0.0 - 0.5 mg/dL [facility] Aspartate Amino Transferase 34(H) 5 - 31 U/L [facility] Alanine Aminotransferase 43(H) 0 - 31 U/L [facility] Total Protein 7.5 6.5 - 8.0 g/dL [facility] Albumin Level 4.4 3.5 - 5.0 g/dL [facility] Alkaline Phosphatase 93 39 - 117 U/L [facility] Blood Venous blood specimen / Unknown 02/02/2025 3:49 PM EDT 02/02/2025 5:59 PM EDT Viridiana Jacinto [facility] LAB BLOOD ORDERABLES Final Res ult Performing Organization Address [facility] Co de Phone Number [facility] [address] [place] [phone] * Chlamydia/Gonorrhea Vaginal Swab ([place] [facility]) (02/02/2025) Chlamydia Vaginal Swab Negative Negative, Indeterminate, None Detected, Invalid, Specimen unsatisfactory for evaluation, Weakly Positive Gonorrhea Vaginal Swab Negative Negative, Indeterminate, None Detected, Invalid, Specimen unsatisfactory for evaluation, Weakly Positive Swab Vaginal structure / Unknown 02/02/2025 us Historical Provider LAB MICROBIOLOGY - GENERA L ORDERABLES Edited Result - Final * Chlamydia/Gonorrhea Throat Swab ([facility]) (02/02/2025) Chlamydia Throat Swab Negative Gonorrhea Throat Swab Negative Swab 02/02/2025 us Historical Provider LAB MICROBIOLOGY - GENERA L ORDERABLES Final Result * XR Thoracic Spine 2 Views (01/27/2025 12:02 PM EDT) Anatomical Region Laterality Modality Spine, T-spine Radiographic Araceli ging 01/27/2025 12:0 2 PM EDT Narrative 01/28/2025 2:23 PM EDT ? [facility] ?[address] ?[place] [address] ?XRay Report ? Signed ? Patient: MichelleSerenity Adan ?MR ?? #: [id number] ? : 1995 ?Acct:[id number] ? Age/Sex: 29 / F ?ADM Date: 01/27/25 ? Loc: HO.XRAY ? Attending Dr: Viridiana Jacinto SEEING EYE DOG TRAINER ? Ordering Physician: Viridiana Jacinto ?? Date of Service: 01/27/25 ?? Procedure(s): XR thoracic spine 2V ?? Accession Number(s): [id number] ? cc: Viridiana Jacinto SEEING EYE DOG TRAINER ? EXAMINATION: ?? XR THORACIC SPINE ? [...] DD/ 1202 ? TD/TT: 01/27/25 1220 ? Thermodynamicist: ? Procedure Note Donmikaylater, Image - 01/28/2025 [place] [address] XRay Report Signed Patient: Serenity HensonMR #: [id number] : 1995Acct:[id number] Age/Sex: Date: 01/27/25 Loc: ZHANNA Attending Dr: Viridiana Jacinot SEEING EYE DOG TRAINER Ordering Physician: Viridiana Jacinto Date of Service: 01/27/25 Procedure(s): XR thoracic spine 2V Accession Number(s): [id number] cc: iVridiana Jacinto EXAMINATION: XR THORACIC SPINE CLINICAL INFORMATION: [...] Kain Mercado MD 01/28/2025 02:20 PM EDT RP Dictated By: Kain Mercado MD Signed By: <Electronically signed by Kain Mercado MD in OV> 01/28/25 1420 DD/ 1202 TD/TT: 01/27/25 1220 Thermodynamicist: Viridiana VILLATORO IMG XR PROCEDURES Final Result * Vitamin D, 25-Hydroxy, Total, Immunoassay (01/27/2025 9:52 AM EDT) Vitamin D 25-OH Total 30.8 >30 ng/mL [facility] Comment: Health Based Reference Values*< 20 ??ng/mL ??Jjsaevnad09-53 ng/mL ??Insufficient> 30 ??ng/mL ??Sufficient*Eitan RAM. N [...] AM EDT 01/27/2025 11:23 AM EDT Viridiana VILLATORO LAB BLOOD ORDERABLES Final Res ult [facility] [address] [place], [place] [phone] * TSH W/Reflex to FT4 (01/27/2025 9:52 AM EDT) TSH reflex Free T4 0.48 0.32 - 4.0 uIU/mL [facility] Blood Venous blood specimen / Unknown 01/27/2025 9:52 AM EDT 01/27/2025 11:23 AM EDT us Viridiana Jacinto SEEING EYE DOG TRAINER LAB BLOOD ORDERABLES Final Res ult [facility] [address] [place] [address] [phone] * STI testing add on (NG, CT, Trich) (01/27/2025 9:46 AM EDT) Trichomonas (NAAT) NOT DETECTED [facility] Comment:REFERENCE RANGE: NOT DETECTEDThe analytical performance characteristics of thisassay, when used to test SurePath(TM) specimens have beendetermined by [employer]. The modifications havenot been cleared or approved by the FDA. This assay hasbeen validated pursuant to the CLIA regulations and isused for clinical purposes.For additional information, please refer tohttps://Collabspot.Meteor/faq/TOU195(This link is being provided for information/educational purposes only.)For additional information, please refer tohttp://Collabspot.Meteor/faq/Trichomonastma(This link is being provided for informational/educational purposes only.)THIS TEST PERFORMED AT:[facility] [address] [phone] DIRECTOR: SEEMA SILVA MD CTNG Ref Lab NOT DETECTED NOT DETECTED [facility] NG Ref Lab NOT DETECTED NOT DETECTED [facility] ThinPrep?? vial Cervix uteri structure / Unknown 01/27/2025 9:46 AM EDT 01/28/2025 8:38 AM EDT Narrative [facility] - 02/04/2025 2:27 PM EDT Collection Date: [id number] by: YANDEL Burnette: Cervix Melody ALARCON LAB CYTOLOGY ORDERABLES F inal Result Performing Organization Address [facility]/ZIP Co de Phone Number [facility] [address] [place] [address] [phone] * HPV DNA, Low/High Risk (01/27/2025 9:46 AM EDT) HPV High Risk Negative Negative [facility] HPV Genotype 16 Negative Negative [facility] HPV Genotype 18 Negative Negative [facility] Comment:HPV testing performe d at [facility] (CLIA#[id number]), [address] [place] [address].Testing for HPV was performed using the Eduardo RAMOS 6800system. The presence of HPV in the female genital tract isassociated with a number of diseases, including cervicalcarcinoma. The HPV DNA high risk pool tests for HPV 31, 33,35, 39, 45, 51, 52, 56, 58, 59, 66 and 68. The testing forHPV 16 and 18 genotypes has also been performed. A positiveresult indicates detection of nucleic acid sequences fromone or more subtypes, whereas a negative result indicatessuch sequences were not detected. 01/27/2025 9:46 AM EDT 01/28/2025 8:38 AM EDT Narrative [facility] - 02/04/2025 2:27 PM EDT Collection Date: [id number] by: YANDEL Burnette: Cervix Melody ALARCON LAB BLOOD ORDERABLES Jessica l Result Performing Organization Address City/[facility]/ZIP Co de Phone Number [facility] [address] [place] [address] [phone] * Pap Smear (01/27/2025 9:46 AM EDT) Swab Cervix uteri structure / Unknown 01/27/2025 9:46 AM EDT 01/28/2025 7:30 AM EDT [facility] - 02/02/2025 8:29 AM EDT ----- ------- Name: Serenity Henson ?Age/Sex: 29/F ? : 1995 Unit#: [id number] ?? Attend Dr: MELODY ARANDA CNM ?Re01/27/25 ?Status: DEP REF ? Location: HO.LNP ?Disch: ? ----- ------- SPEC : [id number] ? RECD: 01/28/25-729 ? STATUS: ??SOUT ? REQ NUM: [id number] ? DANIEL: 01/27/25-945 ? SUBM DR: MELODY ARANDA CNM ? ENTERED: ??01/28/25-752 ?SP TYPE: Pap Smr ?OTHR : ? ORDERED: ??Pap Smear ? Interpretation ?? Satisfactory for evaluation. ?? Negative for intraepithelial lesion or malignancy. ? HPV High Risk: ??Negative ? HPV Genotyping 16: ??Negative ?? HPV Genotyping 18: ??Negative ?Clinical Information LMP:Unknown date Previous PAP test:2021 NIL ? Material Received ?? ThinPrep-Cervical ----- ------- Signed (signature on file) LAILA Ji (ASCP) 02/02/25828 ? ----- ------- ? END OF REPORT ? [facility] LAB CYTOLOGY ORDERABLES F inal Result Performing Organization Address [facility] Co de Phone Number [facility] [address] [place] [phone] * Hepatitis A,B,C Profile (11/26/2024 1:34 PM EST) Hepatitis A IgM Nonreactive Nonreactive [facility] Comment:IgM antibodies to BATRLETT V not detected; does not exclude earlyacute or recovered HAV infection. ~Hepatitis B Surface Antibody REACTIVE Nonreactive [facility] Comment:REACTIVE: > 11.99 mI U/mL Hepatitis B Core Antibody Nonreactive Nonreactive [facility] Hepatitis C Antibody Nonreactive Nonreactive [facility] Comment:Antibodies to HCV no t detected; does not exclude early acuteHCV infection. Hepatitis B Surface Ag Negative Negative [facility] Blood Venous blood specimen / Unknown 11/26/2024 1:34 PM EST 11/26/2024 4:20 PM EST [facility] LAB BLOOD ORDERABLES Jessica l Result Performing Organization Address [facility] Co de Phone Number [facility] [address] [place] [phone] from Last 3 Months or Most Recently Relevant to Health Maintenance Insurance [employer] [facility] [employer] * Guarantor: Michelle Hines, [employer] Account Type Relation to Patient Date of Phone Billing Address Personal/Family Self [place], [place] * Guarantor: Michelle HinesSerenity ellis Account Type Relation to Patient Date of Phone Billing Address Personal/Family Self [place], [place] Care Teams Tankage Grinder Relationship Specialty Start Date End Date Viridiana Jacinto FNP [address] [place] [address] PCP - General Family Medicine 08/26/21
--- OUTSIDE RECORDS SUMMARY | 2025-02-27 14:18 | XMS_ITS | Encounter Summary ---
Author Organization [employer] Address [address] [place] [address] 7t [place] [address] Care Team Providers Care River Boat Captain Name Role Phone Viridiana Jacinto VICE PRESIDENT PHARMACY Primary Care Provider [phone] Encounter Details Date Type Department Care Team (Latest Contact Info) Description 11/11/2021 Abstract [facility] CONVERSIONS Dental, Provider, DDS Social [...] Description 03/13/2025 11:00 AM EDT Office Visit [facility] ADULT DENTAL [address] [place] [address] Darren Ulloa 505 [place] [address] 03/24/2025 1:30 PM EDT Clinical Support [facility] CHC MED & PEDS [address] [place] [address] 03/31/2025 1:00 PM EDT Clinical Support [facility] MEDICINE [address] [place] [address] Scarlett Boo, FILIBERTO [address] [place] [address] 04/03/2025 1:45 PM EDT Office Visit [facility] MED & PEDS [address] [place] [address] Viridiana Jacinto FNP [address] [place] [address] 05/06/2025 10:00 AM EDT Office Visit [facility] ADULT DENTAL [address] [place] [address] Kalyn Murrell documented as of this encounter Visit Diagnoses Not on filedocumented in this encounter Care Teams River Boat Captain Relationship Specialty Start Date End Date Viridiana Jacinto FNP [address] [place] [address] PCP - General Family Medicine 08/26/21 documented as of this encounter
--- OUTSIDE RECORDS SUMMARY | 2025-02-27 14:18 | XMS_ITS | Encounter Summary ---
Author Organization [employer] Address [address] 7t [place] [address] Care Team Providers Care Maintenance Instructor Name Role Phone Viridiana Jacinto FITNESS/WELLNESS DIRECTOR Primary Care Provider [phone] Encounter Details Date Type Department Care Team (Late st Contact Info) Description 07/19/2023 Orders Only [facility] MEDICINE [address] [place] [address] Brianna Sue ANP [address] [place] [address] Social History Tobacco Use Types Packs/Day Years [...] Description 03/13/2025 11:00 AM EDT Office Visit [facility] ADULT DENTAL [address] [place], [place] [phone] Darren Ulloa [address] [place], [place] [phone] 03/24/2025 1:30 PM EDT Clinical Support [facility] MED & PEDS [address] [place] [address] 03/31/2025 1:00 PM EDT Clinical Support [facility] MEDICINE [address] [place] [address] Scarlett Boo, RN [address] [place] [address] 04/03/2025 1:45 PM EDT Office Visit [facility] MED & PEDS [address] [place] [address] Viridiana Jacinto FNP 505 [place] [address] 05/06/2025 10:00 AM EDT Office Visit [facility] ADULT DENTAL [address] [place] [address] Kalyn Murrell documented as of this encounter Visit Diagnoses Not on filedocumented in this encounter Additional Health Concerns Assessment Noted Time PHQ-9 Depression Total Score: 16 023 2:56 PM EDT documented as of this encounter Care Teams Maintenance Instructor Relationship Specialty Start Date End Date Viridiana Jacinto FNP [address] [place] [address] PCP - General Family Medicine 08/26/21 documented as of this encounter
--- OUTSIDE RECORDS SUMMARY | 2025-02-27 14:18 | XMS_ITS | Encounter Summary ---
Author Organization [employer] Address [address] [facility] 7t [place] [address] Care Team Providers Care Manager Wealth Management Name Role Phone Viridiana Jacinto LAW OFFICE MANAGER Primary Care Provider [phone] Encounter Details Date Type Department Care Team ([facility] Contact Info) Description 03/16/2023 Orders Only [facility] MED & PEDS [address] [place] [address] Elly Harmon LPN Social History Tobacco Use [...] Encounters Date Type Department Care Team (Late Contact Info) Description 03/13/2025 11:00 AM EDT Office Visit [facility] ADULT DENTAL [address] [place] [address] Darren Ulloa 505 [place] [address] 03/24/2025 1:30 PM EDT Clinical Support [facility] MED & PEDS [address] [place] [address] 03/31/2025 1:00 PM EDT Clinical Support [facility] MEDICINE [address] [place] [address] Scarlett Boo, RN [address] [place] [address] 04/03/2025 1:45 PM EDT Office Visit [facility] MED & PEDS [address] [place] [address] Viridiana Jacinto FNP 505 [place] [address] 05/06/2025 10:00 AM EDT Office Visit [facility] ADULT DENTAL [address] [place] [address] Kalyn Murrell documented as of this encounter Visit Diagnoses Not on filedocumented in this encounter Care Teams Manager Wealth Management Relationship Specialty Start Date End Date Viridiana Jacinto FNP [address] [place] [address] PCP - General Family Medicine 08/26/21 documented as of this encounter
--- OUTSIDE RECORDS SUMMARY | 2025-02-27 14:18 | XMS_ITS | Encounter Summary ---
Author Organization [employer] Address [address] [facility] 7t [place] [address] Care Team Providers Care Director Of Restaurants Name Role Phone Viridiana Jacinto Primary Care Provider [phone] Reason for Visit * Reason Onset Date Comments Referral 01/14/2024 Encounter Details Date Type Department Care Team ([facility] st Contact Info) Description 01/14/2024 Telephone [facility] MED & PEDS [address] [place], [place] [phone] Viridiana Jacinto FNP 505 [place] [address] Referral Social History Tobacco Use Types Packs/Day [...] - 01/14/2024 1:02 PM EDT Tc from anrdea with [facility] states pt is requesting to be referred to a hand rigger. Andrea states she does not know the reasoning or dx of referral requested. Please contact pt for more information at [phone] documented in this encounter Plan of Treatment Upcoming Encounters Date Type Department Care Team (Late st Contact Info) Description 03/13/2025 11:00 AM EDT Office Visit [facility] ADULT DENTAL [address] [place] [address] Darren Ulloa 505 [place] [address] 03/24/2025 1:30 PM EDT Clinical Support [facility] MED & PEDS [address] [place] [address] 03/31/2025 1:00 PM EDT Clinical Support [facility] MEDICINE [address] [place] [address] Scarlett Boo, RN [address] [place] [address] 04/03/2025 1:45 PM EDT Office Visit [facility] MED & PEDS [address] [place] [address] Viridiana Jacinto FNP [address] [place] [address] 05/06/2025 10:00 AM EDT Office Visit [facility] ADULT DENTAL [address] [place] [address] Kalyn Murrell documented as of this encounter Visit Diagnoses Diagnosis Underweight in childhood- Primary History of eating disorder documented in this encounter Additional Health Concerns Assessment Noted Time PHQ-9 Depression Total Score: 12 024 10:43 AM EST documented as of this encounter Care Teams Director Of Restaurants Relationship Specialty Start Date End Date Viridiana Jacinto FNP [address] [place] [address] PCP - General Family Medicine 08/26/21 documented as of this encounter
--- OUTSIDE RECORDS SUMMARY | 2025-02-27 14:18 | XMS_ITS | Data Portability ---
Author Organization [place] [facility], Allergy Address [address] [address] Assessment Encounter Date Assessment Date Assessment LastModified [...] neck, soft tissue, w/ contrast 2023 024 [email or web address] [facility] [address], [address], 12/09/2024 15:18:53 Medication Orders None recorded. Patient [...] contr ast No observ ation record ed. [email or web address] [facility] [address], [address], 11/18/2024 15:19:39 Result Notes None recorded. Problems Name Problem SNOMED Code Status Onset Date Resolution Date Notes Provider Name and Address Organization Details Recorded Time Bilateral earache 169782149 Active 020 Otalgi a, bilate ral; Note: Date Diagno sed: 020 2:16 PM (H92.0 3) Not Available [facility] 4 03:33:41 Problem Notes None recorded. Procedures Surgical History Date Name Laterality Status Provider Name and Address Organization Details Recorded Time 10/14/2024 Comp Audio with Tymps (28738 & 12356) completed CHERYLE REAL, [address], [address], [facility] - [facility] 10/14/2024 12:26:09 Imaging Results Imaging Date Name Status LastModified by Organiz ation Details LastModified Time 10/14/2024 audiogram completed [facility] Information no t available 10/14/2024 14:07:50 11/11/2024 CT, neck, soft tissue, w/ contrast completed [facility] [address], [address], 11/18/2024 15:19:39 Procedure Notes None recorded. Medical [...] Updated DateTime 10/14/2024 154.94 cm 22.1 kg/m2 04177.31 g Char Amezcua [place] - [facility] 10/14/2024 11:50:29 Social History None recorded. Functional Status None recorded. Mental Status None recorded. Family History Nothing Reported. Medical History No medical history recorded. Gynecological HistoryNo gynecological history recorded. Obstetrics History GPAL:G 0 P 0 0 0 0 Past Encounters Encounter ID Performer Location Encounter Start Date Encounter Closed Date Diagnosis/Indication Diagnosis SNOMED-CT Code Diagnosis ICD10 Code Diagnosis Note [id number] JC TREJO PA-C [facility] [address] [address] 10/14/2024 11:33:10 10/14/2024 12:39:37 Bilateral earache 438020553 H92.03 Audiologic al evaluation results: 10/14/2024 Right [...] Zhao Member ID Guarantor Name 10/14/2024 1 [place]: [facility] Serenity Sunlupe Hines [id number] Serenity Martinez Hines Notes Date Note Type [...] history of otologic surgery. JC TREJO PA-C [address] [place] [address], [place], [address], [place] [facility] 10/14/2024 15:20:54 OBGyn Episode No OBEpisode recorded.
--- OUTSIDE RECORDS SUMMARY | 2025-02-27 14:18 | XMS_ITS | Encounter Summary ---
Author Organization [employer] Address 75 [facility] 7t [place] [address] Care Team Providers Care Sizing Machine Tender Name Role Phone Viridiana Jacinto IRVING Primary Care Provider [phone] Reason for Visit * Reason Onset Date Comments Error (VOID this visit) 02/25/2025 Encounter Details Date Type Department Care Team ([facility] st Contact Info) Description 02/25/2025 Telephone [facility] MEDICINE [address] [place] [address] Errol Barnes RN 230 [place] [address] Error (VOID this visit) Social History Tobacco Use Types Packs/Day Years [...] Description 03/13/2025 11:00 AM EDT Office Visit [facility] ADULT DENTAL [address] [place] [address] Darren Ulloa 505 [place] [address] 03/24/2025 1:30 PM EDT Clinical Support [facility] MED & PEDS [address] [place] [address] 03/31/2025 1:00 PM EDT Clinical Support [facility] MEDICINE [address] [place] [address] Scarlett Boo, FILIBERTO [address] [place] [address] 04/03/2025 1:45 PM EDT Office Visit [facility] MED & PEDS [address] [place] [address] Viridiana Jacinto FNP [address] [place] [address] 05/06/2025 10:00 AM EDT Office Visit [facility] ADULT DENTAL [address] [place] [address] Kalyn Murrell documented as of this encounter Visit Diagnoses Not on filedocumented in this encounter Additional Health Concerns Assessment Noted Time PHQ-9 Depression Total Score: 14 025 11:28 AM EDT documented as of this encounter Care Teams Sizing Machine Tender Relationship Specialty Start Date End Date Viridiana Jacnito FNP [address] [place] [address] PCP - General Family Medicine 08/26/21 documented as of this encounter
--- OUTSIDE RECORDS SUMMARY | 2025-02-27 14:18 | XMS_ITS | Encounter Summary ---
Author Organization [employer] Address [address] [place] [address] 7t [place] [address] Care Team Providers Care Red Cap Name Role Phone Viridiana Jacinto CORE COMPOSER MACHINE TENDER Primary Care Provider [phone] Encounter Details Date Type Department Care Team (Latest Contact Info) Description 12/18/2018 Abstract [facility] CONVERSIONS Dental, Provider, DDS Social History [...] Upcoming Encounters Date Type Department Care Team ( st Contact Info) Description 03/13/2025 11:00 AM EDT Office Visit [facility] ADULT DENTAL [address] [place] [address] Darren Ulloa [address] [place] [address] 03/24/2025 1:30 PM EDT Clinical Support [facility] CHC MED & PEDS [address] [place] [address] 03/31/2025 1:00 PM EDT Clinical Support [facility] MEDICINE [address] [place] [address] Scarlett Boo, FILIBERTO [address] [place] [address] 04/03/2025 1:45 PM EDT Office Visit [facility] MED & PEDS [address] [place] [address] Viridiana Jacinto FNP [address] [place] [address] 05/06/2025 10:00 AM EDT Office Visit [facility] ADULT DENTAL [address] [place] [address] Kalyn Murrell documented as of this encounter Visit Diagnoses Not on filedocumented in this encounter Care Teams Red Cap Relationship Specialty Start Date End Date Viridiana Jacinto FNP [address] [place] [address] PCP - General Family Medicine 08/26/21 documented as of this encounter
--- OUTSIDE RECORDS SUMMARY | 2025-02-27 14:18 | XMS_ITS | Encounter Summary ---
Author Organization [employer] Address [address] [facility] 7t [place] [address] Care Team Providers Care Slab Inspector Name Role Phone Viridiana Jacinto ETHYLBENZENE CONVERTER HELPER Primary Care Provider [phone] Reason for Visit * Reason Onset Date Comments Injectable PrEP communication 02/25/2025 Encounter Details Date Type Department Care Team ([facility] st Contact Info) Description 02/25/2025 Telephone [facility] MEDICINE [address] [place] [address] Errol Barnes RN [address] [place] [address] Injectable PrEP communication Social History Tobacco Use Types Packs/Day Years [...] encounter Miscellaneous Notes * Telephone Encounter - Errol Barnes RN - 02/25/2025 8:57 AM EDT Pt due for recheck of LFTs, ordered under PCP. RN call to pt and she stated she will come in sometime this week for labs. documented in this encounter Plan of Treatment Upcoming Encounters Date Type Department Care Team (Late st Contact Info) Description 03/13/2025 11:00 AM EDT Office Visit [facility] ADULT DENTAL 505 [place] [address] Darren Ulloa 505 [place] [address] 03/24/2025 1:30 PM EDT Clinical Support [facility] MED & PEDS [address] [place] [address] 03/31/2025 1:00 PM EDT Clinical Support [facility] MEDICINE [address] [place] [address] Scarlett Boo, RN [address] [place] [address] 04/03/2025 1:45 PM EDT Office Visit [facility] MED & PEDS [address] [place] [address] Viridiana Jacinto FNP 505 [place] [address] 05/06/2025 10:00 AM EDT Office Visit [facility] ADULT DENTAL [address] [place] [address] Kalyn Murrell documented as of this encounter Visit Diagnoses Not on filedocumented in this encounter Additional Health Concerns Assessment Noted Time PHQ-9 Depression Total Score: 14 025 11:28 AM EDT documented as of this encounter Care Teams Slab Inspector Relationship Specialty Start Date End Date Viridiana Jacinto FNP [address] [place] [address] PCP - General Family Medicine 08/26/21 documented as of this encounter
--- OUTSIDE RECORDS SUMMARY | 2025-02-27 14:18 | XMS_ITS | Encounter Summary ---
Author Organization [employer] Address [address] [facility] [address] 7t [place] [address] Care Team Providers Care Greaser Helper Name Role Phone Viridiana Jacinto COURT OF APPEALS JUDGE Primary Care Provider [phone] Encounter Details Date Type Department Care Team ([facility] st Contact Info) Description 11/15/2023 Orders Only [facility] CHC MED & PEDS [address] [place], [place] [phone] Soni Rashid, [place] [address] [place] [address] Encntr screen for infections w sexl mode [...] 03/13/2025 11:00 AM EDT Office Visit [facility] ADULT DENTAL [address] [place] [address] Darren Ulloa 505 [place] [address] 03/24/2025 1:30 PM EDT Clinical Support [facility] MED & PEDS [address] [place] [address] 03/31/2025 1:00 PM EDT Clinical Support [facility] MEDICINE [address] [place] [address] Scarlett Boo, FILIBERTO [address] [place] [address] 04/03/2025 1:45 PM EDT Office Visit [facility] MED & PEDS [address] [place] [address] Viridiana Jacinto FNP 505 [place] [address] 05/06/2025 10:00 AM EDT Office Visit [facility] ADULT DENTAL [address] [place] [address] Kalyn Murrell documented as of this encounter Procedures Procedure Name Priority Date/Time Associated Diagnosis Comments RPR (MONITOR) W/REFL TITER Routine 11/21/2023 12:26 PM EST Encntr screen for infections w sexl mode of transmiss documented in this encounter Results * RPR (Monitor) with Reflex to??Titer (11/21/2023 12:26 PM EST) RPR (Monitor) w/Refl Titer NON-REACTI VE NON-REACT HERACLIO [facility] Comment:THIS TEST WAS PERFOR MED AT:[address] [place] [id number] SILVA MD Rapid Plasma Reagin Ab Titer TNP [facility] Blood Venous blood specimen / Unknown 11/21/2023 12:26 PM EST 11/21/2023 1:25 PM EST us Soni [facility] BLOOD ORDERABLES Jessica valencia Result [facility] [address] [place] [phone] documented in this encounter Visit Diagnoses Diagnosis Encntr screen for infections w sexl mode of transmiss- Primary documented in this encounter Additional Health Concerns Assessment Noted Time PHQ-9 Depression Total Score: 12 024 10:43 AM EST documented as of this encounter Care Teams Greaser Helper Relationship Specialty Start Date End Date Viridiana Jacinto FNP [address] [place] [address] PCP - General Family Medicine 08/26/21 documented as of this encounter
[2025-02-27 16:32] LABS: Alanine Aminotransferase 25 U/L (0-31); Albumin Level 4.4 g/dL (3.5-5.0); Alkaline Phosphatase 92 U/L (39-117); Aspartate Amino Transferase 27 U/L (5-31); Bilirubin Direct 0.3 mg/dL (0.0-0.5); Bilirubin Total 0.7 mg/dL (0.0-1.0); Total Protein 7.3 g/dL (6.5-8.0)
== END 2025-02-27 13:34 | disposition home or self-care (01) ==
LOC: HO.HHCL 13:33
PROVIDERS: Visit Provider Registered Nurse
DX: R74.01 Elevation of levels of liver transaminase levels (principal)
CPT/HCPCS: 36415; 80076

== ENCOUNTER 2025-03-31 14:14 | Outpatient (REF) | payer OTHER, SELFPAY ==
--- OUTSIDE RECORDS SUMMARY | 2025-03-31 14:24 | XMS_ITS | Clinical Summary ---
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 30 tablet 2 024 Active triamcinolone (Kenalog) 0.1 % creamIndications :Healthcare maintenance MIX 80 G TUBE OF TRIAMCINOLONE 0.1% CREAM WITH 16 OZ JAR OF CERAVE CREAM. APPLY 1 TO 2 TIMES PER DAY AFTER SHOWER OR BATH FROM THE NECK DOWN (NOT ON FACE) 80 g 1 024 Active topiramate (Topamax) 50 MG tabletIndication s:Migraine without aura and without status migrainosus, not intractable TAKE 1 TABLET BY MOUTH AT BEDTIME 90 tablet 1 024 Active Cabotegravir ER (Apretude) 600 MG/3ML Suspension Extended ReleaseIndicatio ns:On pre-exposure prophylaxis for HIV INJECT 3 ML VENTROGLUTEAL EVERY 2 MONTHS 3 mL 3 025 Active SUMAtriptan (Imitrex) 50 MG tabletIndication s:Migraine without aura and without status migrainosus, not intractable TAKE 1 TABLET BY MOUTH AT ONSET OF MIGRAINE. MAY REPEAT ONCE AFTER 2 HOURS IF NEEDED NO MORE THAN 8 TABLETS IN 24 HOURS 10 tablet 3 025 Active celecoxib (CeleBREX) 200 MG capsule Take [...] tip and replace cap. 48 g 3 025 Active cholecalciferol (Vitamin D High Potency) 25 [...] breath. 18 g 11 025 2025 Active medroxyPROGESTER one (Depo-Provera) 150 MG/ML injection Inject 1 mL (150 mg) into the muscle every 3 (three) months. 1 mL 3 025 Active medroxyPROGESTER one (Depo-Provera) 150 MG/ML injection Inject 1 mL (150 mg) into the shoulder, thigh, or buttocks every 3 (three) months. 1 mL 3 023 2024 Discontinued(R eorder (will not trigger notification to Pharmacy)) ibuprofen 600 MG tabletIndication s:Acute bilateral back pain, unspecified back location Take 1 tablet (600 mg) by mouth every 8 (eight) hours if needed for moderate pain, fever or headaches. 50 tablet 3 024 2024 acetaminophen (Tylenol Extra Strength) 500 MG tablet Take 1-2 tablets (500-1,000 mg) by mouth every 8 (eight) hours if needed for moderate pain, headaches or fever. 100 tablet 3 024 2024 medroxyPROGESTER one (Depo-Provera) 150 MG/ML injectionIndicat ions:On Depo-Provera for contraception Inject 1 mL (150 mg) into the muscle every 3 (three) months. 1 mL 3 024 2024 Discontinued(T herapy completed) Hospital, Clinic, or Other Facility Administered Medication Ordered Dose Route Frequency Start Date End Date Status medroxyPROGESTERone (Depo-Provera) injection 150 mgIndications:On Depo-Provera for contraception 150 mg IM Once 03/24/2025 03/24/2025 Ended Active Problems Problem Noted Date Diagnosed [...] DC med Continues with injectable Cabotegravir through [facility] PrEP navigator - CRS Healthcare maintenance 04/12/2023 Overview (05/03/2024): -Pap: NILM January 2022, due January 2025 -Optometry: Dec 2022 - eval at [facility] -Contraception: Depo -Last PE: 05/02/24 History [...] Encounters Date Type Department Care Team Description 03/31/2025 Travel 03/26/2025 Telephone [facility] [address] [place] [address] Viridiana Jacinto FNP Chart Prep 03/24/2025 3:00 PM EDT Clinical Support [facility] [address] [place] [address] Char Armstrong RN On Depo-Provera for contraception 03/24/2025 Travel 03/24/2025 Orders Only [facility] [address] [place] [address] Viridiana Jacinto FNP 03/19/2025 Travel 03/13/2025 11:00 AM EDT Office Visit [facility] [address] [place] [address] Darren Ulloa 03/02/[address] [address] Scarlett Boo, FILIBERTO 02/25/[address] [address] Errol Barnes, RN Injectable PrEP communication 02/25/[address] [address] Errol Barnes, RN Error (VOID this visit) 02/10/2025 10:30 AM EDT Office Visit [facility] [address] [place] [address] Yosef Trujillosantoet 02/04/2025 Orders Only [facility] [address] [place] [address] Viridiana Jacinto, GANG TAILER Transaminitis (Primary Dx) 02/04/2025 Orders Only [address] [address] Errol Barnes, FILIBERTO 02/02/2025 3:30 PM EDT Clinical Support [address] [address] Scarlett Boo, FILIBERTO On pre-exposure prophylaxis for HIV 02/02/2025 Orders Only [facility] [address] [place] [address] Ha Jacintole, GANG TAILER 02/02/2025 Travel 01/29/2025 Telephone [facility] [address] [place] [address] Ha Jacintole, GANG TAILER Results 01/29/2025 Orders Only [facility] [address] [place] [address] PhalHa diehlle, GANG TAILER Transaminitis (Primary Dx) 01/28/[address] [address] Viridiana Jacinto, GANG TAILER Mild intermittent asthma without complication 01/27/2025 9:30 AM EDT Procedure Visit [address] [address] Melody Aranda CNM Cervical cancer screening (Primary Dx); Screening examination for venereal disease; Dyspareunia, female; Pelvic pain 01/27/2025 Orders Only [facility] [address] [place] [address] Melody Aranda CNM 01/27/2025 Travel 01/26/2025 11:30 AM EDT Office Visit [facility] [address] [place] [address] Viridiana Jacinto FNP Elevated LFTs (Primary Dx); Chronic bilateral thoracic back pain; Healthcare maintenance; Vitamin D insufficiency; Transaminitis 01/26/2025 Telephone [facility] [address] [place] [address] Scarlett Boo RN 01/26/2025 Travel 01/26/[address] [address] Melody Aranda CNM 01/06/2025 1:00 PM EST Clinical Support [facility] [address] [place] [address] Adelita Barba, RN On Depo-Provera for contraception 01/06/2025 Travel from Last 3 Months Immunizations Immunization Administration Dates Next Due DTaP 07/17/2001, 9,01/17/1998,11/13 [...] not consistent or reliable 07/07/2024 Comments Unknown Intention Date Recorded No desire to become (finding) 0 01/27/2025 Sex and Gender Information Value Date Recorded Sex Assigned at Female 09/04/2022 10:22 AM EDT Legal Sex Female 10:22 AM EDT Gender Identity Female 09/04/2022 10:22 AM EDT Sexual Orientation Straight 09/04/2022 10 :22 AM EDT Last Filed Vital Signs Vital Sign Reading Time Taken Comments Blood Pressure 104/70 03/13/2025 11:20 AM EDT Pulse 99 01/27/2025 9:23 AM [...] Care Team (Late st Contact Info) Description 04/01/2025 10:00 AM EDT Office Visit [facility] [address] [place] [address] Darren Ulloa [address] [place] [address] 04/03/2025 1:45 PM EDT Office Visit [facility] [address] [place] [address] Viridiana Jacinto FNP [address] [place] [address] 05/06/2025 10:00 AM EDT Office Visit [facility] [address] [place], [place] [phone] HandyKellyna 06/24/2025 9:15 AM EDT Office Visit [facility] [address] [place] [address] Ophelia Viridiana, GANG TAILER [address] [place], [place] [phone] 06/30/2025 1:00 PM EDT Clinical Support [facility] [address] [place] [address] Health Maintenance Due Date Last Done Comments [...] 07/06/2024 (Patient Refused) Dental X-Ray: [facility] 10/24/2025 10/23/20, 10/25/2023, 09/25/2022, Additional history exists Depression Screening 01/26/2026 01/26/2025, 01/27/20 Disability Screening 01/26/2026 01/26/2025 Family Planning (PISQ) 01/27/2026 01/27/2025 Tobacco Screening 03/13/2026 03/13/2025 Dental X-Ray: Full Mouth 10/26/2026 023, 12/18/2018, [...] Completed 02/02/2025, 05/2025, 12/12/2024, Additional history exists Meningococcal B Vaccine Aged Out No l onger eligible based on patient's age to complete this topic RSV under 20 months Aged Out No longe r eligible based on patient's age to complete this topic Rotavirus Vaccines Aged Out No longer eligible based on patient's age to complete this topic Procedures Procedure Name Priority Date/Time Associated Diagnosis Comments CASE PRESENTATION, DETAILED AND EXTENSIVE TREATMENT PLANNING Routine 03/13/2025 11:00 AM EDT 13 DO RESIN-BASED COMPOSITE - 2 SURF, POSTERIOR Routine 03/13/2025 11:00 AM EDT HEPATIC FUNCTION PANEL Routine 02/27/2025 1:35 PM EDT Transaminitis US PELVIS TRANSVAGINAL Urgent 02/11/2025 1:45 PM [...] LOW/HIGH RISK Routine 01/27/2025 9:46 AM EDT HEPATITIS PANEL, GENERAL Routine 11/26/2024 1:34 PM [...] Recently Relevant to Health Maintenance Results * Hepatic Function Panel (02/27/2025 1:35 PM EDT) Only the most recent of3 resultswithin the time period is included. Bilirubin, Total 0.7 0.0 - 1.0 mg/dL [facility] Bilirubin, Direct 0.3 0.0 - 0.5 mg/dL [facility] Aspartate Amino Transferase 27 5 - 31 U/L [facility] Alanine Aminotransferase 25 0 - 31 U/L [facility] Total Protein 7.3 6.5 - 8.0 g/dL [facility] Albumin Level 4.4 3.5 - 5.0 g/dL [facility] Alkaline Phosphatase 92 39 - 117 U/L [facility] Blood Venous blood specimen / Unknown 02/27/2025 1:35 PM EDT 02/27/2025 4:06 PM EDT us Viridiana Jacinto GANG TAILER LAB BLOOD ORDERABLES Final Res ult [facility] [address] [place] [phone] * US Pelvis Transvaginal (02/11/2025 1:45 PM EDT) Anatomical Region Laterality Modality Pelvis Ultrasound 02/11/2025 1:45 PM EDT Narrative 02/11/2025 2:31 PM EDT ? [facility] ?[address] ? [place] [address] ? Ultrasound Report ? Signed ? Patient: Michelle Hines,Serenity ?MR ?? #: [id number] ? : 1995 ?Acct:[id number] ? Age/Sex: 29 / F ?ADM Date: 02/11/25 ? Loc: HO.HMGCX ? Attending Dr: Melody Aranda CNM ? Ordering Physician: MELODY ARANDA CNM ?? Date of Service: 02/11/25 ?? Procedure(s): US pelvic and transvaginal ?? Accession Number(s): [id number] ? cc: Viridiana Jacinto GANG TAILER; MELODY ARANDA CNM ? EXAMINATION: ??US PELVIS [...] by Nicolas Askew MD in OV> ?02/11/25 1429 ? DD/ 1345 ? TD/TT: 02/11/25 1929 ? Materials Handling Equipment Operator: ? Procedure Note Donotuseinterpreter, Image - 02/11/2025 [facility] [address] [place] [address] [place] [address] Ultrasound Report Signed Patient: Serenity Henson #: [id number] : 1995Acct:[id number] Age/Sex: FADM Date: 02/11/25 Loc: HO.HMGCX Attending Dr: Melody Aranda CNM Ordering Physician: MELODY ARANDA CNM Date of Service: 02/11/25 Procedure(s): US pelvic and transvaginal Accession Number(s): [id number] cc: Viridiana JacintoP; MELODY ARANDA CNM EXAMINATION: [...] 02/11/25 1429 DD/ 1345 TD/TT: 02/11/25 1359 Materials Handling Equipment Operator: Melody ALARCON IMG US PROCEDURES Final R esult * [...] RN - 02/02/2025 4:11 PM EDT negative William Snider MD POINT OF CARE TEST ENTER/EDIT OR DERABLES Final Result * Syphilis Screen (02/02/2025 3:49 PM EDT) Pathologist [facility] Syphilis Screen Nonreactive Nonreactive [facility] 02/02/2025 3:49 PM EDT 02/02/2025 5:59 PM EDT Viridiana Jacinto GANG TAILER LAB BLOOD ORDERABLES Final Res ult [facility] [address] [place] [phone] * HIV-1 RNA, Quantitative, Real-Time PCR (02/02/2025 3:49 PM EDT) [facility] HIV RNA PCR Qn Copies NOT DETECTED NOT DETECTED copies/mL [facility] HIV RNA PCR Qn Log Copies NOT DETECTED NOT DETECTED [facility] Comment:Result Units: Log co pies/mLThis test was performed using Real-Time Polymerase ChainReaction.Reportable Range: 20 copies/mL to 10,000,000 copies/mL(1.30 log copies/mL to 7.00 log copies/mL).THIS TEST WAS PERFORMED AT:[email or web address] [place] [phone] SILVA MD 02/02/2025 3:49 PM EDT 02/02/2025 5:59 PM EDT Viridiana HURLEYP LAB BLOOD ORDERABLES Final Res ult [facility] [address] [place] [phone] * Chlamydia/Gonorrhea Vaginal Swab ([facility]) (02/02/2025) Chlamydia Vaginal Swab Negative Negative, Indeterminate, None Detected, Invalid, Specimen unsatisfactory for evaluation, Weakly Positive Gonorrhea Vaginal Swab Negative Negative, Indeterminate, None Detected, Invalid, Specimen unsatisfactory for evaluation, Weakly Positive Swab Vaginal structure / Unknown 02/02/2025 Historical Provider LAB MICROBIOLOGY - GENERA L ORDERABLES Edited Result - Final * Chlamydia/Gonorrhea Throat Swab ([facility]) (02/02/2025) Chlamydia Throat Swab Negative Gonorrhea Throat Swab Negative Swab 02/02/2025 Historical Provider LAB MICROBIOLOGY - GENERA L ORDERABLES Final Result * XR Thoracic Spine 2 Views (01/27/2025 12:02 PM EDT) Anatomical Region Laterality Modality Spine, T-spine Radiographic Araceli ging 01/27/2025 12:0 2 PM EDT Narrative 01/28/2025 2:23 PM EDT ? [facility] ?[address] ?[place] [address] ?XRay Report ? Signed ? Patient: Michelleaisha Hines,Jeslian ?MR ?? #: [id number] ? : 1995 ?Acct:[id number] ? Age/Sex: 29 / F ?ADM Date: 01/27/25 ? Loc: HO.XRAY ? Attending Dr: Viridiana VILLATORO ? Ordering Physician: Viridiana Jacinto ?? Date of Service: 01/27/25 ?? Procedure(s): XR thoracic spine 2V ?? Accession Number(s): [id number] ? cc: Viridiana Jacinto ? EXAMINATION: ?? [...] DD/ 1202 ? TD/TT: 01/27/25 1220 ? Materials Handling Equipment Operator: ? Procedure Note Dariel Rowell - 01/28/[address] [address] XRay Report Signed Patient: Valeria HensonMegan #: [id number] : 1995Acct:[id number] Age/Sex: FADM Date: 01/27/25 Loc: HO.XRAY Attending Dr: Viridiana VILLATORO Ordering Physician: Viridiana Jacinto Date of Service: 01/27/25 Procedure(s): XR thoracic spine 2V Accession Number(s): [id number] cc: Viridiana Jacinto EXAMINATION: XR THORACIC SPINE [...] levoconvex thoracolumbar scoliosis Electronically signed by: Kain eMrcado MD 01/28/2025 02:20 PM EDT RP Dictated By: Kain Mercado MD Signed By: <Electronically signed by Kain Mercado MD in OV> 01/28/25 1420 DD/ 1202 TD/TT: 01/27/25 1220 Materials Handling Equipment Operator: Viridiana VILLATORO IMG XR PROCEDURES Final Result * Vitamin D, 25-Hydroxy, Total, Immunoassay (01/27/2025 9:52 AM EDT) Vitamin D 25-OH Total 30.8 >30 ng/mL [facility] Comment: Health Based Reference Values*< 20 ??ng/mL ??Uyqimqvzo51-55 ng/mL ??Insufficient> 30 ??ng/mL ??Sufficient*Eitan RAM. N [...] AM EDT 01/27/2025 11:23 AM EDT Viridiana Thorntonfzaal [facility] LAB BLOOD ORDERABLES Final Res ult Performing Organization Address [facility]/ZIP Co de Phone Number [facility] [address] [place] [phone] * TSH W/Reflex to FT4 (01/27/2025 9:52 AM EDT) TSH reflex Free T4 0.48 0.32 - 4.0 uIU/mL [facility] Blood Venous blood specimen / Unknown 01/27/2025 9:52 AM EDT 01/27/2025 11:23 AM EDT [facility] LAB BLOOD ORDERABLES Final Res ult Performing Organization Address [facility]/ZIP Co de Phone Number [facility] [address] [place] [phone] * STI testing add on (NG, CT, Trich) (01/27/2025 9:46 AM EDT) Trichomonas (NAAT) NOT DETECTED [facility] Comment:REFERENCE RANGE: NOT DETECTEDThe analytical performance characteristics of thisassay, when used to test SurePath(TM) specimens have beendetermined by [employer]. The modifications havenot been cleared or approved by the FDA. This assay hasbeen validated pursuant to the CLIA regulations and isused for clinical purposes.For additional information, please refer tohttps://education.Adility/faq/UXA760(This link is being provided for information/educational purposes only.)For additional information, please refer tohttp://scroll kit.Adility/faq/Trichomonastma(This link is being provided for informational/educational purposes only.)THIS TEST PERFORMED AT:[email or web address] [place] [phone] DIRECTOR: SEEMA SILVA MD CTNG Ref Lab NOT DETECTED NOT DETECTED [facility] NG Ref Lab NOT DETECTED NOT DETECTED [facility] ThinPrep?? vial Cervix uteri structure / Unknown 01/27/2025 9:46 AM EDT 01/28/2025 8:38 AM EDT Narrative [facility] - 02/04/2025 2:27 PM EDT Collection Date: [id number] by: YANDEL Burnette: Cervix Melody ALARCON LAB CYTOLOGY ORDERABLES F inal Result [facility] [address] [place] [address] [phone] * HPV DNA, Low/High Risk (01/27/2025 9:46 AM EDT) HPV High Risk Negative Negative [facility] HPV Genotype 16 Negative Negative [facility] HPV Genotype 18 Negative Negative [facility] Comment:HPV testing performe d at [facility] (CLIA#[id number]), [address] [place] [phone].Testing for HPV was performed using the Eduardo [...] 9:46 AM EDT 01/28/2025 8:38 AM EDT [facility] - 02/04/2025 2:27 PM EDT Collection Date: [id number] by: YANDEL Burnette: Cervix us Melody Aranda CNM LAB BLOOD ORDERABLES Jessica valencia Result [facility] [address] [place] [phone] * Pap Smear (01/27/2025 9:46 AM EDT) Swab Cervix uteri structure / Unknown 01/27/2025 9:46 AM EDT 01/28/2025 7:30 AM EDT [facility] - 02/02/2025 8:29 AM EDT ----- ------- Name: Serenity Henson ?Age/Sex: 29/F ? : 1995 Unit#: [id number] ?? Attend Dr: MELODY ARANDA CNM ?Re01/27/25 ?Status: DEP REF ? Location: HO.LNP ?Disch: ? ----- ------- SPEC : [id number] ? RECD: 01/28/25 ? STATUS: ??SOUT ? REQ NUM: [id number] ? DANIEL: 01/27/25 ? SUBM DR: MELODY [...] ------- Signed (signature on file) LAILA Ji ([facility]) 02/02/25 0829 ? ----- ------- ? END OF REPORT ? us Melody Aranda [facility] LAB CYTOLOGY ORDERABLES F inal Result [facility] [address] [place] [phone] * Hepatitis A,B,C Profile (11/26/2024 1:34 PM EST) Pathologist [facility] Hepatitis A IgM Nonreactive Nonreactive [facility] Comment:IgM antibodies to BARTLETT V not detected; does not exclude earlyacute or recovered HAV infection. ~Hepatitis B Surface Antibody REACTIVE Nonreactive [facility] Comment:REACTIVE: > 11.99 mI U/mL Hepatitis B Core Antibody Nonreactive Nonreactive [facility] Hepatitis C Antibody Nonreactive Nonreactive [facility] Comment:Antibodies to HCV no t detected; does not exclude early acuteHCV infection. Hepatitis B Surface Ag Negative Negative [facility] Blood Venous blood specimen / Unknown 11/26/2024 1:34 PM EST 11/26/2024 4:20 PM EST Melody Callejasalonjakob CNM LAB BLOOD ORDERABLES Jessica l Result [facility] [address] [place] [address] [phone] from Last 3 Months or Most Recently Relevant to Health Maintenance Insurance [facility] [facility]IAL [facility] AD[place] Care Teams Retail Sales Lead Relationship Specialty Start Date End Date Viridiana Jacinto FNP [address] [place] [address] PCP - General Family Medicine 08/26/21
[2025-03-31 18:22] LABS: CT PCR NOT DETECTED (Not Detect.); NG PCR NOT DETECTED (Not Detect.)
[2025-04-01 09:17] LABS: ~HepC Num1 0.17 S/CO (0.00-0.79); ~Hepatitis C Antibody Nonreactive (Nonreactive)
[2025-04-02 17:23] LABS: HIV RNA PCR Qn Copies Not Detected Copies/mL; HIV RNA PCR Qn Log Copies Not Detected Log cps/mL
[2025-04-03 09:18] LABS: RPR Rapid Plasma Reagin NON-REACTIVE (NON-REACTIVE)
== END 2025-03-31 14:15 | disposition home or self-care (01) ==
LOC: HO.HHCL 14:14
PROVIDERS: Visit Provider Emergency Medicine
DX: Z79.899 Other long term (current) drug therapy (principal)
CPT/HCPCS: 82550; 86592; 86803; 87491; 87536; 87591; 87900

== ENCOUNTER 2025-05-20 15:23 | Outpatient (REF) | payer OTHER, SELFPAY ==
--- OUTSIDE RECORDS SUMMARY | 2025-05-20 15:39 | XMS_ITS | Data Portability ---
Author Organization [facility] - [facility], Allergy Address [address] [address] Assessment Encounter Date Assessment Date Assessment LastModified [...] Appointments FOLLOW UP 15 2024 10:15A Erin GONZALEZ PA-C Not available Not available Not available Lab None recorded. Referral None recorded. Procedures None recorded. Surgeries None recorded. Imaging CT, neck, soft tissue, w/ contrast 2023 024 [id number] [facility], [address] , [facility], [place], [address], 12/09/2024 15:18:53 Medication Orders None recorded. Patient [...] contr ast No observ ation record ed. [email or web address] [facility] [address] [address], [place], [address], 11/18/2024 15:19:39 Result Notes None recorded. Problems Name Problem SNOMED Code Status Onset Date Resolution Date Notes Provider Name and Address Organization Details Recorded Time Bilateral earache [id number] Active Otalgi a, bilate ral; Note: Date Diagno sed: 020 2:16 PM (H92.0 3) Not Available [facility] 03:33:41 Problem Notes None recorded. Procedures Surgical History Date Name Laterality Status Provider Name and Address Organization Details Recorded Time 10/14/2024 Comp Audio with Tymps - 76561 & 16481 completed CHERYLE REAL, [address], [phone], [facility] - [facility] 10/14/2024 12:26:09 Imaging Results None recorded. Procedure Notes None recorded. Medical Equipment None [...] Updated DateTime 10/14/2024 154.94 cm 22.1 kg/m2 65809.31 g Char Amezcua [place] - [facility] 10/14/2024 11:50:29 Social History None recorded. Functional Status None recorded. Mental Status None recorded. Family History Nothing Reported. Medical History No medical history recorded. Gynecological HistoryNo gynecological history recorded. Obstetrics History GPAL:G 0 P 0 0 0 0 Past Encounters Encounter ID Performer Location Encounter Start Date Encounter Closed Date Diagnosis/Indication Diagnosis SNOMED-CT Code Diagnosis ICD10 Code Diagnosis Note [id number] JC TREJO PA-C [facility] [address] [phone] 10/14/2024 11:33:10 10/14/2024 12:39:37 Bilateral earache 807558443 H92.03 Audiologic al evaluation results: 10/14/2024 Right ear: Normal hearing with excellent word recognitio n. Left ear: Normal hearing with excellent word recognitio n. Tympanomet ry: Right Ear:Type Ad Left Ear:Type A Health Concerns Section Related Observation LastModified by Organization Detai ls LastModified Time None Recorded Concern Status LastModified by Organization Details LastModified Time None Recorded Advance Directives Directive None Recorded Payers Insurance Date Sequence Insurance Name Policy Number Policy Zhao Covered Member ID Zhao Member ID Guarantor Name 10/14/2024 1 [place] [facility] Serenity Michelle Hines [id number] Serenity Sunlupe Hines 10/14/2024 1 [place] [facility] Serenity Michelle Hines [id number] Serenity Pérezadalupe Hines Notes Date Note Type Note Provider [...] history of otologic surgery. JC TREJO PA-C [address] [place] [address], [phone], [place] - [facility] 10/14/2024 15:20:54 OBGyn Episode No OBEpisode recorded.
--- OUTSIDE RECORDS SUMMARY | 2025-05-20 15:39 | XMS_ITS | Clinical Summary ---
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 30 tablet 2 024 Active triamcinolone (Kenalog) 0.1 % creamIndications: Healthcare maintenance MIX 80 G TUBE OF TRIAMCINOLONE 0.1% CREAM WITH 16 OZ JAR OF CERAVE CREAM. APPLY 1 TO 2 TIMES PER DAY AFTER SHOWER OR BATH FROM THE NECK DOWN (NOT ON FACE) 80 g 1 024 Active topiramate (Topamax) 50 MG tabletIndications :Migraine without aura and without status migrainosus, not intractable TAKE 1 TABLET BY MOUTH AT BEDTIME 90 tablet 1 024 Active SUMAtriptan (Imitrex) 50 MG tabletIndications :Migraine [...] 2025 Active fluticasone (Flonase) 50 MCG/ACT nasal sprayIndications: [...] BY MOUTH EVERY DAY 90 capsule 1 025 Active albuterol (2.5 MG/3ML) 0.083% nebulizer solutionIndicatio ns:Mild intermittent asthma without complication Take 3 mL (2.5 mg) by nebulization Every 4-6 hours as needed for wheezing or shortness of breath. 75 mL 5 025 2025 Active estradiol (Estrace) 0.1 MG/GM vaginal cream 1g vaginally x 14d, then twice weekly thereafter 45 g 2 Active albuterol 108 (90 Base) MCG/ACT inhalerIndication s:Mild intermittent asthma without complication Inhale 2 puffs Every 4-6 hours as needed for wheezing or shortness of breath. 18 g 11 025 2025 Active medroxyPROGESTERo ne (Depo-Provera) 150 MG/ML injection Inject 1 mL (150 mg) into the muscle every 3 (three) months. 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 INJECT 3 ML VENTROGLUTEAL EVERY 2 MONTHS 3 mL 6 025 Active Cabotegravir ER (Apretude) 600 MG/3ML Suspension Extended ReleaseIndication s:On pre-exposure prophylaxis for HIV INJECT 3 ML VENTROGLUTEAL EVERY 2 MONTHS 3 mL 3 025 2024 Discontinued(R eorder (will not trigger notification to Pharmacy)) Active Problems Problem Noted Date Diagnosed Date Vitamin D insufficiency 01/26/2025 Assessment & Plan (01/26/2025 2:30 PM EDT): - Cont Vit D 1000 units daily - Due to repeat Vit D level Transaminitis 01/26/2025 Assessment & Plan (04/03/2025 2:27 PM EDT): Lab Results Component Value Date AST 27 02/27/2025 ALT 25 02/27/2025 TOTPROTEIN 7.3 02/27/2025 ALB 4.4 02/27/2025 ALP 92 02/27/2025 TOTALBILIRUB 0.7 02/27/2025 - Resolved at this time, congratulated on improvement in nutrition Assessment & Plan (01/26/2025 3:48 PM EDT): - Elevated beginning November 2024 - Consider / increased carb/saturated fat intake vs med SE [...] DC med Continues with injectable Cabotegravir through [facility] PrEP navigator - [facility] Healthcare maintenance 04/12/2023 Overview (05/03/2024): -Pap: NILM January 2022, due January 2025 -Optometry: Dec 2022 - eval at [facility] -Contraception: Depo -Last PE: 05/02/24 History [...] -Previous workup for intermittent chest pain below: Dec 2022: Normal stress test 02/20/23: Echo ordered by Dr. Ramon. Normal left ventricular function, ef 60- 65% 03/19/23: stress echo and echo came back [...] Encounters Date Type Department Care Team Description 05/19/2025 Telephone [facility] MEDICINE [address] [place] [address] Scarlett Boo, FILIBERTO 05/19/2025 Telephone [facility] MEDICINE [address] [place] [phone] Scarlett Boo, FILIBERTO 05/15/[address] [address] Scarlett Boo, FILIBERTO On pre-exposure prophylaxis for HIV 05/01/2025 11:00 AM EDT Office Visit [facility] [address] [place] [address] Darren Ulloa 04/14/2025 11:00 AM EDT Office Visit [facility] [address] [place] [address] Darren Ulloa 04/03/2025 1:45 PM EDT Office Visit [facility] MED [facility] PEDS [address] [place] [address] Viridiana Jacinto, LABOR ARBITRATOR Transaminitis (Primary Dx); Chronic bilateral thoracic back pain 04/03/2025 Travel 03/31/2025 1:00 PM EDT Clinical Support [address] [address] Scarlett Boo, FILIBERTO On pre-exposure prophylaxis for HIV (Primary Dx) 03/31/2025 Orders Only [facility] MEDICINE [address] [place] [phone] Cecil Aparicio MD 03/31/2025 Telephone [facility] MEDICINE [address] [place] [address] Scarlett Boo, FILIBERTO 03/31/2025 Travel 03/26/2025 Telephone [facility] [address] [place] [address] Viridiana Jacinto FNP Chart Prep 03/24/2025 3:00 PM EDT Clinical Support [facility] [address] [place] [address] Char Armstrong, FILIBERTO On Depo-Provera for contraception 03/24/2025 Travel 03/24/2025 Orders Only [facility] [address] [place] [address] Viridiana Jacinto FNP 03/19/2025 Travel 03/13/2025 11:00 AM EDT Office Visit [facility] [address] [place] [address] Darren Ulloa 03/02/2025 Telephone [facility] MEDICINE [address] [place] [address] Scarlett Boo, FILIBERTO 02/25/2025 Telephone [facility] MEDICINE [address] [place] [address] Errol Barnes, FILIBERTO Injectable PrEP communication 02/25/[address] [phone] Errol Barnes, FILIBERTO Error (VOID this visit) from Last 3 Months Immunizations Immunization Administration [...] Sign Reading Time Taken Comments Blood Pressure 110/65 05/01/2025 10:58 AM EDT Pulse 84 04/03/2025 1:49 PM EDT Temperature 37.3 C (99.1 F) 04/03/2025 1:49 PM EDT Respiratory Rate 20 04/03/2025 1:49 PM EDT Oxygen Saturation 98% 04/03/2025 1:49 PM EDT Inhaled Oxygen Concentration - - Weight 56.2 kg (124 lb) 04/03/2025 1:49 PM EDT Height 154.9 cm (5' 1 ) 04/03/2025 1:49 PM EDT Body Mass Index 23.43 04/03/2025 1:49 PM EDT Plan of Treatment Upcoming Encounters Date Type Department Care Team (Late st Contact Info) Description 05/26/2025 1:00 PM EDT Clinical Support [facility] MEDICINE [address] [place] [phone] Scarlett Boo, RN [address] [place] [address] 06/24/2025 9:15 AM EDT Office Visit [facility] MEDICINE [address] [place] [address] Norbertofazal Viridiana, LABOR ARBITRATOR [address] [place], [place] [phone] 06/30/2025 1:00 PM EDT Clinical Support [facility] & PEDS [address] [place] [address] Health Maintenance Due Date Last Done Comments Alcohol/Substance Use Screening 2009 Pneumococcal Vaccine: Pediatrics (0 to 5 Years) and At-Risk Patients (6 to 49) Years (1 of 2 - PCV) 2016 Dental Oral Exam 04/24/2025 10/23/2024, , 09/25/2022, Additional history exists SDOH Screening 05/02/2025 05/02/2024 Dental Prophylaxis 05/07/2025 11/06/2024, 0 04/29/2024, 10/25/2023, Additional history exists Influenza Vaccine (#1) 2025 , 07/30/2017, 11/26/2013 Depression Monitoring 07/29/2025 01/26/2025, 025 COVID-19 Vaccine ( season) 2025 01/11/2022, 04/19/2021, 03/29/2021 Postponed from 07/06/2024 (Patient Refused) Dental X-Ray: Bitewings 10/24/2025 10/23/20 24, 10/25/2023, 09/25/2022, Additional history exists Disability Screening 01/26/2026 01/26/2025 Family Planning (PISQ) 01/27/2026 01/27/2025 Tobacco Screening 05/01/2026 05/01/2025 Dental X-Ray: Full Mouth 10/26/2026 023, 12/18/2018, 01/14/2015, Additional history exists HPV/Cotest 01/28/2028 01/27/2025 Pap Smear 01/28/2028 01/27/2025, 03/0 07/2022, 01/11/2022 DTaP/Tdap/Td Vaccines (8 - Td [...] 09/15/2013, Additional history exists HIV Screening Completed 03/31/2025, 01/05, 12/12/2024, Additional history exists Hepatitis C Screening Completed 03/31/2025 , 11/26/2024, 06/12/2024, Additional history exists Meningococcal B Vaccine Aged [...] PRESENTATION, DETAILED AND EXTENSIVE TREATMENT PLANNING Routine 05/01/2025 11:00 AM EDT 20 O RESIN-BASED COMPOSITE - 1 SURF, POSTERIOR Routine 05/01/2025 11:00 AM EDT 18 O RESIN-BASED COMPOSITE - 1 SURF, POSTERIOR Routine 04/14/2025 11:00 AM EDT POCT RAPID HIV SCREENING Routine 03/31/2025 2:53 PM EDT On pre-exposure prophylaxis for HIV HIV 1 RNA, QN PCR W/RFL GREG (RTI,PI,INTEGRASE) Routine 03/31/2025 2:16 PM EDT RPR (MONITOR) W/REFL TITER Routine 03/31/2025 2:16 PM EDT HIV 1 RNA, QUANTITATIVE REAL TIME PCR Routine 03/31/2025 2:16 PM EDT HEPATITIS C AB W/REFL TO HCV RNA, QN, PCR Routine 03/31/2025 2:16 PM EDT CREATINE KINASE, TOTAL Routine 03/31/2025 2:16 PM EDT CHLAMYDIA/N. GONORRHOEAE RNA, TMA, UROGENITAL Routine 03/31/2025 2:15 PM EDT CASE PRESENTATION, DETAILED AND EXTENSIVE TREATMENT PLANNING Routine 03/13/2025 11:00 AM EDT 13 DO RESIN-BASED COMPOSITE - 2 SURF, POSTERIOR Routine 03/13/2025 11:00 AM EDT HEPATIC FUNCTION PANEL Routine 02/27/2025 1:35 PM EDT Transaminitis HPV DNA, LOW/HIGH RISK Routine 01/27/2025 9:46 AM EDT PAP SMEAR Routine 01/27/2025 9:46 AM EDT Cervical cancer screening PROPHYLAXIS - ADULT Routine 11/06/2024 1 0:00 AM EST BITEWINGS - 4 RADIOGRAPHIC IMAGES Routine 10/23/2024 11:00 AM EST PERIODIC ORAL EVALUATION - ESTABLISHED PATIENT Routine 10/23/2024 11:00 AM EST INTRAORAL - COMPLETE SERIES OF RADIOGRAPHIC IMAGES Routine 10/25/2023 9:00 AM EST Dental calculus from Last 3 Months or Most Recently Relevant to Health Maintenance Results * POCT RAPID HIV SCREENING (03/31/2025 2:53 PM EDT) Blood 03/31/2025 2:53 PM EDT Narrative Scarlett Boo RN - 03/31/2025 2:53 PM EDT negative Cecil Aparicio MD POINT OF CARE TEST ENTER/EDIT ORDERABLES Final Result * HIV-1 RNA, Quantitative, Real-Time PCR with Reflex to Genotype (RTI, PI, Integrase) (03/31/2025 2:16 PM EDT) Pathologist [facility] HIV-1 Genotype Progressive [facility] HIV 1 Genotype [facility] Comment:Test not indicated. 03/31/2025 2:16 PM EDT 03/31/2025 3:56 PM EDT Cecil Aparicio MD LAB BLOOD ORDERABLES Final Res ult Performing Organization Address [facility] Co de Phone Number [facility] [address] [place] [phone] * Hepatitis C Antibody with Reflex to HCV, RNA, Quantitative, Real-Time PCR (03/31/2025 2:16 PM EDT) Pathologist [facility] Hepatitis C Antibody Nonreactive Nonreactive [facility] Comment:Antibodies to HCV no t detected; does not exclude early acuteHCV infection. 03/31/2025 2:16 PM EDT 03/31/2025 3:56 PM EDT Cecil Aparicio MD LAB BLOOD ORDERABLES Final Res ult Performing Organization Address [facility] Co de Phone Number [facility] [address] [place] [phone] * HIV-1 RNA, Quantitative, Real-Time PCR (03/31/2025 2:16 PM EDT) Pathologist [facility] HIV RNA PCR Qn Copies Not Detected Copies/mL [facility] HIV RNA PCR Qn Log Copies Not Detected Log cps/mL [facility] Comment:Reference Range: Not Detected copies/mL Not Detected Log copies/mLThe test was performed using Real-Time Polymerase ChainReaction.Reportable Range: 20 copies/mL to 10,000,000 copies/mL(1.30 Log copies/mL to 7.00 Log copies/mL).THIS TEST WAS PERFORMED AT:[id number] [place] [address]WSZIBXZRANDALL TORRE MD,PHD 03/31/2025 2:16 PM EDT 03/31/2025 3:56 PM EDT Cecil Aparicio MD LAB BLOOD ORDERABLES Final Res ult Performing Organization Address [facility] Co de Phone Number [facility] [address] [place] [phone] * RPR (Monitor) with Reflex to??Titer (03/31/2025 2:16 PM EDT) RPR (Monitor) w/Refl Titer NON-REACTI VE NON-REACT HERACLIO [facility] Comment:THIS TEST WAS PERFOR MED AT:[facility] [place] [id number] SILVA MD Rapid Plasma Reagin Ab Titer TNP [facility] 03/31/2025 2:16 PM EDT 03/31/2025 3:56 PM EDT Cecil Aparicio MD LAB BLOOD ORDERABLES Final Res ult Performing Organization Address [facility] Co de Phone Number [facility] [address] [place] [phone] * Creatine Kinase, Total (03/31/2025 2:16 PM EDT) Creatine Kinase Total 113 26 - 140 U/L [facility] 03/31/2025 2:16 PM EDT 03/31/2025 3:56 PM EDT us Cecil Aparicio MD LAB BLOOD ORDERABLES Final Res ult Performing Organization Address [facility] Co de Phone Number [facility] [address] [place] [phone] * Chlamydia/N. Gonorrhoeae RNA, TMA, Urogenitial (03/31/2025 2:15 PM EDT) CT PCR NOT DETECTED Not Detect. [facility] Comment:A not detected test result [...] NG PCR NOT DETECTED Not Detect. [facility] Comment:A not detected test result [...] lead to adverse medical, social or psychologicalconsequences. 03/31/2025 2:15 PM EDT 03/31/2025 3:52 PM EDT Narrative [facility] - 03/31/2025 6:23 PM EDT Urine us Cecil Aparicio MD LAB MICROBIOLOGY - GENERAL ORD ERABLES Final Result [facility] [address] [place] [phone] * Hepatic Function Panel (02/27/2025 1:35 PM EDT) Bilirubin, Total 0.7 0.0 - 1.0 mg/dL [facility] Bilirubin, Direct 0.3 0.0 - 0.5 mg/dL [facility] Aspartate Amino Transferase 27 5 - 31 U/L [facility] Alanine Aminotransferase 25 0 - 31 U/L [facility] Total Protein 7.3 6.5 - 8.0 g/dL [facility] Albumin Level 4.4 3.5 - 5.0 g/dL [facility] Alkaline Phosphatase 92 39 - 117 U/L [facility] Blood Venous blood specimen / Unknown 02/27/2025 1:35 PM EDT 02/27/2025 4:06 PM EDT Viridiana Jacinto LABOR ARBITRATOR LAB BLOOD ORDERABLES Final Res ult [facility] [address] [place] [phone] * HPV DNA, Low/High Risk (01/27/2025 9:46 AM EDT) HPV High Risk Negative Negative [facility] HPV Genotype 16 Negative Negative [facility] HPV Genotype 18 Negative Negative [facility] Comment:HPV testing performe d at [facility] (CLIA#[id number]), [address] [place] [address].Testing for HPV was performed using the Eduardo [...] 9:46 AM EDT 01/28/2025 8:38 AM EDT [facility] - 02/04/2025 2:27 PM EDT Collection Date: [id number] by: YANDEL Burnette: Cervix Melody Aranda CNM LAB BLOOD ORDERABLES Jessica l Result [facility] [address] [place] [phone] * Pap Smear (01/27/2025 9:46 AM EDT) Swab Cervix uteri structure / Unknown 01/27/2025 9:46 AM EDT 01/28/2025 7:30 AM EDT [facility] - 02/02/2025 8:29 AM EDT ----- ------- Name: Serenity Henson Age/Sex: 29/F : 1995 Unit#: [id number] Attend Dr: MELODY ARANDA CNM Re01/27/25 Status: EDGARDO STRATTON Location: HOSuzyLNP Disch: ----- ------- SPEC : [id number] RECD: 01/28/25-729 STATUS: DOTTY ESTRELLA NUM: [id number] DANIEL: 01/27/[address] [facility] [address]: MELODY ARANDA CNM ENTERED: 01/28/255772 SP TYPE: Pap Smr OTHR : ORDERED: Pap Smear Interpretation Satisfactory for evaluation. Negative for intraepithelial lesion or malignancy. HPV High Risk: Negative HPV Genotyping 16: Negative HPV Genotyping 18: Negative Clinical Information LMP:Unknown date Previous PAP test:2021 NIL Material Received ThinPrep-Cervical ----- ------- Signed (signature on file) LAILA Ji (ASCP) 02/02/25 0829 ----- ------- END OF REPORT Melody Aranda CNM LAB CYTOLOGY ORDERABLES F inal Result [facility] [address] [place] [phone] from Last 3 Months or Most Recently Relevant to Health Maintenance Insurance [facility] [place] [place] Address: [facility] [address] [place] [address] Care Teams Box Spring Upholsterer Relationship Specialty Start Date End Date Viridiana Jacinto FNP [address] [place] [address] PCP - General Family Medicine 08/26/21
[2025-05-20 16:45] LABS: Alanine Aminotransferase 19 U/L (0-31); Albumin Level 4.6 g/dL (3.5-5.0); Alkaline Phosphatase 87 U/L (39-117); Aspartate Amino Transferase 24 U/L (5-31); Total Protein 7.1 g/dL (6.5-8.0)
== END 2025-05-20 15:24 | disposition home or self-care (01) ==
LOC: HO.HHCL 15:23
PROVIDERS: PCP Registered Nurse; Referring Provider Emergency Medicine; Visit Provider Registered Nurse
DX: R74.01 Elevation of levels of liver transaminase levels (principal); Z79.899 Other long term (current) drug therapy
CPT/HCPCS: 36415; 80076; 84702

== ENCOUNTER 2025-05-28 14:23 | Outpatient (REF) | payer OTHER, SELFPAY ==
--- OUTSIDE RECORDS SUMMARY | 2025-05-28 14:31 | XMS_ITS | Data Portability ---
Author Organization [place] [facility], Allergy Address [address] [address] Care Team Providers Care Glazing Department Supervisor Name Role Phone NIRAJ DEL REAL Primary Care Provider Assessment Encounter Date Assessment Date Assessment LastModified [...] Imaging CT, neck, soft tissue, w/ contrast 12/10/ 2024 12/10/2 024 [email or web address] [facility], [address], [place], [address], 12/09/2024 15:18:53 Medication Orders None recorded. Patient [...] contr ast No observ ation record ed. [email or web address] [facility] [address] [facility] [address], [place], [address], 11/18/2024 15:19:39 Result Notes None recorded. Problems Name Problem SNOMED Code Status Onset Date Resolution Date Notes Provider Name and Address Organization Details Recorded Time Bilateral earache 407291704 Active 2019 Otalgi a, bilate ral; Note: Date Diagno sed: 020 2:16 PM (H92.0 3) Not Available [facility] 4 03:33:41 Tenderness of left temporoman dibular joint 6209001091589 9100 Active 2024 ZUHAIR GONZALEZ PA-C [address], [address] , [place] - [facility] 5 13:32:21 Problem Notes None recorded. Procedures Surgical History Date Name Laterality Status Provider Name and Address Organization Details Recorded Time 10/14/2024 Comp Audio with Tymps - 65073 & 81411 completed HOLLAND GUY [address] [facility],[place] [address], [place], [phone], [facility] - [facility] 10/14/2024 12:26:09 Imaging Results None recorded. [...] vaginal cream INSERT 1 APPLICATORF UL VAGINALLY EVERY DAY AT BEDTIME FOR 7 DAYS active Not Available Not Available N ot Available ketoconazole 2 % shampoo APPLY TO [...] Not Available Not Available No t Available ketotifen 0.025 % (0.035 %) eye drops PLACE 1 TO 2 DROPS IN EACH EYE TWICE DAILY active Not Available Not Available Not Available prednisone 20 mg tablet TAKE 2 [...] Not Available Not Available N ot Available Allergy Relief (fexofenadin e) 180 mg tablet TAKE 1 TABLET BY MOUTH EVERY DAY IN THE MORNING active Not Available Not Available No t Available Apretude 600 mg/3 mL (200 mg/mL) IM suspension, extended release INJECT 3 ML INTRAMUSCUL RONNIE EVERY 2 MONTHS active Not Available Not Available No t Available Vitals Date Recorded Body height Body mass index (BMI) Body weight Provider Name and Address Organization Details Last Updated DateTime 05/28/2025 154.94 cm 24.6 kg/m2 62034.01 g Mady Maradiaga [place] [facility] 05/28/2025 10:15:08 Date Recorded Body height Body mass index (BMI) Body weight Provider Name and Address Organization Details Last Updated DateTime 10/14/2024 154.94 cm 22.1 kg/m2 10051.31 g Char Amezcua [place] [facility] 10/14/2024 11:50:29 Social History None recorded. Functional Status None recorded. Mental Status None recorded. Family History Nothing Reported. Medical History No medical history recorded. Gynecological HistoryNo gynecological history recorded. Obstetrics History GPAL:G 0 P 0 0 0 0 Past Encounters Encounter ID Performer Location Encounter Start Date Encounter Closed Date Diagnosis/Indication Diagnosis SNOMED-CT Code Diagnosis ICD10 Code Diagnosis Note [id number] JC TREJO PA-C [facility] [address] [address] 10/14/2024 11:33:10 10/14/2024 12:39:37 Bilateral earache 019955854 H92.03 Audiologic al evaluation results: 10/14/2024 Right ear: Normal hearing with excellent word recognitio n. Left ear: Normal hearing with excellent word recognitio n. Tympanomet ry: Right Ear:Type Ad Left Ear:Type A [id number] ZUHAIR GONZALEZ PA-C [facility] [address] [phone] 05/28/2025 10:08:33 05/28/2025 10:50:42 Tenderness of left temporomandibular joint [id number] M26.622 Health Concerns Section Related Observation LastModified by Organization Detai ls LastModified Time None Recorded Concern Status LastModified by Organization Details LastModified Time None Recorded Advance Directives Directive None Recorded Payers Insurance Date Sequence Insurance Name Policy Number Policy Zhao Covered Member ID Zhao Member ID Guarantor Name 05/28/2025 1 [place] [facility] Jeslian Michelle [id number] Jeslian Michelle Hines 05/28/2025 1 [facility] (O) [id number] Jeslian Michelle [id number] Jeslian Michelle Hines 05/28/2025 1 [place] [facility] Jeslian Michelle Hines [id number] Jeslian Michelle Hines Notes Date Note Type Note Provider [...] history of otologic surgery. JC TREJO PA-C [address] [place] [address], [address], [place] - [facility] 10/14/2024 15:20:54 OBGyn Episode No OBEpisode recorded.
--- OUTSIDE RECORDS SUMMARY | 2025-05-28 14:31 | XMS_ITS | Clinical Summary ---
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 INJECT 3 ML VENTROGLUTEAL EVERY 2 [...] DC med Continues with injectable Cabotegravir through [facility] PrEP navigator - [facility] Healthcare maintenance 04/12/2023 Overview (05/03/2024): -Pap: NILM January 2022, due January 2025 -Optometry: Dec 2022 - eval at [facility] -Contraception: Depo -Last PE: 05/02/24 History [...] Encounters Date Type Department Care Team Description 05/28/[address] [address] Scarlett Boo, FILIBERTO PREP 05/28/2025 Travel 05/27/[address] [address] Scarlett Boo, FILIBERTO 05/27/[address] [address] Scarlett Boo RN 05/25/[address] [address] Errol Barnes, FILIBERTO Injectable PrEP communication 05/22/[address] [address] Scarlett Boo, FILIBERTO 05/20/2025 Results Follow-Up [facility] [address] [place] [phone] Viridiana Jacinto FNP Hepatic Function Panel 05/20/2025 Orders Only [address] [address] Cecil Aparicio MD 05/19/[address] [address] Scarlett Boo, FILIBERTO 05/19/[address] [address] Scarlett Boo, FILIBERTO 05/15/[address] [address] Scarlett Boo, RN On pre-exposure prophylaxis for HIV 05/01/2025 11:00 AM EDT Office Visit [facility] [address] [place] [address] Micaela Ulloaricio 04/14/2025 11:00 AM EDT Office Visit [facility] [address] [place] [address] ArtemioMicaelaDarren 04/03/2025 1:45 PM EDT Office Visit [facility] [address] [place] [address] Viridiana Jacinto FNP Transaminitis (Primary Dx); Chronic bilateral thoracic back pain 04/03/2025 Travel 03/31/2025 1:00 PM EDT Clinical Support [facility] [address] [place] [address] Scarlett Boo, FILIBERTO On pre-exposure prophylaxis for HIV (Primary Dx) 03/31/2025 Orders Only [facility] [address] [place] [address] Cecil Aparicio MD 03/31/[address] [address] Scarlett Boo, FILIBERTO 03/31/2025 Travel 03/26/2025 Telephone [facility] [address] [place] [address] Viridiana Jacinto FNP Chart Prep 03/24/2025 3:00 PM EDT Clinical Support [facility] [address] [place] [address] Char Armstrong, FILIBERTO On Depo-Provera for contraception 03/24/2025 Travel 03/24/2025 Orders Only [facility] [address] [place] [address] Viridiana Jacinto FNP 03/19/2025 Travel 03/13/2025 11:00 AM EDT Office Visit [facility] [address] [place] [address] Darren Ulloa 03/02/2025 Telephone [facility] [address] [place] [address] Scarlett Boo RN from Last 3 Months Immunizations Immunization Administration Dates Next Due DTaP 07/17/2001, 9,01/17/1998,11/13 HPV 9-Valent 05/24/2021 HPV, Quadrivalent 01/12/2014,09/15/2013,07/14/20 13 Hep A, Adult 01/16/2019 Hep A, ped/adol, 2 dose 11/26/2013 Hep B, Adolescent or Pediatric 03/19/1998,1997,1997 Hib ([facility]) 03/25/1999, 8,01/16/1998,11/13 IPV 07/22/2001, 8,01/16/1998,11/13 Influenza injectable [...] Care Team (Late st Contact Info) Description 06/24/2025 9:15 AM EDT Office Visit [facility] [address] [place] [address] Viridiana Jacinto FNP [address] [place] [address] 06/30/2025 1:00 PM EDT Clinical Support [facility] [address] [place] [address] 07/23/2025 1:00 PM EDT Clinical Support [facility] [address] [place] [address] Scarlett Boo, RN [address] [place] [address] Health Maintenance Due Date Last Done Comments [...] Procedure Name Priority Date/Time Associated Diagnosis Comments HCG, TOTAL, QN Routine 05/20/2025 3:28 PM EDT HEPATIC FUNCTION PANEL Routine 05/20/2025 3:28 PM EDT Transaminitis CASE PRESENTATION, DETAILED AND EXTENSIVE TREATMENT PLANNING [...] Recently Relevant to Health Maintenance Results * hCG, Total, Quantitative (05/20/2025 3:28 PM EDT) HCG Quantitative <2 mIU/mL [facility] Comment:Weeks post LMP Appro ximate hCG(Last Menstrual Period) Range (mIU/ml)3 - 4 weeks 9 - 1304 - 5 weeks 75 - 2,6005 - 6 weeks 850 - 20,8006 - 7 weeks 4000 - 100,2007 - 12 weeks 11,500 - 289,39763 - 16 weeks 18,300 - 137,93263 - 29 weeks (2nd trimester) 1,400 - 53,80551 - 41 weeks (3rd trimester) 940 - 60,000The Batista B- hCG assay is used for the early detection ofpregnancy; it cannot be used to diagnose any conditionunrelated to . If a B-hCG level is not supportedby the clinical evidence, results should be confirmed by analternative method (qualitative urine hCG, for example). 05/20/2025 3:28 PM EDT 05/20/2025 4:07 PM EDT us Cecil Aparicio MD LAB BLOOD ORDERABLES Final Res ult [facility] [address] [place] [address] [phone] * Hepatic Function Panel (05/20/2025 3:28 PM EDT) Only the most recent of2 resultswithin the time period is included. Bilirubin, Total 0.6 0.0 - 1.0 mg/dL [facility] Bilirubin, Direct 0.2 0.0 - 0.5 mg/dL [facility] Aspartate Amino Transferase 24 5 - 31 U/L [facility] Alanine Aminotransferase 19 0 - 31 U/L [facility] Total Protein 7.1 6.5 - 8.0 g/dL [facility] Albumin Level 4.6 3.5 - 5.0 g/dL [facility] Alkaline Phosphatase 87 39 - 117 U/L [facility] Blood Venous blood specimen / Unknown 05/20/2025 3:28 PM EDT 05/20/2025 4:07 PM EDT Viridiana Jacinto [facility] LAB BLOOD ORDERABLES Final Res ult Performing Organization Address [facility]/ZIP Co de Phone Number [facility] [address] [place] [phone] * POCT RAPID HIV SCREENING (03/31/2025 2:53 PM EDT) Blood 03/31/2025 2:53 PM EDT Narrative Scarlett Boo RN - 03/31/2025 2:53 PM EDT negative Result [facility] Cecil Aparicio MD POINT OF CARE TEST ENTER/EDIT ORDERABLES Final Result * HIV-1 RNA, Quantitative, Real-Time PCR with Reflex to Genotype (RTI, PI, Integrase) (03/31/2025 2:16 PM EDT) HIV-1 Genotype Progressive [facility] HIV 1 Genotype [facility] Comment:Test not indicated. 03/31/2025 2:16 PM EDT 03/31/2025 3:56 PM EDT us Cecil Aparicio MD LAB BLOOD ORDERABLES Final Res ult Performing Organization Address [facility]/ZIP Co de Phone Number [facility] [address] [place] [phone] * Hepatitis C Antibody with Reflex to HCV, RNA, Quantitative, Real-Time PCR (03/31/2025 2:16 PM EDT) Hepatitis C Antibody Nonreactive Nonreactive [facility] Comment:Antibodies to HCV no t detected; does not exclude early acuteHCV infection. 03/31/2025 2:16 PM EDT 03/31/2025 3:56 PM EDT Cecil Aparicio MD LAB BLOOD ORDERABLES Final Res ult Performing Organization Address [facility] Co de Phone Number [facility] [address] [place] [phone] * HIV-1 RNA, Quantitative, Real-Time PCR (03/31/2025 2:16 PM EDT) [facility] HIV RNA PCR Qn Copies Not Detected Copies/mL [facility] HIV RNA PCR Qn Log Copies Not Detected Log cps/mL [facility] Comment:Reference Range: Not Detected copies/mL Not Detected Log copies/mLThe test was performed using Real-Time Polymerase ChainReaction.Reportable Range: 20 copies/mL to 10,000,000 copies/mL(1.30 Log copies/mL to 7.00 Log copies/mL).THIS TEST WAS PERFORMED AT:[facility] [place] [address]QOEWEHVRANDALL TORRE MD,PHD 03/31/2025 2:16 PM EDT 03/31/2025 3:56 PM EDT Cecil Aparicio MD LAB BLOOD ORDERABLES Final Res ult Performing Organization Address [facility] Co de Phone Number [facility] [address] [place] [phone] * RPR (Monitor) with Reflex to??Titer (03/31/2025 2:16 PM EDT) RPR (Monitor) w/Refl Titer NON-REACTI VE NON-REACT HERACLIO [facility] Comment:THIS TEST WAS PERFOR MED AT:[facility] [address] [id number] SILVA MD Rapid Plasma Reagin Ab Titer TNP [facility] 03/31/2025 2:16 PM EDT 03/31/2025 3:56 PM EDT Cecil Aparicio MD LAB BLOOD ORDERABLES Final Res ult Performing Organization Address [facility] Co de Phone Number [facility] [address] [place] [phone] * Creatine Kinase, Total (03/31/2025 2:16 PM EDT) [facility] Creatine Kinase Total 113 26 - 140 U/L [facility] 03/31/2025 2:16 PM EDT 03/31/2025 3:56 PM EDT Cecil Aparicio MD LAB BLOOD ORDERABLES Final Res ult Performing Organization Address [facility] Co de Phone Number [facility] [address] [place] [phone] * Chlamydia/N. Gonorrhoeae RNA, TMA, Urogenitial (03/31/2025 2:15 PM EDT) [facility] CT PCR NOT DETECTED Not Detect. [facility] Comment:A not detected test result does [...] psychologicalconsequences. NG PCR NOT DETECTED Not Detect. [facility] Comment:A not detected test result does [...] PM EDT 03/31/2025 3:52 PM EDT Narrative [facility] - 03/31/2025 6:23 PM EDT Urine us Cecil Aparicio MD LAB MICROBIOLOGY - GENERAL ORD ERABLES Final Result [facility] [address] [place] [phone] * HPV DNA, Low/High Risk (01/27/2025 9:46 AM EDT) HPV High Risk Negative Negative [facility] HPV Genotype 16 Negative Negative [facility] HPV Genotype 18 Negative Negative [facility] Comment:HPV testing performe d at (CLIA#[id number]), [address] [place] [address].Testing for HPV was performed using the [employer] RAMOS turntable.fm0system. The presence of HPV in the female [...] 9:46 AM EDT 01/28/2025 8:38 AM EDT [facility] - 02/04/2025 2:27 PM EDT Collection Date: [id number] by: YANDEL Burnette: Cervix us Melody Aranda CNM LAB BLOOD ORDERABLES Jessica valencia Result [facility] [address] [place] [phone] * Pap Smear (01/27/2025 9:46 AM EDT) Swab Cervix uteri structure / Unknown 01/27/2025 9:46 AM EDT 01/28/2025 7:30 AM EDT [facility] - 02/02/2025 8:29 AM EDT ----- ------- Name: MichelleSerenity Gay Age/Sex: 29/F : 1995 Unit#: [id number] Attend Dr: MELODY ARANDA CNM Re01/27/25 Status: DEP REF Location: [facility] Disch: ----- ------- SPEC : [id number] RECD: 01/28/25 STATUS: DOTTY ESTRELLA NUM: [id number] DANIEL: 01/27/[address] [facility] [address]: MELODY ARANDA CNM ENTERED: 01/28/25 SP TYPE: Pap Smr OTHR DR: ORDERED: Pap Smear Interpretation Satisfactory for evaluation. Negative for intraepithelial lesion or malignancy. HPV High Risk: Negative HPV Genotyping 16: Negative HPV Genotyping 18: Negative Clinical Information LMP:Unknown date Previous PAP test:2021 NIL Material Received ThinPrep-Cervical ----- ------- Signed (signature on file) LAILA Ji (ASCP) 02/02/25 0829 ----- ------- END OF REPORT Melody Aranda CNM LAB CYTOLOGY ORDERABLES F inal Result [facility] [address] [place] [phone] from Last 3 Months or Most Recently Relevant to Health Maintenance Insurance [place] [id number] DENTAL-[facility] MEDICAID STAND ADULT Care Teams Certified Addiction Counselor Relationship Specialty Start Date End Date Viridiana Jacinto FNP [address] [place] [phone] PCP - General Family Medicine 08/26/21
[2025-05-29 15:17] LABS: HIV RNA PCR Qn Copies NOT DETECTED copies/mL (NOT DETECTED); HIV RNA PCR Qn Log Copies NOT DETECTED (NOT DETECTED)
== END 2025-05-28 14:24 | disposition home or self-care (01) ==
LOC: HO.HHCL 14:23
PROVIDERS: PCP Registered Nurse; Visit Provider Registered Nurse
DX: Z11.4 Encounter for screening for human immunodeficiency virus [HIV] (principal); Z79.899 Other long term (current) drug therapy
CPT/HCPCS: 36415; 87536

== ENCOUNTER 2025-06-24 10:26 | Outpatient (REF) | payer OTHER, SELFPAY ==
--- OUTSIDE RECORDS SUMMARY | 2025-06-24 11:41 | XMS_ITS | Clinical Summary ---
Author Organization [employer] Address [address] [facility] 7t [place] [address] Care Team Providers Care Vegetable Thinner Name Role Phone Viridiana Jacinto IRVING Primary Care Provider [phone] Diego Gtz MD Unavailable Unavailable Ace Benjamin MD Unavailable [phone] Allergies No known active allergies Medications hydrocortisone [...] pain. 60 capsule 3 025 2025 Active cholecalciferol (Vitamin D High Potency) 25 MCG (1000 UT) capsuleIndication s:Healthcare maintenance TAKE 1 CAPSULE BY MOUTH EVERY DAY 90 capsule 1 Active medroxyPROGESTERo ne (Depo-Provera) 150 MG/ML injection Inject 1 mL (150 mg) into the muscle every 3 (three) months. 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 18 g 11 025 2025 Active albuterol (2.5 MG/3ML) 0.083% nebulizer solutionIndicatio ns:Mild intermittent asthma without complication Take 3 mL (2.5 mg) by nebulization Every 4-6 hours as needed for wheezing or shortness of breath. 75 mL 5 025 2025 Active fluticasone (Flonase) 50 MCG/ACT nasal sprayIndications: Seasonal allergic rhinitis, unspecified trigger Administer 1 spray into each nostril if needed in the morning and at bedtime for rhinitis or allergies. Shake gently. Before first use, prime pump. After use, clean tip and replace cap. 48 g 3 Active fluticasone (Flonase) 50 MCG/ACT nasal sprayIndications: Seasonal allergic rhinitis, unspecified trigger Administer 1 spray into each nostril if needed in the morning and at bedtime for rhinitis or allergies. Shake gently. Before first use, prime pump. After use, clean tip and replace cap. 48 g 3 025 2024 Discontinued(R eorder (will not trigger notification to Pharmacy)) albuterol (2.5 MG/3ML) 0.083% nebulizer solutionIndicatio ns:Mild intermittent asthma without complication Take 3 mL (2.5 mg) by nebulization Every 4-6 hours as needed for wheezing or shortness of breath. 75 mL 5 025 2024 Discontinued(R eorder (will not trigger notification to Pharmacy)) estradiol (Estrace) 0.1 MG/GM vaginal cream 1g vaginally x 14d, then twice weekly thereafter 45 g 2 025 2024 Discontinued(T herapy completed) albuterol 108 (90 Base) MCG/ACT inhalerIndication s:Mild intermittent asthma without complication Inhale 2 puffs Every 4-6 hours as needed for wheezing or shortness of breath. 18 g 11 025 2024 Discontinued(R eorder (will not trigger notification to Pharmacy)) Hospital, Clinic, or Other Facility Administered Medication Ordered Dose Route Frequency Start Date End Date Status Cabotegravir ER Suspension Extended Release 600 mgIndications:On pre-exposure prophylaxis for HIV 600 mg IM Once 05/28/2025 05/28/2025 Ended Active Problems Problem Noted Date Diagnosed Date Vitamin D insufficiency 01/26/2025 Assessment & Plan (06/23/2025 4:45 PM EDT): - Cont Vit D 1000 units daily - Due to repeat Vit D level Assessment & Plan (01/26/2025 2:30 PM EDT): [...] - Elevated beginning November 2024 - Consider 2/2 increased carb/saturated fat intake vs med SE [...] DC med Continues with injectable Cabotegravir through [facility] PrEP navigator - [facility] Healthcare maintenance 04/12/2023 Overview (06/23/2025): -Pap: 01/27/25 NILM, HPV neg -Optometry: March 2025 - eval at [facility] -Contraception: Depo -Last PE: 05/02/24 [...] weight loss 04/11/2023 024 Underweight 04/11/2023 05/03/2024 Otalgia of both ears 03/26/2020 025 Overview (02/10/2025): Otalgia, bilateral; Note: Date Diagnosed: 03/26/2020 2:16 PM (H92.03) Encounters Date Type Department Care Team Description 06/24/2025 9:15 AM EDT Office Visit [address] [address] Viridiana Jacinto FNP Encounter for routine history and physical examination of adult (Primary Dx); Healthcare maintenance; On pre-exposure prophylaxis for HIV; Migraine without aura and without status migrainosus, not intractable; Mild intermittent asthma without complication; Vitamin D insufficiency; Seasonal allergic rhinitis, unspecified trigger; Urinary tract infection symptoms 06/24/2025 Travel 06/23/[address] [address] Viridiana Jacinto FNP Chart Prep 06/17/2025 Patient Outreach [address] [address] Viridiana Jacinto FNP Pre-visit Planning (Pre visit planning LVM ) 05/28/2025 2:00 PM EDT Clinical Support [address] [address] cSarlett Boo, FILIBERTO On pre-exposure prophylaxis for HIV (Primary Dx) 05/28/2025 Orders Only [address] [address] Errol Barnes, FILIBERTO 05/28/[address] [address] Scarlett Boo, FILIBERTO PREP 05/28/2025 Travel 05/27/[address] [address] Scarlett Boo, FILIBERTO 05/27/[address] [address] Scarlett Boo, FILIBERTO 05/25/[address] [address] Errol Barnes, FILIBERTO Injectable PrEP communication 05/22/[address] [address] Scarlett Boo, FILIBERTO 05/20/2025 Results Follow-Up [facility] [address] [place] [address] Viridiana Jacinto FNP Hepatic Function Panel 05/20/2025 Orders Only [address] [address] Cecil Aparicio MD 05/19/[address] [address] Scarlett Boo, FILIBERTO 05/19/[address] [address] Scarlett Boo, FILIBERTO 05/15/[address] [address] Scarlett Boo, FILIBERTO On pre-exposure prophylaxis for HIV 05/01/2025 11:00 AM EDT Office Visit [facility] [address] [place] [address] Artemio, Darren 04/14/2025 11:00 AM EDT Office Visit [facility] [address] [place] [address] Artemio, Darren 04/03/2025 1:45 PM EDT Office Visit [facility] [address] [place] [address] Viridiana Jacinto, DUMP GRADER Transaminitis (Primary Dx); Chronic bilateral thoracic back pain 04/03/2025 Travel 03/31/2025 1:00 PM EDT Clinical Support [address] [address] Scarlett Boo, FILIBERTO On pre-exposure prophylaxis for HIV (Primary Dx) 03/31/2025 Orders Only [address] [address] Cecil Aparicio MD 03/31/[address] [address] Scarlett Boo, FILIBERTO 03/31/2025 Travel 03/26/2025 Telephone [facility] [address] [place] [address] Viridiana Jacinto, DUMP GRADER Chart Prep 03/24/2025 3:00 PM EDT Clinical Support [facility] [address] [place] [address] Char Armstrong RN On Depo-Provera for contraception 03/24/2025 Travel 03/24/2025 Orders Only [facility] [address] [place] [address] Viridiana Jacinto FNP from Last 3 Months Immunizations Immunization Administration Dates Next Due DTaP 07/17/2001, 9,01/17/1998,11/13 HPV 9-Valent 05/24/2021 HPV, Quadrivalent 01/12/2014,09/15/2013,07/14/20 13 Hep A, Adult 01/16/2019 Hep A, ped/adol, 2 dose 11/26/2013 Hep B, Adolescent or Pediatric 03/19/1998,1997,1997 Hib ([facility]) 03/25/1999, 8,01/16/1998,11/13 IPV 07/22/2001, 8,01/16/1998,11/13 Influenza [...] housing situation today? I have juan alarcon 06/24/[address] you li ve. Do you have problems with any of the following? None of the above 06/24/2025 Food Insecurity Answer Date Recorded Within the past 12 months, y ou worried that your food would run out before you got money to buy more: Never True 06/24/2025 Within the past 12 months,th e food you bought just didn't last and you didn't have enough money to get more: Never True Transportation Answer Date Recorded In the past 12 months, has l ack of transportation kept you from medical appts, meetings, work or from getting things needed for daily living? No 06/24/2025 Utilities Answer Date Recorded In the past 12 months, has t he electric, gas, oil or water company threatened to shut off services in your home? No 06/24/2025 Depression Answer Date Recorded Patient Health Questionnaire-2 Score 3 01/26/2025 Internet Access Answer Date Recorded Internet Access Q1 Yes 06/24/2025 Internet Access Q2 Not on file 06/24/2025 Comments Unknown Intention Date Recorded No desire to become (finding) 0 01/27/2025 Sex and Gender Information Value Date Recorded Sex Assigned at Female 09/04/2022 10:22 AM EDT Legal Sex Female 10:22 AM EDT Gender Identity Female 09/04/2022 10:22 AM EDT Sexual Orientation Straight 09/04/2022 10 :22 AM EDT Last Filed Vital Signs Vital Sign Reading Time Taken Comments Blood Pressure 100/62 06/24/2025 9:21 AM EDT Pulse 72 06/24/2025 9:21 AM EDT Temperature 36.2 C (97.1 F) 06/24/2025 9:21 AM EDT Respiratory Rate 20 06/24/2025 9:21 AM EDT Oxygen Saturation 98% 06/24/2025 9: 21 AM EDT Inhaled Oxygen Concentration - - Weight 56.6 kg (124 lb 12.8 oz) 06/24/2025 9:21 AM EDT Height 154.9 cm (5' 1 ) 06/24/2025 9:21 AM EDT Body Mass Index 23.58 06/24/2025 9:21 AM EDT Plan of Treatment Upcoming Encounters Date Type Department Care Team (Late st Contact Info) Description 06/30/2025 1:00 PM EDT Clinical Support [facility] [address] [place], [place] [phone] 07/23/2025 1:00 PM EDT Clinical Support [facility] [address] [place], [place] [phone] Scarlett Boo, RN [address] [place], [place] [phone] Health Maintenance Due Date Last Done Comments Pneumococcal Vaccine: Pediatrics (0 to 5 Years) and At-Risk Patients (6 to 49) Years (1 of 2 - PCV) 2016 Dental Oral Exam 04/24/2025 10/23/2024, , 09/25/2022, Additional history exists Dental Prophylaxis 05/07/2025 11/06/2024, 0 04/29/2024, 10/25/2023, Additional history exists Influenza Vaccine (#1) 2025 , 07/30/2017, 11/26/2013 Depression Monitoring 07/29/2025 01/26/2025, 025 COVID-19 Vaccine ( season) 2025 01/11/2022, 04/19/2021, 03/29/2021 Postponed from 07/06/2024 (Patient Refused) Dental X-Ray: Bitewings 10/24/2025 10/23/20 24, 10/25/2023, 09/25/2022, Additional history exists Disability Screening 01/26/2026 01/26/2025 Family Planning (PISQ) 01/27/2026 01/27/2025 Tobacco Screening 05/01/2026 05/01/2025 Alcohol/Substance Use Screening 06/24/2026 06/24/2025 SDOH Screening 06/24/2026 06/24/2025 Dental X-Ray: Full Mouth 10/26/2026 023, 12/18/2018, [...] Additional history exists Hepatitis C Screening Completed 05/20/2025 , 03/31/2025, 11/26/2024, Additional history exists HIV Screening Completed 05/28/2025, 05/05, 03/31/2025, Additional history exists Meningococcal B Vaccine Aged Out No l onger eligible based on patient's age to complete this topic RSV under 20 months Aged Out No longe r eligible based on patient's age to complete this topic Rotavirus Vaccines Aged Out No longer eligible based on patient's age to complete this topic Procedures Procedure Name Priority Date/Time Associated Diagnosis Comments POCT RAPID HIV SCREENING Routine 05/28/2025 2:40 PM EDT On pre-exposure prophylaxis for HIV HIV 1 RNA, QUANTITATIVE REAL TIME PCR Routine 05/28/2025 2:28 PM EDT HCG, TOTAL, QN Routine 05/20/2025 3:28 PM EDT HEPATIC FUNCTION PANEL Routine 05/20/2025 3:28 PM EDT Transaminitis HIV ANTIBODY/ANTIGEN ([place] DPH) Routine 05/20/2025 HEPATITIS C ANTIBODY ([place] DPH) Routine 05/20/2025 SYPHILIS ABS ([place] DPH) Routine 05/20/2025 CHLAMYDIA/GONORRHEA VAGINAL SWAB ([place] DPH) Routine 05/20/2025 CASE PRESENTATION, DETAILED AND EXTENSIVE TREATMENT PLANNING [...] TMA, UROGENITAL Routine 03/31/2025 2:15 PM EDT HPV DNA, LOW/HIGH RISK Routine 01/27/2025 9:46 [...] Maintenance Results * POCT RAPID HIV SCREENING (05/28/2025 2:40 PM EDT) Only the most recent of2 resultswithin the time period is included. Blood 05/28/2025 2:40 PM EDT Narrative Scarlett Boo, FILIBERTO - 05/28/2025 2:40 PM EDT negative Viridiana Jacinto [facility] POINT OF CARE TEST ENTER/EDIT ORDERABLES Final Result * HIV-1 RNA, Quantitative, Real-Time PCR (05/28/2025 2:28 PM EDT) Only the most recent of2 resultswithin the time period is included. HIV RNA PCR Qn Copies NOT DETECTED NOT DETECTED copies/mL [facility] HIV RNA PCR Qn Log Copies NOT DETECTED NOT DETECTED [facility] Comment:Result Units: Log co pies/mLThis test was performed using Real-Time Polymerase ChainReaction.Reportable Range: 20 copies/mL to 10,000,000 copies/mL(1.30 log copies/mL to 7.00 log copies/mL).THIS TEST WAS PERFORMED AT:[facility] [place] [phone] SILVA MD 05/28/2025 2:28 PM EDT 05/28/2025 4:08 PM EDT us Viridiana VILLATORO LAB BLOOD ORDERABLES Final Res ult Performing Organization Address [facility] Co de Phone Number [facility] [address] [place] [address] [phone] * hCG, Total, Quantitative (05/20/2025 3:28 PM EDT) HCG Quantitative <2 mIU/mL [facility] Comment:Weeks post LMP Appro ximate hCG(Last Menstrual Period) Range (mIU/ml)3 - 4 weeks 9 - 1304 - 5 weeks 75 - 2,6005 - 6 weeks 850 - 20,8006 - 7 weeks 4000 - 100,2007 - 12 weeks 11,500 - 289,08502 - 16 weeks 18,300 - 137,17739 - 29 weeks (2nd trimester) 1,400 - 53,76396 - 41 weeks (3rd trimester) 940 - [...] ORDERABLES Final Res ult Performing Organization Address [facility] Co de Phone Number [facility] [address] [place] [address] [phone] * Hepatic Function Panel (05/20/2025 3:28 PM EDT) Bilirubin, Total 0.6 0.0 - 1.0 mg/dL [facility] Bilirubin, Direct 0.2 0.0 - 0.5 mg/dL [facility] Aspartate Amino Transferase 24 5 - 31 U/L [facility] Alanine Aminotransferase 19 0 - 31 U/L [facility] Total Protein 7.1 6.5 - 8.0 g/dL [facility] Albumin Level 4.6 3.5 - 5.0 g/dL [facility] Alkaline Phosphatase 87 39 - 117 U/L [facility] Blood Venous blood specimen / Unknown 05/20/2025 3:28 PM EDT 05/20/2025 4:07 PM EDT Result [facility] Viridiana Jacinto DUMP GRADER LAB BLOOD ORDERABLES Final Res ult [facility] [address] [place] [address] [phone] * Chlamydia/Gonorrhea Vaginal Swab ([place] DPH) (05/20/2025) Chlamydia Vaginal Swab Negative Negative, Indeterminate, None Detected, Invalid, Specimen unsatisfactory for evaluation, Weakly Positive, 2+ Gonorrhea Vaginal Swab Negative Negative, Indeterminate, None Detected, Invalid, Specimen unsatisfactory for evaluation, Weakly Positive, 2+ Swab Vaginal structure / Unknown 05/20/2025 Result [facility] Provider LAB MICROBIOLOGY - GENERA L ORDERABLES Edited Result - Final * Syphilis Antibodies (DPH) (05/20/2025) Syphilis Abs Nonreactive Borderline, Nonreactive, Weakly Reactive, Inconclusive, Specimen unsatisfactory for evaluation Blood Venous blood specimen / Unknown 05/20/2025 Result [facility] Historical Provider MD LAB BLOOD ORDERABLES Jessica l Result * Hepatitis C Antibody ([place] DPH) (05/20/2025) Hepatitis C Ab Nonreactive Blood 05/20/2025 [facility] Provider MD LAB BLOOD ORDERABLES Jessica l Result * HIV Ab/Ag ([place] DPH) (05/20/2025) HIV Ag/Ab Nonreactive Blood 05/20/2025 Eric Figueroa MD LAB BLOOD ORDERABLES Jessica valencia Result * HIV-1 RNA, Quantitative, Real-Time PCR with Reflex to Genotype (RTI, PI, Integrase) (03/31/2025 2:16 PM EDT) HIV-1 Genotype Progressive [facility] HIV 1 Genotype [facility] Comment:Test not indicated. 03/31/2025 2:16 PM EDT 03/31/2025 3:56 PM EDT Cecil Aparicio MD LAB BLOOD ORDERABLES Final Res ult Performing Organization Address [facility] Co de Phone Number [facility] [address] [place] [phone] * Hepatitis C Antibody with Reflex to HCV, RNA, Quantitative, Real-Time PCR (03/31/2025 2:16 PM EDT) Hepatitis C Antibody Nonreactive Nonreactive [facility] Comment:Antibodies to HCV no t detected; does not exclude early acuteHCV infection. 03/31/2025 2:16 PM EDT 03/31/2025 3:56 PM EDT Cecil Aparicio MD LAB BLOOD ORDERABLES Final Res ult Performing Organization Address [facility] Co de Phone Number [facility] [address] [place] [phone] * RPR (Monitor) with Reflex to??Titer (03/31/2025 2:16 PM EDT) RPR (Monitor) w/Refl Titer NON-REACTI VE NON-REACT HERACLIO [facility] Comment:THIS TEST WAS PERFOR MED AT:[facility] [place] [phone] SILVA MD Rapid Plasma Reagin Ab Titer TNP [facility] 03/31/2025 2:16 PM EDT 03/31/2025 3:56 PM EDT Cecil Aparicio MD LAB BLOOD ORDERABLES Final Res ult Performing Organization Address [facility] Co de Phone Number [facility] [address] [place] [phone] * Creatine Kinase, Total (03/31/2025 2:16 PM EDT) Creatine Kinase Total 113 26 - 140 U/L [facility] 03/31/2025 2:16 PM EDT 03/31/2025 3:56 PM EDT Cecil Aparicio MD LAB BLOOD ORDERABLES Final Res ult Performing Organization Address [facility] Co de Phone Number [facility] [address] [place] [phone] * Chlamydia/N. Gonorrhoeae RNA, TMA, Urogenitial (03/31/2025 2:15 PM EDT) CT PCR NOT DETECTED Not Detect. [facility] Comment:A not detected test result [...] psychologicalconsequences. NG PCR NOT DETECTED Not Detect. [facility] Comment:A not detected test result [...] PM EDT 03/31/2025 3:52 PM EDT Narrative [facility] - 03/31/2025 6:23 PM EDT Urine us Cecil Aparicio MD LAB MICROBIOLOGY - GENERAL ORD ERABLES Final Result [facility] [address] [place] [phone] [phone] * HPV DNA, Low/High Risk (01/27/2025 9:46 AM EDT) HPV High Risk Negative Negative [facility] HPV Genotype 16 Negative Negative [facility] HPV Genotype 18 Negative Negative [facility] Comment:HPV testing performe d at [facility] (CLIA#[id number]), [address] [place] [address].Testing for HPV was performed using the Eduardo RAMOS [employer]system. The presence of HPV in the female [...] 9:46 AM EDT 01/28/2025 8:38 AM EDT [facility] - 02/04/2025 2:27 PM EDT Collection Date: [id number] by: YANDEL Burnette: Cervix Melody Aranda CNM LAB BLOOD ORDERABLES Jessica l Result [facility] [address] [place] [phone] * Pap Smear (01/27/2025 9:46 AM EDT) Swab Cervix uteri structure / Unknown 01/27/2025 9:46 AM EDT 01/28/2025 7:30 AM EDT [facility] - 02/02/2025 8:29 AM EDT ----- ------- Name: Serenity Henson Age/Sex: 29/F : 1995 Unit#: [id number] Attend Dr: MELODY ARANDA CNM Re01/27/25 Status: DEP REF Location: [facility] Disch: ----- ------- SPEC : [id number] RECD: 01/28/25 STATUS: DOTTY ESTRELLA NUM: [id number] DANIEL: 01/27/[address] [facility] [address]: MELODY ARANDA CNM ENTERED: 01/28/25 SP [...] CNM LAB CYTOLOGY ORDERABLES F inal Result [facility] [address] [place] [phone] from Last 3 Months or Most Recently Relevant to Health Maintenance Insurance [employer] 2 Care Teams Vegetable Thinner Relationship Specialty Start Date End Date Viridinaa Jacinto FNP [address] [place] [address] PCP - General Family Medicine 08/26/21 Diego Gtz MD [address] [place] [phone] Allergy and Immunology 06/23/25 Ace Benjamin MD [address] [place] [address] [place] [phone] Ophthalmology 06/23/25
[2025-06-24 11:52] LABS: Appearance Urine Cloudy; Glucose Urine UA Negative (Negative); PH 6.0 (5.0-9.0); Specific Gravity - Urine >= 1.030 (1.005-1.025); UMIC TRIGGER UACC YES
[2025-06-24 11:57] LABS: UACC Culture Trigger YES
[2025-06-24 12:28] LABS: Hematocrit 42.2 % (37.0-47.0); Hemoglobin 13.6 g/dl (12.0-16.0); Imm Gran Abs Auto 0.01 X10*3/uL (0.00-0.03); Imm Gran Pct Auto 0.2 % (0.0-0.4); Lymphocytes Absolute Auto 2.9 X10*3/uL (1.2-4.9); MANUAL DIFF FLAG SCAN; Mean Corpuscular HGB Conc 32.2 g/dl (31.0-35.0); Mean Corpuscular Hemoglobin 28.5 pg (27.0-33.0); Mean Corpuscular Volume 88.5 fL (80.0-98.0); NRBC Abs Auto 0.000 X10*3/uL (0.0-0.012); NRBC Pct Auto 0.0 /100WBC (0.0-0.2); Platelet Count 265 X10*3/uL (160-400); Red Blood Count 4.77 X10*6/uL (4.20-5.50); SCAN SMEAR FLAG 1; White Blood Count 4.6 X10*3/uL (4.8-10.8)
[2025-06-24 12:56] LABS: Anion Gap 12 (12-20); Blood Urea Nitrogen 15 mg/dL (9-16); Calcium 9.5 mg/dL (8.4-10.2); Carbon Dioxide 29 mmol/L (22-29); Chloride 103 mmol/L (96-108); Cholesterol 154 mg/dL (<200); Estimated Glomerular Filt Rate > 60; HDL Cholesterol 58 mg/dL (>40); Potassium 3.9 mmol/L (3.3-5.1); Sodium 140 mmol/L (135-145); Triglycerides 56 mg/dL (<150)
[2025-06-26 15:03] LABS: TS Negative Control Passed; TS Panel A 0; TS Panel B 0; TS Positive Control Passed; TSpotTB Negative (Negative)
== END 2025-06-24 10:27 | disposition home or self-care (01) ==
LOC: HO.HHCL 10:26
PROVIDERS: PCP Registered Nurse; Visit Provider Registered Nurse
DX: Z00.00 Encounter for general adult medical examination without abnormal findings (principal); R39.9 Unspecified symptoms and signs involving the genitourinary system; Z11.1 Encounter for screening for respiratory tuberculosis
CPT/HCPCS: 36415; 80048; 80061; 81001; 85025; 86481; 87086; 87147

== ENCOUNTER 2025-07-23 13:23 | Outpatient (REF) | payer OTHER, SELFPAY ==
--- OUTSIDE RECORDS SUMMARY | 2025-07-23 13:00 | XMS_ITS | Encounter Summary ---
Author Organization [employer] Address [address] [facility] [place] [address] Care Team Providers Care Yarn Bleaching Machine Operator Name Role Phone Viridiana Jacinto IRVING Primary Care Provider [phone] Diego Gtz MD Unavailable Unavailable Ace Benjamin MD Unavailable [phone] Encounter Details Date Type Department Care Team (Latest Contact Info) Description 07/23/2025 1:00 PM EDT Clinical Support [facility] [address] [place] [address] Scarlett Boo, FILIBERTO [address] [place] [address] On pre-exposure prophylaxis for HIV (Primary Dx) Social History Tobacco Use Types [...] Q2 Not on file 06/24/2025 Comments Unknown Sex and Gender Information Value Date Recorded Sex Assigned at Female 09/04/2022 10:22 AM EDT Legal Sex Female 10:22 AM EDT Gender Identity Female 09/04/2022 10:22 AM EDT Sexual Orientation Straight 09/04/2022 10 :22 AM EDT documented as of this encounter Progress Notes * Scarlett Boo RN - 07/23/2025 1:00 PM EDT Pt here for 123h injection of APRETUDE (600-mg cabotegravir). Reports tolerating [...] at 6 months, then annually. Last LFTs: 05/20/25 message sent to PCP to see when LFTs are needed again-monitoring LFTS closely with PCP- Please discuss labs with PCP prior to giving Apreturde Pt on DEPO contraception -unable to give urine sample. Patient questions answered. Reviewed importance of attending [...] to HIV testing. STI testing serologies done 05/20/25, vaginal GC/CT done 05/20/25 LFTs 6 months after first injection, then annually: next due 10/05/25 Appointment for next injections (now every 2 mos w/ 7d lois period): 09/15/25 @130p documented in this encounter Plan of Treatment Upcoming Encounters Date Type Department Care Team (Late st Contact Info) Description 09/15/2025 1:30 PM EST Clinical Support [facility] [address] [place] [address] Scarlett Boo RN [address] [place] [address] 09/22/2025 1:00 PM EST Clinical Support [facility] [address] [place] [address] 01/13/2026 12:45 PM EDT Office Visit [facility] [address] [place] [address] Thompson Almanzar Scheduled Orders Name Type Priority Associated Diagnoses Orde r Schedule HIV-1 RNA, Quantitative, Real-Time PCR Lab Routine On pre-exposure prophylaxis for HIV Expected: 07/23/2025 (Approximate), Expires: 07/23/2026 Hepatitis C Antibody with Reflex to HCV, RNA, Quantitative, Real-Time PCR Lab Routine On pre-exposure prophylaxis for HIV Expected: 07/23/2025 (Approximate), Expires: 07/23/2026 RPR (Monitor) with Reflex to Titer Lab Routine On pre-exposure prophylaxis for HIV Expected: 07/23/2025 (Approximate), Expires: 07/23/2026 hCG, Total, Quantitative Lab Routine On pre-exposure prophylaxis for HIV Expected: 07/23/2025 (Approximate), Expires: 07/23/2026 documented as of this encounter Visit Diagnoses Diagnosis On pre-exposure prophylaxis for HIV- Primary documented in this encounter Administered Medications Inactive Administered Medications - up to 3 most recent administrations Medication Order MAR Action Action Date Dose Rate Site Cabotegravir ER Suspension Extended Release 600 mg 600 mg, Intramuscular, Once, On Marian 07/23/25 at 1415, For 1 dose, Ventrogluteal.Indication s:On pre-exposure prophylaxis for HIV Given 07/23/2025 2:15 PM EDT 600 mg Left Upper Buttock documented in this encounter Additional Health Concerns Assessment Noted Time PHQ-9 Depression Total Score: 14 025 11:28 AM EDT documented as of this encounter Care Teams Yarn Bleaching Machine Operator Relationship Specialty Start Date End Date Viridiana Jacinto FNP [address] [place] [phone] PCP - General Family Medicine 08/26/21 Diego Gtz MD [address] [place] [phone] Allergy and Immunology 06/23/25 Ace Benjamin MD [address] [place] [address] [address] [place] [address] Ophthalmology 06/23/25 documented as of this encounter
--- OUTSIDE RECORDS SUMMARY | 2025-07-23 15:24 | XMS_ITS | Clinical Summary ---
Author Organization [employer] Address [address] [facility] [address] [place] [address] Care Team Providers Care Net Developer Name Role Phone Viridiana Jacinto IRVING Primary Care Provider [phone] Diego Gtz MD Unavailable Unavailable Ace Benjamin MD Unavailable [phone] Allergies No known active allergies Medications [...] muscle every 3 (three) months. 1 mL Active albuterol 108 (90 Base) MCG/ACT inhalerIndication [...] breath. 75 mL 5 025 2025 Active triamcinolone (Nasacort) 55 MCG/ACT nasal inhaler Administer 2 sprays into each nostril if needed each day for rhinitis or allergies. 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 Shake gently. Before first use, prime pump. After use, clean tip and replace cap. 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 Shake gently. Before first use, prime pump. After use, clean tip and replace cap. 48 g 3 025 2024 Discontinued(F ormulary change) nitrofurantoin, macrocrystal-mono hydrate, (Macrobid) 100 MG capsuleIndication s:Urinary tract infection symptoms Take 1 capsule (100 mg) by mouth 2 times daily for 5 days. 10 capsule 025 2024 Hospital, Clinic, or Other Facility Administered Medication Ordered Dose Route Frequency Start Date End Date Status medroxyPROGESTERone (Depo-Provera) injection 150 mgIndications:On Depo-Provera for contraception 150 mg IM Once 06/30/2025 06/30/2025 Ended Cabotegravir ER Suspension Extended Release 600 mgIndications:On pre-exposure prophylaxis for HIV 600 mg IM Once 07/23/2025 07/23/2025 Ended Active Problems Problem Noted Date Diagnosed Date Chronic bilateral thoracic back pain 06/24/2025 Assessment & Plan (06/24/2025 5:10 PM EDT): - Encouraged to cont with symptomatic management, no red flag symptoms - Attended 2 physical therapy sessions but then lost to follow up, did not find them very helpful - Follow up PRN Environmental allergies 06/24/2025 Assessment & Plan (06/24/2025 5:14 PM EDT): Previously following with [facility] (Dr. Gtz), plan to transition care back to PCP Consult 05/2025: cont [place], ketotifen eye drops, flonase PRN. Avoid dust mites, cats, dog, mold, cockroach, mouse Vitamin D insufficiency 01/26/2025 Assessment & Plan [...] DC med Continues with injectable Cabotegravir through [facility] PrEP navigator - [facility] Healthcare maintenance 04/12/2023 Overview (06/24/2025): -Pap: 01/27/25 NILM, HPV neg -Optometry: March 2025 - eval at [facility] -Contraception: Depo -Last PE: 06/24/25 Slow transit constipation 04/11/2023 Mild intermittent asthma 06/01/2022 Overview (05/03/2024): Continue with albuterol PRN Reviewed rule of 2's Assessment & Plan (06/24/2025 5:15 PM EDT): Well controlled, cont with current regimen Assessment & Plan (09/15/2024 8:03 PM EST): [...] trials: -amitriptyline - ineffective Assessment & Plan (06/24/2025 5:13 PM EDT): Cont with current regimen Assessment & Plan (05/03/2024 11:33 AM EDT): Well controlled Mood disorder 12/14/2017 Assessment & Plan (06/24/2025 5:19 PM EDT): -Denies current SI/HI/thougthts of self harm -Previously following with therapist, not currently established -Encouraged to call office if interested in BE and therapy referral in the future -Letter for support animal generated 05/02/24 Assessment & Plan (05/03/2024 11:33 AM EDT): [...] for BARTLETT Abnormal weight loss 04/11/2023 024 History of eating disorder 04/11/2023 0 06/24/2025 Underweight 04/11/2023 05/03/2024 Otalgia of both ears 03/26/2020 025 Overview (02/10/2025): Otalgia, bilateral; Note: Date Diagnosed: 03/26/2020 2:16 PM (H92.03) Encounters Date Type Department Care Team Description 07/23/2025 1:00 PM EDT Clinical Support [facility] [address] [place] [phone] Scarlett Boo, RN On pre-exposure prophylaxis for HIV (Primary Dx) 07/23/2025 Travel 07/21/2025 Refill [facility] [address] [place] [phone] Scarlett Boo, FILIBERTO On pre-exposure prophylaxis for HIV 07/20/[address] [address] Viridiana Jacinto FNP On pre-exposure prophylaxis for HIV 07/17/[address] [address] Viridiana Jacinto FNP On pre-exposure prophylaxis for HIV 07/15/2025 2:00 PM EDT Office Visit [facility] [address] [place] [address] [place] [facility] Dental calculus (Primary Dx) 07/15/2025 Travel 07/03/2025 Refill [facility] [address] [place] [phone] Viridiana Jacinto FNP On pre-exposure prophylaxis for HIV 06/30/2025 1:00 PM EDT Clinical Support [facility] [address] [place] [address] Char Armstrong RN On Depo-Provera for contraception 06/30/2025 Travel 06/24/2025 9:15 AM EDT Office Visit [facility] [address] [place] [phone] Viridiana Jacinto FNP Encounter for routine history and physical examination of adult (Primary Dx); Healthcare maintenance; On pre-exposure prophylaxis for HIV; Migraine without aura and without status migrainosus, not intractable; Mild intermittent asthma without complication; Vitamin D insufficiency; Seasonal allergic rhinitis, unspecified trigger; Urinary tract infection symptoms; Chronic bilateral thoracic back pain; Mood disorder ([facility]); Environmental allergies 06/24/2025 Orders Only [facility] [address] [place] [address] Viridiana Jacinto FNP 06/24/2025 Travel 06/23/[address] [address] Viridiana Jacinto FNP Chart Prep 06/17/2025 Patient Outreach [address] [address] Viridiana Jacinto FNP Pre-visit Planning (Pre visit planning LVM ) 05/28/2025 2:00 PM EDT Clinical Support [address] [address] Scarlett Boo, FILIBERTO On pre-exposure prophylaxis for HIV (Primary Dx) 05/28/2025 Orders Only [address] [address] Errol Barnes, FILIBERTO 05/28/[address] [address] Scarlett Boo, FILIBERTO PREP 05/28/2025 Travel 05/27/[address] [address] Scarlett Boo, FILIBERTO 05/27/[address] [address] Scarlett Boo, FILIBERTO 05/25/[address] [address] Errol Barnes, RN Injectable PrEP communication 05/22/[address] [address] Scarlett Boo, FILIBERTO 05/20/2025 Results Follow-Up [facility] [address] [place] [address] Viridiana Jacinto FNP Hepatic Function Panel 05/20/2025 Orders Only [address] [address] eCcil Aparicio MD 05/19/2025 Telephone [facility] [address] [place] [address] Scarlett Boo, FILIBERTO 05/19/2025 Telephone [facility] [address] [place] [address] Scarlett Boo, FILIBERTO 05/15/2025 Refill [facility] [address], [place] [phone] Scarlett Boo, RN On pre-exposure prophylaxis for HIV 05/01/2025 11:00 AM EDT Office Visit [facility] [address] [place], [place] [phone] Darren Ulloa from Last 3 Months Immunizations Immunization Administration Dates Next Due DTaP 07/17/2001, 9,01/17/1998,11/13 HPV 9-Valent 05/24/2021 HPV, Quadrivalent 01/12/2014,09/15/2013,07/14/20 13 Hep A, Adult 01/16/2019 Hep A, ped/adol, 2 dose 11/26/2013 Hep B, Adolescent or Pediatric 03/19/1998,1997,1997 Hib (HbO) 03/25/1999, 8,01/16/1998,11/13 IPV 07/22/2001, 8,01/16/1998,11/13 Influenza injectable [...] Sign Reading Time Taken Comments Blood Pressure 100/60 07/15/2025 1:57 PM EDT Pulse 68 07/15/2025 1:57 PM EDT Temperature 36.2 C (97.1 F) 06/24/2025 9:21 AM EDT Respiratory Rate 20 06/24/2025 9:21 AM EDT Oxygen Saturation 98% 06/24/2025 9:21 AM EDT Inhaled Oxygen Concentration - - Weight 56.6 kg (124 lb 12.8 oz) 06/24/2025 9:21 AM EDT Height 154.9 cm (5' 1 ) 06/24/2025 9:21 AM EDT Body Mass Index 23.58 06/24/2025 9:21 AM EDT Plan of Treatment Upcoming Encounters Date Type Department Care Team (Late st Contact Info) Description 09/15/2025 1:30 PM EST Clinical Support [facility] [address] [place] [address] Scarlett Boo, RN [address] [place] [address] 09/22/2025 1:00 PM EST Clinical Support [facility] [address] [place] [address] 01/13/2026 12:45 PM EDT Office Visit [facility] [address] [place] [address] [place] [facility] Health Maintenance Due Date Last Done Comments Pneumococcal Vaccine: Pediatrics (0 to 5 Years) and At-Risk Patients (6 to 49) Years (1 of 2 - PCV) 2016 COVID-19 Vaccine ( - 2024- season) 2025 01/11/2022, 04/19/2021, 03/29/2021 Influenza Vaccine (#1) 2025 2, 07/30/2017, 11/26/2013 Depression Monitoring 07/29/2025 01/26/2025, 025 Dental X-Ray: Bitewings 10/24/2025 10/23/20 24, 10/25/2023, 09/25/2022, Additional history exists Dental Oral Exam 01/13/2026 07/15/2025, , 10/25/2023, Additional history exists Dental Prophylaxis 01/13/2026 07/15/2025, 0 11/06/2024, 04/29/2024, Additional history exists Family Planning (PISQ) 01/27/2026 01/27/2025 Alcohol/Substance Use Screening 06/24/2026 06/24/2025 SDOH Screening 06/24/2026 06/24/2025 Disability Screening 06/30/2026 06/30/2025 Tobacco Screening 07/15/2026 07/15/2025 Dental X-Ray: Full Mouth 10/26/2026 023, 12/18/2018, [...] Procedure Name Priority Date/Time Associated Diagnosis Comments PERIODIC ORAL EVALUATION - ESTABLISHED PATIENT Routine 07/15/2025 2:00 PM EDT ORAL HYGIENE INSTRUCTIONS Routine 07/15/2025 2:00 PM EDT CASE PRESENTATION, DETAILED AND EXTENSIVE TREATMENT PLANNING Routine 07/15/2025 2:00 PM EDT PROPHYLAXIS - ADULT Routine 07/15/2025 2 :00 PM EDT SLIDE REVIEW Routine 06/24/2025 10:41 AM EDT URINALYSIS, COMPLETE, WITH REFLEX TO CULTURE Routine 06/24/2025 10:41 AM EDT Urinary tract infection symptoms T-SPOT(R).TB Routine 06/24/2025 10:41 AM EDT Encounter for routine history and physical examination of adult BASIC METABOLIC PANEL Routine 06/24/2025 10:41 AM EDT Encounter for routine history and physical examination of adult CBC WITH AUTO DIFFERENTIAL Routine 06/24/2025 10:41 AM EDT Encounter for routine history and physical examination of adult LIPID PANEL, STANDARD Routine 06/24/2025 10:41 AM EDT Encounter for routine history and physical examination of adult CULTURE, URINE, ROUTINE Routine 06/24/2025 12:00 AM EDT POCT RAPID HIV SCREENING Routine 05/28/2025 2:40 [...] SURF, POSTERIOR Routine 05/01/2025 11:00 AM EDT HPV DNA, LOW/HIGH RISK Routine 01/27/2025 9:46 AM EDT PAP SMEAR Routine 01/27/2025 9:46 AM EDT Cervical cancer screening BITEWINGS - 4 RADIOGRAPHIC IMAGES Routine 10/23/2024 11:00 AM EST INTRAORAL - COMPLETE SERIES OF RADIOGRAPHIC IMAGES Routine 10/25/2023 9:00 AM EST Dental calculus from Last 3 Months or Most Recently Relevant to Health Maintenance Results * Slide Review (06/24/2025 10:41 AM EDT) Slide Review VERIFIED [facility] 06/24/2025 10:4 1 AM EDT 06/24/2025 12:19 PM EDT us Viridiana Jacinto PERFORMING [employer] MANAGER LAB BLOOD ORDERABLES Final Res ult [facility] [address] [place] [phone] [phone] * (ABNORMAL) Urinalysis, Complete, with Reflex to Culture (06/24/2025 10:41 AM EDT) Color Urine Yellow [facility] Appearance Urine Cloudy [facility] PH 6.0 5.0 - 9.0 [facility] Glucose Urine UA Negative Negative mg/dL [facility] Urine Blood Negative Negative [facility] Specific [place] - Urine >=1.030(H) 1.005 - 1.025 [facility] Urine Protein Negative Neg-Trace mg/dL [facility] Urine Ketones Negative Negative mg/dL [facility] Nitrite Urine Negative Negative [facility] Leukocyte Esterase Urine Moderate (2+)(A) Negative [facility] RBC Urine 0-2 0 - 2 /HPF [facility] Urine WBC 11-20(A) 0 - 5 /HPF [facility] Urine Squamous Epithelial Cell 11-20 0 - 2 /HPF [facility] Urine Bacteria 2+ None Seen [facility] Hyaline Casts, Urine 0-2 0 - 2 /LPF [facility] Urine 06/24/2025 10:4 1 AM EDT 06/24/2025 11:45 AM EDT Narrative [facility] - 06/24/2025 12:01 PM EDT Urine, Clean Catch Viridiana Jacinto [facility] URINE ORDERABLES Final Res ult [facility] [address] [place] [phone] * T-SPOT??.TB (06/24/2025 10:41 AM EDT) T Spot TB Negative Negative [facility] Comment:A negative test resu lt does not exclude the possibilityof exposure to or infection with Mycobacteriumtuberculosis (M. tuberculosis). Patients with recentexposure to TB infected individuals exhibiting anegative T-SPOT.TB result should be considered forretesting within 6 weeks or if other relevant clinicalsymptoms indicate. Results from T-SPOT.TB testing mustbe used in conjunction with each individual'sepidemiological history, current medical status,and results of other diagnostic evaluations.The T-SPOT.TB test is qualitative and results arereported as positive, borderline, or negative, giventhat the test controls perform as expected. In linewith the Centers for Disease Control and Prevention's2010 recommendation to report quantitative measurementsalongside the qualitative result, the laboratoryprovides spot counts for informational purposes only.The T-SPOT.TB test should not be interpreted as aquantitative test. TS PANEL A 0 [facility] TS PANEL B 0 [facility] Negative Control Passed [facility] Positive Control Passed [facility] Comment:For additional infor mation, please refer tohttp://education.[employer]/faq/JBD129(This link is being provided for informational/educational purposes only.)THIS TEST WAS PERFORMED AT:[employer] [id number] [place] [id number] TORRE MD,PHD 06/24/2025 10:4 1 AM EDT 06/24/2025 12:29 PM EDT us Viridiana Jacinto [facility] LAB BLOOD ORDERABLES Final Res ult [facility] [address] [place] [phone] * (ABNORMAL) CBC auto differential (06/24/2025 10:41 AM EDT) White Blood Count 4.6(L) 4.8 - 10.8 X10*3/uL [facility] Red Blood Count 4.77 4.20 - 5.50 X10*6/uL [facility] Hemoglobin 13.6 12.0 - 16.0 g/dl [facility] Hematocrit 42.2 37.0 - 47.0 % [facility] Mean Corpuscular Volume 88.5 80.0 - 98.0 fL [facility] Mean Corpuscular Hemoglobin 28.5 27.0 - 33.0 pg [facility] Mean Corpuscular HGB Conc 32.2 31.0 - 35.0 g/dl [facility] Red Cell Distribution Width 13.4 11.0 - 16.0 % [facility] Platelet Count 265 160 - 400 X10*3/uL [facility] Mean Platelet Volume 10.1 9.4 - 12.3 fL [facility] Neutrophils Percent Auto 24.2(L) 45 - 73 % [facility] Imm Gran Pct Auto 0.2 0.0 - 0.4 % [facility] Lymphocytes Percent Auto 62.3(H) 20 - 40 % [facility] Monocytes Percent Auto 10.2 2 - 11 % [facility] Eosinophils Percent Auto 2.4 0 - 4 % [facility] Basophils Percent Auto 0.7 0 - 2 % [facility] NRBC Pct Auto 0.0 0.0 - 0.2 /100WBC [facility] Neutrophils Absolute Auto 1.1(L) 2.0 - 8.3 x10*3/uL [facility] Imm Gran Abs Auto 0.01 0.00 - 0.03 X10*3/uL [facility] Lymphocytes Absolute Auto 2.9 1.2 - 4.9 X10*3/uL [facility] Monocytes Absolute Auto 0.5 0.1 - 1.2 X10*3/uL [facility] Eosinophils Absolute Auto 0.1 0.0 - 0.4 X10*3/uL [facility] Basophils Absolute Auto 0.0 0.0 - 0.2 X10*3/uL [facility] NRBC Abs Auto 0.000 0.0 - 0.012 X10*3/uL [facility] Blood Venous blood specimen / Unknown 06/24/2025 10:41 AM EDT 06/24/2025 12:19 PM EDT us Viridiana Jacinto PERFORMING [address] MANAGER LAB BLOOD ORDERABLES Edited Re sult - Final [facility] [address] [place] [phone] * Lipid Panel, Standard (06/24/2025 10:41 AM EDT) Triglycerides 56 <150 mg/dL [facility] Comment:Desirable Triglyceri de: less than 150 mg/dLBorderline High Triglyceride 150-199 mg/dLHigh Triglyceride: 200-499 mg/dLVery High Triglyceride: greater than or equal to 5OO mg/dL Cholesterol 154 <200 mg/dL [facility] Comment:Desirable Cholestero l: less than 200 mg/dLBorderline High Cholesterol: 200-239 mg/dLHigh Cholesterol: greater than 239 mg/dL LDL Cholesterol Calculated 85 <100 mg/dL [facility] Comment:Desirable LDL: less than 100 mg/dLNear Optimal/Above Optimal LDL: 110- 129 mg/dLBorderline High LDL: 130-159 mg/dLHigh LDL: 160-189 mg/dLVery High LDL: greater than or equal to 190 mg/dL HDL Cholesterol 58 >40 mg/dL [facility] Comment:Desirable HDL: great er than 40 mg/dL Note: This HDL assay may give artificially low results in patients with liver disease. Blood Venous blood specimen / Unknown 06/24/2025 10:41 AM EDT 06/24/2025 12:29 PM EDT us Viridiana Jacinto PERFORMING [address] MANAGER LAB BLOOD ORDERABLES Final Res ult [facility] [address] [place] [phone] * Basic Metabolic Panel (06/24/2025 10:41 AM EDT) Sodium 140 135 - 145 mmol/L [facility] Potassium 3.9 3.3 - 5.1 mmol/L [facility] Chloride 103 96 - 108 mmol/L [facility] Carbon Dioxide 29 22 - 29 mmol/L [facility] Anion Gap 12 12 - 20 [facility] Urea Nitrogen (BUN) 15 9 - 16 mg/dL [facility] Creatinine, Serum 0.88 0.5 - 1.4 mg/dL [facility] Estimated Glomerular Filt Rate >60 [facility] Comment:Chronic Kidney Disea se: Estimated GFR < 60 mL/min/[id number] Kidney Disease: Estimated GFR < 15 mL/min/1.73m2 Glucose 83 60 - 115 mg/dL [facility] Calcium 9.5 8.4 - 10.2 mg/dL [facility] Blood Venous blood specimen / Unknown 06/24/2025 10:41 AM EDT 06/24/2025 12:29 PM EDT Viridiana VILLATORO LAB BLOOD ORDERABLES Final Res ult Performing Organization Address [facility] Co de Phone Number [facility] [address] [place] [phone] * Culture, Urine, Routine (06/24/2025 12:00 AM EDT) Urine Urine specimen obtained by clean catch procedure / Unknown 06/24/2025 06/24/2025 Comment:UACC Narrative [facility] - 06/25/2025 11:27 AM EDT Strep agalactiae (Grp B) Quant < 10,000 cfu/mL Susc N/A Susceptibility not routinely performed on this isolate. Specimen Source: Urine clean catch Viridiana VILLATORO LAB MICROBIOLOGY - GENERAL ORD ERABLES Final Result Performing Organization Address City/[facility] Co de Phone Number [facility] [address] [place] [phone] * POCT RAPID HIV SCREENING (05/28/2025 2:40 PM EDT) Blood 05/28/2025 2:40 PM EDT Narrative Scarlett Boo RN - 05/28/2025 2:40 PM EDT negative Viridiana VILLATORO POINT OF CARE TEST ENTER/EDIT ORDERABLES Final Result * HIV-1 RNA, Quantitative, Real-Time PCR (05/28/2025 2:28 PM EDT) HIV RNA PCR Qn Copies NOT DETECTED NOT DETECTED copies/mL [facility] HIV RNA PCR Qn Log Copies NOT DETECTED NOT DETECTED [facility] Comment:Result Units: Log co pies/mLThis test was performed using Real-Time Polymerase ChainReaction.Reportable Range: 20 copies/mL to 10,000,000 copies/mL(1.30 log copies/mL to 7.00 log copies/mL).THIS TEST WAS PERFORMED AT:[facility] [place] [id number] SILVA MD 05/28/2025 2:28 PM EDT 05/28/2025 4:08 PM EDT us Viridiana Jacinto PERFORMING [address] MANAGER LAB BLOOD ORDERABLES Final Res ult [facility] [address] [place] [phone] * hCG, Total, Quantitative (05/20/2025 3:28 PM EDT) HCG Quantitative <2 mIU/mL [facility] Comment:Weeks post LMP Appr oximate hCG(Last Menstrual Period) Range (mIU/ml)3 - 4 weeks 9 - 1304 - 5 weeks 75 - 2,6005 - 6 weeks 850 - 20,8006 - 7 weeks 4000 - 100,2007 - 12 weeks 11,500 - 289,11121 - 16 weeks 18,300 - 137,88909 - 29 weeks (2nd trimester) 1,400 - 53,34837 - 41 weeks (3rd trimester) 940 - 60,000The Batista B- hCG assay is used for the early detection ofpregnancy; it cannot be used to diagnose any conditionunrelated to . If a B-hCG level is not supportedby the clinical evidence, results should be confirmed by analternative method (qualitative urine hCG, for example). 05/20/2025 3:28 PM EDT 05/20/2025 4:07 PM EDT Cecil Aparicio MD LAB BLOOD ORDERABLES Final Res ult Performing Organization Address City/[facility]/ZIP Co de Phone Number [facility] [address] [place] [phone] * Hepatic Function Panel (05/20/2025 3:28 PM EDT) Bilirubin, Total 0.6 0.0 - 1.0 mg/dL [facility] Bilirubin, Direct 0.2 0.0 - 0.5 mg/dL [facility] Aspartate Amino Transferase 24 5 - 31 U/L [facility] Alanine Aminotransferase 19 0 - 31 U/L [facility] Total Protein 7.1 6.5 - 8.0 g/dL [facility] Albumin Level 4.6 3.5 - 5.0 g/dL [facility] Alkaline Phosphatase 87 39 - 117 U/L [facility] Blood Venous blood specimen / Unknown 05/20/2025 3:28 PM EDT 05/20/2025 4:07 PM EDT Viridiana VILLATORO LAB BLOOD ORDERABLES Final Res ult Performing Organization Address [facility]/ZIP Co de Phone Number [facility] [address] [place] [phone] * Chlamydia/Gonorrhea Vaginal Swab ([place] DPH) (05/20/2025) Chlamydia Vaginal Swab Negative Negative, Indeterminate, None Detected, Invalid, Specimen unsatisfactory for evaluation, Weakly Positive, 2+ Gonorrhea Vaginal Swab Negative Negative, Indeterminate, None Detected, Invalid, Specimen unsatisfactory for evaluation, Weakly Positive, 2+ Swab Vaginal structure / Unknown 05/20/2025 Eric Provider LAB MICROBIOLOGY - GENERA L ORDERABLES Edited Result - Final * Syphilis Antibodies (DPH) (05/20/2025) Syphilis Abs Nonreactive Borderline, Nonreactive, Weakly Reactive, Inconclusive, Specimen unsatisfactory for evaluation Blood Venous blood specimen / Unknown 05/20/2025 [facility] Provider MD LAB BLOOD ORDERABLES Jessica l Result * Hepatitis C Antibody ([place] DPH) (05/20/2025) Pathologist [facility] Hepatitis C Ab Nonreactive Blood 05/20/2025 Result [facility] MD LAB BLOOD ORDERABLES Jessica l Result * HIV Ab/Ag ([place] DPH) (05/20/2025) Pathologist [facility] HIV Ag/Ab Nonreactive Blood 05/20/2025 Result [facility] MD LAB BLOOD ORDERABLES Jessica l Result * HPV DNA, Low/High Risk (01/27/2025 9:46 AM EDT) [facility] HPV High Risk Negative Negative [facility] HPV Genotype 16 Negative Negative [facility] HPV Genotype 18 Negative Negative [facility] Comment:HPV testing performe d at [facility] (CLIA#[id number]), [address] [place] [address].Testing for HPV was performed using the Eduardo [...] 9:46 AM EDT 01/28/2025 8:38 AM EDT [facility] - 02/04/2025 2:27 PM EDT Collection Date: [id number] by: YANEDL Burnette: Cervix Melody Aranda CNM LAB BLOOD ORDERABLES Jessica valencia Result [facility] [address] [place] [phone] * Pap Smear (01/27/2025 9:46 AM EDT) Swab Cervix uteri structure / Unknown 01/27/2025 9:46 AM EDT 01/28/2025 7:30 AM EDT [facility] LABS - 02/02/2025 8:29 AM EDT ----- ------- Name: Serenity Henson Age/Sex: 29/F : 1995 Unit#: [id number] Attend Dr: MELODY ARANDA CNM Re01/27/25 Status: EDGARDO REF Location: [facility] Disch: ----- ------- SPEC : [id number] RECD: 01/28/25 STATUS: DOTTY ESTRELLA NUM: [id number] DANIEL: 01/27/25 [facility] DR: MELODY ARANDA CNM ENTERED: 01/28/25-0753 SP TYPE: Pap Smr OTHR : ORDERED: Pap Smear Interpretation Satisfactory for evaluation. Negative for intraepithelial lesion or malignancy. HPV High Risk: Negative HPV Genotyping 16: Negative HPV Genotyping 18: Negative Clinical Information LMP:Unknown date Previous PAP test:2021 NIL Material Received ThinPrep-Cervical ----- ------- Signed (signature on file) LAILA Ji (ASCP) 02/02/25 0829 ----- ------- END OF REPORT Melody [facility] CYTOLOGY ORDERABLES F inal Result [facility] [address] [place] [phone] from Last 3 Months or Most Recently Relevant to Health Maintenance Insurance [facility] 2 Care Teams Net Developer Relationship Specialty Start Date End Date Viridiana Jacinto FNP [address] [place] [address] PCP - General Family Medicine 08/26/21 Diego Gtz MD [address] [place] [address] Allergy and Immunology 06/23/25 Ace Benjamin MD [address] [place] [address] [address] [place] [address] Ophthalmology 06/23/25
--- OUTSIDE RECORDS SUMMARY | 2025-07-23 15:24 | XMS_ITS | Encounter Summary ---
Author Organization [employer] Address [address] [facility] 7t [place] [address] Care Team Providers Care Honing Machine Operator Production Name Role Phone Viridiana Jacinto Primary Care Provider Diego Gtz MD Unavailable Unavailable Ace Benjamin MD Unavailable Reason for Visit * Reason Onset Date Comments Referral 01/14/2024 Encounter Details Date Type Department Care Team ([facility] st Contact Info) Description 01/14/2024 Telephone [facility] MED & PEDS [address] [place], [place] [phone] Viridiana Jacinto FNP 505 [place] [address] Referral Social History Tobacco Use Types Packs/Day [...] is requesting to be referred to a finance and administration manager. Andrea states she does not know the reasoning or dx of referral requested. Please contact pt for more information at [phone] documented in this encounter Plan of Treatment Upcoming Encounters Date Type Department Care Team (Late st Contact Info) Description 09/15/2025 1:30 PM EST Clinical Support [facility] MEDICINE [address] [place] [address] Scarlett Boo, RN [address] [place] [address] 09/22/2025 1:00 PM EST Clinical Support [facility] MED & PEDS 505 [place] [address] 01/13/2026 12:45 PM EDT Office Visit [facility] ADULT DENTAL 505 [place] [address] [place]manzar documented as of this encounter Visit Diagnoses Diagnosis Underweight in childhood- Primary History of eating disorder documented in this encounter Additional Health Concerns Assessment Noted Time PHQ-9 Depression Total Score: 12 024 10:43 AM EST documented as of this encounter Care Teams Honing Machine Operator Production Relationship Specialty Start Date End Date Viridiana Jacinto FNP [address] [place] [address] PCP - General Family Medicine 08/26/21 Diego Gtz MD [address] [place] [address] Allergy and Immunology 06/23/25 Ace Benjamin MD [address] [place] [address] [address] [place] [address] Ophthalmology 06/23/25 documented as of this encounter
--- OUTSIDE RECORDS SUMMARY | 2025-07-23 15:25 | XMS_ITS | Encounter Summary ---
Author Organization [employer] Address [address] [facility] [address] 7t [place] [address] Care Team Providers Care Maintenance Mechanic Elevators Name Role Phone Viridiana Jacinto IRVING Primary Care Provider [phone] Diego Gtz MD Unavailable Unavailable Ace Benjamin MD Unavailable [phone] Encounter Details Date Type Department Care Team (Latest Contact Info) Description 07/23/2025 Travel Social History Tobacco Use Types Packs/Day [...] Description 09/15/2025 1:30 PM EST Clinical Support [facility] MEDICINE 230 [place] [address] Scarlett Boo RN 230 [place] [address] 09/22/2025 1:00 PM EST Clinical Support [facility] MED & PEDS 505 [place] [address] 01/13/2026 12:45 PM EDT Office Visit [facility] ADULT DENTAL [address] [place] [address] [place] documented as of this encounter Visit Diagnoses Not on filedocumented in this encounter Additional Health Concerns Assessment Noted Time PHQ-9 Depression Total Score: 14 025 11:28 AM EDT documented as of this encounter Care Teams Maintenance Mechanic Elevators Relationship Specialty Start Date End Date Viridiana Jacinto FNP [address] [place] [address] PCP - General Family Medicine 08/26/21 Diego Gtz MD [address] [place] [address] Allergy and Immunology 06/23/25 Ace Benjamin MD [address] [place] [address] [address] [place] [address] Ophthalmology 06/23/25 documented as of this encounter
--- OUTSIDE RECORDS SUMMARY | 2025-07-23 15:25 | XMS_ITS | Encounter Summary ---
Author Organization [employer] Address [address] [place] [address] 7t [place] [address] Care Team Providers Care Therapeutic Dietitian Name Role Phone Viridiana Jacitno Primary Care Provider [phone] Diego Gtz MD Unavailable Unavailable Ace Benjamin MD Unavailable [phone] Reason for Referral * Medications - Closed Specialty Diagnoses / Procedures Referred By Contquoc t Referred To Contact Diagnoses On pre-exposure prophylaxis for HIV Viridiana Jacinto FNP 505 [place] [address] Phone: tel: fax: Referral ID Status Reason Start Date Expiration Date Visits Re quested Visits Authorized [id number] Closed 1 1 Reason for Visit * Reason Onset Date Comments Med Refill 07/21/2025 Encounter Details Date Type Department Care Team (Late st Contact Info) Description 07/21/2025 Refill [facility] MEDICINE 230 [place] [address] Scarlett Boo, FILIBERTO 230 [place] [address] On pre-exposure prophylaxis for HIV Social History [...] Description 09/15/2025 1:30 PM EST Clinical Support [facility] MEDICINE 230 [place] [address] Scarlett Boo, FILIBERTO 230 [place] [address] 09/22/2025 1:00 PM EST Clinical Support [facility] MED & PEDS [address] [place] [address] 01/13/2026 12:45 PM EDT Office Visit [facility] ADULT DENTAL [address] [place] [address] [place]manzar documented as of this encounter Visit Diagnoses Diagnosis On pre-exposure prophylaxis for HIV documented in this encounter Additional Health Concerns Assessment Noted Time PHQ-9 Depression Total Score: 14 025 11:28 AM EDT documented as of this encounter Care Teams Therapeutic Dietitian Relationship Specialty Start Date End Date Viridiana Jacinto FNP 230 [place] [address] PCP - General Family Medicine 08/26/21 Diego Gtz MD [address] [place] [address] Allergy and Immunology 06/23/25 Ace Benjamin MD [address] [place] [address] [address] [place] [address] Ophthalmology 06/23/25 documented as of this encounter
--- OUTSIDE RECORDS SUMMARY | 2025-07-23 15:25 | XMS_ITS | Encounter Summary ---
Author Organization [employer] Address 75 [facility] 7t [place] [address] Care Team Providers Care Manager Retail Sales Name Role Phone Viridiana Jacinto Primary Care Provider Diego Gtz MD Unavailable Unavailable Ace Benjamin MD Unavailable [phone] Encounter Details Date Type Department Care Team ([facility] st Contact Info) Description 05/20/2025 Results Follow-Up [facility] CHC MED & PEDS 505 [place], [place] [phone] Viridiana Jacinto FNP 505 [place] [address] Hepatic Function Panel Social History Tobacco Use Types Packs/Day Years [...] Description 09/15/2025 1:30 PM EST Clinical Support [facility] MEDICINE 230 [place] [address] Scarlett Boo, RN 230 [place] [address] 09/22/2025 1:00 PM EST Clinical Support [facility] MED & PEDS 505 [place] [address] 01/13/2026 12:45 PM EDT Office Visit [facility] ADULT DENTAL 505 [place] [address] [place] documented as of this encounter Visit Diagnoses Not on filedocumented in this encounter Additional Health Concerns Assessment Noted Time PHQ-9 Depression Total Score: 14 025 11:28 AM EDT documented as of this encounter Care Teams Manager Retail Sales Relationship Specialty Start Date End Date Viridiana Jacinto FNP 230 [place] [address] PCP - General Family Medicine 08/26/21 Diego Gtz MD [address] [place] [address] Allergy and Immunology 06/23/25 Ace Benjamin MD [address] [place] [address] [address] [place] [address] Ophthalmology 06/23/25 documented as of this encounter
--- OUTSIDE RECORDS SUMMARY | 2025-07-23 15:25 | XMS_ITS | Encounter Summary ---
Author Organization [employer] Address [address] [facility] 7t [place] [address] Care Team Providers Care Corporate Development Officer Name Role Phone Viridiana Jacinto IRVING Primary Care Provider [phone] Diego Gtz MD Unavailable Unavailable Ace Benjamin MD Unavailable Encounter Details Date Type Department Care Team (Late st Contact Info) Description 11/15/2023 Orders Only [facility] CHC MED & PEDS [address] [place] [address] Soni Rashid, WILLIAMS 230 [place] [address] Encntr screen for infections w sexl mode [...] Description 09/15/2025 1:30 PM EST Clinical Support [facility] MEDICINE 230 [place] [address] Scarlett Boo, RN 230 [place] [address] 09/22/2025 1:00 PM EST Clinical Support [facility] MED & PEDS 505 [place] [address] 01/13/2026 12:45 PM EDT Office Visit [facility] ADULT DENTAL 505 [place] [address] [place] documented as of this encounter Procedures Procedure Name Priority Date/Time Associated Diagnosis Comments RPR (MONITOR) W/REFL TITER Routine 11/21/2023 12:26 PM EST Encntr screen for infections w sexl mode of transmiss documented in this encounter Results * RPR (Monitor) with Reflex to??Titer (11/21/2023 12:26 PM EST) RPR (Monitor) w/Refl Titer NON-REACTI VE NON-REACT HERACLIO [facility] Comment:THIS TEST WAS PERFOR MED AT:[facility] [place] [id number] SILVA MD Rapid Plasma Reagin Ab Titer TNP [facility] Blood Venous blood specimen / Unknown 11/21/2023 12:26 PM EST 11/21/2023 1:25 PM EST us [facility] BLOOD ORDERABLES Jessica valencia Result [facility] [address] [place] [address] [phone] documented in this encounter Visit Diagnoses Diagnosis Encntr screen for infections w sexl mode of transmiss- Primary documented in this encounter Additional Health Concerns Assessment Noted Time PHQ-9 Depression Total Score: 12 024 10:43 AM EST documented as of this encounter Care Teams Corporate Development Officer Relationship Specialty Start Date End Date Viridiana Jacinto FNP [address] [place] [address] PCP - General Family Medicine 08/26/21 Diego Gtz MD [address] [place] [address] Allergy and Immunology 06/23/25 Ace Benjamin MD [address] [place] [address] [address] [place] [address] Ophthalmology 06/23/25 documented as of this encounter
--- OUTSIDE RECORDS SUMMARY | 2025-07-23 15:25 | XMS_ITS | Encounter Summary ---
Author Organization [facility] [facility] Address [address] [place] [address] 7t [place] [address] Care Team Providers Care Edge Baster Name Role Phone Viridiana Jacinto Primary Care Provider [phone] iDego Gtz MD Unavailable Unavailable Ace Benjamin MD Unavailable [phone] Encounter Details Date Type Department Care Team (Latest Contact Info) Description 12/18/2018 Abstract [facility] CONVERSIONS Dental, Provider, DDS Social History [...] Description 09/15/2025 1:30 PM EST Clinical Support [facility] MEDICINE 230 [place] [address] Scarlett Boo, FILIBERTO 230 [place] [address] 09/22/2025 1:00 PM EST Clinical Support [facility] MED & PEDS 505 [place] [address] 01/13/2026 12:45 PM EDT Office Visit [facility] ADULT DENTAL 505 [place] [address] [place] documented as of this encounter Visit Diagnoses Not on filedocumented in this encounter Care Teams Edge Baster Relationship Specialty Start Date End Date Viridiana Jacinto FNP 230 [place] [address] PCP - General Family Medicine 08/26/21 Diego Gtz MD [address] [place] [address] Allergy and Immunology 06/23/25 Ace Benjamin MD [address] [place] [address] Ophthalmology 06/23/25 documented as of this encounter
--- OUTSIDE RECORDS SUMMARY | 2025-07-23 15:25 | XMS_ITS | Encounter Summary ---
Author Organization [employer] Address [address] [facility] 7t [place] [address] Care Team Providers Care Java Developer Architect Name Role Phone Viridiana Jacinto SENIOR INFORMATICA ETL DEVELOPER Primary Care Provider [phone] Diego Gtz MD Unavailable Unavailable Ace Benjamin MD Unavailable [phone] Encounter Details Date Type Department Care Team (Late st Contact Info) Description 03/16/2023 Orders Only [facility] CHC MED & PEDS 505 [place], [place] [phone] Elly Harmon LPN Social History Tobacco Use [...] Description 09/15/2025 1:30 PM EST Clinical Support [facility] MEDICINE 230 [place], [place] [phone] Scarlett Boo, FILIBERTO 230 [place] [address] 09/22/2025 1:00 PM EST Clinical Support [facility] MED & PEDS 505 [place], [place] [phone] 01/13/2026 12:45 PM EDT Office Visit [facility] ADULT DENTAL [address] [place] [address] [place] documented as of this encounter Visit Diagnoses Not on filedocumented in this encounter Care Teams Java Developer Architect Relationship Specialty Start Date End Date Viridiana Jacinto FNP 230 [place] [address] PCP - General Family Medicine 08/26/21 Diego Gtz MD [address] [place] [address] Allergy and Immunology 06/23/25 Ace Benjamin MD [address] [place] [address] [address] [place] [address] Ophthalmology 06/23/25 documented as of this encounter
--- OUTSIDE RECORDS SUMMARY | 2025-07-23 15:25 | XMS_ITS | Encounter Summary ---
Author Organization [employer] Address [address] [place] [address] 7t [place] [address] Care Team Providers Care Sales Market Leader Name Role Phone Viridiana Jacinto SHEETER HELPER Primary Care Provider Diego Gtz MD Unavailable Unavailable Ace Benjamin MD Unavailable [phone] Encounter Details Date Type Department Care Team (Late st Contact Info) Description 07/19/2023 Orders Only [facility] MEDICINE [address] [place] [address] Brianna Sue ANP 230 [place], [place] [phone] Social History Tobacco Use Types Packs/Day Years [...] Description 09/15/2025 1:30 PM EST Clinical Support [facility] MEDICINE [address] [place] [address] Scarlett Boo, FILIBERTO 230 [place] [address] 09/22/2025 1:00 PM EST Clinical Support [facility] MED & PEDS [address] [place] [address] 01/13/2026 12:45 PM EDT Office Visit [facility] ADULT DENTAL [address] [place] [address] [place] documented as of this encounter Visit Diagnoses Not on filedocumented in this encounter Additional Health Concerns Assessment Noted Time PHQ-9 Depression Total Score: 16 023 2:56 PM EDT documented as of this encounter Care Teams Sales Market Leader Relationship Specialty Start Date End Date Viridiana Jacinto FNP [address] [place] [address] PCP - General Family Medicine 08/26/21 Diego Gtz MD [address] [place] [address] Allergy and Immunology 06/23/25 Ace Benjamin MD [address] [place] [address] [address] [place] [address] Ophthalmology 06/23/25 documented as of this encounter
--- OUTSIDE RECORDS SUMMARY | 2025-07-23 15:25 | XMS_ITS | Encounter Summary ---
Author Organization [employer] Address [address] [facility] 7t [place] [address] Care Team Providers Care Cruller Maker Name Role Phone Viridiana Jacinto Primary Care Provider [phone] Diego Gtz MD Unavailable Unavailable Ace Benjamin MD Unavailable [phone] Reason for Visit * Reason Comments Med Refill Encounter Details Date Type Department Care Team ([facility] st Contact Info) Description 07/17/2025 Refill [facility] MEDICINE 230 [place] [address] Viridiana Jacinto FNP [address] [place] [address] On pre-exposure prophylaxis for HIV Social History [...] Description 09/15/2025 1:30 PM EST Clinical Support [facility] MEDICINE 230 [place] [address] Scarlett Boo, FILIBERTO [address] [place] [address] 09/22/2025 1:00 PM EST Clinical Support [facility] MED & PEDS 505 [place] [address] 01/13/2026 12:45 PM EDT Office Visit [facility] ADULT DENTAL 505 [place] [address] [place] documented as of this encounter Visit Diagnoses Diagnosis On pre-exposure prophylaxis for HIV documented in this encounter Additional Health Concerns Assessment Noted Time PHQ-9 Depression Total Score: 14 025 11:28 AM EDT documented as of this encounter Care Teams Cruller Maker Relationship Specialty Start Date End Date Viridiana Jacinto FNP 230 [place] [address] PCP - General Family Medicine 08/26/21 Diego Gtz MD [address] [place] [address] Allergy and Immunology 06/23/25 Ace Benjamin MD [address] [place] [address] [address] [place] [address] Ophthalmology 06/23/25 documented as of this encounter
--- OUTSIDE RECORDS SUMMARY | 2025-07-23 15:25 | XMS_ITS | Encounter Summary ---
Author Organization [employer] Address 75 [facility] 7t [place] [address] Care Team Providers Care Batch Mixer Operator Name Role Phone Viridiana Jacinto Primary Care Provider [phone] Diego Gtz MD Unavailable Unavailable Ace Benjamin MD Unavailable [phone] Reason for Visit * Reason Comments Med Refill Encounter Details Date Type Department Care Team ([facility] st Contact Info) Description 07/20/2025 Refill [facility] MEDICINE [address] [place] [address] Viridiana Jacinto FNP [address] [place] [address] On pre-exposure prophylaxis for HIV Social History [...] Description 09/15/2025 1:30 PM EST Clinical Support [facility] MEDICINE [address] [place] [address] Scarlett Boo, FILIBERTO [address] [place] [address] 09/22/2025 1:00 PM EST Clinical Support [facility] MED & PEDS 505 [place] [address] 01/13/2026 12:45 PM EDT Office Visit [facility] ADULT DENTAL 505 [place] [address] [place] documented as of this encounter Visit Diagnoses Diagnosis On pre-exposure prophylaxis for HIV documented in this encounter Additional Health Concerns Assessment Noted Time PHQ-9 Depression Total Score: 14 025 11:28 AM EDT documented as of this encounter Care Teams Batch Mixer Operator Relationship Specialty Start Date End Date Viridiana Jacinto FNP [address] [place] [address] PCP - General Family Medicine 08/26/21 Diego Gtz MD [address] [place] [address] Allergy and Immunology 06/23/25 Ace Benjamin MD [address] [place] [address] [address] [place] [address] Ophthalmology 06/23/25 documented as of this encounter
--- OUTSIDE RECORDS SUMMARY | 2025-07-23 15:25 | XMS_ITS | Encounter Summary ---
Author Organization [employer] [facility] Address [address] [place] [address] 7t [place] [address] Care Team Providers Care Vp Product Management Name Role Phone Viridiana Jacinto Primary Care Provider [phone] Diego Gtz MD Unavailable Unavailable Ace Benjamin MD Unavailable [phone] Encounter Details Date Type Department Care Team (Latest Contact Info) Description 11/11/2021 Abstract [facility] CONVERSIONS Dental, Provider, DDS Social History [...] 1:30 PM EST Clinical Support [facility] MEDICINE 230 [place] [address] Scarlett Boo, FILIBERTO [address] [place] [address] 09/22/2025 1:00 PM EST Clinical Support [facility] MED & PEDS 505 [place] [address] 01/13/2026 12:45 PM EDT Office Visit [facility] ADULT DENTAL 505 [place] [address] [place] documented as of this encounter Visit Diagnoses Not on filedocumented in this encounter Care Teams Vp Product Management Relationship Specialty Start Date End Date Viridiana Jacinto FNP 230 [place] [address] PCP - General Family Medicine 08/26/21 Diego Gtz MD [address] [place] [address] Allergy and Immunology 06/23/25 Ace Benjamin MD [address] [place] [address] Ophthalmology 06/23/25 documented as of this encounter
--- OUTSIDE RECORDS SUMMARY | 2025-07-23 15:25 | XMS_ITS | Encounter Summary ---
Author Organization [employer] Address 75 [facility] 7t [place] [address] Care Team Providers Care Shaving Machine Operator Name Role Phone Viridiana Jacinto Primary Care Provider [phone] Diego Gtz MD Unavailable Unavailable Ace Benjamin MD Unavailable [phone] Encounter Details Date Type Department Care Team ([facility] st Contact Info) Description 03/24/2025 Orders Only [facility] CHC MED & PEDS 505 [place], [place] [phone] Viridiana Jacinto FNP 505 [place] [address] Social History Tobacco Use Types Packs/Day Years [...] Description 09/15/2025 1:30 PM EST Clinical Support [facility] MEDICINE [address] [place] [address] Scarlett Boo, RN [address] [place] [address] 09/22/2025 1:00 PM EST Clinical Support [facility] MED & PEDS 505 [place] [address] 01/13/2026 12:45 PM EDT Office Visit [facility] ADULT DENTAL 505 [place] [address] [place] documented as of this encounter Visit Diagnoses Not on filedocumented in this encounter Additional Health Concerns Assessment Noted Time PHQ-9 Depression Total Score: 14 025 11:28 AM EDT documented as of this encounter Care Teams Shaving Machine Operator Relationship Specialty Start Date End Date Viridiana Jacinto FNP [address] [place] [address] PCP - General Family Medicine 08/26/21 Diego Gtz MD [address] [place] [address] Allergy and Immunology 06/23/25 Ace Benjamin MD [address] [place] [address] [address] [place] [address] Ophthalmology 06/23/25 documented as of this encounter
--- OUTSIDE RECORDS SUMMARY | 2025-07-23 15:25 | XMS_ITS | Encounter Summary ---
Author Organization [employer] Address 75 [facility] 7t [place] [address] Care Team Providers Care Matlab Developer Name Role Phone Viridiana Jacinto IRVING Primary Care Provider [phone] Diego Gtz MD Unavailable Unavailable Ace Benjamin MD Unavailable [phone] Reason for Visit * Reason Onset Date Comments Med Refill 09/10/2024 Encounter Details Date Type Department Care Team (Late st Contact Info) Description 09/10/2024 Refill [facility] MEDICINE [address] [place] [address] Brina Liz MD 230 [place] [address] On pre-exposure prophylaxis for HIV Social History [...] the past 12 months, has t he [employer], gas, oil or water company threatened to [...] [facility] 230 [place] [address] Scarlett Boo, RN 230 [place] [address] 09/22/2025 1:00 PM EST Clinical Support [facility] MED & PEDS 505 [place] [address] 01/13/2026 12:45 PM EDT Office Visit [facility] ADULT DENTAL 505 [place] [address] Thompson Almanzar documented as of this encounter Visit Diagnoses Diagnosis On pre-exposure prophylaxis for HIV documented in this encounter Additional Health Concerns Assessment Noted Time PHQ-9 Depression Total Score: 18 05/02/ 024 2:52 PM EDT documented as of this encounter Care Teams Matlab Developer Relationship Specialty Start Date End Date Viridiana Jacinto FNP 230 [place] [address] PCP - General Family Medicine 08/26/21 Diego Gtz MD [address] [place] [address] Allergy and Immunology 06/23/25 Ace Benjamin MD [address] [place] [address] Ophthalmology 06/23/25 documented as of this encounter
[2025-07-24 08:59] LABS: ~HepC Num1 0.10 S/CO (0.00-0.79); ~Hepatitis C Antibody Nonreactive (Nonreactive)
[2025-07-24 15:33] LABS: HIV RNA PCR Qn Copies NOT DETECTED copies/mL (NOT DETECTED); HIV RNA PCR Qn Log Copies NOT DETECTED (NOT DETECTED)
== END 2025-07-23 13:24 | disposition home or self-care (01) ==
LOC: HO.HHCL 13:23
PROVIDERS: PCP Registered Nurse; Visit Provider Registered Nurse
DX: Z11.4 Encounter for screening for human immunodeficiency virus [HIV] (principal); Z11.3 Encounter for screening for infections with a predominantly sexual mode of transmission; Z11.59 Encounter for screening for other viral diseases; Z79.899 Other long term (current) drug therapy
CPT/HCPCS: 36415; 84702; 86592; 86803; 87536

== ENCOUNTER 2025-08-11 16:13 | Outpatient (REF) | payer OTHER, SELFPAY ==
--- OUTSIDE RECORDS SUMMARY | 2025-08-11 15:20 | XMS_ITS | Encounter Summary ---
Author Organization [employer] Address [address] [place] [address] 7t [place] [address] Care Team Providers Care Astronomy Instructor Name Role Phone Viridiana Jacinto IRVING Primary Care Provider [phone] Diego Gtz MD Unavailable Unavailable Ace Benjamin MD Unavailable [phone] Encounter Details Date Type Department Care Team ([facility] st Contact Info) Description 08/11/2025 3:20 PM EDT Office Visit [facility] MED & PEDS 505 [place], [place] [phone] Nicki Almanzar MD 505 [place] [address] Vaginal bleeding, abnormal (Primary Dx) Social History Tobacco Use Types [...] Sign Reading Time Taken Comments Blood Pressure 119/68 08/11/2025 3:36 PM EDT Pulse 96 08/11/2025 3:36 PM EDT Temperature - - Respiratory Rate 20 08/11/2025 3:36 PM EDT Oxygen Saturation 98% 08/11/2025 3:36 PM EDT Inhaled Oxygen Concentration - - Weight 56.2 kg (124 lb) 08/11/2025 3:36 PM EDT Height 154.9 cm (5' 1 ) 08/11/2025 3:36 PM EDT Body Mass Index 23.43 08/11/2025 3:36 PM EDT documented in this encounter Plan of Treatment Upcoming Encounters Date Type Department Care Team (Late st Contact Info) Description 09/15/2025 1:30 PM EST Clinical Support [facility] MEDICINE 230 [place] [address] Scarlett Boo, RN 230 [place] [address] 09/22/2025 1:00 PM EST Clinical Support [facility] MED [facility]EDS [address] [place] [address] 01/13/2026 12:45 PM EDT Office Visit [facility] ADULT DENTAL 505 [place] [address] Thompson Almanzar Scheduled Orders Name Type Priority Associated Diagnoses Orde r Schedule Culture, Urine, Routine Microbiology Routine Vaginal bleeding, abnormal Expected: 08/11/2025 (Approximate), Expires: 08/11/2026 documented as of this encounter Procedures Procedure Name Priority Date/Time Associated Diagnosis Comments POCT URINALYSIS DIPSTICK Routine 08/11/2025 4:11 PM EDT Vaginal bleeding, abnormal documented in this encounter Results * (ABNORMAL) POCT Urinalysis (08/11/2025 4:11 PM EDT) Color, UA Yellow Clarity, UA Clear Glucose, UA Negative Bilirubin, UA Negative Ketones, UA Positive Comment:trace Spec Grav, UA 1.025 Blood, UA Positive(A) Negative, None Detected Comment:large pH, UA 7.0 Protein, UA 1+ 70+ Urobilinogen, UA 0.2 Leukocytes, UA Trace Negative, Rare, Trace Comment:small Nitrite, UA Negative Negative, None Detected Appearance, UA clear QC Media Lot # [id number] Lot# Expiration Date [id number] Urine 08/11/2025 4:11 PM EDT Nicki Almanzar MD POINT OF CARE TEST ENTER/ED IT ORDERABLES Edited Result - Final documented in this encounter Visit Diagnoses Diagnosis Vaginal bleeding, abnormal- Primary Other specified noninflammatory disorder of vagina documented in this encounter Additional Health Concerns Assessment Noted Time PHQ-9 Depression Total Score: 14 01/26/ 025 11:28 AM EDT documented as of this encounter Care Teams Astronomy Instructor Relationship Specialty Start Date End Date Viridiana Jacinto FNP [address] [place] [address] PCP - General Family Medicine 08/26/21 Diego Gtz MD [address] [place] [address] Allergy and Immunology 06/23/25 Ace Benjamin MD [address] [place] [address] [address] [place] [address] Ophthalmology 06/23/25 documented as of this encounter
--- OUTSIDE RECORDS SUMMARY | 2025-08-11 18:51 | XMS_ITS | Encounter Summary ---
Author Organization [employer] Address [address] [facility] [address] 7t [place] [address] Care Team Providers Care Professor Of Kinesiology Name Role Phone Viridiana Jacinto IRVING Primary Care Provider [phone] Diego Gtz MD Unavailable Unavailable Ace Benjamin MD Unavailable [phone] Encounter Details Date Type Department Care Team (Latest Contact Info) Description 08/11/2025 Travel Social History Tobacco Use Types Packs/Day [...] Description 09/15/2025 1:30 PM EST Clinical Support [facility] MEDICINE 230 [place] [address] Scarlett Boo RN 230 [place] [address] 09/22/2025 1:00 PM EST Clinical Support [facility] MED & PEDS 505 [place] [address] 01/13/2026 12:45 PM EDT Office Visit [facility] ADULT DENTAL 505 [place] [address] Thompson Almanzar documented as of this encounter Visit Diagnoses Not on filedocumented in this encounter Additional Health Concerns Assessment Noted Time PHQ-9 Depression Total Score: 14 025 11:28 AM EDT documented as of this encounter Care Teams Professor Of Kinesiology Relationship Specialty Start Date End Date Viridiana Jacinto FNP 230 [place] [address] PCP - General Family Medicine 08/26/21 Diego Gtz MD [address] [place] [address] Allergy and Immunology 06/23/25 Ace Benjamin MD [address] [place] [address] [address] [place] [address] Ophthalmology 06/23/25 documented as of this encounter
--- OUTSIDE RECORDS SUMMARY | 2025-08-11 18:51 | XMS_ITS | Encounter Summary ---
Author Organization [employer] Address 75 [facility] 7t [place] [address] Care Team Providers Care Marble Polisher Name Role Phone Viridiana Jacinto Primary Care Provider [phone] Diego Gtz MD Unavailable Unavailable Ace Benjamin MD Unavailable [phone] Reason for Visit * Reason Comments Med Refill Encounter Details Date Type Department Care Team (Late st Contact Info) Description 07/17/2025 Refill [facility] MEDICINE [address] [place] [address] Viridiana Jacinto FNP [address] [place] [address] On pre-exposure prophylaxis for HIV Social History [...] Description 09/15/2025 1:30 PM EST Clinical Support [facility] MEDICINE 230 [place] [address] Scarlett Boo, FILIBERTO 230 [place] [address] 09/22/2025 1:00 PM EST Clinical Support [facility] MED & PEDS 505 [place] [address] 01/13/2026 12:45 PM EDT Office Visit [facility] ADULT DENTAL 505 [place] [address] Thompson Almanzar documented as of this encounter Visit Diagnoses Diagnosis On pre-exposure prophylaxis for HIV documented in this encounter Additional Health Concerns Assessment Noted Time PHQ-9 Depression Total Score: 14 025 11:28 AM EDT documented as of this encounter Care Teams Marble Polisher Relationship Specialty Start Date End Date Viridiana Jacinto FNP 230 [place] [address] PCP - General Family Medicine 08/26/21 Diego Gtz MD [address] [place] [address] Allergy and Immunology 06/23/25 Ace Benjamin MD [address] [place] [address] [address] [place] [address] Ophthalmology 06/23/25 documented as of this encounter
--- OUTSIDE RECORDS SUMMARY | 2025-08-11 18:51 | XMS_ITS | Encounter Summary ---
Author Organization [employer] Address 75 [facility] 7t [place] [address] Care Team Providers Care Mumps Developer Name Role Phone Viridiana Jacinto MASTER [employer] SECURITY Primary Care Provider [phone] Diego Gtz MD Unavailable Unavailable Ace Benjamin MD Unavailable [phone] Reason for Visit * Reason Onset Date Comments Nurse Triage 08/11/2025 Encounter Details Date Type Department Care Team ([facility] Contact Info) Description 08/11/2025 Telephone [facility] MED & PEDS 505 [place], [place] [phone] Viridiana Jacinto FNP 505 [place] [address] Nurse Triage Social History Tobacco Use Types [...] the past 12 months, has t he [employer], gas, oil or water [employer] threatened to shut off services in your [...] encounter Miscellaneous Notes * Telephone Encounter - Char Armstrong RN - 08/11/2025 1:34 PM EDT TC to pt. Pt reporting that when she is wiping after urinating, she is noticing pink on tissue paper and states that she doesn't have menses due to being on Depo. Pt states that she was tested for STIs a couple of weeks ago that were negative. Pt states that it does not feel like her menses. Pt does report burning with urination and strong foul smelling urine. SDC appt offered and scheduled for today. Advised for pt to stay hydrated and to contact office if worsening symptoms. Pt verbalized understanding and agreement with plan. Protocol Used: Vaginal Bleeding - Abnormal (Adult) Protocol-Based Disposition: See in Office or Video Visit Today Video visit offer not recorded Positive Triage Questions: * Patient wants to be seen * Using Depo-Provera subdermal implant * All higher-acuity triage questions were negative Care Advice Discussed: * Reasons To Call Back * Reassurance and Education - Implanon or Depo-Provera Protocol Used: Urinary Symptoms (Adult) Protocol-Based Disposition: See in Office or Video Visit Today Video visit offer not recorded Positive Triage Questions: * Bad or foul-smelling urine * All other urine symptoms * All higher-acuity triage questions were negative * Telephone Encounter - Princess Wong - 08/11/2025 12:30 PM EDT Tc from pt retuning call Contact pt at [phone] * Telephone Encounter - Tika Davila RN - 08/11/2025 11:11 AM EDT Telephone call placed to pt. No answer, left v/m. * Telephone Encounter - Jordon Bernal - 08/11/2025 11:05 AM EDT Symptom: Vaginal Bleeding - Not Outcome: Schedule an appointment to be seen within 24 hours Reason: Caller denied all higher acuity questions The caller accepted this outcome. Contact pt at [phone] (niuean) documented in this encounter Plan of Treatment Upcoming Encounters Date Type Department Care Team (Late st Contact Info) Description 09/15/2025 1:30 PM EST Clinical Support [facility] MEDICINE [address] [place] [address] Scarlett Boo, RN [address] [place] [address] 09/22/2025 1:00 PM EST Clinical Support [facility] MED & PEDS 505 [place] [address] 01/13/2026 12:45 PM EDT Office Visit [facility] ADULT DENTAL [address] [place] [address] Thompson Almanzar documented as of this encounter Visit Diagnoses Not on filedocumented in this encounter Additional Health Concerns Assessment Noted Time PHQ-9 Depression Total Score: 14 025 11:28 AM EDT documented as of this encounter Care Teams Mumps Developer Relationship Specialty Start Date End Date Viridiana Jacinto FNP [address] [place] [address] PCP - General Family Medicine 08/26/21 Diego Gtz MD [address] [place] [address] Allergy and Immunology 06/23/25 Ace Benjamin MD [address] [place] [address] 201 [place] [address] Ophthalmology 06/23/25 documented as of this encounter
--- OUTSIDE RECORDS SUMMARY | 2025-08-11 18:51 | XMS_ITS | Encounter Summary ---
Author Organization [employer] Address [address] [facility] [facility] [address] 7t [place] [address] Care Team Providers Care Harvesting Manager Name Role Phone Viridiana Jacinto IRVING Primary Care Provider [phone] Diego Gtz MD Unavailable Unavailable Ace Benjamin MD Unavailable [phone] Encounter Details Date Type Department Care Team (Late st Contact Info) Description 07/28/2025 Orders Only [facility] MEDICINE 230 [place], [place] [phone] Tabitha De Luna RN Social History Tobacco Use Types Packs/Day Years [...] 09/15/2025 1:30 PM EST Clinical Support [facility] MEDICINE 230 [place] [address] Scarlett Boo, RN 230 [place] [address] 09/22/2025 1:00 PM EST Clinical Support [facility] MED & PEDS 505 [place] [address] 01/13/2026 12:45 PM EDT Office Visit [facility] ADULT DENTAL 505 [place] [address] Thompson Almanzar documented as of this encounter Visit Diagnoses Not on filedocumented in this encounter Additional Health Concerns Assessment Noted Time PHQ-9 Depression Total Score: 14 025 11:28 AM EDT documented as of this encounter Care Teams Harvesting Manager Relationship Specialty Start Date End Date Viridiana Jacinto FNP [address] [place] [address] PCP - General Family Medicine 08/26/21 Diego Gtz MD [address] [place] [address] Allergy and Immunology 06/23/25 Ace Benjamin MD [address] [facility] [address] [facility] [address] [place] [address] Ophthalmology 06/23/25 documented as of this encounter
--- OUTSIDE RECORDS SUMMARY | 2025-08-11 18:51 | XMS_ITS | Encounter Summary ---
Author Organization [employer] Address 75 [facility] 7t [place] [address] Care Team Providers Care Casting Operator Helper Name Role Phone Viridiana Jacinto IRVING Primary Care Provider [phone] Diego Gtz MD Unavailable Unavailable Ace Benjamin MD Unavailable [phone] Encounter Details Date Type Department Care Team (Late st Contact Info) Description 11/15/2023 Orders Only [facility] MED & PEDS [address] [place] [address] Soni Rashid, WILLIAMS [address] [place] [address] Encntr screen for infections w sexl mode [...] Description 09/15/2025 1:30 PM EST Clinical Support [facility] MEDICINE [address] [place] [address] Scarlett Boo, RN [address] [place] [address] 09/22/2025 1:00 PM EST Clinical Support [facility] MED & PEDS 505 [place] [address] 01/13/2026 12:45 PM EDT Office Visit [facility] ADULT DENTAL 505 [place] [address] Thompson Almanzar documented as of this encounter Procedures Procedure Name Priority Date/Time Associated Diagnosis Comments RPR (MONITOR) W/REFL TITER Routine 11/21/2023 12:26 PM EST Encntr screen for infections w sexl mode of transmiss documented in this encounter Results * RPR (Monitor) with Reflex to??Titer (11/21/2023 12:26 PM EST) RPR (Monitor) w/Refl Titer NON-REACTI VE NON-REACT HERACLIO [facility] Comment:THIS TEST WAS PERFOR MED AT:[facility] [place] [id number] SILVA MD Rapid Plasma Reagin Ab Titer TNP [facility] Blood Venous blood specimen / Unknown 11/21/2023 12:26 PM EST 11/21/2023 1:25 PM EST us Soni [facility] BLOOD ORDERABLES Jessica valencia Result [facility] [address] [place] [address] [phone] documented in this encounter Visit Diagnoses Diagnosis Encntr screen for infections w sexl mode of transmiss- Primary documented in this encounter Additional Health Concerns Assessment Noted Time PHQ-9 Depression Total Score: 12 024 10:43 AM EST documented as of this encounter Care Teams Casting Operator Helper Relationship Specialty Start Date End Date Viridiana Jacinto FNP [address] [place] [address] PCP - General Family Medicine 08/26/21 Diego Gtz MD [address] [place] [address] Allergy and Immunology 06/23/25 Ace Benjamin MD [address] [place] [address] [address] [place] [address] Ophthalmology 06/23/25 documented as of this encounter
--- OUTSIDE RECORDS SUMMARY | 2025-08-11 18:51 | XMS_ITS | Encounter Summary ---
Author Organization [employer] Address 75 [facility] 7t [place] [address] Care Team Providers Care Equipment Oiler Name Role Phone Viridiana Jacinto Primary Care Provider [phone] Diego Gtz MD Unavailable Unavailable Ace Benjamin MD Unavailable [phone] Reason for Visit * Reason Comments Med Refill Encounter Details Date Type Department Care Team (Late st Contact Info) Description 07/20/2025 Refill [facility] MEDICINE 230 [place] [address] Viridiana Jacinto FNP [address] [place] [address] On pre-exposure prophylaxis for HIV Social History [...] Description 09/15/2025 1:30 PM EST Clinical Support [facility] MEDICINE 230 [place] [address] Scarlett Boo, FILIBERTO 230 [place] [address] 09/22/2025 1:00 PM EST Clinical Support [facility] MED & PEDS 505 [place] [address] 01/13/2026 12:45 PM EDT Office Visit [facility] ADULT DENTAL 505 [place] [address] Thompson Almanzar documented as of this encounter Visit Diagnoses Diagnosis On pre-exposure prophylaxis for HIV documented in this encounter Additional Health Concerns Assessment Noted Time PHQ-9 Depression Total Score: 14 025 11:28 AM EDT documented as of this encounter Care Teams Equipment Oiler Relationship Specialty Start Date End Date Viridiana Jacinto FNP 230 [place] [address] PCP - General Family Medicine 08/26/21 Diego Gtz MD [address] [place] [address] Allergy and Immunology 06/23/25 Ace Benjamin MD [address] [place] [address] [address] [place] [address] Ophthalmology 06/23/25 documented as of this encounter
--- OUTSIDE RECORDS SUMMARY | 2025-08-11 18:51 | XMS_ITS | Encounter Summary ---
Author Organization [employer] Address 75 [facility] 7t [place] [address] Care Team Providers Care Airconditioning Plant Operator Name Role Phone Viridiana Jacinto Primary Care Provider [phone] Diego Gtz MD Unavailable Unavailable Ace Benjamin MD Unavailable [phone] Encounter Details Date Type Department Care Team ([facility] st Contact Info) Description 03/24/2025 Orders Only [facility] MED & PEDS 505 [place], [place] [phone] Viridiana Jacinto FNP 505 [place] [address] Social History Tobacco Use Types Packs/Day Years [...] Description 09/15/2025 1:30 PM EST Clinical Support [facility] MEDICINE 230 [place] [address] Scarlett Boo, RN [address] [place] [address] 09/22/2025 1:00 PM EST Clinical Support [facility] MED & PEDS 505 [place] [address] 01/13/2026 12:45 PM EDT Office Visit [facility] ADULT DENTAL 505 [place] [address] Thompson Almanzar documented as of this encounter Visit Diagnoses Not on filedocumented in this encounter Additional Health Concerns Assessment Noted Time PHQ-9 Depression Total Score: 14 025 11:28 AM EDT documented as of this encounter Care Teams Airconditioning Plant Operator Relationship Specialty Start Date End Date Viridiana Jacinto FNP [address] [place] [address] PCP - General Family Medicine 08/26/21 Diego Gtz MD [address] [place] [address] Allergy and Immunology 06/23/25 Ace Benjamin MD [address] [place] [address] [address] [place] [address] Ophthalmology 06/23/25 documented as of this encounter
--- OUTSIDE RECORDS SUMMARY | 2025-08-11 18:51 | XMS_ITS | Encounter Summary ---
Author Organization [employer] [facility] Address [address] [place] [address] 7t [place] [address] Care Team Providers Care General Merchandise Manager Name Role Phone Viridiana Jacinto Primary Care Provider [phone] Diego Gtz MD Unavailable Unavailable Ace Benjamin MD Unavailable [phone] Encounter Details Date Type Department Care Team (Latest Contact Info) Description 12/18/2018 Abstract [facility] CONVERSIONS Dental, Provider, DDS Social History Tobacco [...] Description 09/15/2025 1:30 PM EST Clinical Support [facility] MEDICINE [address] [place] [address] Scarlett Boo, FILIBERTO [address] [place] [address] 09/22/2025 1:00 PM EST Clinical Support [facility] MED & PEDS 505 [place] [address] 01/13/2026 12:45 PM EDT Office Visit [facility] ADULT DENTAL 505 [place] [address] Thompson Almanzar documented as of this encounter Visit Diagnoses Not on filedocumented in this encounter Care Teams General Merchandise Manager Relationship Specialty Start Date End Date Viridiana Jacinto FNP 230 [place] [address] PCP - General Family Medicine 08/26/21 Diego Gtz MD [address] [place] [address] Allergy and Immunology 06/23/25 Ace Benjamin MD [address] [place] [address] Ophthalmology 06/23/25 documented as of this encounter
--- OUTSIDE RECORDS SUMMARY | 2025-08-11 18:51 | XMS_ITS | Encounter Summary ---
Author Organization [employer] [facility] Address [address] [place] [address] 7t [place] [address] Care Team Providers Care Sports Physical Therapist Name Role Phone Viridiana Jacinto Primary Care Provider [phone] Dieog Gtz MD Unavailable Unavailable Ace Benjamin MD Unavailable [phone] Encounter Details Date Type Department Care Team (Latest Contact Info) Description 11/11/2021 Abstract [facility] Dental, Provider, DDS Social History [...] 09/15/2025 1:30 PM EST Clinical Support [facility] MEDICINE 230 [place] [address] Scarlett Boo, FILIBERTO [address] [place] [address] 09/22/2025 1:00 PM EST Clinical Support [facility] MED & PEDS [address] [place] [address] 01/13/2026 12:45 PM EDT Office Visit [facility] ADULT DENTAL [address] [place] [address] Thompson Almanzar documented as of this encounter Visit Diagnoses Not on filedocumented in this encounter Care Teams Sports Physical Therapist Relationship Specialty Start Date End Date Viridiana Jacinto FNP [address] [place] [address] PCP - General Family Medicine 08/26/21 Diego Gtz MD [address] [place] [address] Allergy and Immunology 06/23/25 Ace Benjamin MD [address] [place] [address] Ophthalmology 06/23/25 documented as of this encounter
--- OUTSIDE RECORDS SUMMARY | 2025-08-11 18:51 | XMS_ITS | Encounter Summary ---
Author Organization [employer] Address [address] [place] [address] Care Team Providers Care Human Resources Supervisor Name Role Phone Viridiana Jacinto IRVING Primary Care Provider [phone] Diego Gtz MD Unavailable Unavailable Ace Benjamin MD Unavailable [phone] Reason for Visit * Reason Onset Date Comments Med Refill 09/10/2024 Encounter Details Date Type Department Care Team (Late st Contact Info) Description 09/10/2024 Refill [facility] [address] [place] [address] Brina Liz MD [address] [place] [address] On pre-exposure prophylaxis for HIV Social History [...] the past 12 months, has t he [employer], gas, oil or water company threatened to [...] Description 09/15/2025 1:30 PM EST Clinical Support [facility] [address] [place] [address] Scarlett Boo, RN [address] [place] [address] 09/22/2025 1:00 PM EST Clinical Support [facility] [address] [place] [address] 01/13/2026 12:45 PM EDT Office Visit [facility] [address] [place] [address] Thompson Almanzar documented as of this encounter Visit Diagnoses Diagnosis On pre-exposure prophylaxis for HIV documented in this encounter Additional Health Concerns Assessment Noted Time PHQ-9 Depression Total Score: 18 05/02/ 024 2:52 PM EDT documented as of this encounter Care Teams Human Resources Supervisor Relationship Specialty Start Date End Date Viridiana Jacinto FNP [address] [place] [address] PCP - General Family Medicine 08/26/21 Diego Gtz MD [address] [place] [id number] Allergy and Immunology 06/23/25 Ace Benjamin MD [address] [place] [id number] Ophthalmology 06/23/25 documented as of this encounter
--- OUTSIDE RECORDS SUMMARY | 2025-08-11 18:51 | XMS_ITS | Clinical Summary ---
Author Organization [employer] Address [address] [facility] [address] [place] [address] Care Team Providers Care Surveillance Systems Analyst Name Role Phone Viridiana Jacinto IRVING Primary Care Provider [phone] Diego Gtz MD Unavailable Unavailable Ace Benjamin MD Unavailable [phone] Allergies No known active allergies Medications [...] AT BEDTIME 90 tablet 1 024 Active cholecalciferol (Vitamin D High Potency) 25 MCG (1000 UT) capsuleIndication s:Healthcare maintenance TAKE 1 CAPSULE BY MOUTH EVERY DAY 90 capsule 1 025 Active medroxyPROGESTERo ne (Depo-Provera) 150 MG/ML injection Inject 1 mL (150 mg) into the muscle every 3 (three) months. 1 mL 3 025 Active albuterol 108 (90 Base) MCG/ACT inhalerIndication [...] day for rhinitis or allergies. 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 MAY REPEAT ONCE AFTER 2 HOURS IF NEEDED NO MORE THAN 8 TABLETS IN 24 HOURS 10 tablet Active celecoxib (CeleBREX) 200 MG capsule TAKE 1 CAPSULE BY MOUTH IN THE MORNING AND AT BEDTIME NEEDED FOR MODERATE PAIN 60 capsule Active SUMAtriptan (Imitrex) 50 MG tabletIndications :Migraine without aura and without status migrainosus, not intractable TAKE 1 TABLET BY MOUTH AT ONSET OF MIGRAINE. MAY REPEAT ONCE AFTER 2 HOURS IF NEEDED NO MORE THAN 8 TABLETS IN 24 HOURS 10 tablet 3 025 2024 Discontinued(R eorder (will not trigger notification to Pharmacy)) celecoxib (CeleBREX) 200 MG capsule Take 1 capsule (200 mg) by mouth if needed in the morning and at bedtime for moderate pain. 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 Gtz), plan to transition [...] DC med Continues with injectable Cabotegravir through [facility] PrEP navigator - [facility] Healthcare maintenance 04/12/2023 Overview (06/24/2025): -Pap: 01/27/25 NILM, HPV neg -Optometry: March 2025 - eval at [facility] -Contraception: Depo -Last PE: 06/24/25 Slow [...] Encounters Date Type Department Care Team Description 08/11/2025 3:20 PM EDT Office Visit [facility] [address] [place] [address] Nicki Almanzar MD Vaginal bleeding, abnormal (Primary Dx) 08/11/2025 Travel 08/11/2025 Telephone [facility] [address] [place] [address] Viridiana Jacinto FNP Nurse Triage 07/31/[address] [address] Viridiana Jacinto FNP Migraine without aura and without status migrainosus, not intractable; Mild intermittent asthma without complication; On pre-exposure prophylaxis for HIV 07/28/2025 Orders Only [facility] [address] [place] [phone] Tabitha De Luna RN 07/28/2025 Orders Only [address] [address] Tabitha De Luna, RN 07/27/2025 Results Follow-Up [facility] [address] [place] [address] Viridiana Jacinto FNP Lipid Panel, Standard, CBC auto differential, Basic Metabolic Panel, Additional followed-up results: 2 07/23/2025 1:00 PM EDT Clinical Support [facility] [address] [place] [address] Scarlett Boo, RN On pre-exposure prophylaxis for HIV (Primary Dx) 07/23/2025 Orders Only [facility] [address] [place] [address] Viridiana Jacinto FNP 07/23/2025 Travel 07/21/2025 Refill [facility] [address] [place] [address] Scarlett Boo, RN On pre-exposure prophylaxis for HIV 07/20/[address] [address] Viridiana Jacinto FNP On pre-exposure prophylaxis for HIV 07/17/[address] [address] Viridiana aJcinto FNP On pre-exposure prophylaxis for HIV 07/15/2025 2:00 PM EDT Office Visit [facility] [address] [place] [address] Thompson Almanzar Dental calculus (Primary Dx) 07/15/2025 Travel 07/03/[address] [address] Viridiana Jacinto FNP On pre-exposure prophylaxis for HIV 06/30/2025 1:00 PM EDT Clinical Support [facility] [address] [place] [address] Char Armstrong RN On Depo-Provera for contraception 06/30/2025 Travel 06/24/2025 9:15 AM EDT Office Visit [address] [address] Viridiana Jacinto FNP Encounter for routine history and physical examination of adult (Primary Dx); Healthcare maintenance; On pre-exposure prophylaxis for HIV; Migraine without aura and without status migrainosus, not intractable; Mild intermittent asthma without complication; Vitamin D insufficiency; Seasonal allergic rhinitis, unspecified trigger; Urinary tract infection symptoms; Chronic bilateral thoracic back pain; Mood disorder (CMS/HCC); Environmental allergies 06/24/2025 Orders Only [facility] [address] [place] [address] Viridiana Jacinto FNP 06/24/2025 Travel 06/23/[address] [address] Viridiana Jacinto FNP Chart Prep 06/17/2025 Patient Outreach [address] [address] Viridiana Jacinto FNP Pre-visit Planning (Pre visit planning LVM ) 05/28/2025 2:00 PM EDT Clinical Support [address] [address] Scarlett Boo, FILIBERTO On pre-exposure prophylaxis for HIV (Primary Dx) 05/28/2025 Orders Only [address] [address] Errol Barnes, FILIBERTO 05/28/[address] [address] Scarlett Boo, FILIBERTO PREP 05/28/2025 Travel 05/27/[address] [address] Scarlett Boo, FILIBERTO 05/27/[address] [address] Scarlett Boo, FILIBERTO 05/25/[address] [address] Errol Barnes, FILIBERTO Injectable PrEP communication 05/22/[address] [address] Scarlett Boo, FILIBERTO 05/20/2025 Results Follow-Up [facility] [address] [place] [address] Viridiana Jacinto FNP Hepatic Function Panel 05/20/2025 Orders Only [address] [address] Cecil Aparicio MD 05/19/[address] [address] Scarlett Boo RN 05/19/2025 Telephone [facility] [address], [place] [phone] Scarlett Boo, FILIBERTO 05/15/2025 Refill [facility] [address] [place] [address] Scarlett Boo, RN On pre-exposure prophylaxis for HIV from Last 3 Months Immunizations Immunization Administration [...] Pulse 96 08/11/2025 3:36 PM EDT Temperature 36.2 C (97.1 F) 06/24/2025 9:21 AM EDT Respiratory Rate 20 08/11/2025 3:36 PM EDT Oxygen Saturation 98% 08/11/2025 3:36 PM EDT Inhaled Oxygen Concentration - - Weight 56.2 kg (124 lb) 08/11/2025 3:36 PM EDT Height 154.9 cm (5' 1 ) 08/11/2025 3:36 PM EDT Body Mass Index 23.43 08/11/2025 3:36 PM EDT Plan of Treatment Upcoming Encounters Date Type Department Care Team (Late st Contact Info) Description 09/15/2025 1:30 PM EST Clinical Support [facility] [address] [place] [address] Scarlett Boo, RN [address] [place] [address] 09/22/2025 1:00 PM EST Clinical Support [facility] [address] [place] [address] 01/13/2026 12:45 PM EDT Office Visit [facility] [address], [place] [phone] Thompson Almanzar Health Maintenance Due Date Last Done Comments Pneumococcal Vaccine: Pediatrics (0 to 5 Years) and At-Risk Patients (6 to 49) Years (1 of 2 - PCV) 2016 COVID-19 Vaccine ( season) 2025 01/11/2022, 04/19/2021, 03/29/2021 Influenza Vaccine (#1) 2025 , 07/30/2017, 11/26/2013 Depression Monitoring 07/29/2025 01/26/2025, 025 Dental X-Ray: Bitewings 10/24/2025 10/23/20, 10/25/2023, 09/25/2022, Additional history exists Dental Oral [...] 09/15/2013, Additional history exists HIV Screening Completed 07/23/2025, 05/06, 05/20/2025, Additional history exists Hepatitis C Screening Completed 07/23/2025 , 05/20/2025, 03/31/2025, Additional history exists Meningococcal B Vaccine [...] 08/11/2025 4:11 PM EDT Vaginal bleeding, abnormal HIV 1 RNA, QUANTITATIVE REAL TIME PCR Routine 07/23/2025 1:34 PM EDT RPR (MONITOR) W/REFL TITER Routine 07/23/2025 1:34 PM EDT HEPATITIS C AB W/REFL TO HCV RNA, QN, PCR Routine 07/23/2025 1:34 PM EDT HCG, TOTAL, QN Routine 07/23/2025 1:34 PM EDT CHLAMYDIA/GONORRHEA THROAT SWAB ([place] DPH) Routine 07/23/2025 CHLAMYDIA/GONORRHEA VAGINAL SWAB ([place] DPH) Routine 07/23/2025 PERIODIC ORAL EVALUATION - ESTABLISHED PATIENT Routine [...] CHLAMYDIA/GONORRHEA VAGINAL SWAB ([place] DPH) Routine 05/20/2025 HPV DNA, LOW/HIGH RISK Routine 01/27/2025 9:46 AM EDT PAP SMEAR Routine 01/27/2025 9:46 AM EDT Cervical cancer screening BITEWINGS - 4 RADIOGRAPHIC IMAGES Routine 10/23/2024 11:00 AM EST INTRAORAL - COMPLETE SERIES OF RADIOGRAPHIC IMAGES Routine 10/25/2023 9:00 AM EST Dental calculus from Last 3 Months or Most Recently Relevant to Health Maintenance Results * (ABNORMAL) POCT Urinalysis (08/11/2025 4:11 [...] Media Lot # [id number] Lot# Expiration Date [id number] Urine 08/11/2025 4:11 PM EDT Nicki Almanzar MD POINT OF CARE TEST ENTER/ED IT ORDERABLES Edited Result - Final * Hepatitis C Antibody with Reflex to HCV, RNA, Quantitative, Real-Time PCR (07/23/2025 1:34 PM EDT) Pathologist [facility] Hepatitis C Antibody Nonreactive Nonreactive [facility] Comment:Antibodies to HCV no t detected; does not exclude early acuteHCV infection. 07/23/2025 1:34 PM EDT 07/23/2025 4:03 PM EDT Viridiana Jacinto MANNEQUIN MOLD [employer]KER LAB BLOOD ORDERABLES Final Res ult [facility] [address] [place] [phone] * HIV-1 RNA, Quantitative, Real-Time PCR (07/23/2025 1:34 PM EDT) Only the most recent of2 resultswithin the time period is included. HIV RNA PCR Qn Copies NOT DETECTED NOT DETECTED copies/mL [facility] HIV RNA PCR Qn Log Copies NOT DETECTED NOT DETECTED [facility] Comment:Result Units: Log co pies/mLThis test was performed using Real-Time Polymerase ChainReaction.Reportable Range: 20 copies/mL to 10,000,000 copies/mL(1.30 log copies/mL to 7.00 log copies/mL).THIS TEST WAS PERFORMED AT:[facility] [place] [phone] SILVA MD 07/23/2025 1:34 PM EDT 07/23/2025 4:03 PM EDT Viridiana Jacinto MANNEQUIN [employer] LAB BLOOD ORDERABLES Final Res ult Performing Organization Address [facility]/ZIP Co de Phone Number [facility] [address] [place] [address] [phone] * RPR (Monitor) with Reflex to??Titer (07/23/2025 1:34 PM EDT) RPR (Monitor) w/Refl Titer NON-REACTI VE NON-REACT HERACLIO [facility] Comment:THIS TEST WAS PERFOR MED AT:[facility] [place] [phone] SILVA MD Rapid Plasma Reagin Ab Titer TNP [facility] 07/23/2025 1:34 PM EDT 07/23/2025 4:03 PM EDT Viridiana Phalfazal [employer]NEQUIN [employer] LAB BLOOD ORDERABLES Final Res ult Performing Organization Address [facility]/ZIP Co de Phone Number [facility] [address] [place] [address] [phone] * hCG, Total, Quantitative (07/23/2025 1:34 PM EDT) Only the most recent of2 resultswithin the time period is included. HCG Quantitative <2 mIU/mL [facility] Comment:Weeks post LMP Appro ximate hCG(Last Menstrual Period) Range (mIU/ml)3 - 4 weeks 9 - 1304 - 5 weeks 75 - 2,6005 - 6 weeks 850 - 20,8006 - 7 weeks 4000 - 100,2007 - 12 weeks 11,500 - 289,87334 - 16 weeks 18,300 - 137,57425 - 29 weeks (2nd trimester) 1,400 - 53,35841 - 41 weeks (3rd trimester) 940 - 60,000The Batista B- hCG assay is used for the early detection ofpregnancy; it cannot be used to diagnose any conditionunrelated to . If a B-hCG level is not supportedby the clinical evidence, results should be confirmed by analternative method (qualitative urine hCG, for example). 07/23/2025 1:34 PM EDT 07/23/2025 4:03 PM EDT Viridiana HURLEYP LAB BLOOD ORDERABLES Final Res ult Performing Organization Address [facility] [[email or web address]] de Phone Number [facility] [address] [place] [phone] * Chlamydia/Gonorrhea Vaginal Swab ([place] DPH) (07/23/2025) Only the most recent of2 resultswithin the time period is included. Chlamydia Vaginal Swab Negative Negative, Indeterminate, None Detected, Invalid, Specimen unsatisfactory for evaluation, Weakly Positive, 2+ Gonorrhea Vaginal Swab Negative Negative, Indeterminate, None Detected, Invalid, Specimen unsatisfactory for evaluation, Weakly Positive, 2+ Swab Vaginal structure / Unknown 07/23/2025 Historical Provider MD LAB MICROBIOLOGY - GENERA L ORDERABLES Final Result * Chlamydia/Gonorrhea Throat Swab ([place] DPH) (07/23/2025) Chlamydia Throat Swab Negative Gonorrhea Throat Swab Negative Swab 07/23/2025 Historical Provider MD LAB MICROBIOLOGY - GENERA L ORDERABLES Final Result * Slide Review (06/24/2025 10:41 AM EDT) Slide Review VERIFIED [facility] 06/24/2025 10:4 1 AM EDT 06/24/2025 12:19 PM EDT Viridiana HURLEYP LAB BLOOD ORDERABLES Final Res ult Performing Organization Address City/[facility]/ZIP Co de Phone Number [facility] [address] [place] [phone] [phone] * (ABNORMAL) Urinalysis, Complete, with Reflex to Culture (06/24/2025 10:41 AM EDT) Color Urine Yellow [facility] Appearance Urine Cloudy [facility] PH 6.0 5.0 - 9.0 [facility] Glucose Urine UA Negative Negative mg/dL [facility] Urine Blood Negative Negative [facility] Specific [place] - Urine >=1.030(H) 1.005 - 1.025 [facility] Urine Protein Negative Neg-Trace mg/dL [facility] Urine Ketones Negative Negative mg/dL [facility] Nitrite Urine Negative Negative [facility] Leukocyte Esterase Urine Moderate (2+)(A) Negative [facility] RBC Urine 0-2 0 - 2 /HPF [facility] Urine WBC 11-20(A) 0 - 5 /HPF [facility] Urine Squamous Epithelial Cell 11-20 0 - 2 /HPF [facility] Urine Bacteria 2+ None Seen [facility] Hyaline Casts, Urine 0-2 0 - 2 /LPF [facility] Urine 06/24/2025 10:4 1 AM EDT 06/24/2025 11:45 AM EDT Narrative [facility] - 06/24/2025 12:01 PM EDT Urine, Clean Catch Viridiana Jacinto [facility] URINE ORDERABLES Final Res ult [facility] [address] [place] [address] [phone] * T-SPOT??.TB (06/24/2025 10:41 AM EDT) T Spot TB Negative Negative [facility] Comment:A negative test resu lt does [...] as aquantitative test. TS PANEL A 0 [facility] TS PANEL B 0 [facility] Negative Control Passed [facility] Positive Control Passed [facility] Comment:For additional infor matderrick, please refer tohttp://education.Farmia/faq/GGZ308(This link is being provided for informational/educational purposes only.)THIS TEST WAS PERFORMED AT:[employer] [id number] [place] [phone] TORRE MD,PHD 06/24/2025 10:4 1 AM EDT 06/24/2025 12:29 PM EDT us Viridiana Jacinto [facility] BLOOD ORDERABLES Final Res ult [facility] [address] [place] [phone] * (ABNORMAL) CBC auto differential (06/24/2025 10:41 AM EDT) White Blood Count 4.6(L) 4.8 - 10.8 X10*3/uL [facility] Red Blood Count 4.77 4.20 - 5.50 X10*6/uL [facility] Hemoglobin 13.6 12.0 - 16.0 g/dl [facility] Hematocrit 42.2 37.0 - 47.0 % [facility] Mean Corpuscular Volume 88.5 80.0 - 98.0 fL [facility] Mean Corpuscular Hemoglobin 28.5 27.0 - 33.0 pg [facility] Mean Corpuscular HGB Conc 32.2 31.0 - 35.0 g/dl [facility] Red Cell Distribution Width 13.4 11.0 - 16.0 % [facility] Platelet Count 265 160 - 400 X10*3/uL [facility] Mean Platelet Volume 10.1 9.4 - 12.3 fL [facility] Neutrophils Percent Auto 24.2(L) 45 - 73 % [facility] Imm Gran Pct Auto 0.2 0.0 - 0.4 % [facility] Lymphocytes Percent Auto 62.3(H) 20 - 40 % [facility] Monocytes Percent Auto 10.2 2 - 11 % [facility] Eosinophils Percent Auto 2.4 0 - 4 % [facility] Basophils Percent Auto 0.7 0 - 2 % [facility] NRBC Pct Auto 0.0 0.0 - 0.2 /100WBC [facility] Neutrophils Absolute Auto 1.1(L) 2.0 - 8.3 x10*3/uL [facility] Imm Gran Abs Auto 0.01 0.00 - 0.03 X10*3/uL [facility] Lymphocytes Absolute Auto 2.9 1.2 - 4.9 X10*3/uL [facility] Monocytes Absolute Auto 0.5 0.1 - 1.2 X10*3/uL [facility] Eosinophils Absolute Auto 0.1 0.0 - 0.4 X10*3/uL [facility] Basophils Absolute Auto 0.0 0.0 - 0.2 X10*3/uL [facility] NRBC Abs Auto 0.000 0.0 - 0.012 X10*3/uL [facility] Blood Venous blood specimen / Unknown 06/24/2025 10:41 AM EDT 06/24/2025 12:19 PM EDT Viridiana Jacinto MANNEQUIN M[employer]KER LAB BLOOD ORDERABLES Edited Re sult - Final Performing Organization Address [facility]/ZIP Co de Phone Number [facility] [address] [place] [phone] [phone] * Lipid Panel, Standard (06/24/2025 10:41 AM EDT) Triglycerides 56 <150 mg/dL [facility] Comment:Desirable Triglyceri de: less than 150 mg/dLBorderline High Triglyceride 150-199 mg/dLHigh Triglyceride: 200-499 mg/dLVery High Triglyceride: greater than or equal to 5OO mg/dL Cholesterol 154 <200 mg/dL [facility] Comment:Desirable Cholestero l: less than 200 mg/dLBorderline High Cholesterol: 200-239 mg/dLHigh Cholesterol: greater than 239 mg/dL LDL Cholesterol Calculated 85 <100 mg/dL [facility] Comment:Desirable LDL: less than 100 mg/dLNear Optimal/Above Optimal LDL: 110- 129 mg/dLBorderline High LDL: 130-159 mg/dLHigh LDL: 160-189 mg/dLVery High LDL: greater than or equal to 190 mg/dL HDL Cholesterol 58 >40 mg/dL [facility] Comment:Desirable HDL: great er than 40 mg/dL Note: This HDL assay may give artificially low results in patients with liver disease. Blood Venous blood specimen / Unknown 06/24/2025 10:41 AM EDT 06/24/2025 12:29 PM EDT us Viridiananicole Thorntonfazal [facility] BLOOD ORDERABLES Final Res ult Performing Organization Address [facility]/ZIP Co de Phone Number [facility] [address] [place] [address] [phone] * Basic Metabolic Panel (06/24/2025 10:41 AM EDT) Sodium 140 135 - 145 mmol/L [facility] Potassium 3.9 3.3 - 5.1 mmol/L [facility] Chloride 103 96 - 108 mmol/L [facility] Carbon Dioxide 29 22 - 29 mmol/L [facility] Anion Gap 12 12 - 20 [facility] Urea Nitrogen (BUN) 15 9 - 16 mg/dL [facility] Creatinine, Serum 0.88 0.5 - 1.4 mg/dL [facility] Estimated Glomerular Filt Rate >60 [facility] Comment:Chronic Kidney Disea se: Estimated GFR < 60 mL/min/1.93y8Hitplh Kidney Disease: Estimated GFR < 15 mL/min/1.73m2 Glucose 83 60 - 115 mg/dL [facility] Calcium 9.5 8.4 - 10.2 mg/dL [facility] Blood Venous blood specimen / Unknown 06/24/2025 10:41 AM EDT 06/24/2025 12:29 PM EDT Viridiana [employer] [facility] BLOOD ORDERABLES Final Res ult Performing Organization Address [facility] Co de Phone Number [facility] [address] [place] [phone] * Culture, Urine, Routine (06/24/2025 12:00 AM EDT) Urine Urine specimen obtained by clean catch procedure / Unknown 06/24/2025 06/24/2025 Comment:UACC Narrative [facility] - 06/25/2025 11:27 AM EDT Strep agalactiae (Grp B) Quant < 10,000 cfu/mL Susc N/A Susceptibility not routinely performed on this isolate. Specimen Source: Urine clean catch Viridiana Jacinto [facility] MICROBIOLOGY - GENERAL ORD ERABLES Final Result Performing Organization Address [facility] Co de Phone Number [facility] [address] [place] [phone] * POCT RAPID HIV SCREENING (05/28/2025 2:40 PM EDT) Blood 05/28/2025 2:40 PM EDT Narrative Scarlett Boo RN - 05/28/2025 2:40 PM EDT negative Viridiana VILLATORO POINT OF CARE TEST ENTER/EDIT ORDERABLES Final Result * Hepatic Function Panel (05/20/2025 3:28 PM EDT) Bilirubin, Total 0.6 0.0 - 1.0 mg/dL [facility] Bilirubin, Direct 0.2 0.0 - 0.5 mg/dL [facility] Aspartate Amino Transferase 24 5 - 31 U/L [facility] Alanine Aminotransferase 19 0 - 31 U/L [facility] Total Protein 7.1 6.5 - 8.0 g/dL [facility] Albumin Level 4.6 3.5 - 5.0 g/dL [facility] Alkaline Phosphatase 87 39 - 117 U/L [facility] Blood Venous blood specimen / Unknown 05/20/2025 3:28 PM EDT 05/20/2025 4:07 PM EDT Viridiana VILLATORO LAB BLOOD ORDERABLES Final Res ult Performing Organization Address City/State/[facility] Co de Phone Number [facility] [address] [place] [phone] * Syphilis Antibodies (DPH) (05/20/2025) Syphilis Abs Nonreactive Borderline, Nonreactive, Weakly Reactive, Inconclusive, Specimen unsatisfactory for evaluation Blood Venous blood specimen / Unknown 05/20/2025 Historical Provider LAB BLOOD ORDERABLES Jessica l Result * Hepatitis C Antibody (NEHEMIAS GRAJEDA) (05/20/2025) Pathologist [facility] Hepatitis C Ab Nonreactive Blood 05/20/2025 Historical Provider LAB BLOOD ORDERABLES Jessica l Result * HIV Ab/Ag ([facility]) (05/20/2025) HIV Ag/Ab Nonreactive Blood 05/20/2025 Historical Provider MD LAB BLOOD ORDERABLES Jessica l Result * HPV DNA, Low/High Risk (01/27/2025 9:46 AM EDT) HPV High Risk Negative Negative [facility] HPV Genotype 16 Negative Negative [facility] HPV Genotype 18 Negative Negative [facility] Comment:HPV testing performe d at [facility] (CLIA#[id number]), [address] [place] [address].Testing for HPV was performed using the Eduardo [...] AM EDT 01/28/2025 8:38 AM EDT Narrative [facility] [facility] - 02/04/2025 2:27 PM EDT Collection Date: [id number] by: YANDEL Burnette: Cervix Melody Aranda CNM LAB BLOOD ORDERABLES Jessica l Result [facility] [address] [place] [phone] * Pap Smear (01/27/2025 9:46 AM EDT) Swab Cervix uteri structure / Unknown 01/27/2025 9:46 AM EDT 01/28/2025 7:30 AM EDT [facility] - 02/02/2025 8:29 AM EDT ----- ------- Name: Serenity Henson Age/Sex: 29/F : 1995 Unit#: [id number] Attend Dr: MELODY ARANDA CNM Re01/27/25 Status: DEP REF Location: [facility] Disch: ----- ------- SPEC : [id number] RECD: 01/28/25 STATUS: DOTTY SAMEER NUM: [id number] DANIEL: 01/27/[address] [facility] [address]: MELODY ARANDA CNM ENTERED: 01/28/25 SP TYPE: Pap Smr OT DR: ORDERED: Pap Smear Interpretation Satisfactory for evaluation. Negative for intraepithelial lesion or malignancy. HPV High Risk: Negative HPV Genotyping 16: Negative HPV Genotyping 18: Negative Clinical Information LMP:Unknown date Previous PAP test:2021 NIL Material Received ThinPrep-Cervical ----- ------- Signed (signature on file) LAILA Ji ([facility]) 02/02/25 0829 ----- ------- END OF REPORT us Melody Aranda [facility] CYTOLOGY ORDERABLES F inal Result [facility] [address] [place], [place] [phone] from Last 3 Months or Most Recently Relevant to Health Maintenance Insurance [facility] 2 [place] AD[place] Care Teams Surveillance Systems Analyst Relationship Specialty Start Date End Date Viridiana Jacinto FNP [address] [place] [address] PCP - General Family Medicine 08/26/21 Diego Gtz MD [address] [place] [address] Allergy and Immunology 06/23/25 Ace Benjamin MD [address] [place] [address] Ophthalmology 06/23/25
--- OUTSIDE RECORDS SUMMARY | 2025-08-11 18:51 | XMS_ITS | Encounter Summary ---
Author Organization [employer] Address 75 [facility] 7t [place] [address] Care Team Providers Care Child Care Counselor Name Role Phone Viridiana Jacinto LIFT SLAB OPERATOR Primary Care Provider [phone] Diego Gtz MD Unavailable Unavailable Ace Benjamin MD Unavailable [phone] Encounter Details Date Type Department Care Team (Late st Contact Info) Description 03/16/2023 Orders Only [facility] CHC MED & PEDS [address] [place], [place] [phone] Elly Harmon LPN Social History Tobacco Use [...] Description 09/15/2025 1:30 PM EST Clinical Support [facility] MEDICINE [address] [place], [place] [phone] Scarlett Boo, FILIBERTO [address] [place] [address] 09/22/2025 1:00 PM EST Clinical Support [facility] MED & PEDS [address] [place], [place] [phone] 01/13/2026 12:45 PM EDT Office Visit [facility] ADULT DENTAL [address] [place] [address] Thompson Almanzar documented as of this encounter Visit Diagnoses Not on filedocumented in this encounter Care Teams Child Care Counselor Relationship Specialty Start Date End Date Viridiana Jacinto FNP [address] [place] [address] PCP - General Family Medicine 08/26/21 Diego Gtz MD [address] [place] [address] Allergy and Immunology 06/23/25 Ace Benjamin MD [address] [place] [address] [address] [place] [address] Ophthalmology 06/23/25 documented as of this encounter
--- OUTSIDE RECORDS SUMMARY | 2025-08-11 18:51 | XMS_ITS | Encounter Summary ---
Author Organization [employer] Address 75 [facility] 7t [place] [address] Care Team Providers Care Stitch Bonding Machine Tender Name Role Phone Viridiana Jacinto Primary Care Provider [phone] Diego Gtz MD Unavailable Unavailable Ace Benjamin MD Unavailable Reason for Visit * Reason Onset Date Comments Referral 01/14/2024 Encounter Details Date Type Department Care Team ([facility] st Contact Info) Description 01/14/2024 Telephone [facility] MED & PEDS [address] [place], [place] [phone] Viridiana Jacinto FNP [address] [place] [address] Referral Social History Tobacco Use Types Packs/Day [...] is requesting to be referred to a socket puller. Andrea states she does not know the reasoning or dx of referral requested. Please contact pt for more information at [phone] documented in this encounter Plan of Treatment Upcoming Encounters Date Type Department Care Team (Late st Contact Info) Description 09/15/2025 1:30 PM EST Clinical Support [facility] MEDICINE [address] [place] [address] Scarlett Boo, RN [address] [place] [address] 09/22/2025 1:00 PM EST Clinical Support [facility] MED & PEDS [address] [place] [address] 01/13/2026 12:45 PM EDT Office Visit [facility] ADULT DENTAL [address] [place] [address] Thompson Almanzar documented as of this encounter Visit Diagnoses Diagnosis Underweight in childhood- Primary History of eating disorder documented in this encounter Additional Health Concerns Assessment Noted Time PHQ-9 Depression Total Score: 12 024 10:43 AM EST documented as of this encounter Care Teams Stitch Bonding Machine Tender Relationship Specialty Start Date End Date Viridiana Jacinto FNP [address] [place] [address] PCP - General Family Medicine 08/26/21 Diego Gtz MD [address] [place] [address] Allergy and Immunology 06/23/25 Ace Benjamin MD [address] [place] [address] [address] [place] [address] Ophthalmology 06/23/25 documented as of this encounter
--- OUTSIDE RECORDS SUMMARY | 2025-08-11 18:51 | XMS_ITS | Encounter Summary ---
Author Organization [employer] Address 75 [facility] 7t [place] [address] Care Team Providers Care Lithopone Charger Name Role Phone Viridiana Jacinto Primary Care Provider [phone] Diego Gtz MD Unavailable Unavailable Ace Benjamin MD Unavailable Encounter Details Date Type Department Care Team ([facility] st Contact Info) Description 07/27/2025 Results Follow-Up [facility] CHC MED & PEDS [address] [place], [place] [phone] Viridiana Jacinto FNP [address] [place] [address] Lipid Panel, Standard, CBC auto differential, Basic Metabolic Panel, Additional followed-up results: 2 Social History Tobacco Use Types Packs/Day Years [...] 1:30 PM EST Clinical Support [facility] MEDICINE [address] [place] [address] Scarlett Boo, RN [address] [place] [address] 09/22/2025 1:00 PM EST Clinical Support [facility] MED & PEDS [address] [place] [address] 01/13/2026 12:45 PM EDT Office Visit [facility] ADULT DENTAL [address] [place] [address] Thompson Almanzar Scheduled Orders Name Type Priority Associated Diagnoses Orde r Schedule CBC auto differential Lab Routine Neutropenia, unspecified type (CMS/HCC) Expected: 10/26/2025 (Approximate), Expires: 07/27/2026 documented as of this encounter Visit Diagnoses Diagnosis Neutropenia, unspecified type (CMS/HCC)- Primary documented in this encounter Additional Health Concerns Assessment Noted Time PHQ-9 Depression Total Score: 14 025 11:28 AM EDT documented as of this encounter Care Teams Lithopone Charger Relationship Specialty Start Date End Date Viridiana Jacinto FNP [address] [place] [address] PCP - General Family Medicine 08/26/21 Diego Gtz MD [address] [place] [address] Allergy and Immunology 06/23/25 Ace Benjamin MD [address] [place] [address] [address] [place] [address] Ophthalmology 06/23/25 documented as of this encounter
--- OUTSIDE RECORDS SUMMARY | 2025-08-11 18:51 | XMS_ITS | Encounter Summary ---
Author Organization [employer] Address [address] [place] [address] 7t [place] [address] Care Team Providers Care Barrel Cooper Name Role Phone Viridiana Jacinto MUFFLE OPERATOR Primary Care Provider [phone] Diego Gtz MD Unavailable Unavailable Ace Benjamin MD Unavailable [phone] Encounter Details Date Type Department Care Team (Late st Contact Info) Description 07/19/2023 Orders Only [facility] MEDICINE [address] [place] [address] Brianna Sue ANP [address] [place], [place] [phone] Social History Tobacco Use Types Packs/Day Years [...] Description 09/15/2025 1:30 PM EST Clinical Support [facility] MEDICINE [address] [place] [address] Scarlett Boo, FILIBERTO [address] [place] [address] 09/22/2025 1:00 PM EST Clinical Support [facility] MED & PEDS [address] [place] [address] 01/13/2026 12:45 PM EDT Office Visit [facility] ADULT DENTAL [address] [place] [address] Thompson Alamnzar documented as of this encounter Visit Diagnoses Not on filedocumented in this encounter Additional Health Concerns Assessment Noted Time PHQ-9 Depression Total Score: 16 023 2:56 PM EDT documented as of this encounter Care Teams Barrel Cooper Relationship Specialty Start Date End Date Viridiana Jacinto FNP [address] [place] [address] PCP - General Family Medicine 08/26/21 Diego Gtz MD [address] [place] [address] Allergy and Immunology 06/23/25 Ace Benjamin MD [address] [place] [address] [address] [place] [address] Ophthalmology 06/23/25 documented as of this encounter
== END 2025-08-11 16:14 | disposition home or self-care (01) ==
LOC: HO.CHCLNP 16:13
PROVIDERS: Visit Provider Internal Medicine
DX: N93.9 Abnormal uterine and vaginal bleeding, unspecified (principal)
CPT/HCPCS: 87086

== ENCOUNTER 2025-09-15 13:35 | Outpatient (REF) | payer OTHER, SELFPAY ==
--- OUTSIDE RECORDS SUMMARY | 2025-09-15 13:00 | XMS_ITS | Encounter Summary ---
Author Organization [employer] Address [address] [facility] [address] 7t [place] [address] Care Team Providers Care Supervisor Phosphorus Processing Name Role Phone Viridiana Jacinto IRVING Primary Care Provider Diego Gtz MD Unavailable Unavailable Ace Benjamin MD Unavailable Encounter Details Date Type Department Care Team (Latest Contact Info) Description 09/15/2025 1:00 PM EST Clinical Support [facility] MEDICINE [address] [place] [address] Scarlett Boo, FILIBERTO [address] [place] [address] On pre-exposure prophylaxis for HIV (Primary Dx) [...] Answer Date Recorded Patient Health Questionnaire-9 Score 6 09/08/2025 Patient Health Questionnaire-9 Score 6 09/08/2025 Last PHQ-9: Questionnaire Data Not on file 1 11/08/2024 Housing Stability Answer Date Recorded What is [...] Answer Date Recorded Patient Health Questionnaire-2 Score 1 09/08/2025 Internet Access Answer Date Recorded Internet Access [...] Progress Notes * Scarlett Boo RN - 09/15/2025 1:00 PM EST Pt here for 14th injection of APRETUDE (600-mg cabotegravir). Reports tolerating well with no concerns. Pt states she no longer wants to continue on Apretude, doesn't want any other form, wants to come off all her medications except Depo. *Last LFTs: 09/15/25 monitoring LFTS closely with PCP- Please discuss labs with PCP prior to givingApretude* Reviewed and confirmed: Negative 4th generation HIV-1 [...] at 6 months, then annually. Last LFTs: 09/15/25 message sent to PCP to see when [...] to HIV testing. STI testing serologies done 09/15/25, vaginal GC/CT done 05/20/25 LFTs 6 months after first injection, then annually: next due 11/2025 No further appts. documented in this encounter Plan of Treatment Upcoming Encounters Date Type Department Care Team (Late st Contact Info) Description 09/22/2025 1:00 PM EST Clinical Support [facility] MED & PEDS [address] [place] [address] 01/13/2026 12:45 PM EDT Office Visit [facility] ADULT DENTAL [address] [place] [address] Thompson Almanzar Scheduled Orders Name Type Priority Associated Diagnoses Orde r Schedule Chlamydia/Trichomonas/Ne isseria gonorrhoeae, PCR, Urine Lab Routine On pre-exposure prophylaxis for HIV Expected: 09/15/2025 (Approximate), Expires: 09/15/2026 Hepatitis C Antibody with Reflex to HCV, RNA, Quantitative, Real-Time PCR Lab Routine On pre-exposure prophylaxis for HIV Expected: 09/15/2025 (Approximate), Expires: 09/15/2026 RPR (Monitor) with Reflex to Titer Lab Routine On pre-exposure prophylaxis for HIV Expected: 09/15/2025 (Approximate), Expires: 09/15/2026 HIV-1/2 Antigen and Antibodies, Fourth Generation, with Reflexes Lab Routine On pre-exposure prophylaxis for HIV Expected: 09/15/2025 (Approximate), Expires: 09/15/2026 Hepatic Function Panel Lab Routine On pre-exposure prophylaxis for HIV Expected: 09/15/2025 (Approximate), Expires: 09/15/2026 documented as of this encounter Procedures Procedure Name Priority Date/Time Associated Diagnosis Comments POCT , URINE Routine 09/15/2025 2:05 PM EST On pre-exposure prophylaxis for HIV POCT RAPID HIV SCREENING Routine 09/15/2025 1:44 PM EST On pre-exposure prophylaxis for HIV documented in this encounter Results * POCT , urine manually resulted (09/15/2025 2:05 PM EST) Preg Test, Ur Negative Negative, Indeterminate, None Detected, Invalid, Specimen unsatisfactory for evaluation, Weakly Positive, 2+ Urine 09/15/2025 2:05 PM EST us William Snider MD POINT OF CARE TEST ENTER/EDIT OR DERABLES Final Result * POCT Rapid HIV Screening (09/15/2025 1:44 PM EST) Blood 09/15/2025 1:44 PM EST Narrative Scarlett Boo RN - 09/15/2025 1:44 PM EST negative us William Snider MD POINT OF [...] 600 mg 600 mg, Intramuscular, Once, On Sun09/15/25 at 1415, For 1 dose, Ventrogluteal.Indication s:On pre-exposure prophylaxis for HIV Given 09/15/2025 2:15 PM EST 600 mg Left Upper Buttock documented in this encounter Additional Health Concerns Assessment Noted Time PHQ-9 Depression Total Score: 6 09/08/20 25 10:39 AM EST documented as of this encounter Care Teams Supervisor Phosphorus Processing Relationship Specialty Start Date End Date Viridiana Jacinto FNP [address] [place] [address] PCP - General Family Medicine 08/26/21 Diego Gtz MD [address] [place] [address] Allergy and Immunology 06/23/25 Ace Benjamin MD [address] [facility] [address] [place] [address] Ophthalmology 06/23/25 documented as of this encounter
--- OUTSIDE RECORDS SUMMARY | 2025-09-15 15:15 | XMS_ITS | Encounter Summary ---
Author Organization [employer] Address [address] [facility] [address] 7t [place] [address] Care Team Providers Care Bilingual Sales Assistant Name Role Phone Viridiana Jacinto IRVING Primary Care Provider [phone] Diego Gtz MD Unavailable Unavailable Ace Benjamin MD Unavailable [phone] Encounter Details Date Type Department Care Team (Late st Contact Info) Description 09/15/2025 Telephone [facility] MEDICINE [address] [place] [address] Scarlett Boo RN [address] [place] [address] Social History Tobacco Use Types Packs/Day Years [...] Telephone Encounter - Scarlett Boo RN - 09/15/2025 2:53 PM EST Pt disclosed today she will be stopping PREP and no longer wants to take any medication for prophylaxis. Message sent to PCP and Veronica MARLOW documented in this encounter Plan of Treatment Upcoming Encounters Date Type Department Care Team ([facility] st Contact Info) Description 09/22/2025 1:00 PM EST Clinical Support [facility] MED & PEDS [address] [place] [address] 01/13/2026 12:45 PM EDT Office Visit [facility] ADULT DENTAL [address] [place] [address] Thompson Almanzar documented as of this encounter Visit Diagnoses Not on filedocumented in this encounter Additional Health Concerns Assessment Noted Time PHQ-9 Depression Total Score: 6 09/08/20 25 10:39 AM EST documented as of this encounter Care Teams Bilingual Sales Assistant Relationship Specialty Start Date End Date Viridiana Jacinto FNP [address] [place] [address] PCP - General Family Medicine 08/26/21 Diego Gtz MD [address] [place] [address] Allergy and Immunology 06/23/25 Ace Benjamin MD [address] [place] [address] [address] [place] [address] Ophthalmology 06/23/25 documented as of this encounter
--- OUTSIDE RECORDS SUMMARY | 2025-09-15 15:15 | XMS_ITS | Encounter Summary ---
Author Organization [employer] Address 75 [facility] 7t [place] [address] Care Team Providers Care Disintegrator Operator Name Role Phone Viridiana Jacinto Primary Care Provider [phone] Diego Gtz MD Unavailable Unavailable Ace Benjamin MD Unavailable [phone] Encounter Details Date Type Department Care Team ([facility] st Contact Info) Description 03/24/2025 Orders Only [facility] CHC MED & PEDS [address] [place], [place] [phone] Viridiana Jacinto FNP [address] [place] [address] Social History Tobacco Use Types Packs/Day Years [...] [facility] MED & PEDS [address] [place] [address] 01/13/2026 12:45 PM EDT Office Visit [facility] ADULT DENTAL [address] [place] [address] Thompson Almanzar documented as of this encounter Visit Diagnoses Not on filedocumented in this encounter Additional Health Concerns Assessment Noted Time PHQ-9 Depression Total Score: 14 025 11:28 AM EDT documented as of this encounter Care Teams Disintegrator Operator Relationship Specialty Start Date End Date Viridiana Jacinto FNP [address] [place] [address] PCP - General Family Medicine 08/26/21 Diego Gtz MD [address] [place] [address] Allergy and Immunology 06/23/25 Ace Benjamin MD [address] [place] [address] Ophthalmology 06/23/25 documented as of this encounter
--- OUTSIDE RECORDS SUMMARY | 2025-09-15 15:15 | XMS_ITS | Encounter Summary ---
Author Organization [employer] Address 75 [facility] 7t [place] [address] Care Team Providers Care Director Of Radiology Name Role Phone Viridiana Jacinto Primary Care Provider [phone] Diego Gtz MD Unavailable Unavailable Ace Benjamin MD Unavailable [phone] Encounter Details Date Type Department Care Team (Late st Contact Info) Description 09/14/2025 Orders Only [facility] CHC MED & PEDS [address] [place], [place] [phone] Viridiana Jacinto FNP [address] [place], [place] [phone] Transaminitis (Primary Dx) Social History Tobacco Use [...] Description 09/22/2025 1:00 PM EST Clinical Support [facility] MED & PEDS [address] [place] [address] 01/13/2026 12:45 PM EDT Office Visit [facility] ADULT DENTAL [address] [place] [address] Thompson Almanzar Scheduled Orders Name Type Priority Associated Diagnoses Orde r Schedule Hepatic Function Panel Lab Routine Transaminitis Expected: 09/14/2025 (Approximate), Expires: 09/14/2026 documented as of this encounter Visit Diagnoses Diagnosis Transaminitis- Primary Nonspecific elevation of levels of transaminase or lactic acid dehydrogenase (LDH) documented in this encounter Additional Health Concerns Assessment Noted Time PHQ-9 Depression Total Score: 6 09/08/20 25 10:39 AM EST documented as of this encounter Care Teams Director Of Radiology Relationship Specialty Start Date End Date Viridiana Jacinto FNP [address] [place] [address] PCP - General Family Medicine 10/22/21 Diego Gtz MD [address] [place] [address] Allergy and Immunology 06/23/25 Ace Benjamin MD [address] [place] [address] [address] [place] [address] Ophthalmology 06/23/25 documented as of this encounter
--- OUTSIDE RECORDS SUMMARY | 2025-09-15 15:15 | XMS_ITS | Encounter Summary ---
Author Organization [employer] Address [address] [place] [address] 7t [place] [address] Care Team Providers Care Human Resources Services Specialist Name Role Phone Viridiana Jacinto Primary Care Provider [phone] Diego Gtz MD Unavailable Unavailable Ace Benjamin MD Unavailable [phone] Encounter Details Date Type Department Care Team (Latest Contact Info) Description 12/18/2018 Abstract [facility] CONVERSIONS Dental, Provider, DDS Social History [...] Care Team ( st Contact Info) Description 09/22/2025 1:00 PM EST Clinical Support [facility] MED & PEDS [address] [place] [address] 01/13/2026 12:45 PM EDT Office Visit [facility] ADULT DENTAL [address] [place] [address] Thompson Almanzar documented as of this encounter Visit Diagnoses Not on filedocumented in this encounter Care Teams Human Resources Services Specialist Relationship Specialty Start Date End Date Viridiana Jacinto FNP [address] [place] [address] PCP - General Family Medicine 08/26/21 Diego Gtz MD [address] [place] [address] Allergy and Immunology 06/23/25 Ace Benjamin MD [address] [place] [address] [address] [place] [address] Ophthalmology 06/23/25 documented as of this encounter
--- OUTSIDE RECORDS SUMMARY | 2025-09-15 15:15 | XMS_ITS | Data Portability ---
Author Organization [place] - [facility], Allergy Address [address] [address] Care Team Providers Care Account Executive Sales Representative Name Role Phone NIRAJ DEL REAL Primary [...] to use light massage, warm compresses or anti-inflammator ies for symptomatic management. Stressed chewing evenly on [...] the pain. [email or web address] Not available 10/14/2024 15:20:27 05/28/2025 05/28/2025 29-year-old female presents for reevaluation of intermittent postauricular discomfort. Patient denies deep otalgia or otorrhea. Pain improves with tylenol. Physical exam reveals no identifiable source of otalgia involving the auricle, external auditory canal, or tympanic membrane. Base of tongue and tonsils are soft to palpation. Examination was positive for tenderness of the left jaw joint and cornell-TMJ musculature. Exam is most likely consistent with TMJ dysfunction. CT neck with contrast 11/11/24 was benign. I recommended the patient use light massage, warm compresses and anti-inflammator ies for symptomatic management. Stressed chewing evenly on both sides of the mouth to keep from overworking the jaw joint. Use soft food diet as needed. Jaw Joint Program information sheet was shared. She will continue to use medical-grade mouth guard nightly. Referral to physical therapist who specializes in TMJ disorders could also be considered. [email or web address] Not available 05/28/2025 13:32:09 Plan of Treatment Reminders Order Date Submit Date Provider Last Modified By Organization Details Last Modified Time Details Appointments None recorded. Lab None recorded. Referral None recorded. Procedures None recorded. Surgeries None recorded. Imaging CT, neck, soft tissue, w/ contrast 2023 024 [facility], [facility]0 [facility], [address], [address], 15:18:53 Medication Orders None recorded. Patient TargetsNo [...] contr ast No observ ation record ed. [email or web address] [facility] [address], [address], 11/18/2024 15:19:39 Result Notes None recorded. Problems Name Problem SNOMED Code Status Onset Date Resolution Date Notes Provider Name and Address Organization Details Recorded Time Bilateral earache 708750673 Active 2019 Otalgi a, bilate ral; Note: Date Diagno sed: 020 2:16 PM (H92.0 3) Not Available [employer] 4 03:33:41 Tenderness of left temporoman dibular joint 7110784346121 9100 Active 2024 ZUHAIR GONZALEZ PA-C 100 [facility],[place] [address], [place], [address] , [place] - [facility] 13:32:21 Problem Notes None recorded. Procedures Surgical History Date Name Laterality Status Provider Name and Address Organization Details Recorded Time 10/14/2024 Comp Audio with Tymps - 77794 & 93696 completed CHERYLE REAL, AUD 100 [facility], [place], [address], [facility] - [facility] 10/14/2024 12:26:09 Imaging Results None recorded. Procedure [...] fluticasone propionate 50 mcg/actuatio n nasal spray,suspen yseda SPRAY 1 SPRAY IN EACH NOSTRIL TWICE [...] Updated DateTime 05/28/2025 154.94 cm 24.6 kg/m2 94007.01 g Mady Maradiaga [facility] 05/28/2025 10:15:08 Date Recorded Body height Body mass index (BMI) Body weight Provider Name and Address Organization Details Last Updated DateTime 10/14/2024 154.94 cm 22.1 kg/m2 51555.31 g Char Amezcua [facility] 10/14/2024 11:50:29 Social History None recorded. Functional Status None recorded. Mental Status None recorded. Family History Nothing Reported. Medical History No medical history recorded. Gynecological HistoryNo gynecological history recorded. Obstetrics History GPAL:G 0 P 0 0 0 0 Past Encounters Encounter ID Performer Location Encounter Start Date Encounter Closed Date Diagnosis/Indication Diagnosis SNOMED-CT Code Diagnosis ICD10 Code Diagnosis IMO Codes Diagnosis Note [id number] JC TREJO PA-C [facility] [address] [address] 10/14/2024 11:33:10 10/14/2024 12:39:37 Bilateral earache 378147406 H92.03 Audiologic al evaluation results: 10/14/2024 Right ear: Normal hearing with excellent word recognitio n. Left ear: Normal hearing with excellent word recognitio n. Tympanomet ry: Right Ear:Type Ad Left Ear:Type A [id number] ZUHAIR GONZALEZ PA-C [facility] [address] [address] 05/28/2025 10:08:33 05/28/2025 10:50:42 Tenderness of left temporomandibular joint 7081622501 6616278 M26.622 [id number] Health Concerns Section Related Observation LastModified by Organization Detai ls LastModified Time None Recorded Concern Status LastModified by Organization Details LastModified Time None Recorded Advance Directives Directive None Recorded Payers Insurance Date Sequence Insurance Name Policy Number Policy Zhao Covered Member ID Zhao Member ID Guarantor Name 05/28/2025 1 [place] [facility] Serenity Michelle [id number] Eddiesdelphine Michelle Hines 05/28/2025 1 [facility] (O) [id number] Serenity Pérezadalupe [id number] Eddiesdelphine Michelle Hines 05/28/2025 1 [place] [facility] Eddieslikeyon Michelle Hines [id number] Eddieslian Michelle Hines Notes Date Note Type Note Provider Name and Address Organization Details Recorded Time 10/14/2024 text/html ROS as noted in the HPI 29 year old female presents for evaluation of left ear pain. [...] Patient has no history of otologic surgery. Jc coyle [place] - [facility] 10/14/2024 15:20:54 05/28/2025 text/html ROS as noted in the HPI 29-year-old female presents for reevaluation of persistent left cornell-auricular pain. CT neck with contrast 11/11/24 was unremarkable for abnormality. She has not trialed supportive measures for TMJ dysfunction other than nightly mouthguard. The intermittent pain usually resolves with tylenol. JAYSON KULKARNI MD [address] [place] [address], [address], [place] - [facility] 06/01/2025 07:44:43 OBGyn Episode No OBEpisode recorded.
--- OUTSIDE RECORDS SUMMARY | 2025-09-15 15:15 | XMS_ITS | Encounter Summary ---
Author Organization [employer] Address 75 [facility] 7t [place] [address] Care Team Providers Care Profiling Machine Operator Name Role Phone Viridiana Jacinto Primary Care Provider [phone] Diego Gzt MD Unavailable Unavailable Ace Benjamin MD Unavailable [phone] Reason for Visit * Reason Onset Date Comments Referral 01/14/2024 Encounter Details Date Type Department Care Team ([facility] st Contact Info) Description 01/14/2024 Telephone [facility] MED & PEDS [address] [place], [place] [phone] Viridiana Jacinto FNP [address] [place] [address] Referral Social History Tobacco Use Types Packs/Day [...] is requesting to be referred to a manager intensive care unit. Andrea states she does not know the reasoning or dx of referral requested. Please contact pt for more information at [phone] documented in this encounter Plan of Treatment Upcoming Encounters Date Type Department Care Team (Late st Contact Info) Description 09/22/2025 1:00 PM EST Clinical Support [facility] MED & PEDS [address] [place] [address] 01/13/2026 12:45 PM EDT Office Visit [facility] ADULT DENTAL [address] [place] [address] Thompson Almanzar documented as of this encounter Visit Diagnoses Diagnosis Underweight in childhood- Primary History of eating disorder documented in this encounter Additional Health Concerns Assessment Noted Time PHQ-9 Depression Total Score: 12 024 10:43 AM EST documented as of this encounter Care Teams Profiling Machine Operator Relationship Specialty Start Date End Date Viridiana Jacinto FNP [address] [place] [address] PCP - General Family Medicine 08/26/21 Diego Gtz MD [address] [place] [address] Allergy and Immunology 06/23/25 Ace Benjamin MD [address] [place] [address] [address] [place] [address] Ophthalmology 06/23/25 documented as of this encounter
--- OUTSIDE RECORDS SUMMARY | 2025-09-15 15:15 | XMS_ITS | Encounter Summary ---
Author Organization [employer] Address 75 [facility] 7t [place] [address] Care Team Providers Care Machine Builder Name Role Phone Viridiana Jacinto IRVING Primary Care Provider Diego Gtz MD Unavailable Unavailable Ace Benjamin MD Unavailable [phone] Reason for Visit * Reason Onset Date Comments Med Refill 09/10/2024 Encounter Details Date Type Department Care Team (Late st Contact Info) Description 09/10/2024 Refill [facility] MEDICINE [address] [place] [address] Brina Liz MD [address] [place] [address] On pre-exposure prophylaxis for HIV Social History [...] the past 12 months, has t he [employer] gas, oil or water company threatened to [...] Description 09/22/2025 1:00 PM EST Clinical Support [facility] MED & PEDS [address] [place] [address] 01/13/2026 12:45 PM EDT Office Visit [facility] ADULT DENTAL [address] [place] [address] Thompson Almanzar documented as of this encounter Visit Diagnoses Diagnosis On pre-exposure prophylaxis for HIV documented in this encounter Additional Health Concerns Assessment Noted Time PHQ-9 Depression Total Score: 18 024 2:52 PM EDT documented as of this encounter Care Teams Machine Builder Relationship Specialty Start Date End Date Viridiana Jacinto FNP [address] [place] [address] PCP - General Family Medicine 08/26/21 Diego Gtz MD [address] [place] [address] Allergy and Immunology 06/23/25 Ace Benjamin MD [address] [place] [address] [address] [place] [address] Ophthalmology 06/23/25 documented as of this encounter
--- OUTSIDE RECORDS SUMMARY | 2025-09-15 15:15 | XMS_ITS | Encounter Summary ---
Author Organization [employer] Address [address] [facility] [address] 7[address] [place] [address] Care Team Providers Care Swimmer Name Role Phone Viridiana Jacinto Primary Care Provider [phone] Diego Gtz MD Unavailable Unavailable Ace Benjamin MD Unavailable [phone] Reason for Visit * Reason Onset Date Comments Results 08/17/2025 Encounter Details Date Type Department Care Team ([facility] st Contact Info) Description 08/17/2025 Telephone [facility] MEDICINE [address] [place] [address] Viridiana Jacinto FNP [address] [place] [address] Results Social History Tobacco Use Types Packs/Day [...] encounter Miscellaneous Notes * Telephone Encounter - Enzo Clark - 08/17/2025 3:36 PM EDT TC from pt requesting call back regarding Results. Type of results: Labs Date when done: 08/13/25 Facility: [facility] Labs Please contact pt at [phone]. documented in this encounter Plan of Treatment Upcoming Encounters Date Type Department Care Team ([facility] st Contact Info) Description 09/22/2025 1:00 PM EST Clinical Support [facility] MED & PEDS [address] [place] [address] 01/13/2026 12:45 PM EDT Office Visit [facility] ADULT DENTAL [address] [place] [address] Thompson Almanzar documented as of this encounter Visit Diagnoses Not on filedocumented in this encounter Additional Health Concerns Assessment Noted Time PHQ-9 Depression Total Score: 14 025 11:28 AM EDT documented as of this encounter Care Teams Swimmer Relationship Specialty Start Date End Date Viridiana Jacinto FNP [address] [place] [address] PCP - General Family Medicine 08/26/21 Diego Gtz MD [address] [place] [address] Allergy and Immunology 06/23/25 Ace Benjamin MD [address] [place] [address] Ophthalmology 06/23/25 documented as of this encounter
--- OUTSIDE RECORDS SUMMARY | 2025-09-15 15:15 | XMS_ITS | Encounter Summary ---
Author Organization [employer] Address [address] [place] [address] 7 [place] [address] Care Team Providers Care Wool Broker Name Role Phone Viridiana Jacinto IRVING Primary Care Provider [phone] Diego Gtz MD Unavailable Unavailable Ace Benjamin MD Unavailable [phone] Encounter Details Date Type Department Care Team ([facility] st Contact Info) Description 08/13/2025 Results Follow-Up [facility] MED & PEDS [address] [place], [place] [phone] Nicki Almanzar MD [address] [place] [address] POCT Urinalysis, Culture, Urine, Routine Social History Tobacco Use Types Packs/Day Years [...] Description 09/22/2025 1:00 PM EST Clinical Support [facility] MED & PEDS [address] [place] [address] 01/13/2026 12:45 PM EDT Office Visit [facility] ADULT DENTAL [address] [place] [address] Thompson Almanzar documented as of this encounter Visit Diagnoses Not on filedocumented in this encounter Additional Health Concerns Assessment Noted Time PHQ-9 Depression Total Score: 14 025 11:28 AM EDT documented as of this encounter Care Teams Wool Broker Relationship Specialty Start Date End Date Viridiana Jacinto FNP [address] [place] [address] PCP - General Family Medicine 08/26/21 Diego Gtz MD [address] [place] [address] Allergy and Immunology 06/23/25 Ace Benjamin MD [address] [facility] [address] [place] [address] Ophthalmology 06/23/25 documented as of this encounter
--- OUTSIDE RECORDS SUMMARY | 2025-09-15 15:15 | XMS_ITS | Clinical Summary ---
Author Organization [employer] Address [address] [facility] 7[address] [place] [address] Care Team Providers Care Mdm Sr Name Role Phone Viridiana Jacinto IRVING Primary Care Provider [phone] Diego Gtz MD Unavailable Unavailable Ace Benjamin MD Unavailable [phone] Allergies No known active allergies Medications hydrocortisone 0.5 % creamIndications:E czematous dermatitis of upper eyelids of both eyes Apply topically to eyelid twice daily x 1 week 15 g 1 11/09/19 24 Active hydrOXYzine HCl (Atarax) 10 MG tablet Take 1 tablet (10 mg) by mouth every 8 (eight) hours if needed for anxiety. 30 tablet 2 03/18/20 24 Active triamcinolone (Kenalog) 0.1 % creamIndications:H ealthcare maintenance MIX 80 G TUBE OF TRIAMCINOLONE 0.1% CREAM WITH 16 OZ JAR OF CERAVE CREAM. APPLY 1 TO 2 TIMES PER DAY AFTER SHOWER OR BATH FROM THE NECK DOWN (NOT ON FACE) 80 g 1 09/12/20 24 Active topiramate (Topamax) 50 MG tabletIndications: Migraine without aura and without status migrainosus, not intractable TAKE 1 TABLET BY MOUTH AT BEDTIME 90 tablet 1 09/12/20 24 Active cholecalciferol (Vitamin D High Potency) 25 MCG (1000 UT) capsuleIndications :Healthcare maintenance TAKE 1 CAPSULE BY MOUTH EVERY DAY 90 capsule 1 12/05/19 25 Active medroxyPROGESTERon e (Depo-Provera) 150 MG/ML injection Inject 1 mL (150 mg) into the muscle every 3 (three) months. 1 mL 3 03/24/20 25 Active albuterol 108 (90 Base) MCG/ACT inhalerIndications :Mild intermittent asthma without complication Inhale 2 puffs Every 4-6 hours as needed for wheezing or shortness of breath. 18 g 11 06/24/20 25 026 Active albuterol (2.5 MG/3ML) 0.083% nebulizer solutionIndication s:Mild intermittent asthma without complication Take 3 mL (2.5 mg) by nebulization Every 4-6 hours as needed for wheezing or shortness of breath. 75 mL 5 06/24/20 25 026 Active triamcinolone (Nasacort) 55 MCG/ACT nasal inhaler Administer 2 sprays into each nostril if needed each day for rhinitis or allergies. 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 MAY REPEAT ONCE AFTER 2 HOURS IF NEEDED NO MORE THAN 8 TABLETS IN 24 HOURS 10 tablet 07/31/20 25 Active celecoxib (CeleBREX) 200 MG capsule TAKE 1 CAPSULE BY MOUTH IN THE MORNING AND AT BEDTIME NEEDED FOR MODERATE PAIN 60 capsule 07/31/20 25 Active estrogens, conjugated, (Premarin) 0.625 MG tablet Take once a day for 7 days, may continue for a total of 14 days if still bleeding lightly 14 tablet 09/08/20 25 Active Hospital, Clinic, or Other Facility Administered Medication Ordered Dose Route Frequency Start Date End Date Status Cabotegravir ER Suspension Extended Release 600 mgIndications:On pre-exposure prophylaxis for HIV 600 mg IM Once 09/15/2025 09/15/2025 Ended Active Problems Problem Noted Date Diagnosed [...] (06/24/2025 5:14 PM EDT): Previously following with [facility] (Dr. Gtz), plan to transition care [...] DC med Continues with injectable Cabotegravir through [facility] PrEP navigator - [facility] Healthcare maintenance 04/12/2023 Overview (06/24/2025): -Pap: 01/27/25 NILM, HPV neg -Optometry: March 2025 - eval at [facility] -Contraception: Depo -Last PE: 06/24/25 Slow [...] Encounters Date Type Department Care Team Description 09/15/2025 1:00 PM EST Clinical Support [address] [address] Scarlett Boo, RN On pre-exposure prophylaxis for HIV (Primary Dx) 09/15/[address] [address] Scarlett Boo, RN 09/15/2025 Travel 09/14/2025 Orders Only [facility] [address] [place] [address] Viridiana Jacinto FNP Transaminitis (Primary Dx) 09/08/2025 10:15 AM EST Office Visit [address] [address] Melody Aranda CNM Abnormal uterine bleeding (AUB) (Primary Dx) 09/08/2025 Travel 09/07/2025 Telephone [facility] [address] [place] [address] Tiffanie Zuleta SC 08/23/2025 Orders Only [facility] [address] [place] [address] Nicki Almanzar MD 08/21/2025 Telephone [facility] [address] [place] [address] Viridiana Jacinto FNP Nurse Triage 08/17/[address] [address] Viridiana Jacinto FNP Results 08/13/2025 Results Follow-Up [facility] [address] [place] [address] Nicki Almanzar MD POCT Urinalysis, Culture, Urine, Routine 08/11/2025 3:20 PM EDT Office Visit [facility] [address] [place] [address] Nicki Almanzar MD Vaginal bleeding, abnormal (Primary Dx) 08/11/2025 Travel 08/11/2025 Telephone [facility] [address] [place], [place] [phone] Viridiana Jacinto FNP Nurse Triage 07/31/[address] [address] Viridiana Jacinto FNP Migraine without aura and without status migrainosus, not intractable; Mild intermittent asthma without complication; On pre-exposure prophylaxis for HIV 07/28/2025 Orders Only [address] [address] Tabitha De Luna RN 07/28/2025 Orders Only [address] [address] Tabitha De Luna RN 07/27/2025 Results Follow-Up [facility] [address] [place], [place] [phone] Viridiana Jacinto FNP Lipid Panel, Standard, CBC auto differential, Basic Metabolic Panel, Additional followed-up results: 2 07/23/2025 1:00 PM EDT Clinical Support [address] [address] Scarlett Boo, RN On pre-exposure prophylaxis for HIV (Primary Dx) 07/23/2025 Orders Only [facility] [address] [place] [address] Viridiana Jacinto FNP 07/23/2025 Travel 07/21/[address] [address] Scarlett Boo, RN On pre-exposure prophylaxis for HIV 07/20/[address] [address] Viridiana Jacinto FNP On pre-exposure prophylaxis for HIV 07/17/[address] [address] Viridiana Jacinto FNP On pre-exposure prophylaxis for HIV 07/15/2025 2:00 PM EDT Office Visit [facility] [address] [place], [place] [phone] Thompson Almanzar Dental calculus (Primary Dx) 07/15/2025 Travel 07/03/2025 Refill [facility] MEDICINE [address] [place] [address] Viridiana Jacinto FNP On pre-exposure prophylaxis for HIV 06/30/2025 1:00 PM EDT Clinical Support [facility] [address] [place] [address] Char Armstrong RN On Depo-Provera for contraception 06/30/2025 Travel 06/24/2025 9:15 AM EDT Office Visit [address] [address] Viridiana Jacinto FNP Encounter for routine history and physical examination of adult (Primary Dx); Healthcare maintenance; On pre-exposure prophylaxis for HIV; Migraine without aura and without status migrainosus, not intractable; Mild intermittent asthma without complication; Vitamin D insufficiency; Seasonal allergic rhinitis, unspecified trigger; Urinary tract infection symptoms; Chronic bilateral thoracic back pain; Mood disorder (CMS/HCC); Environmental allergies 06/24/2025 Orders Only [facility] [address] [place] [address] Viridiana Jacinto FNP 06/24/2025 Travel 06/23/[address] [address] Viridiana Jacinto FNP Chart Prep 06/17/2025 Patient Outreach [address] [address] Viridiana Jacinto FNP Pre-visit Planning (Pre visit planning LVM ) from Last 3 Months Immunizations Immunization Administration [...] Sign Reading Time Taken Comments Blood Pressure 98/64 09/08/2025 10:37 AM EST Pulse 94 09/08/2025 10:37 AM EST Temperature 36.9 C (98.4 F) 09/08/2025 10:37 AM EST Respiratory Rate 16 09/08/2025 10:37 AM EST Oxygen Saturation 98% 09/08/2025 10:37 AM EST Inhaled Oxygen Concentration - - Weight 57.9 kg (127 lb 9.6 oz) 09/08/2025 10:37 AM EST Height 154.9 cm (5' 1 ) 08/11/2025 3:36 PM EDT Body Mass Index 24.11 08/11/2025 3:36 PM EDT Plan of Treatment Upcoming Encounters Date Type Department Care Team (Late st Contact Info) Description 09/22/2025 1:00 PM EST Clinical Support [facility] [address] [place] [address] 01/13/2026 12:45 PM EDT Office Visit [facility] [address] [place] [address] Thompson Almanzar Health Maintenance Due Date Last Done Comments Pneumococcal Vaccine: Pediatrics (0 to 5 Years) and At-Risk Patients (6 to 49) Years (1 of 2 - PCV) 2016 COVID-19 Vaccine (4 - season) 2025 01/11/2022, 04/19/2021, 03/29/2021 Influenza Vaccine (#1) 2025 , 07/30/2017, 11/26/2013 Dental X-Ray: Bitewings 10/24/2025 10/23/20 24, 10/25/2023, 09/25/2022, Additional history exists Dental Oral Exam 01/13/2026 07/15/2025, , 10/25/2023, Additional history exists Dental Prophylaxis 01/13/2026 07/15/2025, 0 11/06/2024, 04/29/2024, Additional history exists Family Planning (PISQ) 01/27/2026 01/27/2025 Alcohol/Substance Use Screening 06/24/2026 06/24/2025 SDOH Screening 06/24/2026 06/24/2025 Disability Screening 06/30/2026 06/30/2025 Depression Screening 09/08/2026 09/08/2025, 09/08/20 Tobacco Screening 09/08/2026 09/08/2025 Dental X-Ray: Full Mouth 10/26/2026 023, 12/18/2018, [...] EST On pre-exposure prophylaxis for HIV POCT , URINE Routine 09/08/2025 11:06 AM EST Abnormal uterine bleeding (AUB) POCT HEMOGLOBIN Routine 09/08/2025 11:02 AM EST Abnormal uterine bleeding (AUB) CULTURE, URINE, ROUTINE Routine 08/11/2025 4:13 PM EDT Vaginal bleeding, abnormal POCT URINALYSIS DIPSTICK Routine 08/11/2025 4:11 PM [...] URINE, ROUTINE Routine 06/24/2025 12:00 AM EDT HPV DNA, LOW/HIGH RISK Routine [...] urine manually resulted (09/15/2025 2:05 PM EST) Only the most recent of2 [...] ENTER/EDIT OR DERABLES Final Result * POCT hemoglobin docked device (09/08/2025 11:02 AM EST) Pathologist [facility] Hemoglobin 13 12.0 - 15.0 QC Media Lot # [id number] Lot# Expiration Date [id number] Blood 09/08/2025 11:0 2 AM EST Melody Aranda CNM POINT OF CARE TEST ENTER/ EDIT ORDERABLES Final Result * Culture, Urine, Routine (08/11/2025 4:13 PM EDT) Only the most recent of2 resultswithin the time period is included. Urine Urine specimen obtained by clean catch procedure / Unknown 08/11/2025 4:13 PM EDT 08/11/2025 6:25 PM EDT Comment:[facility] - 08/13/2025 9:23 AM EDT Urine Culture Report Result Urine Culture 50,000 to 100,000 cfu/ml Urine Culture Mixed bacterial mu characteristic of Urine Culture urogenital contamination. Specimen Source: Urine clean catch Nicki Almanzar MD LAB MICROBIOLOGY - GENERAL ORDERABLES Final Result Performing Organization Address [facility]/ZIP Co de Phone Number [facility] [address] [place] [phone] * (ABNORMAL) POCT Urinalysis (08/11/2025 4:11 PM [...] Media Lot # [id number] Lot# Expiration Date [id number] Urine 08/11/2025 4:11 PM EDT Result [facility] Nicki Almanzar MD POINT OF CARE TEST ENTER/ED IT ORDERABLES Edited Result - Final * Hepatitis C Antibody with Reflex to HCV, RNA, Quantitative, Real-Time PCR (07/23/2025 1:34 PM EDT) Hepatitis C Antibody Nonreactive Nonreactive [facility] Comment:Antibodies to HCV no t detected; does not exclude early acuteHCV infection. 07/23/2025 1:34 PM EDT 07/23/2025 4:03 PM EDT Viridiana VILLATORO LAB BLOOD ORDERABLES Final Res ult Performing Organization Address City/[facility]/ZIP Co de Phone Number [facility] [address] [place] [phone] * HIV-1 RNA, Quantitative, Real-Time PCR (07/23/2025 1:34 PM EDT) HIV RNA PCR Qn Copies NOT DETECTED NOT DETECTED copies/mL [facility] HIV RNA PCR Qn Log Copies NOT DETECTED NOT DETECTED [facility] Comment:Result Units: Log co pies/mLThis test was performed using Real-Time Polymerase ChainReaction.Reportable Range: 20 copies/mL to 10,000,000 copies/mL(1.30 log copies/mL to 7.00 log copies/mL).THIS TEST WAS PERFORMED AT:[facility] [address] [id number] SILVA MD 07/23/2025 1:34 PM EDT 07/23/2025 4:03 PM EDT Viridiana Jacinto [facility] LAB BLOOD ORDERABLES Final Res ult Performing Organization Address [facility]/ZIP Co de Phone Number [facility] [address] [place] [phone] * RPR (Monitor) with Reflex to??Titer (07/23/2025 1:34 PM EDT) RPR (Monitor) w/Refl Titer NON-REACTI VE NON-REACT HERACLIO [facility] Comment:THIS TEST WAS PERFOR MED AT:[facility] [address] [address]LRBEISEEMA SILVA MD Rapid Plasma Reagin Ab Titer TNP [facility] 07/23/2025 1:34 PM EDT 07/23/2025 4:03 PM EDT Viridiana Jacinto [facility] LAB BLOOD ORDERABLES Final Res ult Performing Organization Address [facility]/ZIP Co de Phone Number [facility] [address] [place] [phone] * hCG, Total, Quantitative (07/23/2025 1:34 PM EDT) HCG Quantitative <2 mIU/mL [facility] Comment:Weeks post LMP Appro ximate hCG(Last Menstrual Period) Range (mIU/ml)3 - 4 weeks 9 - 1304 - 5 weeks 75 - 2,6005 - 6 weeks 850 - 20,8006 - 7 weeks 4000 - 100,2007 - 12 weeks 11,500 - 289,23513 - 16 weeks 18,300 - 137,78077 - 29 weeks (2nd trimester) 1,400 - 53,55889 - 41 weeks (3rd trimester) 940 - 60,000The Batista B- hCG assay is used for the early detection ofpregnancy; it cannot be used to diagnose any conditionunrelated to . If a B-hCG level is not supportedby the clinical evidence, results should be confirmed by analternative method (qualitative urine hCG, for example). 07/23/2025 1:34 PM EDT 07/23/2025 4:03 PM EDT Viridiana VILLATORO LAB BLOOD ORDERABLES Final Res ult [facility] [address] [place] [phone] * Chlamydia/Gonorrhea Vaginal Swab ([facility]) (07/23/2025) Chlamydia Vaginal Swab Negative Negative, Indeterminate, None Detected, Invalid, Specimen unsatisfactory for evaluation, Weakly Positive, 2+ Gonorrhea Vaginal Swab Negative Negative, Indeterminate, None Detected, Invalid, Specimen unsatisfactory for evaluation, Weakly Positive, 2+ Swab Vaginal structure / Unknown 07/23/2025 Historical Provider LAB MICROBIOLOGY - GENERA L ORDERABLES Final Result * Chlamydia/Gonorrhea Throat Swab ([facility]) (07/23/2025) Chlamydia Throat Swab Negative Gonorrhea Throat Swab Negative Swab 07/23/2025 Historical Provider LAB MICROBIOLOGY - GENERA L ORDERABLES Final Result * Slide Review (06/24/2025 10:41 AM EDT) Slide Review VERIFIED [facility] 06/24/2025 10:4 1 AM EDT 06/24/2025 12:19 PM EDT Viridiana Jacinto PARTS TECHNICIAN LAB BLOOD ORDERABLES Final Res ult [facility] [address] [place] [phone] * (ABNORMAL) Urinalysis, Complete, with Reflex to Culture (06/24/2025 10:41 AM EDT) Color Urine Yellow [facility] Appearance Urine Cloudy [facility] PH 6.0 5.0 - 9.0 [facility] Glucose Urine UA Negative Negative mg/dL [facility] Urine Blood Negative Negative [facility] Specific [place] - Urine >=1.030(H) 1.005 - 1.025 [facility] Urine Protein Negative Neg-Trace mg/dL [facility] Urine Ketones Negative Negative mg/dL [facility] Nitrite Urine Negative Negative [facility] Leukocyte Esterase Urine Moderate (2+)(A) Negative [facility] RBC Urine 0-2 0 - 2 /HPF [facility] Urine WBC 11-20(A) 0 - 5 /HPF [facility] Urine Squamous Epithelial Cell 11-20 0 - 2 /HPF [facility] Urine Bacteria 2+ None Seen [facility] Hyaline Casts, Urine 0-2 0 - 2 /LPF [facility] Urine 06/24/2025 10:4 1 AM EDT 06/24/2025 11:45 AM EDT Narrative [facility] - 06/24/2025 12:01 PM EDT Urine, Clean Catch Viridiana Jacinto PARTS TECHNICIAN LAB URINE ORDERABLES Final Res ult Performing Organization Address [facility]/ZIP Co de Phone Number [facility] [address] [place] [phone] * T-SPOT??.TB (06/24/2025 10:41 AM EDT) T Spot TB Negative Negative [facility] Comment:A negative test resu lt does [...] as aquantitative test. TS PANEL A 0 [facility] TS PANEL B 0 [facility] Negative Control Passed [facility] Positive Control Passed [facility] Comment:For additional infor tom, please refer [email or web address]/[email or web address](This link is being provided for informational/educational purposes only.)THIS TEST WAS PERFORMED AT:[id number] [place] [address]JRYJIPSRANDALL TORRE MD,PHD 06/24/2025 10:4 1 AM EDT 06/24/2025 12:29 PM EDT Viridiana Jacinto [facility] LAB BLOOD ORDERABLES Final Res ult Performing Organization Address [facility]/ZIP Co de Phone Number [facility] [address] [place] [phone] * (ABNORMAL) CBC auto differential (06/24/2025 10:41 AM EDT) White Blood Count 4.6(L) 4.8 - 10.8 X10*3/uL [facility] Red Blood Count 4.77 4.20 - 5.50 X10*6/uL [facility] Hemoglobin 13.6 12.0 - 16.0 g/dl [facility] Hematocrit 42.2 37.0 - 47.0 % [facility] Mean Corpuscular Volume 88.5 80.0 - 98.0 fL [facility] Mean Corpuscular Hemoglobin 28.5 27.0 - 33.0 pg [facility] Mean Corpuscular HGB Conc 32.2 31.0 - 35.0 g/dl [facility] Red Cell Distribution Width 13.4 11.0 - 16.0 % [facility] Platelet Count 265 160 - 400 X10*3/uL [facility] Mean Platelet Volume 10.1 9.4 - 12.3 fL [facility] Neutrophils Percent Auto 24.2(L) 45 - 73 % [facility] Imm Gran Pct Auto 0.2 0.0 - 0.4 % [facility] Lymphocytes Percent Auto 62.3(H) 20 - 40 % [facility] Monocytes Percent Auto 10.2 2 - 11 % [facility] Eosinophils Percent Auto 2.4 0 - 4 % [facility] Basophils Percent Auto 0.7 0 - 2 % [facility] NRBC Pct Auto 0.0 0.0 - 0.2 /100WBC [facility] Neutrophils Absolute Auto 1.1(L) 2.0 - 8.3 x10*3/uL [facility] Imm Gran Abs Auto 0.01 0.00 - 0.03 X10*3/uL [facility] Lymphocytes Absolute Auto 2.9 1.2 - 4.9 X10*3/uL [facility] Monocytes Absolute Auto 0.5 0.1 - 1.2 X10*3/uL [facility] Eosinophils Absolute Auto 0.1 0.0 - 0.4 X10*3/uL [facility] Basophils Absolute Auto 0.0 0.0 - 0.2 X10*3/uL [facility] NRBC Abs Auto 0.000 0.0 - 0.012 X10*3/uL [facility] Blood Venous blood specimen / Unknown 06/24/2025 10:41 AM EDT 06/24/2025 12:19 PM EDT us Viridiana Jacinto PARTS TECHNICIAN LAB BLOOD ORDERABLES Edited Re sult - Final [facility] [address] [place] [phone] * Lipid Panel, Standard (06/24/2025 10:41 AM EDT) Triglycerides 56 <150 mg/dL [facility] Comment:Desirable Triglyceri de: less than 150 mg/dLBorderline High Triglyceride 150-199 mg/dLHigh Triglyceride: 200-499 mg/dLVery High Triglyceride: greater than or equal to 5OO mg/dL Cholesterol 154 <200 mg/dL [facility] Comment:Desirable Cholestero l: less than 200 mg/dLBorderline High Cholesterol: 200-239 mg/dLHigh Cholesterol: greater than 239 mg/dL LDL Cholesterol Calculated 85 <100 mg/dL [facility] Comment:Desirable LDL: less than 100 mg/dLNear Optimal/Above Optimal LDL: 110- 129 mg/dLBorderline High LDL: 130-159 mg/dLHigh LDL: 160-189 mg/dLVery High LDL: greater than or equal to 190 mg/dL HDL Cholesterol 58 >40 mg/dL [facility] Comment:Desirable HDL: great er than 40 mg/dL Note: This HDL assay may give artificially low results in patients with liver disease. Blood Venous blood specimen / Unknown 06/24/2025 10:41 AM EDT 06/24/2025 12:29 PM EDT us Viridiana aJcinto PARTS TECHNICIAN LAB BLOOD ORDERABLES Final Res ult Performing Organization Address City/[facility]/ZIP Co de Phone Number [facility] [address] [place] [phone] * Basic Metabolic Panel (06/24/2025 10:41 AM EDT) Sodium 140 135 - 145 mmol/L [facility] Potassium 3.9 3.3 - 5.1 mmol/L [facility] Chloride 103 96 - 108 mmol/L [facility] Carbon Dioxide 29 22 - 29 mmol/L [facility] Anion Gap 12 12 - 20 [facility] Urea Nitrogen (BUN) 15 9 - 16 mg/dL [facility] Creatinine, Serum 0.88 0.5 - 1.4 mg/dL [facility] Estimated Glomerular Filt Rate >60 [facility] Comment:Chronic Kidney Disea se: Estimated GFR < 60 mL/min/1.64l5Xqpdmm Kidney Disease: Estimated GFR < 15 mL/min/1.73m2 Glucose 83 60 - 115 mg/dL [facility] Calcium 9.5 8.4 - 10.2 mg/dL [facility] Blood Venous blood specimen / Unknown 06/24/2025 10:41 AM EDT 06/24/2025 12:29 PM EDT us Viridiana Jacinto PARTS TECHNICIAN LAB BLOOD ORDERABLES Final Res ult Performing Organization Address [facility]/ZIP Co de Phone Number [facility] [address] [place] [phone] * HPV DNA, Low/High Risk (01/27/2025 9:46 AM EDT) HPV High Risk Negative Negative [facility] HPV Genotype 16 Negative Negative [facility] HPV Genotype 18 Negative Negative [facility] Comment:HPV testing performe d at [facility] (CLIA#[id number]), [address] [place] [phone].Testing for HPV was performed using the Eduardo [...] 9:46 AM EDT 01/28/2025 8:38 AM EDT [facility] - 02/04/2025 2:27 PM EDT Collection Date: [id number] by: YANDEL Burnette: Cervix Melody Aranda CNM LAB BLOOD ORDERABLES Jessica valencia Result [facility] [address] [place] [phone] * Pap Smear (01/27/2025 9:46 AM EDT) Swab Cervix uteri structure / Unknown 01/27/2025 9:46 AM EDT 01/28/2025 7:30 AM EDT [facility] - 02/02/2025 8:29 AM EDT ----- ------- Name: MichelleSerenity Gay Age/Sex: 29/F : 1995 Unit#: [id number] Attend Dr: MELODY ARANDA CNM Re01/27/25 Status: [facility]P [facility]: ----- ------- SPEC : [id number] RECD: 01/28/25 STATUS: DOTTY ESTRELLA NUM: [id number] DANIEL: 01/27/[address] [facility] [address]: MELODY ARANDA CNM ENTERED: 01/28/25 SP [...] CNM LAB CYTOLOGY ORDERABLES F inal Result [facility] [address] [place] [phone] from Last 3 Months or Most Recently Relevant to Health Maintenance Insurance [facility] * Guarantor: Serenity Henson Account Type Relation to Patient Date of Phone Billing Address Personal/Family Self [place], [place] * Guarantor: Serenity Henson Account Type Relation to Patient Date of Phone Billing Address Personal/Family Self [place], [place] Care Teams Mdm Sr Relationship Specialty Start Date End Date Viridiana Jacinto FNP [address] [place], [place] PCP - General Family Medicine 08/26/21 Diego Gtz MD [address] [place] [address] Allergy and Immunology 06/23/25 Ace Benjamin MD [address] [place] [address] [address] [place] [address] Ophthalmology 06/23/25
--- OUTSIDE RECORDS SUMMARY | 2025-09-15 15:15 | XMS_ITS | Encounter Summary ---
Author Organization [employer] Address [address] [place] [address] 7 [place] [address] Care Team Providers Care Skiver Heel Tap Name Role Phone Viridiana Jacinto Primary Care Provider [phone] Diego Gtz MD Unavailable Unavailable Ace Benjamin MD Unavailable [phone] Encounter Details Date Type Department Care Team (Latest Contact Info) Description 11/11/2021 Abstract [facility] CONVERSIONS Dental, Provider, DDS Social [...] [facility] MED & PEDS [address] [place] [address] 01/13/2026 12:45 PM EDT Office Visit [facility] ADULT DENTAL [address] [place] [address] Thompson Almanzar documented as of this encounter Visit Diagnoses Not on filedocumented in this encounter Care Teams Skiver Heel Tap Relationship Specialty Start Date End Date Viridiana Jacinto FNP [address] [place] [address] PCP - General Family Medicine 08/26/21 Diego Gtz MD [address] [place] [address] Allergy and Immunology 06/23/25 Ace Benjamin MD [address] [place] [address] [address] [place] [address] Ophthalmology 06/23/25 documented as of this encounter
--- OUTSIDE RECORDS SUMMARY | 2025-09-15 15:15 | XMS_ITS | Encounter Summary ---
Author Organization [employer] Address [address] [facility] 7t [place] [address] Care Team Providers Care Operations Systems Specialist Name Role Phone Viridiana Jacinto Primary Care Provider [phone] Diego Gtz MD Unavailable Unavailable Ace Benjamin MD Unavailable [phone] Encounter Details Date Type Department Care Team ([facility] st Contact Info) Description 07/27/2025 Results Follow-Up [facility] CH[facility] MED & PEDS [address] [place], [place] [phone] Viridiana Jacinto FNP [address] [place] [address] Lipid Panel, Standard, CBC auto differential, Basic [...] Upcoming Encounters Date Type Department Care Team ([facility] st Contact Info) Description 09/22/2025 1:00 PM EST Clinical Support [facility] MED & PEDS 505 [place] [address] 01/13/2026 12:45 PM EDT Office Visit [facility] ADULT DENTAL 505 [place] [address] Thompson Almanzar Scheduled Orders Name Type Priority [...] documented as of this encounter Care Teams Operations Systems Specialist Relationship Specialty Start Date End Date Viridiana Jacinto FNP [address] [place] [address] PCP - General Family Medicine 08/26/21 Diego Gtz MD [address] [place] [address] Allergy and Immunology 06/23/25 Ace Benjamin MD [address] [place] [address] [address] [place] [address] Ophthalmology 06/23/25 documented as of this encounter
--- OUTSIDE RECORDS SUMMARY | 2025-09-15 15:15 | XMS_ITS | Encounter Summary ---
Author Organization [employer] Address [address] [facility] [address] 7t [place] [address] Care Team Providers Care Senior Property Accountant Name Role Phone Viridiana Jacinto [place] Primary Care Provider [phone] Diego Gtz MD Unavailable Unavailable Ace Benjamin MD Unavailable [phone] Encounter Details Date Type Department Care Team (Late st Contact Info) Description 07/28/2025 Orders Only [facility] MEDICINE [address] [place], [place] [phone] Tabitha De Luna RN Social History Tobacco [...] PM EST Clinical Support [facility] MED & PEDS 505 [place] [address] 01/13/2026 12:45 PM EDT Office Visit [facility] ADULT DENTAL 505 [place] [address] Thompson Almanzar documented as of this encounter Visit Diagnoses Not on filedocumented in this encounter Additional Health Concerns Assessment Noted Time PHQ-9 Depression Total Score: 14 025 11:28 AM EDT documented as of this encounter Care Teams Senior Property Accountant Relationship Specialty Start Date End Date Viridiana Jacinto FNP [address] [place] [address] PCP - General Family Medicine 08/26/21 Diego Gtz MD [address] [place] [address] Allergy and Immunology 06/23/25 Ace Benjamin MD [address] [place] [address] [place] [address] Ophthalmology 06/23/25 documented as of this encounter
--- OUTSIDE RECORDS SUMMARY | 2025-09-15 15:15 | XMS_ITS | Encounter Summary ---
Author Organization [employer] Address [address] [facility] 7t [place] [address] Care Team Providers Care Deburrer Name Role Phone Viridiana Jacinto [place] Primary Care Provider [phone] Diego Gtz MD Unavailable Unavailable Ace Benjamin MD Unavailable [phone] Encounter Details Date Type Department Care Team ([facility] st Contact Info) Description 08/23/2025 Orders Only [facility] CHC MED & PEDS 505 [place], [place] [phone] Nicki Almanzar MD 505 [place] [address] Social History Tobacco Use Types Packs/Day Years [...] [facility] [address] [place] [address] 01/13/2026 12:45 PM EDT Office Visit [facility] ADULT DENTAL [address] [place] [address] Thompson Almanzar documented as of this encounter Visit Diagnoses Not on filedocumented in this encounter Additional Health Concerns Assessment Noted Time PHQ-9 Depression Total Score: 14 025 11:28 AM EDT documented as of this encounter Care Teams Deburrer Relationship Specialty Start Date End Date Viridiana Jacinto FNP [address] [place] [address] PCP - General Family Medicine 08/26/21 Diego Gtz MD [address] [place] [address] Allergy and Immunology 06/23/25 Ace Benjamin MD [address] [place] [address] [address] [place] [address] Ophthalmology 06/23/25 documented as of this encounter
--- OUTSIDE RECORDS SUMMARY | 2025-09-15 15:16 | XMS_ITS | Encounter Summary ---
Author Organization [employer] Address [address] [facility] 7t [place] [address] Care Team Providers Care Process Expert Name Role Phone Viridiana Jacinto [place] Primary Care Provider [phone] Diego Gtz MD Unavailable Unavailable Ace Benjamin MD Unavailable [phone] Encounter Details Date Type Department Care Team (Late st Contact Info) Description 11/15/2023 Orders Only [facility] CHC MED & PEDS [address] [place] [address] Soni Rashid, WILLIAMS [address] [place] [address] Encntr screen for infections w sexl mode [...] Description 09/22/2025 1:00 PM EST Clinical Support [facility] MED & PEDS 505 [place] [address] 01/13/2026 12:45 PM EDT Office Visit [facility] ADULT DENTAL 505 [place] [address] Thompson Almanzar documented as of this encounter Procedures Procedure Name Priority Date/Time Associated Diagnosis Comments RPR (MONITOR) W/REFL TITER Routine 11/21/2023 12:26 PM EST Encntr screen for infections w sexl mode of transmiss documented in this encounter Results * RPR (Monitor) with Reflex to??Titer (11/21/2023 12:26 PM EST) RPR (Monitor) w/Refl Titer NON-REACTI VE NON-REACT [facility] Comment:THIS TEST WAS PERFOR MED AT:[facility] [place] [phone] SILVA MD Rapid Plasma Reagin Ab Titer TNP [facility] Blood Venous blood specimen / Unknown 11/21/2023 12:26 PM EST 11/21/2023 1:25 PM EST us [facility] BLOOD ORDERABLES Jessica l Result [facility] [address] [place] [address] [phone] documented in this encounter Visit Diagnoses Diagnosis Encntr screen for infections w sexl mode of transmiss- Primary documented in this encounter Additional Health Concerns Assessment Noted Time PHQ-9 Depression Total Score: 12 024 10:43 AM EST documented as of this encounter Care Teams Process Expert Relationship Specialty Start Date End Date Viridiana Jacinto FNP [address] [place] [address] PCP - General Family Medicine 08/26/21 Diego Gtz MD [address] [place] [address] Allergy and Immunology 06/23/25 Ace Benjamin MD [address] [place] [address] [address] [place] [address] Ophthalmology 06/23/25 documented as of this encounter
--- OUTSIDE RECORDS SUMMARY | 2025-09-15 15:16 | XMS_ITS | Encounter Summary ---
Author Organization [employer] Address [address] [facility] [address] 7t [place] [address] Care Team Providers Care Career Development Facilitator Name Role Phone Viridiana Jacinto [place] Primary Care Provider [phone] Diego Gtz MD Unavailable Unavailable Ace Benjamin MD Unavailable [phone] Encounter Details Date Type Department Care Team (Latest Contact Info) Description 09/15/2025 Travel Social History Tobacco Use Types Packs/Day [...] 1:00 PM EST Clinical Support [facility] MED & PEDS 505 [place] [address] 01/13/2026 12:45 PM EDT Office Visit [facility] ADULT DENTAL 505 [place] [address] Thompson Almanzar documented as of this encounter Visit Diagnoses Not on filedocumented in this encounter Additional Health Concerns Assessment Noted Time PHQ-9 Depression Total Score: 6 09/08/20 10:39 AM EST documented as of this encounter Care Teams Career Development Facilitator Relationship Specialty Start Date End Date Viridiana Jacinto FNP [address] [place] [address] PCP - General Family Medicine 08/26/21 Diego Gtz MD [address] [place] [address] Allergy and Immunology 06/23/25 Ace Benjamin MD [address] [place] [address] Ophthalmology 06/23/25 documented as of this encounter
--- OUTSIDE RECORDS SUMMARY | 2025-09-15 15:16 | XMS_ITS | Encounter Summary ---
Author Organization [employer] Address [address] [place] [address] 7t [place] [address] Care Team Providers Care Gelatin Plant Supervisor Name Role Phone Viridiana Jacinto MANAGER RN CASE Primary Care Provider [phone] Diego Gtz MD Unavailable Unavailable Ace Benjamin MD Unavailable [phone] Encounter Details Date Type Department Care Team (Late Contact Info) Description 07/19/2023 Orders Only [facility] MEDICINE [address] [place] [address] Brianna Sue ANP 230 [place] [address] Social History Tobacco Use Types Packs/Day Years [...] Description 09/22/2025 1:00 PM EST Clinical Support [facility] MED & PEDS 505 [place] [address] 01/13/2026 12:45 PM EDT Office Visit [facility] ADULT DENTAL [address] [place] [address] Thompson Almanzar documented as of this encounter Visit Diagnoses Not on filedocumented in this encounter Additional Health Concerns Assessment Noted Time PHQ-9 Depression Total Score: 16 023 2:56 PM EDT documented as of this encounter Care Teams Gelatin Plant Supervisor Relationship Specialty Start Date End Date Viridiana Jacinto FNP [address] [place] [address] PCP - General Family Medicine 08/26/21 Diego Gtz MD [address] [place] [address] Allergy and Immunology 06/23/25 Ace Benjamin MD [address] [place] [address] [address] [place] [address] Ophthalmology 06/23/25 documented as of this encounter
--- OUTSIDE RECORDS SUMMARY | 2025-09-15 15:16 | XMS_ITS | Encounter Summary ---
Author Organization [employer] Address [address] [facility] 7t [place] [address] Care Team Providers Care Clerk Entry Level Name Role Phone Viridiana Jacinto Primary Care Provider Diego Gtz MD Unavailable Unavailable Ace Benjamin MD Unavailable [phone] Reason for Visit * Reason Comments Med Refill Encounter Details Date Type Department Care Team (Late st Contact Info) Description 07/20/2025 Refill [facility] MEDICINE 230 [place] [address] Viridiana Jacinto FNP [address] [place] [address] On pre-exposure prophylaxis for HIV Social History [...] Description 09/22/2025 1:00 PM EST Clinical Support [facility]ED[facility] 505 [place] [address] 01/13/2026 12:45 PM EDT Office Visit [facility] ADULT DENT[facility] [address] [place] [address] Thompson Almanzar documented as of this encounter Visit Diagnoses Diagnosis On pre-exposure prophylaxis for HIV documented in this encounter Additional Health Concerns Assessment Noted Time PHQ-9 Depression Total Score: 14 025 11:28 AM EDT documented as of this encounter Care Teams Clerk Entry Level Relationship Specialty Start Date End Date Viridiana Jacinto FNP [address] [place] [address] PCP - General Family Medicine 08/26/21 Diego Gtz MD [address] [place] [address] Allergy and Immunology 06/23/25 cAe Benjamin MD [address] [facility] [address] [place] [address] Ophthalmology 06/23/25 documented as of this encounter
--- OUTSIDE RECORDS SUMMARY | 2025-09-15 15:16 | XMS_ITS | Encounter Summary ---
Author Organization [employer] Address [address] [facility] 7t [place] [address] Care Team Providers Care Truss Designer Name Role Phone Viridiana Jacinto Primary Care Provider [phone] Digeo Gtz MD Unavailable Unavailable Ace Benjamin MD Unavailable [phone] Reason for Visit * Reason Comments Med Refill Encounter Details Date Type Department Care Team (Late st Contact Info) Description 07/17/[address] [facility] MEDICINE [address] [place] [address] Viridiana Jacinot FNP [address] [place] [address] On pre-exposure prophylaxis for HIV Social History [...] Description 09/22/2025 1:00 PM EST Clinical Support [facility] MED & PEDS 505 [place] [address] 01/13/2026 12:45 PM EDT Office Visit [facility] ADULT DENTAL 505 [place] [address] Thompson Almanzar documented as of this encounter Visit Diagnoses Diagnosis On pre-exposure prophylaxis for HIV documented in this encounter Additional Health Concerns Assessment Noted Time PHQ-9 Depression Total Score: 14 025 11:28 AM EDT documented as of this encounter Care Teams Truss Designer Relationship Specialty Start Date End Date Viridiana Jacinto FNP [address] [place] [address] PCP - General Family Medicine 08/26/21 Diego Gtz MD [address] [place] [address] Allergy and Immunology 06/23/25 Ace Benjamin MD [address] [facility] [address] [place] [address] Ophthalmology 06/23/25 documented as of this encounter
--- OUTSIDE RECORDS SUMMARY | 2025-09-15 15:16 | XMS_ITS | Encounter Summary ---
Author Organization [employer] Address [address] [facility] 7t [place] [address] Care Team Providers Care Extract Operator Name Role Phone Viridiana Jacinto MOBILE HOME INSTALLER Primary Care Provider [phone] Diego Gtz MD Unavailable Unavailable Ace Benjamin MD Unavailable [phone] Encounter Details Date Type Department Care Team (Late st Contact Info) Description 03/16/2023 Orders Only [facility] MED & PEDS [address] [place] [address] Elly Harmon LPN Social History Tobacco Use [...] 09/22/2025 1:00 PM EST Clinical Support [facility] MED [facility]ED[facility] [address] [place], [place] [phone] 01/13/2026 12:45 PM EDT Office Visit [facility] ADULT DENTAL [address] [place] [address] Thompson Almanzar documented as of this encounter Visit Diagnoses Not on filedocumented in this encounter Care Teams Extract Operator Relationship Specialty Start Date End Date Viridiana Jacinto FNP [address] [place] [address] PCP - General Family Medicine 08/26/21 Diego Gtz MD [address] [place] [address] Allergy and Immunology 06/23/25 Ace Benjamin MD [address] [place] [address] Ophthalmology 06/23/25 documented as of this encounter
[2025-09-15 16:10] LABS: MANUAL DIFF FLAG NO
[2025-09-15 16:25] LABS: Hematocrit 41.4 % (37.0-47.0); Hemoglobin 13.2 g/dl (12.0-16.0); Imm Gran Abs Auto 0.01 X10*3/uL (0.00-0.03); Imm Gran Pct Auto 0.2 % (0.0-0.4); Lymphocytes Absolute Auto 2.1 X10*3/uL (1.2-4.9); Mean Corpuscular HGB Conc 31.9 g/dl (31.0-35.0); Mean Corpuscular Hemoglobin 28.4 pg (27.0-33.0); Mean Corpuscular Volume 89.2 fL (80.0-98.0); NRBC Abs Auto 0.000 X10*3/uL (0.0-0.012); NRBC Pct Auto 0.0 /100WBC (0.0-0.2); Platelet Count 290 X10*3/uL (160-400); Red Blood Count 4.64 X10*6/uL (4.20-5.50); White Blood Count 4.4 X10*3/uL (4.8-10.8)
[2025-09-15 16:41] LABS: Alanine Aminotransferase 23 U/L (0-31); Albumin Level 4.5 g/dL (3.5-5.0); Alkaline Phosphatase 92 U/L (39-117); Aspartate Amino Transferase 29 U/L (5-31); Total Protein 7.3 g/dL (6.5-8.0)
[2025-09-16 04:38] LABS: HIV Num 1 0.05 S/CO (0.00-0.99); ~HepC Num1 0.10 S/CO (0.00-0.79); ~Hepatitis C Antibody Nonreactive (Nonreactive)
== END 2025-09-15 13:36 | disposition home or self-care (01) ==
LOC: HO.HHCL 13:35
PROVIDERS: PCP Registered Nurse; Visit Provider Registered Nurse
DX: Z11.4 Encounter for screening for human immunodeficiency virus [HIV] (principal); Z11.3 Encounter for screening for infections with a predominantly sexual mode of transmission; Z20.6 Contact with and (suspected) exposure to human immunodeficiency virus [HIV]; Z11.59 Encounter for screening for other viral diseases; D70.9 Neutropenia, unspecified; Z79.899 Other long term (current) drug therapy
CPT/HCPCS: 36415; 80076; 85025; 86592; 86803; 87389

== ENCOUNTER 2025-10-21 11:45 | Outpatient (REF) | payer OTHER, SELFPAY ==
[2025-10-21 15:01] LABS: Alanine Aminotransferase 20 U/L (0-31); Albumin Level 4.7 g/dL (3.5-5.0); Alkaline Phosphatase 97 U/L (39-117); Aspartate Amino Transferase 27 U/L (5-31); Total Protein 7.6 g/dL (6.5-8.0)
--- OUTSIDE RECORDS SUMMARY | 2025-10-21 15:40 | XMS_ITS | Encounter Summary ---
Author Organization [employer] Address [address] [facility] 7t [place] [address] Care Team Providers Care Communication Equipment Mechanic Name Role Phone Viridiana Jacinto Primary Care Provider [phone] Diego Gtz MD Unavailable Unavailable Ace Benjamin MD Unavailable [phone] Reason for Visit * Reason Onset Date Comments Referral 01/14/2024 Encounter Details Date Type Department Care Team ([facility] st Contact Info) Description 01/14/2024 Telephone [facility] CHC MED & PEDS 505 [place], [place] [phone] Viridiana Jacinto FNP [address] [place], [place] [phone] Referral Social History Tobacco Use Types Packs/Day [...] is requesting to be referred to a care transitions nurse. Andrea states she does not know the reasoning or dx of referral requested. Please contact pt for more information at [phone] documented in this encounter Plan of Treatment Upcoming Encounters Date Type Department Care Team (Late st Contact Info) Description 12/14/2025 10:00 AM EST Nurse Only [facility] MED & PEDS [address] [place] [address] 01/13/2026 12:45 PM EDT Office Visit [facility] ADULT DENTAL [address] [place] [address] Thompsno Almanzar documented as of this encounter Visit Diagnoses Diagnosis Underweight in childhood- Primary History of eating disorder documented in this encounter Additional Health Concerns Assessment Noted Time PHQ-9 Depression Total Score: 12 024 10:43 AM EST documented as of this encounter Care Teams Communication Equipment Mechanic Relationship Specialty Start Date End Date Viridiana Jacinto FNP [address] [place] [address] PCP - General Family Medicine 08/26/21 Diego Gtz MD [address] [place] [address] Allergy and Immunology 06/23/25 Ace Benjamin MD [address] [place] [address] [address] [place] [address] Ophthalmology 06/23/25 documented as of this encounter
--- OUTSIDE RECORDS SUMMARY | 2025-10-21 15:40 | XMS_ITS | Encounter Summary ---
Author Organization [employer] [facility] Address [address] [place] [address] 7t [place] [address] Care Team Providers Care Central Supply Assistant Name Role Phone Viridiana Jacinto Primary Care Provider [phone] Diego Gtz MD Unavailable Unavailable Ace Benjamin MD Unavailable [phone] Encounter Details Date Type Department Care Team (Latest Contact Info) Description 12/18/2018 Abstract [facility] CONVERSIONS Dental, Provider, DDS Social History [...] Description 12/14/2025 10:00 AM EST Nurse Only [facility] MED & PEDS [address] [place] [address] 01/13/2026 12:45 PM EDT Office Visit [facility] ADULT DENTAL [address] [place] [address] Thompson Almanzar documented as of this encounter Visit Diagnoses Not on filedocumented in this encounter Care Teams Central Supply Assistant Relationship Specialty Start Date End Date Viridiana Jacinto FNP [address] [place] [address] PCP - General Family Medicine 08/26/21 Diego Gtz MD [address] [place] [address] Allergy and Immunology 06/23/25 Ace Benjamin MD [address] [place] [address] [address] [place] [address] Ophthalmology 06/23/25 documented as of this encounter
--- OUTSIDE RECORDS SUMMARY | 2025-10-21 15:40 | XMS_ITS | Encounter Summary ---
Author Organization [employer] Address [address] [place] [address] 7t [place] [address] Care Team Providers Care Mechanical Design Drafter Name Role Phone Viridiana Jacinto IRVING Primary Care Provider Diego Gtz MD Unavailable Unavailable Ace Benjamin MD Unavailable [phone] Reason for Visit * Reason Onset Date Comments Kun mejia 10/21/2025 Encounter Details Date Type Department Care Team (Late st Contact Info) Description 10/21/2025 Telephone [facility] MEDICINE [address] [place] [address] Scarlett Boo, FILIBERTO [address] [place] [address] Kun mejia Social History Tobacco Use Types Packs/Day Years [...] Telephone Encounter - Scarlett Boo RN - 10/21/2025 11:59 AM EST [facility] appeal containers sales representative form signed by patient and faxed to [facility] appeals team. documented in this encounter Plan of Treatment Upcoming Encounters Date Type Department Care Team (Late st Contact Info) Description 12/14/2025 10:00 AM EST Nurse Only [facility] MED & PEDS [address] [place] [address] 01/13/2026 12:45 PM EDT Office Visit [facility] ADULT DENTAL [address] [place] [address] Thompson Almanzar documented as of this encounter Visit Diagnoses Not on filedocumented in this encounter Additional Health Concerns Assessment Noted Time PHQ-9 Depression Total Score: 6 09/08/20 25 10:39 AM EST documented as of this encounter Care Teams Mechanical Design Drafter Relationship Specialty Start Date End Date Phalen, Viridiana, GREEN INSPECTOR [address] [place] [address] PCP - General Family Medicine 08/26/21 Diego Gtz MD [address] [place] [address] Allergy and Immunology 06/23/25 Ace Benjamin MD [address] [place] [address] Ophthalmology 06/23/25 documented as of this encounter
--- OUTSIDE RECORDS SUMMARY | 2025-10-21 15:40 | XMS_ITS | Clinical Summary ---
Author Organization [email or web address] Address [address] [place] [address] [address] [place] [address] Care Team Providers Care Can Capper Name Role Phone NorbertoViridiana diehl IRVING Primary Care Provider [phone] Diego Gtz MD Unavailable Unavailable Ace Benjamin MD Unavailable [phone] Allergies No known active allergies Medications hydrocortisone 0.5 % creamIndications: Eczematous dermatitis of upper eyelids of both eyes Apply topically to eyelid twice daily x 1 week 15 g 1 024 Active triamcinolone (Kenalog) 0.1 % creamIndications: Healthcare maintenance MIX 80 G TUBE OF TRIAMCINOLONE 0.1% CREAM WITH 16 OZ JAR OF CERAVE CREAM. APPLY 1 TO 2 TIMES PER DAY AFTER SHOWER OR BATH FROM THE NECK DOWN (NOT ON FACE) 80 g 1 024 Active cholecalciferol (Vitamin D High Potency) 25 MCG (1000 UT) capsuleIndication s:Healthcare maintenance TAKE 1 CAPSULE BY MOUTH EVERY DAY 90 capsule 1 025 Active medroxyPROGESTERo ne (Depo-Provera) 150 MG/ML injection Inject 1 mL (150 mg) into the muscle every 3 (three) months. 1 mL 3 09/22/20 25 1:01 PM EST 025 Active albuterol 108 (90 Base) MCG/ACT [...] allergies. 16.5 g 11 025 2025 Active SUMAtriptan (Imitrex) 50 MG tabletIndications :Migraine [...] NEEDED FOR MODERATE PAIN 60 capsule Active estrogens, conjugated, (Premarin) 0.625 MG tablet Take once a day for 7 days, may continue for a total of 14 days if still bleeding lightly 14 tablet Active fexofenadine (Madison) 180 MG tablet Take 180 mg by mouth in the morning. Active Lenacapavir Sodium (Yeztugo) 463.5 MG/1.5ML solutionIndicatio ns:On pre-exposure prophylaxis for HIV Inject 927 mg under the skin every 6 (six) months. Do not start before November 05, 2025. 3 mL 026 2025 Active Lenacapavir Sodium (Yeztugo) 300 MG tabletIndications :On pre-exposure prophylaxis for HIV Take 600 mg by mouth Once per day. Do not start before November 05, 2025. 4 tablet 026 2025 Active hydrOXYzine HCl (Atarax) 10 MG tablet Take 1 tablet (10 mg) by mouth every 8 (eight) hours if needed for anxiety. 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 - Proposed aligning Depo injection Q3 months with Yeztugo injections [id number] when timing overlaps to reduce visit frequency. She prefers administration at [facility] location for efficiency. Chronic bilateral thoracic back pain 06/24/2025 Assessment & Plan (06/24/2025 5:10 PM EDT): - Encouraged to cont with symptomatic management, no red flag symptoms - Attended 2 physical therapy sessions but then lost to follow up, did not find them very helpful - Follow up PRN Environmental allergies 06/24/2025 Assessment & Plan (06/24/2025 5:14 PM EDT): Previously following with [facility] (Dr. Gtz), plan to transition care [...] On pre-exposure prophylaxis for HIV 06/20/2023 Overview (09/28/2025): Previously on Truvada 2022, although discontinued due to elevated Creatinine. Resolved s/p DC med Injectable Cabotegravir through [facility] PrEP navigator - [facility] Jul 2023 - Sep 2025 Assessment & Plan (09/28/2025 6:43 PM EST): - On cabotegravir injection (Apretude) and desires to discontinue due to medication burden. Tail effect of cabotegravir discussed - Transition plan outlined to initiate the six-month injection regimen (Lenacapavir/Yeztugo) before Apretude levels decline. Last Apretude injection approximately September 15, 2025; protection expected through November 10, 2025. Coordinate initiation of the six-month regimen before November 10, 2025 to maintain protective levels. - Communication/coordination with [facility] PrEP team regarding Yeztugo initiation - Risks and side effects reviewed (including tail with Yeztugo) Healthcare maintenance 04/12/2023 Overview (06/24/2025): -Pap: 01/27/25 NILM, HPV neg -Optometry: March 2025 - eval at [facility] -Contraception: Depo -Last PE: 06/24/25 Assessment & Plan (09/28/2025 6:44 PM EST): - Declined influenza and COVID-19 vaccinations Slow transit constipation 04/11/2023 Mild intermittent asthma [...] Encounters Date Type Department Care Team Description 10/21/2025 Orders Only [facility] [address] [place] [address] Viridiana Jacinto FNP 10/21/[address] [address] Scarlett Boo, FILIBERTO mejia 10/08/[address] [address] Errol Barnes RN Yeztugo appeal 10/05/[address] [address] Errol Barnes RN Yeztugo PA 09/28/2025 11:00 AM EST Office Visit [facility] [address] [place] [address] Viridiana Jacinto FNP On pre-exposure prophylaxis for HIV (Primary Dx); Healthcare maintenance; On Depo-Provera for contraception 09/28/2025 Telephone [facility] [address] [place] [address] Viridiana Jacinto FNP Care Coordination 09/28/2025 Travel 09/22/2025 1:00 PM EST Clinical Support [facility] [address] [place] [address] Char Armstrong, FILIBERTO Irregular periods 09/22/2025 Travel 09/21/[address] [address] Scarlett Boo, FILIBERTO 09/15/2025 1:00 PM EST Clinical Support [address] [address] Scarlett Boo, FILIBERTO On pre-exposure prophylaxis for HIV (Primary Dx) 09/15/2025 Orders Only [facility] [address] [place] [address] Viridiana Jacinto FNP 09/15/[address] [address] Scarlett Boo RN 09/15/2025 Travel 09/14/2025 Orders Only [facility] [address] [place] [address] Viridiana Jacinto FNP Transaminitis (Primary Dx) 09/08/2025 10:15 AM EST Office Visit [address] [address] Melody Aranda CNM Abnormal uterine bleeding (AUB) (Primary Dx) 09/08/2025 Travel 09/07/2025 Telephone [facility] [address] [place] [address] Tiffanie Zuleta [place] 08/23/2025 Orders Only [facility] [address] [place] [address] Nicki Almanzar MD 08/21/2025 Telephone [facility] [address] [place] [address] Viridiana Jacinto FNP Nurse Triage 08/17/[address] [address] Viridiana Jacinto FNP Results 08/13/2025 Results Follow-Up [facility] [address] [place] [address] Nicki Almanzar MD POCT Urinalysis, Culture, Urine, Routine 08/11/2025 3:20 PM EDT Office Visit [facility] [address] [place] [address] Nicki Almanzar MD Vaginal bleeding, abnormal (Primary Dx) 08/11/2025 Travel 08/11/2025 Telephone [facility] [address] [place] [address] Viridiana Jacinto FNP Nurse Triage 07/31/[address] [address] Viridiana Jacinto FNP Migraine without aura and without status migrainosus, not intractable; Mild intermittent asthma without complication; On pre-exposure prophylaxis for HIV 07/28/2025 Orders Only [address] [address] Tabitha De Luna RN 07/28/2025 Orders Only [address] [address] Tabitha De Luna RN 07/27/2025 Results Follow-Up [facility] [address] [place] [address] Viridiana Jacinto FNP Lipid Panel, Standard, CBC auto differential, Basic Metabolic Panel, Additional followed-up results: 2 07/23/2025 1:00 PM EDT Clinical Support [address] [address] Scarlett Boo RN On pre-exposure prophylaxis for HIV (Primary Dx) 07/23/2025 Orders Only [facility] [address] [place] [address] Viridiana Jacinto FNP 07/23/2025 Travel from Last 3 Months Immunizations Immunization [...] the past 12 months, has t he [employer], [employer], oil or water [employer] threatened to shut off services in your [...] Sign Reading Time Taken Comments Blood Pressure 114/62 09/28/2025 11:08 AM EST Pulse 72 09/28/2025 11:08 AM EST Temperature 36.2 C (97.2 F) 09/28/2025 11:08 AM EST Respiratory Rate 18 09/28/2025 11:08 AM EST Oxygen Saturation 99% 09/28/2025 11:08 AM EST Inhaled Oxygen Concentration - - Weight 58.1 kg (128 lb) 09/28/2025 11:08 AM EST Height 154.9 cm (5' 1 ) 09/28/2025 11:08 AM EST Body Mass Index 24.19 09/28/2025 11:08 AM EST Plan of Treatment Upcoming Encounters Date Type Department Care Team (Late st Contact Info) Description 12/14/2025 10:00 AM EST Nurse Only [facility] [address] [place] [address] 01/13/2026 12:45 PM EDT Office Visit [facility] [address] [place] [address] Thompson Almanzar Health Maintenance Due Date Last Done Comments Dental X-Ray: Bitewings 10/24/2025 10/23/20, 10/25/2023, 09/25/2022, Additional history exists Dental Oral Exam 01/13/2026 07/15/2025, , 10/25/2023, Additional history exists Dental Prophylaxis 01/13/2026 07/15/2025, 0 11/06/2024, 04/29/2024, Additional history exists Family Planning (PISQ) 01/27/2026 01/27/2025 Influenza Vaccine (#1) 2026 , 07/30/2017, 11/26/2013 Postponed from 07/06/2025 (Patient Refused) Alcohol/Substance Use Screening 06/24/2026 06/24/2025 SDOH Screening 06/24/2026 06/24/2025 Disability Screening 06/30/2026 06/30/2025 Depression Screening 09/08/2026 09/08/2025, 09/08/20 Tobacco Screening 09/08/2026 09/08/2025 COVID-19 Vaccine ( season) 2026 01/11/2022, 04/19/2021, 03/29/2021 Postponed from 07/06/2025 (Patient Refused) Pneumococcal Vaccine: Pediatrics (0 to 5 Years) and At-Risk Patients (6 to 49) Years (1 of 2 - PCV) 09/28/2026 Postponed from 2016 (Patient Refused) Dental X-Ray: Full Mouth 10/26/2026 023, 12/18/2018, [...] 09/15/2013, Additional history exists HIV Screening Completed 09/15/2025, 07/06, 05/28/2025, Additional history exists Hepatitis C Screening Completed 09/15/2025 , 07/23/2025, 05/20/2025, Additional history exists Meningococcal B Vaccine Aged Out No l onger eligible based on patient's age to complete this topic RSV under 20 months Aged Out No longe r eligible based on patient's age to complete this topic Rotavirus Vaccines Aged Out No longer eligible based on patient's age to complete this topic Procedures Procedure Name Priority Date/Time Associated Diagnosis Comments HEPATIC FUNCTION PANEL Routine 10/21/2025 11:55 AM EST POCT , URINE Routine 09/15/2025 2:05 PM EST On pre-exposure prophylaxis for HIV POCT RAPID HIV SCREENING Routine 09/15/2025 1:44 PM EST On pre-exposure prophylaxis for HIV RPR (MONITOR) W/REFL TITER Routine 09/15/2025 1:39 PM EST HIV 1/2 ANTIGEN/ANTIBODY, FOURTH GENERATION W/RFL Routine 09/15/2025 1:39 PM EST HEPATITIS C AB W/REFL TO HCV RNA, QN, PCR Routine 09/15/2025 1:39 PM EST HEPATIC FUNCTION PANEL Routine 09/15/2025 1:39 PM EST Transaminitis CBC WITH AUTO DIFFERENTIAL Routine 09/15/2025 1:39 PM EST Neutropenia, unspecified type (CMS/HCC) POCT , URINE Routine 09/08/2025 11:06 AM [...] CHLAMYDIA/GONORRHEA VAGINAL SWAB ([place] DPH) Routine 07/23/2025 PROPHYLAXIS - ADULT Routine 07/15/2025 2 :00 PM EDT PERIODIC ORAL EVALUATION - ESTABLISHED PATIENT Routine 07/15/2025 2:00 PM EDT HPV DNA, LOW/HIGH RISK Routine 01/27/2025 9:46 AM EDT PAP SMEAR Routine 01/27/2025 9:46 AM EDT Cervical cancer screening BITEWINGS - 4 RADIOGRAPHIC IMAGES Routine 10/23/2024 11:00 AM EST INTRAORAL - COMPLETE SERIES OF RADIOGRAPHIC IMAGES Routine 10/25/2023 9:00 AM EST Dental calculus from Last 3 Months or Most Recently Relevant to Health Maintenance Results * Hepatic Function Panel (10/21/2025 11:55 AM EST) Only the most recent of2 resultswithin the time period is included. Bilirubin, Total 0.7 0.0 - 1.0 mg/dL [facility] Bilirubin, Direct 0.3 0.0 - 0.5 mg/dL [facility] Aspartate Amino Transferase 27 5 - 31 U/L [facility] Alanine Aminotransferase 20 0 - 31 U/L [facility] Total Protein 7.6 6.5 - 8.0 g/dL [facility] Albumin Level 4.7 3.5 - 5.0 g/dL [facility] Alkaline Phosphatase 97 39 - 117 U/L [facility] 10/21/2025 11:5 5 AM EST 10/21/2025 2:19 PM EST Viridiana Jacinto [employer] LAB BLOOD ORDERABLES Final Res ult [facility] [address] [place] [phone] * POCT , urine manually resulted (09/15/2025 [...] Blood 09/15/2025 1:44 PM EST Narrative Scarlett Boo, FILIBERTO - 09/15/2025 1:44 PM EST negative us William Snider MD POINT OF CARE TEST ENTER/EDIT OR DERABLES Final Result * (ABNORMAL) CBC auto differential (09/15/2025 1:39 PM EST) White Blood Count 4.4(L) 4.8 - 10.8 X10*3/uL [facility] Red Blood Count 4.64 4.20 - 5.50 X10*6/uL [facility] Hemoglobin 13.2 12.0 - 16.0 g/dl [facility] Hematocrit 41.4 37.0 - 47.0 % [facility] Mean Corpuscular Volume 89.2 80.0 - 98.0 fL [facility] Mean Corpuscular Hemoglobin 28.4 27.0 - 33.0 pg [facility] Mean Corpuscular HGB Conc 31.9 31.0 - 35.0 g/dl [facility] Red Cell Distribution Width 13.6 11.0 - 16.0 % [facility] Platelet Count 290 160 - 400 X10*3/uL [facility] Mean Platelet Volume 9.9 9.4 - 12.3 fL [facility] Neutrophils Percent Auto 39.7(L) 45 - 73 % [facility] Imm Gran Pct Auto 0.2 0.0 - 0.4 % [facility] Lymphocytes Percent Auto 47.8(H) 20 - 40 % [facility] Monocytes Percent Auto 10.7 2 - 11 % [facility] Eosinophils Percent Auto 1.1 0 - 4 % [facility] Basophils Percent Auto 0.5 0 - 2 % [facility] NRBC Pct Auto 0.0 0.0 - 0.2 /100WBC [facility] Neutrophils Absolute Auto 1.7(L) 2.0 - 8.3 x10*3/uL [facility] Imm Gran Abs Auto 0.01 0.00 - 0.03 X10*3/uL [facility] Lymphocytes Absolute Auto 2.1 1.2 - 4.9 X10*3/uL [facility] Monocytes Absolute Auto 0.5 0.1 - 1.2 X10*3/uL [facility] Eosinophils Absolute Auto 0.1 0.0 - 0.4 X10*3/uL [facility] Basophils Absolute Auto 0.0 0.0 - 0.2 X10*3/uL [facility] NRBC Abs Auto 0.000 0.0 - 0.012 X10*3/uL [facility] Blood Venous blood specimen / Unknown 09/15/2025 1:39 PM EST 09/15/2025 4:08 PM EST Viridiana Jacinto [facility] BLOOD ORDERABLES Final Res ult Performing Organization Address City/[facility]/ZIP Co de Phone Number [facility] [address] [place] [address] [phone] * Hepatitis C Antibody with Reflex to HCV, RNA, Quantitative, Real-Time PCR (09/15/2025 1:39 PM EST) Only the most recent of2 resultswithin the time period is included. Hepatitis C Antibody Nonreactive Nonreactive [facility] Comment:Antibodies to HCV no t detected; does not exclude early acuteHCV infection. 09/15/2025 1:39 PM EST 09/15/2025 4:08 PM EST Viridiana Jacinto [facility] BLOOD ORDERABLES Final Res ult Performing Organization Address [facility] de Phone Number [facility] [address] [place] [address] [phone] * RPR (Monitor) with Reflex to??Titer (09/15/2025 1:39 PM EST) Only the most recent of2 resultswithin the time period is included. RPR (Monitor) w/Refl Titer NON-REACTI VE NON-REACT HERACLIO [facility] Comment:THIS TEST WAS PERFOR MED AT:[employer] [place] [phone] SILVA MD Rapid Plasma Reagin Ab Titer TNP [facility] 09/15/2025 1:39 PM EST 09/15/2025 4:08 PM EST Viridiana Jacinto [facility] BLOOD ORDERABLES Final Res ult Performing Organization Address [facility] Co de Phone Number [facility] [address] [place] [address] [phone] * HIV-1/2 Antigen and Antibodies, Fourth Generation, with Reflexes (09/15/2025 1:39 PM EST) HIV AB/AG Nonreactive Nonreactive [facility] Comment:HIV-1 p24 Ag and/or HIV-1/HIV-2 Ab not detected.A test result that is nonreactive does not exclude thepossibility of exposure to or infection with HIV-1 and/orHIV-2. Nonreactive results in this assay for individualswith prior exposure to HIV-1 and/or HIV-2 may be due toantigen and antibody levels that are below the limit ofdetection of this assay.The CPG Soft HIV Ag/Ab Combo assay result andsupplemental assay results should be interpreted inconjunction with the patient's clinical presentation,history and other laboratory results. If the results areinconsistent with clinical evidence, additional testing issuggested to confirm the result. 09/15/2025 1:39 PM EST 09/15/2025 4:08 PM EST us Viridiana Jacinto [employer] LAB BLOOD ORDERABLES Final Res ult [facility] [address] [place] [phone] * POCT hemoglobin docked device (09/08/2025 11:02 AM EST) Hemoglobin 13 12.0 - 15.0 QC Media Lot # [id number] Lot# Expiration Date ,[id number] Blood 09/08/2025 11:0 2 AM EST Melody Aranda CNM POINT OF CARE TEST ENTER/ EDIT ORDERABLES Final Result * Culture, Urine, Routine (08/11/2025 4:13 PM EDT) Urine Urine specimen obtained by clean catch procedure / Unknown 08/11/2025 4:13 PM EDT 08/11/2025 6:25 PM EDT Comment:UACC Narrative [facility] - 08/13/2025 9:23 AM EDT Urine Culture Report Result Urine Culture 50,000 to 100,000 cfu/ml Urine Culture Mixed bacterial mu characteristic of Urine Culture urogenital contamination. Specimen Source: Urine clean catch Nicki Almanzar MD LAB MICROBIOLOGY - GENERAL ORDERABLES Final Result [facility] [address] [place] [address] [phone] * (ABNORMAL) POCT Urinalysis (08/11/2025 4:11 [...] Media Lot # [id number] Lot# Expiration Date [id number] Urine 08/11/2025 4:11 PM EDT Nicki Almanzar MD POINT OF CARE TEST ENTER/ED IT ORDERABLES Edited Result - Final * HIV-1 RNA, Quantitative, Real-Time PCR (07/23/2025 1:34 PM EDT) HIV RNA PCR Qn Copies NOT DETECTED NOT DETECTED copies/mL [facility] HIV RNA PCR Qn Log Copies NOT DETECTED NOT DETECTED [facility] Comment:Result Units: Log co pies/mLThis test was performed using Real-Time Polymerase ChainReaction.Reportable Range: 20 copies/mL to 10,000,000 copies/mL(1.30 log copies/mL to 7.00 log copies/mL).THIS TEST WAS PERFORMED AT:[employer] [place] [phone] SILVA MD 07/23/2025 1:34 PM EDT 07/23/2025 4:03 PM EDT Viridiana Ophelia [facility] BLOOD ORDERABLES Final Res ult Performing Organization Address [facility]/ZIP Co de Phone Number [facility] [address] [place] [address] [phone] * hCG, Total, Quantitative (07/23/2025 1:34 PM EDT) HCG Quantitative <2 mIU/mL [facility] Comment:Weeks post LMP Appro ximate hCG(Last Menstrual Period) Range (mIU/ml)3 - 4 weeks 9 - 1304 - 5 weeks 75 - 2,6005 - 6 weeks 850 - 20,8006 - 7 weeks 4000 - 100,2007 - 12 weeks 11,500 - 289,82176 - 16 weeks 18,300 - 137,41161 - 29 weeks (2nd trimester) 1,400 - 53,57694 - 41 weeks (3rd trimester) 940 - 60,000The Batista B- hCG assay is used for the early detection ofpregnancy; it cannot be used to diagnose any conditionunrelated to . If a B-hCG level is not supportedby the clinical evidence, results should be confirmed by analternative method (qualitative urine hCG, for example). 07/23/2025 1:34 PM EDT 07/23/2025 4:03 PM EDT Viridiana [facility] BLOOD ORDERABLES Final Res ult Performing Organization Address [facility]/ZIP Co de Phone Number [facility] [address] [place] [address] [phone] * Chlamydia/Gonorrhea Vaginal Swab ([place] DPH) (07/23/2025) Chlamydia Vaginal Swab Negative Negative, Indeterminate, None Detected, Invalid, Specimen unsatisfactory for evaluation, Weakly Positive, 2+ Gonorrhea Vaginal Swab Negative Negative, Indeterminate, None Detected, Invalid, Specimen unsatisfactory for evaluation, Weakly Positive, 2+ Swab Vaginal structure / Unknown 07/23/2025 Historical Provider MD LAB MICROBIOLOGY - GENERA L ORDERABLES Final Result * Chlamydia/Gonorrhea Throat Swab ([place]HEMI[place] DPH) (07/23/2025) Chlamydia Throat Swab Negative Gonorrhea Throat Swab Negative Swab 07/23/2025 Historical Provider MD LAB MICROBIOLOGY - GENERA L ORDERABLES Final Result * HPV DNA, Low/High Risk (01/27/2025 9:46 AM EDT) HPV High Risk Negative Negative [facility] HPV Genotype 16 Negative Negative [facility] HPV Genotype 18 Negative Negative [facility] Comment:HPV testing performe d at [facility] (CLIA#[id number]), [address] [place] [address].Testing for HPV was performed using the Eduardo [...] AM EDT 01/28/2025 8:38 AM EDT Narrative [facility] - 02/04/2025 2:27 PM EDT Collection Date: [id number] by: YANDEL Burnette: Cervix Melody ALARCON LAB BLOOD ORDERABLES Jessica l Result [facility] [address] [place] [phone] * Pap Smear (01/27/2025 9:46 AM EDT) Swab Cervix uteri structure / Unknown 01/27/2025 9:46 AM EDT 01/28/2025 7:30 AM EDT [facility] - 02/02/2025 8:29 AM EDT ----- ------- Name: Michelle HinesSerenity Age/Sex: 29/F : 1995 Unit#: [id number] Attend Dr: MELODY ARANDA CNM Re01/27/25 Status: DEP REF Location: HO.LNP Disch: ----- ------- SPEC : [id number] RECD: 01/28/25 STATUS: DOTTY ESTRELLA NUM: [id number] DANIEL: 01/27/[address] [facility] DR: MELODY ARANDA CNM ENTERED: 01/28/25 SP TYPE: Pap [facility] : ORDERED: Pap Smear Interpretation Satisfactory for evaluation. Negative for intraepithelial lesion or malignancy. HPV High Risk: Negative HPV Genotyping 16: Negative HPV Genotyping 18: Negative Clinical Information LMP:Unknown date Previous PAP test:2021 NIL Material Received ThinPrep-Cervical ----- ------- Signed (signature on file) LAILA Ji ([facility]) 02/02/25 0829 ----- ------- END OF REPORT Melody Aranda [facility] LAB CYTOLOGY ORDERABLES F inal Result [facility] [address] [place] [address] [phone] from Last 3 Months or Most Recently Relevant to Health Maintenance Insurance [facility] 2 * Guarantor: Serenity Henson Account Type Relation to Patient Date of Phone Billing Address Dental Self 1995 [address] [facility] [address] [place], [place] [employer] AD[place] Care Teams Can Capper Relationship Specialty Start Date End Date Viridiana Jacinto FNP [address] [place] [address] PCP - General Family Medicine 08/26/21 Diego Gtz MD [address] [place] [address] [place] [address] Allergy and Immunology 06/23/25 Ace Benjamin MD [address] [place] [address] [address] [facility] [address] [place], [place] Ophthalmology 06/23/25
--- OUTSIDE RECORDS SUMMARY | 2025-10-21 15:40 | XMS_ITS | Encounter Summary ---
Author Organization [employer] Address [address] [place] [address] 7t [place] [address] Care Team Providers Care College Of Education Dean Name Role Phone Viridiana Jacinto Primary Care Provider [phone] Diego Gtz MD Unavailable Unavailable Ace Benjamin MD Unavailable [phone] Encounter Details Date Type Department Care Team ([facility] st Contact Info) Description 10/21/2025 Orders Only [facility] MED & PEDS [address] [place], [place] [phone] Viridiana Jacinto FNP 505 [place], [place] [phone] Social History Tobacco Use Types Packs/Day Years [...] Description 12/14/2025 10:00 AM EST Nurse Only [facility] MED & PEDS [address] [place] [address] 01/13/2026 12:45 PM EDT Office Visit [facility] ADULT DENTAL [address] [place] [address] Thompson Almanzar documented as of this encounter Procedures Procedure Name Priority Date/Time Associated Diagnosis Comments HEPATIC FUNCTION PANEL Routine 10/21/2025 11:55 AM EST documented in this encounter Results * Hepatic Function Panel (10/21/2025 11:55 AM EST) Bilirubin, Total 0.7 0.0 - 1.0 mg/dL [facility] Bilirubin, Direct 0.3 0.0 - 0.5 mg/dL [facility] Aspartate Amino Transferase 27 5 - 31 U/L [facility] Alanine Aminotransferase 20 0 - 31 U/L [facility] Total Protein 7.6 6.5 - 8.0 g/dL [facility] Albumin Level 4.7 3.5 - 5.0 g/dL [facility] Alkaline Phosphatase 97 39 - 117 U/L [facility] 10/21/2025 11:5 5 AM EST 10/21/2025 2:19 PM EST Viridiana VILLATORO LAB BLOOD ORDERABLES Final Res ult [facility] [address] [place] [address] [phone] documented in this encounter Visit Diagnoses Not on filedocumented in this encounter Additional Health Concerns Assessment Noted Time PHQ-9 Depression Total Score: 6 09/08/20 10:39 AM EST documented as of this encounter Care Teams College [employer] Dean Relationship Specialty Start Date End Date Viridiana Jacinto FNP [address] [place] [address] PCP - General Family Medicine 08/26/21 Diego Gtz MD [address] [place] [address] Allergy and Immunology 06/23/25 Ace Benjamin MD [address] [place] [address] [address] [place] [address] Ophthalmology 06/23/25 documented as of this encounter
--- OUTSIDE RECORDS SUMMARY | 2025-10-21 15:40 | XMS_ITS | Encounter Summary ---
Author Organization [employer] Address [address] [facility] 7t [place] [address] Care Team Providers Care Ict Account Manager Name Role Phone Viridiana Jacinto IRVING Primary Care Provider [phone] Diego Gtz MD Unavailable Unavailable Ace Benjamin MD Unavailable [phone] Reason for Visit * Reason Onset Date Comments Med Refill 09/10/2024 Encounter Details Date Type Department Care Team (Late st Contact Info) Description 09/10/2024 Refill [facility] MEDICINE [address] [place] [address] Brina Liz MD 230 [place] [address] On pre-exposure prophylaxis for HIV Social History [...] Description 12/14/2025 10:00 AM EST Nurse Only [facility] MED & PEDS 505 [place] [address] 01/13/2026 12:45 PM EDT Office Visit [facility] ADULT DENTAL 505 [place] [address] Thompson Almanzar documented as of this encounter Visit Diagnoses Diagnosis On pre-exposure prophylaxis for HIV documented in this encounter Additional Health Concerns Assessment Noted Time PHQ-9 Depression Total Score: 18 024 2:52 PM EDT documented as of this encounter Care Teams Ict Account Manager Relationship Specialty Start Date End Date Viridiana Jacinto FNP [address] [place] [address] PCP - General Family Medicine 08/26/21 Diego Gtz MD [address] [place] [address] Allergy and Immunology 06/23/25 Ace Benjamin MD [address] [place] [address] [address] [place] [address] Ophthalmology 06/23/25 documented as of this encounter
--- OUTSIDE RECORDS SUMMARY | 2025-10-21 15:40 | XMS_ITS | Encounter Summary ---
Author Organization [employer] Address [address] [place] [address] 7t [place] [address] Care Team Providers Care Sales Enablement Lead Name Role Phone Viridiana Jacinto Primary Care Provider [phone] Diego Gtz MD Unavailable Unavailable Ace Benjamin MD Unavailable [phone] Encounter Details Date Type Department Care Team (Latest Contact Info) Description 11/11/2021 Abstract [facility] Dental, Provider, DDS Social History Tobacco [...] Description 12/14/2025 10:00 AM EST Nurse Only [facility] MED & PEDS 505 [place] [address] 01/13/2026 12:45 PM EDT Office Visit [facility] ADULT DENTAL 505 [place] [address] Thompson Almanzar documented as of this encounter Visit Diagnoses Not on filedocumented in this encounter Care Teams Sales Enablement Lead Relationship Specialty Start Date End Date Viridiana Jacinto FNP 230 [place] [address] PCP - General Family Medicine 08/26/21 Diego Gtz MD [address] [place] [address] Allergy and Immunology 06/23/25 Ace Benjamin MD [address] [place] [address] [address] [place] [address] Ophthalmology 06/23/25 documented as of this encounter
--- OUTSIDE RECORDS SUMMARY | 2025-10-21 15:41 | XMS_ITS | Encounter Summary ---
Author Organization [employer] Address [address] [facility] [address] 7t [place] [address] Care Team Providers Care Bread Slicer Machine Name Role Phone Viridiana Jacinto IRVING Primary Care Provider [phone] Diego Gtz MD Unavailable Unavailable Ace Benjamin MD Unavailable [phone] Encounter Details Date Type Department Care Team (Late st Contact Info) Description 07/28/2025 Orders Only [facility] MEDICINE 230 [place] [address] Tabitha De Luna, FILIBERTO Social History Tobacco Use Types Packs/Day Years [...] your housing situation today? I have juan dorian 06/24/[address] you li [...] Description 12/14/2025 10:00 AM EST Nurse Only [facility] MED & PEDS [address] [place] [address] 01/13/2026 12:45 PM EDT Office Visit [facility] ADULT DENTAL [address] [place] [address] Thompson Almanzar documented as of this encounter Visit Diagnoses Not on filedocumented in this encounter Additional Health Concerns Assessment Noted Time PHQ-9 Depression Total Score: 14 025 11:28 AM EDT documented as of this encounter Care Teams Bread Slicer Machine Relationship Specialty Start Date End Date Viridiana Jacinto FNP [address] [place] [address] PCP - General Family Medicine 08/26/21 Dieog Gtz MD [address] [place] [address] Allergy and Immunology 06/23/25 Ace Benjamin MD [address] [place] [address] [address] [facility] [address] [place] [address] Ophthalmology 06/23/25 documented as of this encounter
--- OUTSIDE RECORDS SUMMARY | 2025-10-21 15:41 | XMS_ITS | Encounter Summary ---
Author Organization [employer] Address [address] [facility] 7t [place] [address] Care Team Providers Care Booky Name Role Phone Viridiana Jacinto Primary Care Provider [phone] Diego Gtz MD Unavailable Unavailable Ace Benjamin MD Unavailable [phone] Reason for Visit * Reason Comments Med Refill Encounter Details Date Type Department Care Team ([facility] st Contact Info) Description 07/17/2025 Refill [facility] MEDICINE 230 [place] [address] Viridiana Jacinto FNP [address] [place] [address] On pre-exposure prophylaxis for HIV Social History [...] [facility] MED & PEDS 505 [place] [address] 01/13/2026 12:45 PM EDT Office Visit [facility] ADULT DENTAL 505 [place] [address] Thompson Almanzar documented as of this encounter Visit Diagnoses Diagnosis On pre-exposure prophylaxis for HIV documented in this encounter Additional Health Concerns Assessment Noted Time PHQ-9 Depression Total Score: 14 025 11:28 AM EDT documented as of this encounter Care Teams Booky Relationship Specialty Start Date End Date Viridiana Jacinto FNP [address] [place] [address] PCP - General Family Medicine 08/26/21 Diego Gtz MD [address] [place] [address] Allergy and Immunology 8/19/25 Ace Benjamin MD [address] [place] [address] [address] [place] [address] Ophthalmology 06/23/25 documented as of this encounter
--- OUTSIDE RECORDS SUMMARY | 2025-10-21 15:41 | XMS_ITS | Encounter Summary ---
Author Organization [employer] Address [address] [place] [address] 7t [place] [address] Care Team Providers Care Is Technician Name Role Phone Viridiana Jacinto IRVING Primary Care Provider [phone] Diego Gtz MD Unavailable Unavailable Ace Benjamin MD Unavailable [phone] Encounter Details Date Type Department Care Team ([facility] Contact Info) Description 07/19/2023 Orders Only [facility] MEDICINE [address] [place] [address] Brianna Sue ANP [address] [place] [address] Social History Tobacco Use Types Packs/Day Years [...] Department Care Team (Late Contact Info) Description 12/14/2025 10:00 AM EST Nurse Only [facility] 505 [place], [place] [phone] 01/13/2026 12:45 PM EDT Office Visit [facility] [address] [place] [address] Thompson Almanzar documented as of this encounter Visit Diagnoses Not on filedocumented in this encounter Additional Health Concerns Assessment Noted Time PHQ-9 Depression Total Score: 16 04/12/2 023 2:56 PM EDT documented as of this encounter Care Teams Is Technician Relationship Specialty Start Date End Date Viridiana Jacinto FNP [address] [place] [address] PCP - General Family Medicine 08/26/21 Diego Gtz MD [address] [place] [address] Allergy and Immunology 06/23/25 Ace Benjamin MD [address] [place] [address] [address] [place] [address] Ophthalmology 06/23/25 documented as of this encounter
--- OUTSIDE RECORDS SUMMARY | 2025-10-21 15:41 | XMS_ITS | Encounter Summary ---
Author Organization [employer] Address [address] [facility] 7t [place] [address] Care Team Providers Care Supply Chain Technician Name Role Phone Viridiana Jacinto Primary Care Provider [phone] Diego Gtz MD Unavailable Unavailable Ace Benjamin MD Unavailable [phone] Reason for Visit * Reason Comments Med Refill Encounter Details Date Type Department Care Team ([facility] st Contact Info) Description 07/20/2025 Refill [facility] MEDICINE 230 [place] [address] Viridiana Jacinto FNP [address] [place] [address] On pre-exposure prophylaxis for HIV Social History [...] Description 12/14/2025 10:00 AM EST Nurse Only [facility] MED & PEDS 505 [place] [address] 01/13/2026 12:45 PM EDT Office Visit [facility] ADULT DENTAL 505 [place] [address] Thompson Almanzar documented as of this encounter Visit Diagnoses Diagnosis On pre-exposure prophylaxis for HIV documented in this encounter Additional Health Concerns Assessment Noted Time PHQ-9 Depression Total Score: 14 025 11:28 AM EDT documented as of this encounter Care Teams Supply Chain Technician Relationship Specialty Start Date End Date Viridiana Jacinto FNP [address] [place] [address] PCP - General Family Medicine 08/26/21 Diego Gtz MD [address] [place] [address] Allergy and Immunology 8/19/25 Ace Benjamin MD [address] [place] [address] [address] [place] [address] Ophthalmology 06/23/25 documented as of this encounter
--- OUTSIDE RECORDS SUMMARY | 2025-10-21 15:41 | XMS_ITS | Encounter Summary ---
Author Organization [employer] Address [address] [place] [address] 7t [place] [address] Care Team Providers Care Drilling Field Professional Name Role Phone Viridiana Jacinto IRVING Primary Care Provider [phone] Diego Gtz MD Unavailable Unavailable Ace Benjamin MD Unavailable Encounter Details Date Type Department Care Team ([facility] st Contact Info) Description 08/23/2025 Orders Only [facility] MED & PEDS 505 [place], [place] [phone] Nicki Almanzar MD 505 [place] [address] Social History Tobacco Use Types Packs/Day Years [...] [facility] [address] [place] [address] 01/13/2026 12:45 PM EDT Office Visit [facility] ADULT DENT[facility] 505 [place] [address] Thompson Almanzar documented as of this encounter Visit Diagnoses Not on filedocumented in this encounter Additional Health Concerns Assessment Noted Time PHQ-9 Depression Total Score: 14 025 11:28 AM EDT documented as of this encounter Care Teams Drilling Field Professional Relationship Specialty Start Date End Date Viridiana Jacinto FNP [address] [place] [address] PCP - General Family Medicine 08/26/21 Diego Gtz MD [address] [place] [address] Allergy and Immunology 06/23/25 Ace Benjamin MD [address] [facility] [facility] [facility] [address] [facility] [address] [place] [address] Ophthalmology 06/23/25 documented as of this encounter
--- OUTSIDE RECORDS SUMMARY | 2025-10-21 15:41 | XMS_ITS | Encounter Summary ---
Author Organization [employer] Address [address] [place] [address] 7t [place] [address] Care Team Providers Care Senior Information Security Architect Name Role Phone Viridiana Jacinto Primary Care Provider [phone] Diego Gtz MD Unavailable Unavailable Ace Benjamin MD Unavailable [phone] Encounter Details Date Type Department Care Team ([facility] st Contact Info) Description 03/24/2025 Orders Only [facility] MED [facility] PEDS 505 [place], [place] [phone] Viridiana Jacinto FNP 505 [place], [place] [phone] Social History Tobacco Use Types Packs/Day Years [...] Description 12/14/2025 10:00 AM EST Nurse Only [facility] MED & PEDS 505 [place] [address] 01/13/2026 12:45 PM EDT Office Visit [facility] ADULT DENTAL 505 [place] [address] Thompson Almanzar documented as of this encounter Visit Diagnoses Not on filedocumented in this encounter Additional Health Concerns Assessment Noted Time PHQ-9 Depression Total Score: 14 025 11:28 AM EDT documented as of this encounter Care Teams Senior Information Security Architect Relationship Specialty Start Date End Date Viridiana Jacinto FNP 230 [place] [address] PCP - General Family Medicine 08/26/21 Diego Gtz MD [address] [place] [address] Allergy and Immunology 06/23/25 Ace Benjaimn MD [address] [place] [address] Ophthalmology 06/23/25 documented as of this encounter
--- OUTSIDE RECORDS SUMMARY | 2025-10-21 15:41 | XMS_ITS | Encounter Summary ---
Author Organization [employer] Address [address] [facility] 7t [place] [address] Care Team Providers Care Child Welfare Social Worker Name Role Phone Viridiana Jacinto IRVING Primary Care Provider [phone] Diego Gtz MD Unavailable Unavailable Ace Benjamin MD Unavailable [phone] Encounter Details Date Type Department Care Team (Late st Contact Info) Description 11/15/2023 Orders Only [facility] MED & PEDS [address] [place] [address] Soni Rashid CNM 230 [place] [address] Encntr screen for infections w sexl mode [...] housing situation today? I have juan dorian 08/20/[address] you li [...] 12/14/2025 10:00 AM EST Nurse Only [facility] MED & PEDS 505 [place] [address] 01/13/2026 12:45 PM EDT Office Visit [facility] ADULT DENTAL 505 [place] [address] Thompson Almanzar documented as of this encounter Procedures Procedure Name Priority Date/Time Associated Diagnosis Comments RPR (MONITOR) W/REFL TITER Routine 11/21/2023 12:26 PM EST Encntr screen for infections w sexl mode of transmiss documented in this encounter Results * RPR (Monitor) with Reflex to??Titer (11/21/2023 12:26 PM EST) RPR (Monitor) w/Refl Titer NON-REACTI VE NON-REACT [facility] Comment:THIS TEST WAS PERFOR MED AT:[address] [place] [id number] SILVA MD Rapid Plasma Reagin Ab Titer TNP [facility] Blood Venous blood specimen / Unknown 11/21/2023 12:26 PM EST 11/21/2023 1:25 PM EST us Soni Rashid CN LAB BLOOD ORDERABLES Jessica l Result [facility] [address] [place] [address] [phone] documented in this encounter Visit Diagnoses Diagnosis Encntr screen for infections w sexl mode of transmiss- Primary documented in this encounter Additional Health Concerns Assessment Noted Time PHQ-9 Depression Total Score: 12 024 10:43 AM EST documented as of this encounter Care Teams Child Welfare Social Worker Relationship Specialty Start Date End Date Viridiana Jacinto FNP [address] [place] [address] PCP - General Family Medicine 08/26/21 Diego Gtz MD [address] [place] [address] Allergy and Immunology 06/23/25 Ace Benjamin MD [address] [place] [address] [address] [place] [address] Ophthalmology 06/23/25 documented as of this encounter
--- OUTSIDE RECORDS SUMMARY | 2025-10-21 15:41 | XMS_ITS | Encounter Summary ---
Author Organization [employer] Address [address] [facility] 7t [place] [address] Care Team Providers Care Senior Ssis Developer Name Role Phone Viridiana Jacinto Primary Care Provider [phone] Diego Gtz MD Unavailable Unavailable Ace Benjamin MD Unavailable [phone] Reason for Visit * Reason Onset Date Comments Results 08/17/2025 Encounter Details Date Type Department Care Team ([facility] st Contact Info) Description 08/17/[address] [facility] MEDICINE [address] [place] [address] Viridiana Jacinto FNP [address] [place], [place] [phone] Results Social History Tobacco Use Types Packs/Day [...] results: Labs Date when done: 08/13/25 Facility: [facility] Labs Please contact pt at [phone]. documented in this encounter Plan of Treatment Upcoming Encounters Date Type Department Care Team ([facility] st Contact Info) Description 12/14/2025 10:00 AM EST Nurse Only [facility] 505 [place] [address] 01/13/2026 12:45 PM EDT Office Visit [facility] 505 [place] [address] Thompson Almanzar documented as of this encounter Visit Diagnoses Not on filedocumented in this encounter Additional Health Concerns Assessment Noted Time PHQ-9 Depression Total Score: 14 025 11:28 AM EDT documented as of this encounter Care Teams Senior Ssis Developer Relationship Specialty Start Date End Date Viridiana Jacinto FNP [address] [place] [address] PCP - General Family Medicine 08/26/21 Diego Gtz MD [address] [place] [address] Allergy and Immunology 06/23/25 Ace Benjamin MD [address] [place] [address] [address] [place] [address] Ophthalmology 06/23/25 documented as of this encounter
--- OUTSIDE RECORDS SUMMARY | 2025-10-21 15:41 | XMS_ITS | Encounter Summary ---
Author Organization [employer] Address [address] [place] [address] 7[place] [address] Care Team Providers Care Maintainer Plant Name Role Phone Viridiana Jacinto IRVING Primary Care Provider [phone] Diego Gtz MD Unavailable Unavailable Ace Benjamin MD Unavailable [phone] Encounter Details Date Type Department Care Team (Late Contact Info) Description 03/16/2023 Orders Only [facility] MED & PEDS 505 [place] [address] Elly Harmon LPN Social History Tobacco Use [...] Recorded In the last 10 days, have lois agudelo been in contact with someone who was confirmed or suspected to have Coronavirus/COVID-19? No / Unsure 03/09/2023 11:33 AM EDT documented as of this encounter Plan of Treatment Upcoming Encounters Date Type Department Care Team (Late Contact Info) Description 12/14/2025 10:00 AM EST Nurse Only [facility] MED & PEDS 505 [place] [address] 01/13/2026 12:45 PM EDT Office Visit [facility] ADULT DENTAL 505 [place] [address] Thompson Almanzar documented as of this encounter Visit Diagnoses Not on filedocumented in this encounter Care Teams Maintainer Plant Relationship Specialty Start Date End Date Viridiana Jacinto FNP 230 [place] [address] PCP - General Family Medicine 08/26/21 Diego Gtz MD [address] [place] [address] Allergy and Immunology 06/23/25 Ace Benjamin MD [address] [place] [address] [address] [place] [address] Ophthalmology 06/23/25 documented as of this encounter
== END 2025-10-21 11:46 | disposition home or self-care (01) ==
LOC: HO.HHCL 11:45
PROVIDERS: PCP Registered Nurse; Visit Provider Registered Nurse
DX: R74.01 Elevation of levels of liver transaminase levels (principal)
CPT/HCPCS: 36415; 80076